=== PATIENT | male | born 1945 | race African-American/Black ===

== ENCOUNTER 2019-02-22 13:15 | Inpatient (IN) | payer MEDICARE ==
[~2019-02-22] VITALS: Ht 180.3 cm; Wt 84.9 kg
[2019-02-22] VITALS (8 sets, daily range): BP systolic 135–164; BP diastolic 55–80
[~2019-02-22 13:15] MED LIST: ALBU2.5V8 INH; AMIO200T4 PO; AMLO10TA8 PO; ASPI-612 PO; ATOR40TA59 PO; BUDE180A IH; FERR324T5 PO; FURO-68 PO; FURO-69 PO; FURO20TA3 PO; FURO40TA4 PO; GUAI5SYR PO; INSU100I13 SQ; INSU100I17 SQ; INSU100V8 SQ; ISOS30TA4 PO; LABE200T4 PO; METO-239 PO; METO100T7 PO; NEOM1PAC TP; ROSU10TA26 PO; TAMS0.4C97 PO; TICA90TA PO; WARF-31 PO
[2019-02-22] MEDS ORDERED: IPRATRPIUM/ALBUTEROL 0.5/2.5MG 3 ML NEBU. NEB ONE (13:30)
--- NOTE | 2019-02-22 13:38 | PHYS DOC ---
Past Medical History Past Medical History: A-Fib, Anemia, CAD, CHF, Diabetes-Type I, Hypertension, Pneumonia, Renal Failure Past Surgical History: Other Additional Past Surgical Histo: HEART CATH,STENT, Alcohol Use: None Drug Use: None Adult General Chief Complaint Chief Complaint: SHORTNESS OF BREATH HPI HPI 73-year-old male presenting to the emergency department today with shortness of breath. He comes in by EMS. On arrival the patient was hypoxic by EMS and was placed on a nonrebreather. The patient's shortness of breath started over the past 24 hours. He recently was admitted for a LAD stent by Dr. Haas on the of last month. He denies any chest pain or abdominal pain. Location lungs. Duration constant. Improved with nonrebreather. Review of systems is negative for abdominal pain nausea vomiting diaphoresis fevers or chills. All other review of systems is negative. ED course: 73-year-old male presenting the emergency department today with acute respiratory failure. Patient is placed on BiPAP on arrival to the emergency department. Saturations improved significantly. EKG obtained and reviewed by myself shows A. fib with a left bundle branch block pattern does not meet STEMI criteria. Chest x-ray ordered along with blood work and a nebulizer. Blood work shows hemoglobin at baseline at 8.8. Chemistry panel shows creatinine at baseline at 3.5. ProBNP is elevated 27,000 and troponin is elevated at 1.1 down from 4.2 on the of last month. Chest x-ray post shows pulmonary edema which is consistent with the findings on physical exam. Patient is volume overloaded. IV Lasix given here in the emergency department along with Zosyn to cover for possible infection though this seems cardiac in nature. We will admit the patient to the intensive care unit on BiPAP. I spoke with the cooker helper Dr. Grier and communicated the above findings. He will follow the patient. The patient was then admitted to the hospitalist for further treatment and care. Current Medications Current Medications Current Medications Medications (Trade) Dose Ordered Sig/Gwen Start Time Stop Time Status Last Admin Dose Admin Albuterol/ Ipratropium (Duoneb) 3 ml 1X ONCE 02/22/19 13:30 02/22/19 13:31 DC 02/22/19 13:39 3 ML Allergies Allergies Allergies Coded Allergies Type Severity Reaction Last Updated Verified No Known Drug Allergies 01/24/19 No Physical Exam Physical Exam Constitutional: Well developed, well nourished, patient placed on BiPAP with increased respiratory effort but improving. HENT: Normocephalic, atraumatic, bilateral external ears normal, oropharynx moist, no oral exudates, nose normal. [] Eyes: PERRLA, EOMI, conjunctiva normal, no discharge. [] Neck: Normal range of motion, no tenderness, supple, no stridor. [] Cardiovascular:Heart rate regular rhythm, no murmur [] Lungs & Thorax: Crackles at the bases. Abdomen: Bowel sounds normal, soft, no tenderness, no masses, no pulsatile masses. [] Skin: Warm, dry, no erythema, no rash. [] Back: No tenderness, no CVA tenderness. [] Extremities: No tenderness, no cyanosis, no clubbing, ROM intact, 2+ edema in the legs bilaterally. Neurologic: Alert and oriented X 3, normal motor function, normal sensory function, no focal deficits noted. [] Psychologic: Affect normal, judgement normal, mood normal. [] Current Patient Data Vital Signs Vital Signs Date Time Temp Pulse Resp B/P (MAP) Pulse Ox O2 Delivery O2 Flow Rate FiO2 02/22/19 13:58 57 16 151/62 (91) 74 02/22/19 13:32 BiPAP/CPAP 02/22/19 13:15 97.3 97.3 Lab Values Laboratory Tests Test 02/22/19 13:27 White Blood Count 9.0 x10^3/uL (4.0-11.0) Red Blood Count 3.60 x10^6/uL (4.30-5.70) L Hemoglobin 8.8 g/dL (13.0-17.5) L Hematocrit 27.8 % (39.0-53.0) L Mean Corpuscular Volume 77 fL (79-100) L Mean Corpuscular Hemoglobin 25 pg (25-35) Mean Corpuscular Hemoglobin Concent 32 g/dL (31-37) Red Cell Distribution Width 21.5 % (11.5-14.5) H Platelet Count 233 x10^3/uL (140-400) Neutrophils (%) (Auto) 74 % (31-73) H Lymphocytes (%) (Auto) 9 % (24-48) L Monocytes (%) (Auto) 17 % (0-9) H Eosinophils (%) (Auto) 0 % (0-3) Basophils (%) (Auto) 0 % (0-3) Neutrophils # (Auto) 6.7 x10^3/uL (1.8-7.7) Lymphocytes # (Auto) 0.8 x10^3/uL (1.0-4.8) L Monocytes # (Auto) 1.5 x10^3/uL (0.0-1.1) H Eosinophils # (Auto) 0.0 x10^3/uL (0.0-0.7) Basophils # (Auto) 0.0 x10^3/uL (0.0-0.2) Platelet Estimate Adequate (ADEQUATE) Polychromasia Slight Hypochromasia Slight Anisocytosis Mod Schistocytes Few Sodium Level 137 mmol/L (136-145) Potassium Level 4.1 mmol/L (3.5-5.1) Chloride Level 101 mmol/L (98-107) Carbon Dioxide Level 23 mmol/L (21-32) Anion Gap 13 (6-14) Blood Urea Nitrogen 62 mg/dL (8-26) H Creatinine 3.5 mg/dL (0.7-1.3) H Estimated GFR (Cockcroft-Gault) 20.8 Glucose Level 206 mg/dL (70-99) H Calcium Level 8.7 mg/dL (8.5-10.1) Total Bilirubin 1.4 mg/dL (0.2-1.0) H Direct Bilirubin 0.4 mg/dL (0.0-0.2) H Aspartate Amino Transferase (AST) 31 U/L (15-37) Alanine Aminotransferase (ALT) 60 U/L (16-63) Alkaline Phosphatase 133 U/L (46-116) H Troponin I Quantitative 1.115 ng/mL (0.000-0.055) OC-Xpg-U-Type Natriuretic Peptide 48010 pg/mL (0-124) H Total Protein 8.3 g/dL (6.4-8.2) H Albumin 3.1 g/dL (3.4-5.0) L Lipase 126 U/L (73-393) Laboratory Tests 02/22/19 13:27 Laboratory Tests 02/22/19 13:27 EKG EKG [] Radiology/Procedures Radiology/Procedures [] Course & Med Decision Making Course & Med Decision Making Pertinent Labs and Imaging studies reviewed. (See chart for details) [] Dragon Disclaimer Dragon Disclaimer This electronic medical record was generated, in whole or in part, using a voice recognition dictation system. Departure Departure Impression: Primary Impression: Respiratory failure Additional Impression: CHF (congestive heart failure) Disposition: ADMITTED INPATIENT Admitting Physician: CURRY Condition: GUARDED Referrals: BERKLEY MONROY MD (PCP) Critical Care Time Critical care time spent was 45 minutes exclusive of procedures. Time was spent evaluating the patient, ordering the administration of medications, reevaluating the patient, discussing with the admitting provider and documenting. Problem Qualifiers RALPH WOOTEN MD Feb 22, 2019 13:38
[2019-02-22 13:48] LABS: BASO % 0 % (0-3); EOS % 0 % (0-3); HEMATOCRIT 27.8 % (39.0-53.0); HEMOGLOBIN 8.8 g/dL (13.0-17.5); LYMPH # 0.8 x10^3/uL (1.0-4.8); LYMPH % 9 % (24-48); MEAN CORPUSCULAR HEMOGLOBIN 25 pg (25-35); MEAN CORPUSCULAR HGB CONC 32 g/dL (31-37); MEAN CORPUSCULAR VOLUME 77 fL (79-100); MONO # 1.5 x10^3/uL (0.0-1.1); MONO % 17 % (0-9); NEUT # 6.7 x10^3/uL (1.8-7.7); NEUT % 74 % (31-73); PLATELET COUNT 233 x10^3/uL (140-400); RED CELL DISTRIBUTION WIDTH 21.5 % (11.5-14.5)
[2019-02-22 13:52] LABS: CALCIUM 8.7 mg/dL (8.5-10.1); CREATININE 3.5 mg/dL (0.7-1.3); GFR 20.8; POTASSIUM 4.1 mmol/L (3.5-5.1)
[2019-02-22 13:58] LABS: ALBUMIN 3.1 g/dL (3.4-5.0); DIRECT BILIRUBIN 0.4 mg/dL (0.0-0.2); TOTAL BILIRUBIN 1.4 mg/dL (0.2-1.0); TOTAL PROTEIN 8.3 g/dL (6.4-8.2)
--- NOTE | 2019-02-22 14:17 | RAD ---
CHEST AP ONLY History: Shortness of breath. February 20, 2019 comparison. Progression of infiltrates/edema in both lungs, greater towards the bases. Small right pleural effusion and small left pleural effusion, have improved since prior study. Vascular congestion appears similar. No evidence of pneumothorax. IMPRESSION: Worsening of pulmonary infiltrate and/or edema in both lungs, greater towards the bases. Small pleural effusions, although improved since prior study. Electronically signed by: José Crespo MD (02/22/2019 2:14 PM) [facility]
[2019-02-22 14:18] LABS: ANISOCYTOSIS MOD; HYPOCHROMIA SLIGHT; PLT ESTIMATE ADEQUATE (ADEQUATE); POLYCHROMASIA SLIGHT
[2019-02-22 14:19] LABS: SCHISTOCYTES FEW
[2019-02-22] MEDS ORDERED: PIP/TAZO PER PHARMACY MC PRN (14:30)
[2019-02-22] MEDS ORDERED: FUROSEMIDE 40 MG/4 ML VIAL. IVP ONE (14:30)
[2019-02-22 14:39] LABS: BASE EXCESS COOX -3 mmol/L (-3-3); HCO3 COOX 20 mmol/L (21-28); METHEMOGLOBIN 0.7 % (0.0-1.9); OXYHEMOGLOBIN 92.2 %; PCO2 COOX 30 mmHg (35-46); PO2 COOX 68 mmHg (65-108); SAT O2 COOX 93 % (92-99)
[2019-02-22] MEDS ORDERED: PIPERACILLIN/TAZOBACTAM 3.375 GM in IV NORMAL SALINE 50ML 50 ML IV ONE (14:45)
--- NOTE | 2019-02-22 14:50 | PDOC1 ---
History and Physical Date of Admission Date of Admission DATE: 02/22/19 TIME: 14:49 Identification/Chief Complaint Chief Complaint CC SEEN IN emergency department today with shortness of breath. He comes in by EMS. On arrival the patient was hypoxic by EMS and was placed on a nonrebreather. The patient's shortness of breath started over the past 24 hours. He recently was admitted for a LAD stent by Dr. Haas on the 19 of FEBRUARY He denies any chest pain or abdominal pain. Duration constant. Improved with nonrebreather. Past Medical History Past Medical History Past Medical History Past Medical History Past Medical History: A-Fib, Anemia, CAD, CHF, Diabetes-Type I, Hypertension, Pneumonia, Renal Failure Past Surgical History: Other Additional Past Surgical Histo: HEART CATH,STENT, Alcohol Use: None Drug Use: None fhx htn Cardiovascular: AFIB, CAD, CHF, HTN Pulmonary: Pneumonia GI: Other Heme/Onc: Anemia NOS Hepatobiliary: No pertinent hx Psych: No pertinent hx Musculoskeletal: Osteoarthritis Rheumatologic: No pertinent hx Infectious disease: No pertinent hx Renal/: Chronic renal insuff Endocrine: Diabetes Past Surgical History Past Surgical History: Other Family History Family History: Hypertension Social History Smoke: <1 pack per day ALCOHOL: none Drugs: None Current Problem List Problem List Problems Medical Problems: (1) Respiratory failure Status: Acute Current Medications Current Medications Current Medications Albuterol/ Ipratropium (Duoneb) 3 ml 1X ONCE NEB Last administered on 02/22/19at 13:39; Start 02/22/19 at 13:30; Stop 02/22/19 at 13:31; Status DC Furosemide (Lasix) 40 mg 1X ONCE IVP ; Start 02/22/19 at 14:30; Stop 02/22/19 at 14:34; Status DC Piperacillin Sod/ Tazobactam Sod (Zosyn Per Pharmacy) 1 each PRN DAILY PRN MC SEE COMMENTS; Start 02/22/19 at 14:30 Piperacillin Sod/ Tazobactam Sod 3.375 gm/Sodium Chloride 50 ml @ 100 mls/hr 1X ONCE IV ; Start 02/22/19 at 14:45; Stop 02/22/19 at 15:14 Active Scripts Active Proair Hfa (Albuterol Sulfate) 8.5 Gm Hfa.aer.ad 1 Puff INH PRN Q6HRS PRN 30 Days Pulmicort Flexhaler (Budesonide) 180 Mcg Aer.pow.ba 2 Puff IH BID Guaifenesin Dm Syrup (Guaifenesin/Dextromethorphan) 5 Ml Syrup 10 Ml PO PRN Q6HRS PRN 7 Days Lantus (Insulin Glargine,Hum.rec.anlog) 100 Unit/1 Ml Vial 15 Unit SQ HS 30 Days Furosemide 40 Mg Tablet 40 Mg PO BID92 Aspirin Ec (Aspirin) 81 Mg Tablet.dr 81 Mg PO [id number] Metoprolol Succinate ( Xl ) (Metoprolol Succinate) 25 Mg Tab.er.24h 50 Mg PO DAILY Isosorbide Mononitrate Er (Isosorbide Mononitrate) 30 Mg Tab.er.24h 30 Mg PO DAILY Atorvastatin Calcium 40 Mg Tablet 40 Mg PO QHS Brilinta (Ticagrelor) 90 Mg Tablet 90 Mg PO BID Amiodarone Hcl 200 Mg Tablet 200 Mg PO DAILY Reported Warfarin Sodium 5 Mg Tablet 5 Mg PO DAILY take 5mg on sat,sat.thur,sat,sun take 6 mg on saturday and saturday Ferrous Sulfate 324 Mg Tablet.dr 324 Mg PO DAILY Flomax (Tamsulosin Hcl) 0.4 Mg Cap.er.24h 0.4 Mg PO DAILY Allergies Allergies: Coded Allergies: No Known Drug Allergies (Unverified , 01/24/19) ROS Review of System Review of systems is negative for abdominal pain nausea vomiting diaphoresis fevers or chills. 14 PT review of systems OTHERWISE negative. General: YES: Fatigue, Malaise PSYCHOLOGICAL ROS: YES: Concentration difficultie Eyes: Yes Decreased vision Hematological and Lymphatic: No: Bleeding Problems, Blood Clots, Blood Transfusions, Brusing, Night Sweats, Pallor, Swollen Lymph Nodes, Other Respiratory: YES: Shortness of breath, SOB with excertion, Sputum Changes Cardiovascular: yes Palpitations Gastrointestinal: No Nausea, No Vomiting, No Abdominal Pain, No Diarrhea, No Constipation, No Melena, No Hematochezia, No Other Musculoskeletal: Yes Joint Stiffness Neurological: Yes Confusion Skin: Yes Dry Skin Physical Exam Physical Exam Constitutional: Well developed, well nourished, /// placed on BiPAP with increased respiratory effort but improving. HENT: Normocephalic, atraumatic, bilateral external ears normal, oropharynx moist, no oral exudates, nose normal. [] Eyes: PERRLA, EOMI, conjunctiva normal, no discharge. [] Neck: Normal range of motion, no tenderness, supple, no stridor. [] Cardiovascular:Heart rate regular rhythm, no murmur [] Lungs & Thorax: Crackles at the bases. Abdomen: Bowel sounds normal, soft, no tenderness, no masses, no pulsatile masses. [] Skin: Warm, dry, no erythema, no rash. [] Back: No tenderness, no CVA tenderness. [] Extremities: No tenderness, no cyanosis, no clubbing, ROM intact, 2+ edema in the legs bilaterally. Neurologic: Alert and oriented X 3, normal motor function, normal sensory function, no focal deficits noted. [] Psychologic: Affect normal, judgement normal, mood normal. [] General: Cooperative HEENT: Atraumatic Breasts: Not examined Abdomen: Normal bowel sounds, Soft Extremities: No cyanosis Neuro: Cranial nerves 3-12 NL Vitals Vitals Vital Signs Date Time Temp Pulse Resp B/P (MAP) Pulse Ox O2 Delivery O2 Flow Rate FiO2 02/22/19 13:32 97 BiPAP/CPAP 02/22/19 13:15 97.3 59 30 148/66 (93) 97.3 Labs Labs Laboratory Tests Test 02/22/19 13:27 02/22/19 14:35 White Blood Count 9.0 x10^3/uL (4.0-11.0) Red Blood Count 3.60 x10^6/uL (4.30-5.70) Hemoglobin 8.8 g/dL (13.0-17.5) Hematocrit 27.8 % (39.0-53.0) Mean Corpuscular Volume 77 fL (79-100) Mean Corpuscular Hemoglobin 25 pg (25-35) Mean Corpuscular Hemoglobin Concent 32 g/dL (31-37) Red Cell Distribution Width 21.5 % (11.5-14.5) Platelet Count 233 x10^3/uL (140-400) Neutrophils (%) (Auto) 74 % (31-73) Lymphocytes (%) (Auto) 9 % (24-48) Monocytes (%) (Auto) 17 % (0-9) Eosinophils (%) (Auto) 0 % (0-3) Basophils (%) (Auto) 0 % (0-3) Neutrophils # (Auto) 6.7 x10^3/uL (1.8-7.7) Lymphocytes # (Auto) 0.8 x10^3/uL (1.0-4.8) Monocytes # (Auto) 1.5 x10^3/uL (0.0-1.1) Eosinophils # (Auto) 0.0 x10^3/uL (0.0-0.7) Basophils # (Auto) 0.0 x10^3/uL (0.0-0.2) Platelet Estimate Adequate (ADEQUATE) Polychromasia Slight Hypochromasia Slight Anisocytosis Mod Schistocytes Few Sodium Level 137 mmol/L (136-145) Potassium Level 4.1 mmol/L (3.5-5.1) Chloride Level 101 mmol/L (98-107) Carbon Dioxide Level 23 mmol/L (21-32) Anion Gap 13 (6-14) Blood Urea Nitrogen 62 mg/dL (8-26) Creatinine 3.5 mg/dL (0.7-1.3) Estimated GFR (Cockcroft-Gault) 20.8 Glucose Level 206 mg/dL (70-99) Calcium Level 8.7 mg/dL (8.5-10.1) Total Bilirubin 1.4 mg/dL (0.2-1.0) Direct Bilirubin 0.4 mg/dL (0.0-0.2) Aspartate Amino Transf (AST/SGOT) 31 U/L (15-37) Alanine Aminotransferase (ALT/SGPT) 60 U/L (16-63) Alkaline Phosphatase 133 U/L (46-116) Troponin I Quantitative 1.115 ng/mL (0.000-0.055) WE-Zbt-S-Type Natriuretic Peptide 63462 pg/mL (0-124) Total Protein 8.3 g/dL (6.4-8.2) Albumin 3.1 g/dL (3.4-5.0) Lipase 126 U/L (73-393) O2 Saturation 93 % (92-99) Arterial Blood pH 7.45 (7.35-7.45) Arterial Blood pCO2 at Patient Temp 30 mmHg (35-46) Arterial Blood pO2 at Patient Temp 68 mmHg (65-108) Arterial Blood HCO3 20 mmol/L (21-28) Arterial Blood Base Excess -3 mmol/L (-3-3) Oxyhemoglobin 92.2 % Methemoglobin 0.7 % (0.0-1.9) Carbon Monoxide, Quantitative 0.1 % (0.0-1.9) FiO2 40 Laboratory Tests Test 02/22/19 13:27 02/22/19 14:35 White Blood Count 9.0 x10^3/uL (4.0-11.0) Red Blood Count 3.60 x10^6/uL (4.30-5.70) Hemoglobin 8.8 g/dL (13.0-17.5) Hematocrit 27.8 % (39.0-53.0) Mean Corpuscular Volume 77 fL (79-100) Mean Corpuscular Hemoglobin 25 pg (25-35) Mean Corpuscular Hemoglobin Concent 32 g/dL (31-37) Red Cell Distribution Width 21.5 % (11.5-14.5) Platelet Count 233 x10^3/uL (140-400) Neutrophils (%) (Auto) 74 % (31-73) Lymphocytes (%) (Auto) 9 % (24-48) Monocytes (%) (Auto) 17 % (0-9) Eosinophils (%) (Auto) 0 % (0-3) Basophils (%) (Auto) 0 % (0-3) Neutrophils # (Auto) 6.7 x10^3/uL (1.8-7.7) Lymphocytes # (Auto) 0.8 x10^3/uL (1.0-4.8) Monocytes # (Auto) 1.5 x10^3/uL (0.0-1.1) Eosinophils # (Auto) 0.0 x10^3/uL (0.0-0.7) Basophils # (Auto) 0.0 x10^3/uL (0.0-0.2) Platelet Estimate Adequate (ADEQUATE) Polychromasia Slight Hypochromasia Slight Anisocytosis Mod Schistocytes Few Sodium Level 137 mmol/L (136-145) Potassium Level 4.1 mmol/L (3.5-5.1) Chloride Level 101 mmol/L (98-107) Carbon Dioxide Level 23 mmol/L (21-32) Anion Gap 13 (6-14) Blood Urea Nitrogen 62 mg/dL (8-26) Creatinine 3.5 mg/dL (0.7-1.3) Estimated GFR (Cockcroft-Gault) 20.8 Glucose Level 206 mg/dL (70-99) Calcium Level 8.7 mg/dL (8.5-10.1) Total Bilirubin 1.4 mg/dL (0.2-1.0) Direct Bilirubin 0.4 mg/dL (0.0-0.2) Aspartate Amino Transf (AST/SGOT) 31 U/L (15-37) Alanine Aminotransferase (ALT/SGPT) 60 U/L (16-63) Alkaline Phosphatase 133 U/L (46-116) Troponin I Quantitative 1.115 ng/mL (0.000-0.055) ZX-Vqn-R-Type Natriuretic Peptide 93803 pg/mL (0-124) Total Protein 8.3 g/dL (6.4-8.2) Albumin 3.1 g/dL (3.4-5.0) Lipase 126 U/L (73-393) O2 Saturation 93 % (92-99) Arterial Blood pH 7.45 (7.35-7.45) Arterial Blood pCO2 at Patient Temp 30 mmHg (35-46) Arterial Blood pO2 at Patient Temp 68 mmHg (65-108) Arterial Blood HCO3 20 mmol/L (21-28) Arterial Blood Base Excess -3 mmol/L (-3-3) Oxyhemoglobin 92.2 % Methemoglobin 0.7 % (0.0-1.9) Carbon Monoxide, Quantitative 0.1 % (0.0-1.9) FiO2 40 Images Images Mitral Valve MV E Velocity 104.2cm/s MV DECEL TIME 187ms MV A Velocity 93.6cm/s E/A Ratio 1.1 TDI Lateral E' P. V 54.09cm/s Medial E' P. V 44.46cm/s E/Lateral E' 1.9 E/Medial E' 2.3 Pulmonary Vein S1 Velocity 44.7cm/s S2 Velocity 54.37cm/s D2 Velocity 54.4cm/s PVa duration 101msec LEFT VENTRICLE The left ventricle is normal size. There is mild to moderate concentric left ventricular hypertrophy. The left ventricular systolic function is mildly reduced. LVEF 40% Wall motion consistent with conduction abnormality. Mild to moderate global hypokinesis. Transmitral Doppler flow pattern is Grade II- pseudonormal filling dynamics. RIGHT VENTRICLE The right ventricle is borderline dilated. There is normal right ventricular wall thickness. The right ventricular systolic function is normal. ATRIA The left atrium is mildly dilated. The right atrium is moderately dilated. The interatrial septum is intact with no evidence for an atrial septal defect or patent foramen ovale as noted on 2-D or Doppler imaging. AORTIC VALVE The aortic valve is calcified but opens well. Doppler and Color Flow revealed no significant aortic regurgitation. There is no significant aortic valvular stenosis. MITRAL VALVE The mitral valve is normal in structure and function. There is no evidence of mitral valve prolapse. There is no mitral valve stenosis. Doppler and Color Flow revealed no mitral valve regurgitation noted. TRICUSPID VALVE The tricuspid valve is normal in structure and function. Doppler and Color Flow revealed no tricuspid valve regurgitation noted. There is no tricuspid valve prolapse or vegetation. There is no tricuspid valve stenosis. PULMONIC VALVE Doppler and Color Flow revealed no pulmonic valvular regurgitation. There is no pulmonic valvular stenosis. GREAT VESSELS The aortic root is normal in size. The IVC is normal in size and collapses >50% with inspiration. PERICARDIAL EFFUSION There is moderate left pleural effusion. There is no evidence of significant pericardial effusion. Critical Notification Critical Value: No <Conclusion> The left ventricular systolic function is mildly reduced. LVEF 40% Wall motion consistent with conduction abnormality. Mild to moderate global hypokinesis. There is moderate left pleural effusion. Signed by : Tera Haas, Electronically Approved : 01/26/2019 19:36:46 CHEST AP ONLY History: Shortness of breath. February 20, 2019 comparison. Progression of infiltrates/edema in both lungs, greater towards the bases. Small right pleural effusion and small left pleural effusion, have improved since prior study. Vascular congestion appears similar. No evidence of pneumothorax. IMPRESSION: Worsening of pulmonary infiltrate and/or edema in both lungs, greater towards the bases. Small pleural effusions, although improved since prior study. Electronically signed by: José Crespo MD (02/22/2019 2:14 PM) [facility] VTE Prophylaxis Ordered VTE Prophylaxis Devices: Yes VTE Pharmacological Prophylaxi: Yes Assessment/Plan Assessment/Plan IMPRESSION ELEVATED TROPONIN I Acute hypoxic respiratory failure - Acute on chronic diastolic/systolic CHF - EF 40% ECHO 02/09 The left ventricular systolic function is mildly reduced. LVEF 40% Wall motion consistent with conduction abnormality. Mild to moderate global hypokinesis. There WAS moderate left pleural effusion. CAD - s/p PCI/stent placement 2018. Hypertension - chronic renal insufficiency - Hyperlipidemia - Diabetes mellitus type 2 - Paroxysmal AFIB Anemia of chronic disease - on iron for RADHA. Worsening of pulmonary infiltrate and/or edema in both lungs, greater towards the bases. Small pleural effusions, PLAN ADMIT ICU PULM CONSULT IV LASIX 40MG X 1 ER CARDIOLOGY CONSULT SERIAL TROPONIN I EMPERIC IV ANTIBIOTICS ID CONSULT 114 MIN CC TIME JENI EASTMAN MD Feb 22, 2019 14:50
--- NOTE | 2019-02-22 17:01 | NUR ---
Pt arrived from ED via gurney. Pt states he does not know where he is at this time. Pt does not answer many questions. Currently on BIPAP. Dr. Richard notified of consult. Pt has chronic mendez catheter. Urine is clear and yellow. 2+ edema to BLE. currently at bedside. Denies any pain or discomfort at this time. Will continue to monitor.
[2019-02-22] MEDS ORDERED: guaiFENesin DM 200MG/20MG 10 ML SYRUP PO PRN (17:15)
[2019-02-22] MEDS ORDERED: ALBUTEROL SULFATE 2.5 MG/3 ML NEBU. INH PRN (17:15)
[2019-02-22 17:36] LABS: PROTHROMBIN TIME PATIENT 24.6 SEC (11.7-14.0)
[2019-02-22] MEDS: WARFARIN 5 MG TABLET. PO SCH (19:30)
[2019-02-22] MEDS ORDERED: ATROPINE 1 MG/10 ML DISP.SYRINGE. ONE (19:36)
[2019-02-22] MEDS ORDERED: ATROPINE 1 MG/10 ML DISP.SYRINGE. IV ONE (19:45)
--- NOTE | 2019-02-22 20:13 | NUR ---
Patient went armando into the 30s--day shift CN woke patient and heart rate came up, but he immediately began to armando back into the 30s and would not come back up--Atropine given, notified, orders received to consult cardiology at this time.
[2019-02-22] MEDS: BUDESONIDE 0.5 MG/2 ML NEBU. NEB SCH (20:20)
[2019-02-22] MEDS: ATORVASTATIN CALCIUM 40 MG TABLET. PO SCH (21:00)
[2019-02-22] MEDS: TICAGRELOR 90 MG TABLET. PO SCH (21:00)
[2019-02-22] MEDS: INSULIN GLARGINE SYRINGE. SQ SCH (21:33)
[2019-02-22] MEDS: PIPERACILLIN/TAZOBACTAM 3.375 GM in IV NORMAL SALINE 50ML 50 ML IV SCH (23:58)
[2019-02-23] VITALS (15 sets, daily range): BP systolic 137–173; BP diastolic 51–86
[2019-02-23 05:13] LABS: BASO % 1 % (0-3); EOS % 1 % (0-3); HEMATOCRIT 23.4 % (39.0-53.0); HEMOGLOBIN 7.5 g/dL (13.0-17.5); LYMPH % 18 % (24-48); MEAN CORPUSCULAR HEMOGLOBIN 24 pg (25-35); MEAN CORPUSCULAR HGB CONC 32 g/dL (31-37); MEAN CORPUSCULAR VOLUME 76 fL (79-100); MONO % 18 % (0-9); NEUT # 3.7 x10^3/uL (1.8-7.7); NEUT % 63 % (31-73); PLATELET COUNT 161 x10^3/uL (140-400); RED BLOOD COUNT 3.09 x10^6/uL (4.30-5.70); RED CELL DISTRIBUTION WIDTH 21.9 % (11.5-14.5); WHITE BLOOD COUNT 5.8 x10^3/uL (4.0-11.0)
[2019-02-23 05:33] LABS: ALBUMIN 2.5 g/dL (3.4-5.0); ALBUMIN/GLOBULIN RATIO 0.6 (1.0-1.7); CALCIUM 8.1 mg/dL (8.5-10.1); CREATININE 3.4 mg/dL (0.7-1.3); GFR 21.5; POTASSIUM 3.6 mmol/L (3.5-5.1); TOTAL BILIRUBIN 1.3 mg/dL (0.2-1.0); TOTAL PROTEIN 6.8 g/dL (6.4-8.2)
--- NOTE | 2019-02-23 06:17 | EKG ---
[facility] [address] [place] [address] Test Date: 2019-02-22 Test Time: 13:21:59 Pat Name: ROMMEL POLK Department: Room: Gender: M Inventory Planner: : 1945 Requested By: RALPH WOOTEN Order Number: [id number] Reading MD: Measurements Intervals [place] Rate: 61 P: 36 CO: 198 QRS: 3 QRSD: 172 T: 178 QT: 506 QTc: 516 Interpretive Statements SINUS RHYTHM ATRIAL PREMATURE COMPLEX(ES), TRIGEMINY LEFT BUNDLE BRANCH BLOCK ABNORMAL ECG No previous ECG available for comparison
[2019-02-23] MEDS: PIPERACILLIN/TAZOBACTAM 3.375 GM in IV NORMAL SALINE 50ML 50 ML IV SCH ×3 (06:26→17:18)
[2019-02-23 07:42] LABS: MAGNESIUM 1.9 mg/dL (1.8-2.4); PHOSPHORUS 4.2 mg/dL (2.6-4.7)
[2019-02-23] MEDS: BUDESONIDE 0.5 MG/2 ML NEBU. NEB SCH (08:07)
--- NOTE | 2019-02-23 08:15 | PDOC ---
Infectious Disease Note Vital Sign Vital Signs Vital Signs Date Time Temp Pulse Resp B/P (MAP) Pulse Ox O2 Delivery O2 Flow Rate FiO2 02/23/19 08:07 100 BiPAP/CPAP 02/23/19 08:00 65 24 141/58 (85) 02/23/19 04:00 98.2 98.2 Labs Lab Laboratory Tests Test 02/22/19 13:27 02/22/19 14:35 02/22/19 21:23 02/23/19 04:50 White Blood Count 9.0 x10^3/uL (4.0-11.0) 5.8 x10^3/uL (4.0-11.0) Red Blood Count 3.60 x10^6/uL (4.30-5.70) 3.09 x10^6/uL (4.30-5.70) Hemoglobin 8.8 g/dL (13.0-17.5) 7.5 g/dL (13.0-17.5) Hematocrit 27.8 % (39.0-53.0) 23.4 % (39.0-53.0) Mean Corpuscular Volume 77 fL (79-100) 76 fL (79-100) Mean Corpuscular Hemoglobin 25 pg (25-35) 24 pg (25-35) Mean Corpuscular Hemoglobin Concent 32 g/dL (31-37) 32 g/dL (31-37) Red Cell Distribution Width 21.5 % (11.5-14.5) 21.9 % (11.5-14.5) Platelet Count 233 x10^3/uL (140-400) 161 x10^3/uL (140-400) Neutrophils (%) (Auto) 74 % (31-73) 63 % (31-73) Lymphocytes (%) (Auto) 9 % (24-48) 18 % (24-48) Monocytes (%) (Auto) 17 % (0-9) 18 % (0-9) Eosinophils (%) (Auto) 0 % (0-3) 1 % (0-3) Basophils (%) (Auto) 0 % (0-3) 1 % (0-3) Neutrophils # (Auto) 6.7 x10^3/uL (1.8-7.7) 3.7 x10^3/uL (1.8-7.7) Lymphocytes # (Auto) 0.8 x10^3/uL (1.0-4.8) 1.0 x10^3/uL (1.0-4.8) Monocytes # (Auto) 1.5 x10^3/uL (0.0-1.1) 1.0 x10^3/uL (0.0-1.1) Eosinophils # (Auto) 0.0 x10^3/uL (0.0-0.7) 0.0 x10^3/uL (0.0-0.7) Basophils # (Auto) 0.0 x10^3/uL (0.0-0.2) 0.0 x10^3/uL (0.0-0.2) Platelet Estimate Adequate (ADEQUATE) Polychromasia Slight Hypochromasia Slight Anisocytosis Mod Schistocytes Few Prothrombin Time 24.6 SEC (11.7-14.0) Prothromb Time International Ratio 2.2 (0.8-1.1) Sodium Level 137 mmol/L (136-145) 142 mmol/L (136-145) Potassium Level 4.1 mmol/L (3.5-5.1) 3.6 mmol/L (3.5-5.1) Chloride Level 101 mmol/L (98-107) 106 mmol/L (98-107) Carbon Dioxide Level 23 mmol/L (21-32) 26 mmol/L (21-32) Anion Gap 13 (6-14) 10 (6-14) Blood Urea Nitrogen 62 mg/dL (8-26) 59 mg/dL (8-26) Creatinine 3.5 mg/dL (0.7-1.3) 3.4 mg/dL (0.7-1.3) Estimated GFR (Cockcroft-Gault) 20.8 21.5 Glucose Level 206 mg/dL (70-99) 110 mg/dL (70-99) Calcium Level 8.7 mg/dL (8.5-10.1) 8.1 mg/dL (8.5-10.1) Total Bilirubin 1.4 mg/dL (0.2-1.0) 1.3 mg/dL (0.2-1.0) Direct Bilirubin 0.4 mg/dL (0.0-0.2) Aspartate Amino Transf (AST/SGOT) 31 U/L (15-37) 24 U/L (15-37) Alanine Aminotransferase (ALT/SGPT) 60 U/L (16-63) 45 U/L (16-63) Alkaline Phosphatase 133 U/L (46-116) 104 U/L (46-116) Troponin I Quantitative 1.115 ng/mL (0.000-0.055) VS-Kgn-[id number]-Type Natriuretic Peptide 85201 pg/mL (0-124) Total Protein 8.3 g/dL (6.4-8.2) 6.8 g/dL (6.4-8.2) Albumin 3.1 g/dL (3.4-5.0) 2.5 g/dL (3.4-5.0) Lipase 126 U/L (73-393) O2 Saturation 93 % (92-99) Arterial Blood pH 7.45 (7.35-7.45) Arterial Blood pCO2 at Patient Temp 30 mmHg (35-46) Arterial Blood pO2 at Patient Temp 68 mmHg (65-108) Arterial Blood HCO3 20 mmol/L (21-28) Arterial Blood Base Excess -3 mmol/L (-3-3) Oxyhemoglobin 92.2 % Methemoglobin 0.7 % (0.0-1.9) Carbon Monoxide, Quantitative 0.1 % (0.0-1.9) FiO2 40 Glucose (Fingerstick) 146 mg/dL (70-99) BUN/Creatinine Ratio 17 (6-20) Phosphorus Level 4.2 mg/dL (2.6-4.7) Magnesium Level 1.9 mg/dL (1.8-2.4) Albumin/Globulin Ratio 0.6 (1.0-1.7) Objective Assessment pt seen, consult dictated Plan Plan of Care // HUA DUVALL MD Feb 23, 2019 08:14
[2019-02-23] MEDS: ASPIRIN ENTERIC COATED 81 MG TABLET.DR. PO SCH (08:53)
[2019-02-23] MEDS: FUROSEMIDE 40 MG TABLET. PO SCH ×2 (08:53→13:35)
[2019-02-23] MEDS: ISOSORBIDE MONONITRATE ER 30 MG TAB.ER.24H PO SCH (08:53)
[2019-02-23] MEDS: TAMSULOSIN 0.4 MG CAP.ER.24H. PO SCH (08:53)
[2019-02-23] MEDS: TICAGRELOR 90 MG TABLET. PO SCH ×2 (08:53→21:48)
[2019-02-23 08:57] LABS: BASE EXCESS ABG 0 mmol/L (-3-3); HCO3 ABG 25 mmol/L (21-28); PCO2 ABG 40 mmHg (35-46); PO2 ABG 94 mmHg (65-108); SAT O2 ABG 97 % (92-99)
[2019-02-23 08:59] LABS: FIO2 ABG 40%
--- NOTE | 2019-02-23 08:59 | CONS ---
DATE OF CONSULTATION: 02/23/2019 REQUESTING PHYSICIAN: Palmer Yee MD REASON FOR CONSULTATION: Pulmonary infiltrate, rule out pneumonia. HISTORY OF PRESENT ILLNESS: This is a 73-year-old -[place] gentleman who had just recently been discharged with LAD stent done on . The patient returned with shortness of breath, was found to be hypoxic by EMS, bilateral pulmonary infiltrates seen. The patient was admitted. Apart from the diuresis, the patient has been started on Zosyn and Zyvox. The patient denies any fever. Denies any nausea, vomiting, diarrhea. Denies any chest pain. Continues to have shortness of breath. Denies any headache or visual symptoms. Denies any abdominal pain or urinary symptoms. PAST MEDICAL HISTORY: Positive for diabetes mellitus, hypertension, renal insufficiency, coronary artery disease with cardiomyopathy, congestive heart failure, atrial fibrillation, anemia, recent cardiac cath and stenting done. SOCIAL HISTORY: Negative for smoking, alcohol, illicit drug use. ALLERGIES: No known drug allergies. CURRENT MEDICATIONS: Reviewed. REVIEW OF SYSTEMS: As per HPI, all other systems reviewed are negative. PHYSICAL EXAMINATION: GENERAL: Alert, oriented gentleman on a BiPAP, in mild to moderate respiratory distress. VITAL SIGNS: Stable, afebrile. HEENT: NAD. NECK: Supple, no JVP, no lymphadenopathy. LUNGS: Clear. HEART: S1, S2 regular. ABDOMEN: Benign. EXTREMITIES: No edema, cyanosis. SKIN: Unremarkable. NEUROLOGIC: The patient is neurologically alert, awake and appropriate. No focal neurologic deficit. LABORATORY DATA: White count is 5.8, hemoglobin 7.5, platelets are 161,000. BUN and creatinine is 59 and 3.4. His troponin is 1.1. BNP is 27,667. Urinalysis not done. Last blood culture at the last admission was unremarkable. Chest x-ray showed bilateral pulmonary vascular congestion/infiltrate. IMPRESSION: 1. Respiratory failure with hypoxemia. 2. Congestive heart failure. Bilateral pulmonary infiltrate, most likely related to congestive heart failure, pulmonary infection appears less likely. 3. Cardiomyopathy. 4. Renal insufficiency. 5. Diabetes. 6. Hypertension. RECOMMENDATIONS: We would discontinue Zyvox, continue Zosyn, soon to be able to scale down that further as per the patient stabilizes. Thank you very much, Dr. Yee, for giving me the opportunity to participate in this patient's care. HUA DUVALL MD DR: ILENE/talita JOB#: [id number] / [id number]
[2019-02-23] MEDS: METOPROLOL SUCC 24HR ER 50 MG TAB.ER.24H. PO SCH (09:00)
[2019-02-23] MEDS: AMIODARONE HCL 200 MG TABLET. PO SCH (09:00)
--- NOTE | 2019-02-23 09:42 | PDOC ---
PULMONARY PROGRESS NOTES Vitals Vital Signs Date Time Temp Pulse Resp B/P (MAP) Pulse Ox O2 Delivery O2 Flow Rate FiO2 02/23/19 09:00 98.2 59 20 156/57 (90) 100 Room Air 98.2 General: Alert, No acute distress HEENT: Other Lungs: Clear Cardiovascular: S1, S2 Abdomen: Soft Extremities: Other Labs Laboratory Tests Test 02/22/19 13:27 02/22/19 14:35 02/22/19 21:23 02/23/19 04:50 White Blood Count 9.0 x10^3/uL (4.0-11.0) 5.8 x10^3/uL (4.0-11.0) Red Blood Count 3.60 x10^6/uL (4.30-5.70) 3.09 x10^6/uL (4.30-5.70) Hemoglobin 8.8 g/dL (13.0-17.5) 7.5 g/dL (13.0-17.5) Hematocrit 27.8 % (39.0-53.0) 23.4 % (39.0-53.0) Mean Corpuscular Volume 77 fL (79-100) 76 fL (79-100) Mean Corpuscular Hemoglobin 25 pg (25-35) 24 pg (25-35) Mean Corpuscular Hemoglobin Concent 32 g/dL (31-37) 32 g/dL (31-37) Red Cell Distribution Width 21.5 % (11.5-14.5) 21.9 % (11.5-14.5) Platelet Count 233 x10^3/uL (140-400) 161 x10^3/uL (140-400) Neutrophils (%) (Auto) 74 % (31-73) 63 % (31-73) Lymphocytes (%) (Auto) 9 % (24-48) 18 % (24-48) Monocytes (%) (Auto) 17 % (0-9) 18 % (0-9) Eosinophils (%) (Auto) 0 % (0-3) 1 % (0-3) Basophils (%) (Auto) 0 % (0-3) 1 % (0-3) Neutrophils # (Auto) 6.7 x10^3/uL (1.8-7.7) 3.7 x10^3/uL (1.8-7.7) Lymphocytes # (Auto) 0.8 x10^3/uL (1.0-4.8) 1.0 x10^3/uL (1.0-4.8) Monocytes # (Auto) 1.5 x10^3/uL (0.0-1.1) 1.0 x10^3/uL (0.0-1.1) Eosinophils # (Auto) 0.0 x10^3/uL (0.0-0.7) 0.0 x10^3/uL (0.0-0.7) Basophils # (Auto) 0.0 x10^3/uL (0.0-0.2) 0.0 x10^3/uL (0.0-0.2) Platelet Estimate Adequate (ADEQUATE) Polychromasia Slight Hypochromasia Slight Anisocytosis Mod Schistocytes Few Prothrombin Time 24.6 SEC (11.7-14.0) Prothromb Time International Ratio 2.2 (0.8-1.1) Sodium Level 137 mmol/L (136-145) 142 mmol/L (136-145) Potassium Level 4.1 mmol/L (3.5-5.1) 3.6 mmol/L (3.5-5.1) Chloride Level 101 mmol/L (98-107) 106 mmol/L (98-107) Carbon Dioxide Level 23 mmol/L (21-32) 26 mmol/L (21-32) Anion Gap 13 (6-14) 10 (6-14) Blood Urea Nitrogen 62 mg/dL (8-26) 59 mg/dL (8-26) Creatinine 3.5 mg/dL (0.7-1.3) 3.4 mg/dL (0.7-1.3) Estimated GFR (Cockcroft-Gault) 20.8 21.5 Glucose Level 206 mg/dL (70-99) 110 mg/dL (70-99) Calcium Level 8.7 mg/dL (8.5-10.1) 8.1 mg/dL (8.5-10.1) Total Bilirubin 1.4 mg/dL (0.2-1.0) 1.3 mg/dL (0.2-1.0) Direct Bilirubin 0.4 mg/dL (0.0-0.2) Aspartate Amino Transf (AST/SGOT) 31 U/L (15-37) 24 U/L (15-37) Alanine Aminotransferase (ALT/SGPT) 60 U/L (16-63) 45 U/L (16-63) Alkaline Phosphatase 133 U/L (46-116) 104 U/L (46-116) Troponin I Quantitative 1.115 ng/mL (0.000-0.055) PG-Qtj-P-Type Natriuretic Peptide 77821 pg/mL (0-124) Total Protein 8.3 g/dL (6.4-8.2) 6.8 g/dL (6.4-8.2) Albumin 3.1 g/dL (3.4-5.0) 2.5 g/dL (3.4-5.0) Lipase 126 U/L (73-393) O2 Saturation 93 % (92-99) Arterial Blood pH 7.45 (7.35-7.45) Arterial Blood pCO2 at Patient Temp 30 mmHg (35-46) Arterial Blood pO2 at Patient Temp 68 mmHg (65-108) Arterial Blood HCO3 20 mmol/L (21-28) Arterial Blood Base Excess -3 mmol/L (-3-3) Oxyhemoglobin 92.2 % Methemoglobin 0.7 % (0.0-1.9) Carbon Monoxide, Quantitative 0.1 % (0.0-1.9) FiO2 40 Glucose (Fingerstick) 146 mg/dL (70-99) BUN/Creatinine Ratio 17 (6-20) Phosphorus Level 4.2 mg/dL (2.6-4.7) Magnesium Level 1.9 mg/dL (1.8-2.4) Albumin/Globulin Ratio 0.6 (1.0-1.7) Test 02/23/19 08:10 O2 Saturation 97 % (92-99) Arterial Blood pH 7.41 (7.35-7.45) Arterial Blood pCO2 at Patient Temp 40 mmHg (35-46) Arterial Blood pO2 at Patient Temp 94 mmHg (65-108) Arterial Blood HCO3 25 mmol/L (21-28) Arterial Blood Base Excess 0 mmol/L (-3-3) FiO2 40% Laboratory Tests Test 02/22/19 13:27 02/22/19 14:35 02/22/19 21:23 9/2/19 04:50 White Blood Count 9.0 x10^3/uL (4.0-11.0) 5.8 x10^3/uL (4.0-11.0) Red Blood Count 3.60 x10^6/uL (4.30-5.70) 3.09 x10^6/uL (4.30-5.70) Hemoglobin 8.8 g/dL (13.0-17.5) 7.5 g/dL (13.0-17.5) Hematocrit 27.8 % (39.0-53.0) 23.4 % (39.0-53.0) Mean Corpuscular Volume 77 fL (79-100) 76 fL (79-100) Mean Corpuscular Hemoglobin 25 pg (25-35) 24 pg (25-35) Mean Corpuscular Hemoglobin Concent 32 g/dL (31-37) 32 g/dL (31-37) Red Cell Distribution Width 21.5 % (11.5-14.5) 21.9 % (11.5-14.5) Platelet Count 233 x10^3/uL (140-400) 161 x10^3/uL (140-400) Neutrophils (%) (Auto) 74 % (31-73) 63 % (31-73) Lymphocytes (%) (Auto) 9 % (24-48) 18 % (24-48) Monocytes (%) (Auto) 17 % (0-9) 18 % (0-9) Eosinophils (%) (Auto) 0 % (0-3) 1 % (0-3) Basophils (%) (Auto) 0 % (0-3) 1 % (0-3) Neutrophils # (Auto) 6.7 x10^3/uL (1.8-7.7) 3.7 x10^3/uL (1.8-7.7) Lymphocytes # (Auto) 0.8 x10^3/uL (1.0-4.8) 1.0 x10^3/uL (1.0-4.8) Monocytes # (Auto) 1.5 x10^3/uL (0.0-1.1) 1.0 x10^3/uL (0.0-1.1) Eosinophils # (Auto) 0.0 x10^3/uL (0.0-0.7) 0.0 x10^3/uL (0.0-0.7) Basophils # (Auto) 0.0 x10^3/uL (0.0-0.2) 0.0 x10^3/uL (0.0-0.2) Platelet Estimate Adequate (ADEQUATE) Polychromasia Slight Hypochromasia Slight Anisocytosis Mod Schistocytes Few Prothrombin Time 24.6 SEC (11.7-14.0) Prothromb Time International Ratio 2.2 (0.8-1.1) Sodium Level 137 mmol/L (136-145) 142 mmol/L (136-145) Potassium Level 4.1 mmol/L (3.5-5.1) 3.6 mmol/L (3.5-5.1) Chloride Level 101 mmol/L (98-107) 106 mmol/L (98-107) Carbon Dioxide Level 23 mmol/L (21-32) 26 mmol/L (21-32) Anion Gap 13 (6-14) 10 (6-14) Blood Urea Nitrogen 62 mg/dL (8-26) 59 mg/dL (8-26) Creatinine 3.5 mg/dL (0.7-1.3) 3.4 mg/dL (0.7-1.3) Estimated GFR (Cockcroft-Gault) 20.8 21.5 Glucose Level 206 mg/dL (70-99) 110 mg/dL (70-99) Calcium Level 8.7 mg/dL (8.5-10.1) 8.1 mg/dL (8.5-10.1) Total Bilirubin 1.4 mg/dL (0.2-1.0) 1.3 mg/dL (0.2-1.0) Direct Bilirubin 0.4 mg/dL (0.0-0.2) Aspartate Amino Transf (AST/SGOT) 31 U/L (15-37) 24 U/L (15-37) Alanine Aminotransferase (ALT/SGPT) 60 U/L (16-63) 45 U/L (16-63) Alkaline Phosphatase 133 U/L (46-116) 104 U/L (46-116) Troponin I Quantitative 1.115 ng/mL (0.000-0.055) CB-Pgq-B-Type Natriuretic Peptide 70999 pg/mL (0-124) Total Protein 8.3 g/dL (6.4-8.2) 6.8 g/dL (6.4-8.2) Albumin 3.1 g/dL (3.4-5.0) 2.5 g/dL (3.4-5.0) Lipase 126 U/L (73-393) O2 Saturation 93 % (92-99) Arterial Blood pH 7.45 (7.35-7.45) Arterial Blood pCO2 at Patient Temp 30 mmHg (35-46) Arterial Blood pO2 at Patient Temp 68 mmHg (65-108) Arterial Blood HCO3 20 mmol/L (21-28) Arterial Blood Base Excess -3 mmol/L (-3-3) Oxyhemoglobin 92.2 % Methemoglobin 0.7 % (0.0-1.9) Carbon Monoxide, Quantitative 0.1 % (0.0-1.9) FiO2 40 Glucose (Fingerstick) 146 mg/dL (70-99) BUN/Creatinine Ratio 17 (6-20) Phosphorus Level 4.2 mg/dL (2.6-4.7) Magnesium Level 1.9 mg/dL (1.8-2.4) Albumin/Globulin Ratio 0.6 (1.0-1.7) Test 02/23/19 08:10 O2 Saturation 97 % (92-99) Arterial Blood pH 7.41 (7.35-7.45) Arterial Blood pCO2 at Patient Temp 40 mmHg (35-46) Arterial Blood pO2 at Patient Temp 94 mmHg (65-108) Arterial Blood HCO3 25 mmol/L (21-28) Arterial Blood Base Excess 0 mmol/L (-3-3) FiO2 40% Medications Active Scripts Medications Dose Route/Sig Max Daily Dose Days Date Category Dose Instructions Proair Hfa (Albuterol Sulfate) 8.5 Gm Hfa.aer.ad 1 Puff INH PRN Q6HRS PRN 30 02/21/19 Rx Pulmicort Flexhaler (Budesonide) 180 Mcg Aer.pow.ba 2 Puff IH BID 02/21/19 Rx Guaifenesin Dm Syrup (Guaifenesin/Dextromethorphan) 5 Ml Syrup 10 Ml PO PRN Q6HRS PRN 7 02/21/19 Rx Lantus (Insulin Glargine,Hum.rec.anlog) 100 Unit/1 Ml Vial 15 Unit SQ HS 30 02/21/19 Rx Furosemide 40 Mg Tablet 40 Mg PO [id number] 02/21/19 Rx Aspirin Ec (Aspirin) 81 Mg Tablet.dr 81 Mg PO [id number] 02/21/19 Rx Metoprolol Succinate ( Xl ) (Metoprolol Succinate) 25 Mg Tab.er.24h 50 Mg PO DAILY 02/21/19 Rx Isosorbide Mononitrate Er (Isosorbide Mononitrate) 30 Mg Tab.er.24h 30 Mg PO DAILY 02/21/19 Rx Atorvastatin Calcium 40 Mg Tablet 40 Mg PO QHS 02/21/19 Rx Brilinta (Ticagrelor) 90 Mg Tablet 90 Mg PO BID 02/21/19 Rx Amiodarone Hcl 200 Mg Tablet 200 Mg PO DAILY 02/21/19 Rx Warfarin Sodium 5 Mg Tablet 5 Mg PO DAILY 01/24/19 Reported take 5mg on sat,sat.marcos,mary lou,sun take 6 mg on saturday and saturday Ferrous Sulfate 324 Mg Tablet.dr 324 Mg PO DAILY 01/24/19 Reported Flomax (Tamsulosin Hcl) 0.4 Mg Cap.er.24h 0.4 Mg PO DAILY 01/24/19 Reported Impression . FULL NOTE DICTATED ACUTE RESP FAILURE SEC TO ACUTE CHF ANAHY BLOCK MD Feb 23, 2019 09:42
[2019-02-23] MEDS: FERROUS SULFATE 325 MG TABLET. PO SCH (10:20)
--- NOTE | 2019-02-23 10:38 | NUR ---
Non administered 0900 PO Metoprolo and Amiodarone per Dr Lam. Patient was [place] last night Atropine was administered. HR in the 50's/ high 40's this morning. Will continue to monitor.
--- NOTE | 2019-02-23 12:25 | PDOC2 ---
CONSULT Date of Consult Date of Consult DATE: 02/23/19 TIME: 12:19 Reason for Consult Reason for Consult: heart failure, recent stent Referring Physician Referring Physician: Dr. Yee Identification/Chief Complaint Chief Complaint SOB Source Source: Chart review, Patient History of Present Illness Reason for Visit: The patient is a 73-year-old male who was recently discharged after a non-ST elevated myocardial infarction. On 02/19/19 he underwent cardiac catheterization that showed multivessel disease and a severe LAD lesion which was stented with a drug-eluting stent. An echocardiogram from 01/26/19 showed an ejection fraction of 40%. Patient has been treated with diuretics overnight and is feeling somewhat better. His creatinine is 3.4. He has been treated overnight and is feeling somewhat better today. He denies any chest pain today. Past Medical History Cardiovascular: AFIB, CAD, CHF, HTN Pulmonary: Pneumonia GI: Other Heme/Onc: Anemia NOS Hepatobiliary: No pertinent hx Psych: No pertinent hx Musculoskeletal: Osteoarthritis Rheumatologic: No pertinent hx Infectious disease: No pertinent hx Renal/: Chronic renal insuff Endocrine: Diabetes Past Surgical History Past Surgical History: Other (recent coronary stent) Family History Family History: Hypertension Social History <1 pack per day ALCOHOL: none Drugs: None Lives: with Family Current Problem List Problem List Problems Medical Problems: (1) Acute on chronic diastolic (congestive) heart failure Status: Acute (2) CHF (congestive heart failure) Status: Chronic (3) Respiratory failure Status: Acute Current Medications Current Medications Current Medications Albuterol/ Ipratropium (Duoneb) 3 ml 1X ONCE NEB Last administered on 02/22/19at 13:39; Start 02/22/19 at 13:30; Stop 02/22/19 at 13:31; Status DC Furosemide (Lasix) 40 mg 1X ONCE IVP Last administered on 02/22/19at 14:50; Start 02/22/19 at 14:30; Stop 02/22/19 at 14:34; Status DC Piperacillin Sod/ Tazobactam Sod (Zosyn Per Pharmacy) 1 each PRN DAILY PRN [facility] SEE COMMENTS; Start 02/22/19 at 14:30 Piperacillin Sod/ Tazobactam Sod 3.375 gm/Sodium Chloride 50 ml @ 100 mls/hr 1X ONCE IV Last administered on 02/22/19at 15:22; Start 02/22/19 at 14:45; Stop 02/22/19 at 15:14; Status DC Piperacillin Sod/ Tazobactam Sod 3.375 gm/Sodium Chloride 50 ml @ 100 mls/hr Q6HRS IV Last administered on 02/23/19at 06:26; Start 02/23/19 at 00:00 Albuterol Sulfate (Ventolin Neb Soln) 2.5 mg PRN Q6HRS PRN INH SHORTNESS OF BREATH; Start 02/22/19 at 17:15 Amiodarone HCl (Cordarone) 200 mg DAILY PO ; Start 02/23/19 at 09:00 Aspirin (Ecotrin) 81 mg DAILYWBKFT PO Last administered on 02/23/19at 08:53; Start 02/23/19 at 08:00 Atorvastatin Calcium (Lipitor) 40 mg QHS PO ; Start 02/22/19 at 21:00 Furosemide (Lasix) 40 mg BID92 PO Last administered on 02/23/19at 08:53; Start 02/23/19 at 09:00 Guaifenesin (Robitussin Dm) 10 ml PRN Q6HRS PRN PO COUGH; Start 02/22/19 at 17:15 Insulin Glargine (Lantus Syringe) 15 unit HS SQ Last administered on 02/22/19at 21:34; Start 02/22/19 at 21:00 Isosorbide Mononitrate (Imdur) 30 mg DAILY PO Last administered on 02/23/19at 08:53; Start 02/23/19 at 09:00 Metoprolol Succinate (Toprol Xl) 50 mg DAILY PO ; Start 02/23/19 at 09:00 Tamsulosin HCl (Flomax) 0.4 mg DAILY PO Last administered on 02/23/19at 08:53; Start 02/23/19 at 09:00 Ticagrelor (Brilinta) 90 mg BID PO Last administered on 02/23/19at 08:53; Start 02/22/19 at 21:00 Warfarin Sodium (Coumadin) 5 mg DAILY@1600 PO ; Start 02/22/19 at 19:30 Budesonide (Pulmicort) 0.5 mg RTBID NEB Last administered on 02/23/19at 08:07; Start 02/22/19 at 20:00; Stop 02/23/19 at 09:43; Status DC Ferrous Sulfate (Feosol) 325 mg DAILYWBKFT PO Last administered on 02/23/19at 10:20; Start 02/23/19 at 08:00 Warfarin Sodium (Coumadin Per Physician) 1 each PRN DAILY PRN [facility] SEE COMMENTS; Start 02/22/19 at 17:30 Atropine Sulfate (ATROPINE 1mg SYRINGE) 1 mg STK-MED ONCE .ROUTE ; Start 02/22/19 at 19:36; Stop 02/22/19 at 19:36; Status DC Atropine Sulfate (ATROPINE 1mg SYRINGE) 1 mg 1X ONCE IV Last administered on 02/22/19at 19:44; Start 02/22/19 at 19:45; Stop 02/22/19 at 19:50; Status DC Linezolid/Dextrose 300 ml @ 300 mls/hr Q12HR IV Last administered on 02/22/19at 22:26; Start 02/22/19 at 22:00; Stop 02/23/19 at 08:16; Status DC Lactobacillus Rhamnosus (Culturelle) 1 cap BID PO ; Start 02/23/19 at 21:00 Active Scripts Active Proair Hfa (Albuterol Sulfate) 8.5 Gm Hfa.aer.ad 1 Puff INH PRN Q6HRS PRN 30 Days Pulmicort Flexhaler (Budesonide) 180 Mcg Aer.pow.ba 2 Puff IH BID Guaifenesin Dm Syrup (Guaifenesin/Dextromethorphan) 5 Ml Syrup 10 Ml PO PRN Q6HRS PRN 7 Days Lantus (Insulin Glargine,Hum.rec.anlog) 100 Unit/1 Ml Vial 15 Unit SQ HS 30 Days Furosemide 40 Mg Tablet 40 Mg PO BID92 Aspirin Ec (Aspirin) 81 Mg Tablet.dr 81 Mg PO DAILYWBKFT Metoprolol Succinate ( Xl ) (Metoprolol Succinate) 25 Mg Tab.er.24h 50 Mg PO DAILY Isosorbide Mononitrate Er (Isosorbide Mononitrate) 30 Mg Tab.er.24h 30 Mg PO DAILY Atorvastatin Calcium 40 Mg Tablet 40 Mg PO QHS Brilinta (Ticagrelor) 90 Mg Tablet 90 Mg PO BID Amiodarone Hcl 200 Mg Tablet 200 Mg PO DAILY Reported Warfarin Sodium 5 Mg Tablet 5 Mg PO DAILY take 5mg on mon,sat.thur,sat,sun take 6 mg on saturday and saturday Ferrous Sulfate 324 Mg Tablet.dr 324 Mg PO DAILY Flomax (Tamsulosin Hcl) 0.4 Mg Cap.er.24h 0.4 Mg PO DAILY Allergies Allergies: Coded Allergies: No Known Drug Allergies (Unverified , 01/24/19) ROS General: YES: Fatigue Respiratory: YES: Shortness of breath, SOB with excertion Physical Exam General: mild distress Lungs: Other (decreased breath sounds) Heart: Other (irreg. rhythm) Abdomen: Normal bowel sounds Vitals VITALS Vital Signs Date Time Temp Pulse Resp B/P (MAP) Pulse Ox O2 Delivery O2 Flow Rate FiO2 02/23/19 11:00 98.2 61 25 146/63 (90) 100 Room Air 98.2 Labs Labs Laboratory Tests Test 02/22/19 13:27 02/22/19 14:35 02/22/19 21:23 02/23/19 04:50 White Blood Count 9.0 x10^3/uL (4.0-11.0) 5.8 x10^3/uL (4.0-11.0) Red Blood Count 3.60 x10^6/uL (4.30-5.70) 3.09 x10^6/uL (4.30-5.70) Hemoglobin 8.8 g/dL (13.0-17.5) 7.5 g/dL (13.0-17.5) Hematocrit 27.8 % (39.0-53.0) 23.4 % (39.0-53.0) Mean Corpuscular Volume 77 fL (79-100) 76 fL (79-100) Mean Corpuscular Hemoglobin 25 pg (25-35) 24 pg (25-35) Mean Corpuscular Hemoglobin Concent 32 g/dL (31-37) 32 g/dL (31-37) Red Cell Distribution Width 21.5 % (11.5-14.5) 21.9 % (11.5-14.5) Platelet Count 233 x10^3/uL (140-400) 161 x10^3/uL (140-400) Neutrophils (%) (Auto) 74 % (31-73) 63 % (31-73) Lymphocytes (%) (Auto) 9 % (24-48) 18 % (24-48) Monocytes (%) (Auto) 17 % (0-9) 18 % (0-9) Eosinophils (%) (Auto) 0 % (0-3) 1 % (0-3) Basophils (%) (Auto) 0 % (0-3) 1 % (0-3) Neutrophils # (Auto) 6.7 x10^3/uL (1.8-7.7) 3.7 x10^3/uL (1.8-7.7) Lymphocytes # (Auto) 0.8 x10^3/uL (1.0-4.8) 1.0 x10^3/uL (1.0-4.8) Monocytes # (Auto) 1.5 x10^3/uL (0.0-1.1) 1.0 x10^3/uL (0.0-1.1) Eosinophils # (Auto) 0.0 x10^3/uL (0.0-0.7) 0.0 x10^3/uL (0.0-0.7) Basophils # (Auto) 0.0 x10^3/uL (0.0-0.2) 0.0 x10^3/uL (0.0-0.2) Platelet Estimate Adequate (ADEQUATE) Polychromasia Slight Hypochromasia Slight Anisocytosis Mod Schistocytes Few Prothrombin Time 24.6 SEC (11.7-14.0) Prothromb Time International Ratio 2.2 (0.8-1.1) Sodium Level 137 mmol/L (136-145) 142 mmol/L (136-145) Potassium Level 4.1 mmol/L (3.5-5.1) 3.6 mmol/L (3.5-5.1) Chloride Level 101 mmol/L (98-107) 106 mmol/L (98-107) Carbon Dioxide Level 23 mmol/L (21-32) 26 mmol/L (21-32) Anion Gap 13 (6-14) 10 (6-14) Blood Urea Nitrogen 62 mg/dL (8-26) 59 mg/dL (8-26) Creatinine 3.5 mg/dL (0.7-1.3) 3.4 mg/dL (0.7-1.3) Estimated GFR (Cockcroft-Gault) 20.8 21.5 Glucose Level 206 mg/dL (70-99) 110 mg/dL (70-99) Calcium Level 8.7 mg/dL (8.5-10.1) 8.1 mg/dL (8.5-10.1) Total Bilirubin 1.4 mg/dL (0.2-1.0) 1.3 mg/dL (0.2-1.0) Direct Bilirubin 0.4 mg/dL (0.0-0.2) Aspartate Amino Transf (AST/SGOT) 31 U/L (15-37) 24 U/L (15-37) Alanine Aminotransferase (ALT/SGPT) 60 U/L (16-63) 45 U/L (16-63) Alkaline Phosphatase 133 U/L (46-116) 104 U/L (46-116) Troponin I Quantitative 1.115 ng/mL (0.000-0.055) HF-Szu-T-Type Natriuretic Peptide 69873 pg/mL (0-124) Total Protein 8.3 g/dL (6.4-8.2) 6.8 g/dL (6.4-8.2) Albumin 3.1 g/dL (3.4-5.0) 2.5 g/dL (3.4-5.0) Lipase 126 U/L (73-393) O2 Saturation 93 % (92-99) Arterial Blood pH 7.45 (7.35-7.45) Arterial Blood pCO2 at Patient Temp 30 mmHg (35-46) Arterial Blood pO2 at Patient Temp 68 mmHg (65-108) Arterial Blood HCO3 20 mmol/L (21-28) Arterial Blood Base Excess -3 mmol/L (-3-3) Oxyhemoglobin 92.2 % Methemoglobin 0.7 % (0.0-1.9) Carbon Monoxide, Quantitative 0.1 % (0.0-1.9) FiO2 40 Glucose (Fingerstick) 146 mg/dL (70-99) BUN/Creatinine Ratio 17 (6-20) Phosphorus Level 4.2 mg/dL (2.6-4.7) Magnesium Level 1.9 mg/dL (1.8-2.4) Albumin/Globulin Ratio 0.6 (1.0-1.7) Test 02/23/19 08:10 O2 Saturation 97 % (92-99) Arterial Blood pH 7.41 (7.35-7.45) Arterial Blood pCO2 at Patient Temp 40 mmHg (35-46) Arterial Blood pO2 at Patient Temp 94 mmHg (65-108) Arterial Blood HCO3 25 mmol/L (21-28) Arterial Blood Base Excess 0 mmol/L (-3-3) FiO2 40% Laboratory Tests Test 02/22/19 13:27 02/22/19 14:35 02/22/19 21:23 02/23/19 04:50 White Blood Count 9.0 x10^3/uL (4.0-11.0) 5.8 x10^3/uL (4.0-11.0) Red Blood Count 3.60 x10^6/uL (4.30-5.70) 3.09 x10^6/uL (4.30-5.70) Hemoglobin 8.8 g/dL (13.0-17.5) 7.5 g/dL (13.0-17.5) Hematocrit 27.8 % (39.0-53.0) 23.4 % (39.0-53.0) Mean Corpuscular Volume 77 fL (79-100) 76 fL (79-100) Mean Corpuscular Hemoglobin 25 pg (25-35) 24 pg (25-35) Mean Corpuscular Hemoglobin Concent 32 g/dL (31-37) 32 g/dL (31-37) Red Cell Distribution Width 21.5 % (11.5-14.5) 21.9 % (11.5-14.5) Platelet Count 233 x10^3/uL (140-400) 161 x10^3/uL (140-400) Neutrophils (%) (Auto) 74 % (31-73) 63 % (31-73) Lymphocytes (%) (Auto) 9 % (24-48) 18 % (24-48) Monocytes (%) (Auto) 17 % (0-9) 18 % (0-9) Eosinophils (%) (Auto) 0 % (0-3) 1 % (0-3) Basophils (%) (Auto) 0 % (0-3) 1 % (0-3) Neutrophils # (Auto) 6.7 x10^3/uL (1.8-7.7) 3.7 x10^3/uL (1.8-7.7) Lymphocytes # (Auto) 0.8 x10^3/uL (1.0-4.8) 1.0 x10^3/uL (1.0-4.8) Monocytes # (Auto) 1.5 x10^3/uL (0.0-1.1) 1.0 x10^3/uL (0.0-1.1) Eosinophils # (Auto) 0.0 x10^3/uL (0.0-0.7) 0.0 x10^3/uL (0.0-0.7) Basophils # (Auto) 0.0 x10^3/uL (0.0-0.2) 0.0 x10^3/uL (0.0-0.2) Platelet Estimate Adequate (ADEQUATE) Polychromasia Slight Hypochromasia Slight Anisocytosis Mod Schistocytes Few Prothrombin Time 24.6 SEC (11.7-14.0) Prothromb Time International Ratio 2.2 (0.8-1.1) Sodium Level 137 mmol/L (136-145) 142 mmol/L (136-145) Potassium Level 4.1 mmol/L (3.5-5.1) 3.6 mmol/L (3.5-5.1) Chloride Level 101 mmol/L (98-107) 106 mmol/L (98-107) Carbon Dioxide Level 23 mmol/L (21-32) 26 mmol/L (21-32) Anion Gap 13 (6-14) 10 (6-14) Blood Urea Nitrogen 62 mg/dL (8-26) 59 mg/dL (8-26) Creatinine 3.5 mg/dL (0.7-1.3) 3.4 mg/dL (0.7-1.3) Estimated GFR (Cockcroft-Gault) 20.8 21.5 Glucose Level 206 mg/dL (70-99) 110 mg/dL (70-99) Calcium Level 8.7 mg/dL (8.5-10.1) 8.1 mg/dL (8.5-10.1) Total Bilirubin 1.4 mg/dL (0.2-1.0) 1.3 mg/dL (0.2-1.0) Direct Bilirubin 0.4 mg/dL (0.0-0.2) Aspartate Amino Transf (AST/SGOT) 31 U/L (15-37) 24 U/L (15-37) Alanine Aminotransferase (ALT/SGPT) 60 U/L (16-63) 45 U/L (16-63) Alkaline Phosphatase 133 U/L (46-116) 104 U/L (46-116) Troponin I Quantitative 1.115 ng/mL (0.000-0.055) ML-Imp-T-Type Natriuretic Peptide 13294 pg/mL (0-124) Total Protein 8.3 g/dL (6.4-8.2) 6.8 g/dL (6.4-8.2) Albumin 3.1 g/dL (3.4-5.0) 2.5 g/dL (3.4-5.0) Lipase 126 U/L (73-393) O2 Saturation 93 % (92-99) Arterial Blood pH 7.45 (7.35-7.45) Arterial Blood pCO2 at Patient Temp 30 mmHg (35-46) Arterial Blood pO2 at Patient Temp 68 mmHg (65-108) Arterial Blood HCO3 20 mmol/L (21-28) Arterial Blood Base Excess -3 mmol/L (-3-3) Oxyhemoglobin 92.2 % Methemoglobin 0.7 % (0.0-1.9) Carbon Monoxide, Quantitative 0.1 % (0.0-1.9) FiO2 40 Glucose (Fingerstick) 146 mg/dL (70-99) BUN/Creatinine Ratio 17 (6-20) Phosphorus Level 4.2 mg/dL (2.6-4.7) Magnesium Level 1.9 mg/dL (1.8-2.4) Albumin/Globulin Ratio 0.6 (1.0-1.7) Test 02/23/19 08:10 O2 Saturation 97 % (92-99) Arterial Blood pH 7.41 (7.35-7.45) Arterial Blood pCO2 at Patient Temp 40 mmHg (35-46) Arterial Blood pO2 at Patient Temp 94 mmHg (65-108) Arterial Blood HCO3 25 mmol/L (21-28) Arterial Blood Base Excess 0 mmol/L (-3-3) FiO2 40% Assessment/Plan Assessment/Plan 1. Respiratory failure. Components of heart failure and respiratory disease. Improving on present treatment. 2. Recent non-ST elevated myocardial infarction and stent to the LAD. No evidence of an acute infarct. Continue present medications. 3. Chronic kidney disease. Creatinine of 3.4. Monitoring lab. Possible renal evaluation. 4. Chronic atrial fibrillation. Rate controlled. Continue present medication. 5. Diabetes mellitus. As per the primary service. 6. Hyperlipidemia. Continue medications and check labs. Thank you for allowing us to participate in the care of your patient. RUPAL HARRIS MD Feb 23, 2019 12:25
--- NOTE | 2019-02-23 13:12 | PDOC ---
PROGRESS NOTES Chief Complaint Chief Complaint CHF/fluid overload Acute hypoxic respiratory failure - NIPPPV Acute on chronic diastolic/systolic CHF - EF 40% Elevated troponin - in the background of CKD CAD - s/p PCI/stent placement one year ago. Hypertension - Acute on chronic renal insufficiency - Hyperlipidemia - Diabetes mellitus type 2 - Paroxysmal AFIB Anemia of chronic disease - on iron for RADHA. FULL CODE History of Present Illness History of Present Illness I just dcd him 2 days ago with and HH ( refused snu for him, PT recommended SNU) andback again bec of soa Feb 15- hospital stay: CXR: IMPRESSION: Worsening of pulmonary infiltrate and/or edema in both lungs, greater towards the bases. Small pleural effusions, although improved since prior study. IN his last stay, we were able to avoid HD, to get fluid off with watch of his kidney fcn FULL CODE not the best historian but he knows what we are doing for him Seen in ICU, off bipap, on lasix 40 BID BReathing better after lasix 40 IV P CArds., pulm,, renal and ID all on board PLAn: COnt PO lasix MOnitor creat Ok to transfer to [facility] FULL CODE Delicate fluid balance, ef 40% needs lasix but ckd dw [employer] Vitals Vitals Vital Signs Date Time Temp Pulse Resp B/P (MAP) Pulse Ox O2 Delivery O2 Flow Rate FiO2 02/23/19 11:00 98.2 61 25 146/63 (90) 100 Room Air 98.2 Physical Exam General: Alert, Oriented X3, Cooperative, mild distress Heart: Regular rate, Normal S1, Normal S2, No murmurs, Other (irreg. rhythm) Lungs: Crackles, Other (sce, diminished bases, no wheezing) Abdomen: Normal bowel sounds, Soft, No tenderness Extremities: No clubbing, No cyanosis, No edema Skin: No rashes, No breakdown, No significant lesion Labs LABS Laboratory Tests Test 02/22/19 13:27 02/22/19 14:35 02/22/19 21:23 02/23/19 04:50 White Blood Count 9.0 x10^3/uL (4.0-11.0) 5.8 x10^3/uL (4.0-11.0) Red Blood Count 3.60 x10^6/uL (4.30-5.70) 3.09 x10^6/uL (4.30-5.70) Hemoglobin 8.8 g/dL (13.0-17.5) 7.5 g/dL (13.0-17.5) Hematocrit 27.8 % (39.0-53.0) 23.4 % (39.0-53.0) Mean Corpuscular Volume 77 fL (79-100) 76 fL (79-100) Mean Corpuscular Hemoglobin 25 pg (25-35) 24 pg (25-35) Mean Corpuscular Hemoglobin Concent 32 g/dL (31-37) 32 g/dL (31-37) Red Cell Distribution Width 21.5 % (11.5-14.5) 21.9 % (11.5-14.5) Platelet Count 233 x10^3/uL (140-400) 161 x10^3/uL (140-400) Neutrophils (%) (Auto) 74 % (31-73) 63 % (31-73) Lymphocytes (%) (Auto) 9 % (24-48) 18 % (24-48) Monocytes (%) (Auto) 17 % (0-9) 18 % (0-9) Eosinophils (%) (Auto) 0 % (0-3) 1 % (0-3) Basophils (%) (Auto) 0 % (0-3) 1 % (0-3) Neutrophils # (Auto) 6.7 x10^3/uL (1.8-7.7) 3.7 x10^3/uL (1.8-7.7) Lymphocytes # (Auto) 0.8 x10^3/uL (1.0-4.8) 1.0 x10^3/uL (1.0-4.8) Monocytes # (Auto) 1.5 x10^3/uL (0.0-1.1) 1.0 x10^3/uL (0.0-1.1) Eosinophils # (Auto) 0.0 x10^3/uL (0.0-0.7) 0.0 x10^3/uL (0.0-0.7) Basophils # (Auto) 0.0 x10^3/uL (0.0-0.2) 0.0 x10^3/uL (0.0-0.2) Platelet Estimate Adequate (ADEQUATE) Polychromasia Slight Hypochromasia Slight Anisocytosis Mod Schistocytes Few Prothrombin Time 24.6 SEC (11.7-14.0) Prothromb Time International Ratio 2.2 (0.8-1.1) Sodium Level 137 mmol/L (136-145) 142 mmol/L (136-145) Potassium Level 4.1 mmol/L (3.5-5.1) 3.6 mmol/L (3.5-5.1) Chloride Level 101 mmol/L (98-107) 106 mmol/L (98-107) Carbon Dioxide Level 23 mmol/L (21-32) 26 mmol/L (21-32) Anion Gap 13 (6-14) 10 (6-14) Blood Urea Nitrogen 62 mg/dL (8-26) 59 mg/dL (8-26) Creatinine 3.5 mg/dL (0.7-1.3) 3.4 mg/dL (0.7-1.3) Estimated GFR (Cockcroft-Gault) 20.8 21.5 Glucose Level 206 mg/dL (70-99) 110 mg/dL (70-99) Calcium Level 8.7 mg/dL (8.5-10.1) 8.1 mg/dL (8.5-10.1) Total Bilirubin 1.4 mg/dL (0.2-1.0) 1.3 mg/dL (0.2-1.0) Direct Bilirubin 0.4 mg/dL (0.0-0.2) Aspartate Amino Transf (AST/SGOT) 31 U/L (15-37) 24 U/L (15-37) Alanine Aminotransferase (ALT/SGPT) 60 U/L (16-63) 45 U/L (16-63) Alkaline Phosphatase 133 U/L (46-116) 104 U/L (46-116) Troponin I Quantitative 1.115 ng/mL (0.000-0.055) CP-Wms-I-Type Natriuretic Peptide 55424 pg/mL (0-124) Total Protein 8.3 g/dL (6.4-8.2) 6.8 g/dL (6.4-8.2) Albumin 3.1 g/dL (3.4-5.0) 2.5 g/dL (3.4-5.0) Lipase 126 U/L (73-393) O2 Saturation 93 % (92-99) Arterial Blood pH 7.45 (7.35-7.45) Arterial Blood pCO2 at Patient Temp 30 mmHg (35-46) Arterial Blood pO2 at Patient Temp 68 mmHg (65-108) Arterial Blood HCO3 20 mmol/L (21-28) Arterial Blood Base Excess -3 mmol/L (-3-3) Oxyhemoglobin 92.2 % Methemoglobin 0.7 % (0.0-1.9) Carbon Monoxide, Quantitative 0.1 % (0.0-1.9) FiO2 40 Glucose (Fingerstick) 146 mg/dL (70-99) BUN/Creatinine Ratio 17 (6-20) Phosphorus Level 4.2 mg/dL (2.6-4.7) Magnesium Level 1.9 mg/dL (1.8-2.4) Albumin/Globulin Ratio 0.6 (1.0-1.7) Test 02/23/19 08:10 O2 Saturation 97 % (92-99) Arterial Blood pH 7.41 (7.35-7.45) Arterial Blood pCO2 at Patient Temp 40 mmHg (35-46) Arterial Blood pO2 at Patient Temp 94 mmHg (65-108) Arterial Blood HCO3 25 mmol/L (21-28) Arterial Blood Base Excess 0 mmol/L (-3-3) FiO2 40% Assessment and Plan Assessmemt and Plan Problems Medical Problems: (1) Acute on chronic diastolic (congestive) heart failure Status: Acute (2) CHF (congestive heart failure) Status: Chronic (3) Respiratory failure Status: Acute Comment Review of Relevant I have reviewed the following items juanita (where applicable) has been applied. Labs Laboratory Tests Test 02/22/19 13:27 02/22/19 14:35 02/22/19 21:23 02/23/19 04:50 White Blood Count 9.0 x10^3/uL (4.0-11.0) 5.8 x10^3/uL (4.0-11.0) Red Blood Count 3.60 x10^6/uL (4.30-5.70) 3.09 x10^6/uL (4.30-5.70) Hemoglobin 8.8 g/dL (13.0-17.5) 7.5 g/dL (13.0-17.5) Hematocrit 27.8 % (39.0-53.0) 23.4 % (39.0-53.0) Mean Corpuscular Volume 77 fL (79-100) 76 fL (79-100) Mean Corpuscular Hemoglobin 25 pg (25-35) 24 pg (25-35) Mean Corpuscular Hemoglobin Concent 32 g/dL (31-37) 32 g/dL (31-37) Red Cell Distribution Width 21.5 % (11.5-14.5) 21.9 % (11.5-14.5) Platelet Count 233 x10^3/uL (140-400) 161 x10^3/uL (140-400) Neutrophils (%) (Auto) 74 % (31-73) 63 % (31-73) Lymphocytes (%) (Auto) 9 % (24-48) 18 % (24-48) Monocytes (%) (Auto) 17 % (0-9) 18 % (0-9) Eosinophils (%) (Auto) 0 % (0-3) 1 % (0-3) Basophils (%) (Auto) 0 % (0-3) 1 % (0-3) Neutrophils # (Auto) 6.7 x10^3/uL (1.8-7.7) 3.7 x10^3/uL (1.8-7.7) Lymphocytes # (Auto) 0.8 x10^3/uL (1.0-4.8) 1.0 x10^3/uL (1.0-4.8) Monocytes # (Auto) 1.5 x10^3/uL (0.0-1.1) 1.0 x10^3/uL (0.0-1.1) Eosinophils # (Auto) 0.0 x10^3/uL (0.0-0.7) 0.0 x10^3/uL (0.0-0.7) Basophils # (Auto) 0.0 x10^3/uL (0.0-0.2) 0.0 x10^3/uL (0.0-0.2) Platelet Estimate Adequate (ADEQUATE) Polychromasia Slight Hypochromasia Slight Anisocytosis Mod Schistocytes Few Prothrombin Time 24.6 SEC (11.7-14.0) Prothromb Time International Ratio 2.2 (0.8-1.1) Sodium Level 137 mmol/L (136-145) 142 mmol/L (136-145) Potassium Level 4.1 mmol/L (3.5-5.1) 3.6 mmol/L (3.5-5.1) Chloride Level 101 mmol/L (98-107) 106 mmol/L (98-107) Carbon Dioxide Level 23 mmol/L (21-32) 26 mmol/L (21-32) Anion Gap 13 (6-14) 10 (6-14) Blood Urea Nitrogen 62 mg/dL (8-26) 59 mg/dL (8-26) Creatinine 3.5 mg/dL (0.7-1.3) 3.4 mg/dL (0.7-1.3) Estimated GFR (Cockcroft-Gault) 20.8 21.5 Glucose Level 206 mg/dL (70-99) 110 mg/dL (70-99) Calcium Level 8.7 mg/dL (8.5-10.1) 8.1 mg/dL (8.5-10.1) Total Bilirubin 1.4 mg/dL (0.2-1.0) 1.3 mg/dL (0.2-1.0) Direct Bilirubin 0.4 mg/dL (0.0-0.2) Aspartate Amino Transf (AST/SGOT) 31 U/L (15-37) 24 U/L (15-37) Alanine Aminotransferase (ALT/SGPT) 60 U/L (16-63) 45 U/L (16-63) Alkaline Phosphatase 133 U/L (46-116) 104 U/L (46-116) Troponin I Quantitative 1.115 ng/mL (0.000-0.055) AG-Dit-P-Type Natriuretic Peptide 34364 pg/mL (0-124) Total Protein 8.3 g/dL (6.4-8.2) 6.8 g/dL (6.4-8.2) Albumin 3.1 g/dL (3.4-5.0) 2.5 g/dL (3.4-5.0) Lipase 126 U/L (73-393) O2 Saturation 93 % (92-99) Arterial Blood pH 7.45 (7.35-7.45) Arterial Blood pCO2 at Patient Temp 30 mmHg (35-46) Arterial Blood pO2 at Patient Temp 68 mmHg (65-108) Arterial Blood HCO3 20 mmol/L (21-28) Arterial Blood Base Excess -3 mmol/L (-3-3) Oxyhemoglobin 92.2 % Methemoglobin 0.7 % (0.0-1.9) Carbon Monoxide, Quantitative 0.1 % (0.0-1.9) FiO2 40 Glucose (Fingerstick) 146 mg/dL (70-99) BUN/Creatinine Ratio 17 (6-20) Phosphorus Level 4.2 mg/dL (2.6-4.7) Magnesium Level 1.9 mg/dL (1.8-2.4) Albumin/Globulin Ratio 0.6 (1.0-1.7) Test 02/23/19 08:10 O2 Saturation 97 % (92-99) Arterial Blood pH 7.41 (7.35-7.45) Arterial Blood pCO2 at Patient Temp 40 mmHg (35-46) Arterial Blood pO2 at Patient Temp 94 mmHg (65-108) Arterial Blood HCO3 25 mmol/L (21-28) Arterial Blood Base Excess 0 mmol/L (-3-3) FiO2 40% Laboratory Tests Test 02/22/19 13:27 02/22/19 14:35 02/22/19 21:23 02/23/19 04:50 White Blood Count 9.0 x10^3/uL (4.0-11.0) 5.8 x10^3/uL (4.0-11.0) Red Blood Count 3.60 x10^6/uL (4.30-5.70) 3.09 x10^6/uL (4.30-5.70) Hemoglobin 8.8 g/dL (13.0-17.5) 7.5 g/dL (13.0-17.5) Hematocrit 27.8 % (39.0-53.0) 23.4 % (39.0-53.0) Mean Corpuscular Volume 77 fL (79-100) 76 fL (79-100) Mean Corpuscular Hemoglobin 25 pg (25-35) 24 pg (25-35) Mean Corpuscular Hemoglobin Concent 32 g/dL (31-37) 32 g/dL (31-37) Red Cell Distribution Width 21.5 % (11.5-14.5) 21.9 % (11.5-14.5) Platelet Count 233 x10^3/uL (140-400) 161 x10^3/uL (140-400) Neutrophils (%) (Auto) 74 % (31-73) 63 % (31-73) Lymphocytes (%) (Auto) 9 % (24-48) 18 % (24-48) Monocytes (%) (Auto) 17 % (0-9) 18 % (0-9) Eosinophils (%) (Auto) 0 % (0-3) 1 % (0-3) Basophils (%) (Auto) 0 % (0-3) 1 % (0-3) Neutrophils # (Auto) 6.7 x10^3/uL (1.8-7.7) 3.7 x10^3/uL (1.8-7.7) Lymphocytes # (Auto) 0.8 x10^3/uL (1.0-4.8) 1.0 x10^3/uL (1.0-4.8) Monocytes # (Auto) 1.5 x10^3/uL (0.0-1.1) 1.0 x10^3/uL (0.0-1.1) Eosinophils # (Auto) 0.0 x10^3/uL (0.0-0.7) 0.0 x10^3/uL (0.0-0.7) Basophils # (Auto) 0.0 x10^3/uL (0.0-0.2) 0.0 x10^3/uL (0.0-0.2) Platelet Estimate Adequate (ADEQUATE) Polychromasia Slight Hypochromasia Slight Anisocytosis Mod Schistocytes Few Prothrombin Time 24.6 SEC (11.7-14.0) Prothromb Time International Ratio 2.2 (0.8-1.1) Sodium Level 137 mmol/L (136-145) 142 mmol/L (136-145) Potassium Level 4.1 mmol/L (3.5-5.1) 3.6 mmol/L (3.5-5.1) Chloride Level 101 mmol/L (98-107) 106 mmol/L (98-107) Carbon Dioxide Level 23 mmol/L (21-32) 26 mmol/L (21-32) Anion Gap 13 (6-14) 10 (6-14) Blood Urea Nitrogen 62 mg/dL (8-26) 59 mg/dL (8-26) Creatinine 3.5 mg/dL (0.7-1.3) 3.4 mg/dL (0.7-1.3) Estimated GFR (Cockcroft-Gault) 20.8 21.5 Glucose Level 206 mg/dL (70-99) 110 mg/dL (70-99) Calcium Level 8.7 mg/dL (8.5-10.1) 8.1 mg/dL (8.5-10.1) Total Bilirubin 1.4 mg/dL (0.2-1.0) 1.3 mg/dL (0.2-1.0) Direct Bilirubin 0.4 mg/dL (0.0-0.2) Aspartate Amino Transf (AST/SGOT) 31 U/L (15-37) 24 U/L (15-37) Alanine Aminotransferase (ALT/SGPT) 60 U/L (16-63) 45 U/L (16-63) Alkaline Phosphatase 133 U/L (46-116) 104 U/L (46-116) Troponin I Quantitative 1.115 ng/mL (0.000-0.055) RZ-Uol-S-Type Natriuretic Peptide 42837 pg/mL (0-124) Total Protein 8.3 g/dL (6.4-8.2) 6.8 g/dL (6.4-8.2) Albumin 3.1 g/dL (3.4-5.0) 2.5 g/dL (3.4-5.0) Lipase 126 U/L (73-393) O2 Saturation 93 % (92-99) Arterial Blood pH 7.45 (7.35-7.45) Arterial Blood pCO2 at Patient Temp 30 mmHg (35-46) Arterial Blood pO2 at Patient Temp 68 mmHg (65-108) Arterial Blood HCO3 20 mmol/L (21-28) Arterial Blood Base Excess -3 mmol/L (-3-3) Oxyhemoglobin 92.2 % Methemoglobin 0.7 % (0.0-1.9) Carbon Monoxide, Quantitative 0.1 % (0.0-1.9) FiO2 40 Glucose (Fingerstick) 146 mg/dL (70-99) BUN/Creatinine Ratio 17 (6-20) Phosphorus Level 4.2 mg/dL (2.6-4.7) Magnesium Level 1.9 mg/dL (1.8-2.4) Albumin/Globulin Ratio 0.6 (1.0-1.7) Test 02/23/19 08:10 O2 Saturation 97 % (92-99) Arterial Blood pH 7.41 (7.35-7.45) Arterial Blood pCO2 at Patient Temp 40 mmHg (35-46) Arterial Blood pO2 at Patient Temp 94 mmHg (65-108) Arterial Blood HCO3 25 mmol/L (21-28) Arterial Blood Base Excess 0 mmol/L (-3-3) FiO2 40% Medications Current Medications Albuterol/ Ipratropium (Duoneb) 3 ml 1X ONCE NEB Last administered on 02/22/19at 13:39; Start 02/22/19 at 13:30; Stop 02/22/19 at 13:31; Status DC Furosemide (Lasix) 40 mg 1X ONCE IVP Last administered on 02/22/19at 14:50; Start 02/22/19 at 14:30; Stop 02/22/19 at 14:34; Status DC Piperacillin Sod/ Tazobactam Sod (Zosyn Per Pharmacy) 1 each PRN DAILY PRN MC SEE COMMENTS; Start 02/22/19 at 14:30 Piperacillin Sod/ Tazobactam Sod 3.375 gm/Sodium Chloride 50 ml @ 100 mls/hr 1X ONCE IV Last administered on 02/22/19at 15:22; Start 02/22/19 at 14:45; Stop 02/22/19 at 15:14; Status DC Piperacillin Sod/ Tazobactam Sod 3.375 gm/Sodium Chloride 50 ml @ 100 mls/hr Q6HRS IV Last administered on 02/23/19at 12:25; Start 02/23/19 at 00:00 Albuterol Sulfate (Ventolin Neb Soln) 2.5 mg PRN Q6HRS PRN INH SHORTNESS OF BREATH; Start 02/22/19 at 17:15 Amiodarone HCl (Cordarone) 200 mg DAILY PO ; Start 02/23/19 at 09:00 Aspirin (Ecotrin) 81 mg DAILYWBKFT PO Last administered on 02/23/19at 08:53; Start 02/23/19 at 08:00 Atorvastatin Calcium (Lipitor) 40 mg QHS PO ; Start 02/22/19 at 21:00 Furosemide (Lasix) 40 mg BID92 PO Last administered on 02/23/19at 08:53; Start 02/23/19 at 09:00 Guaifenesin (Robitussin Dm) 10 ml PRN Q6HRS PRN PO COUGH; Start 02/22/19 at 17:15 Insulin Glargine (Lantus Syringe) 15 unit HS SQ Last administered on 02/22/19at 21:34; Start 02/22/19 at 21:00 Isosorbide Mononitrate (Imdur) 30 mg DAILY PO Last administered on 02/23/19at 08:53; Start 02/23/19 at 09:00 Metoprolol Succinate (Toprol Xl) 50 mg DAILY PO ; Start 02/23/19 at 09:00 Tamsulosin HCl (Flomax) 0.4 mg DAILY PO Last administered on 02/23/19at 08:53; Start 02/23/19 at 09:00 Ticagrelor (Brilinta) 90 mg BID PO Last administered on 02/23/19 08:53; Start 02/22/19 at 21:00 Warfarin Sodium (Coumadin) 5 mg DAILY@1600 PO ; Start 02/22/19 at 19:30 Budesonide (Pulmicort) 0.5 mg RTBID NEB Last administered on 02/23/19at 08:07; Start 02/22/19 at 20:00; Stop 02/23/19 at 09:43; Status DC Ferrous Sulfate (Feosol) 325 mg DAILYWBKFT PO Last administered on 02/23/19at 10:20; Start 02/23/19 at 08:00 Warfarin Sodium (Coumadin Per Physician) 1 each PRN DAILY PRN MC SEE COMMENTS Last administered on 02/23/19at 12:40; Start 02/22/19 at 17:30 Atropine Sulfate (ATROPINE 1mg SYRINGE) 1 mg STK-MED ONCE .ROUTE ; Start 02/22/19 at 19:36; Stop 02/22/19 at 19:36; Status DC Atropine Sulfate (ATROPINE 1mg SYRINGE) 1 mg 1X ONCE IV Last administered on 02/22/19at 19:44; Start 02/22/19 at 19:45; Stop 02/22/19 at 19:50; Status DC Linezolid/Dextrose 300 ml @ 300 mls/hr Q12HR IV Last administered on 02/22/19at 22:26; Start 02/22/19 at 22:00; Stop 02/23/19 at 08:16; Status DC Lactobacillus Rhamnosus (Culturelle) 1 cap BID PO ; Start 02/23/19 at 21:00 Active Scripts Active Proair Hfa (Albuterol Sulfate) 8.5 Gm Hfa.aer.ad 1 Puff INH PRN Q6HRS PRN 30 Days Pulmicort Flexhaler (Budesonide) 180 Mcg Aer.pow.ba 2 Puff IH BID Guaifenesin Dm Syrup (Guaifenesin/Dextromethorphan) 5 Ml Syrup 10 Ml PO PRN Q6HRS PRN 7 Days Lantus (Insulin Glargine,Hum.rec.anlog) 100 Unit/1 Ml Vial 15 Unit SQ HS 30 Days Furosemide 40 Mg Tablet 40 Mg PO BID92 Aspirin Ec (Aspirin) 81 Mg Tablet. 81 Mg PO DAILYWBKFT Metoprolol Succinate ( Xl ) (Metoprolol Succinate) 25 Mg Tab.er.24h 50 Mg PO DAILY Isosorbide Mononitrate Er (Isosorbide Mononitrate) 30 Mg Tab.er.24h 30 Mg PO DAILY Atorvastatin Calcium 40 Mg Tablet 40 Mg PO QHS Brilinta (Ticagrelor) 90 Mg Tablet 90 Mg PO BID Amiodarone Hcl 200 Mg Tablet 200 Mg PO DAILY Reported Warfarin Sodium 5 Mg Tablet 5 Mg PO DAILY take 5mg on sat,sat.thur,sat,sun take 6 mg on saturday and saturday Ferrous Sulfate 324 Mg Tablet. 324 Mg PO DAILY Flomax (Tamsulosin Hcl) 0.4 Mg Cap.er.24h 0.4 Mg PO DAILY Vitals/I & O Vital Sign - Last 24 Hours 02/22/19 02/22/19 02/22/19 02/22/19 13:15 13:32 13:48 13:58 Temp 97.3 97.3 Pulse 59 53 57 Resp 30 29 16 B/P (MAP) 148/66 (93) 174/68 (103) 151/62 (91) Pulse Ox 97 97 73 74 O2 Delivery BiPAP/CPAP BiPAP/CPAP 02/22/19 02/22/19 02/22/19 02/22/19 14:13 14:28 14:43 14:57 Pulse 56 54 55 57 Resp 16 24 16 24 B/P (MAP) 156/72 (100) 153/66 (95) 158/69 (98) 161/74 (103) Pulse Ox 73 69 73 86 O2 Delivery BiPAP/CPAP 02/22/19 02/22/19 02/22/19 02/22/19 15:13 15:28 15:43 15:58 Pulse 54 57 56 57 Resp 19 16 15 18 B/P (MAP) 164/72 (102) 168/72 (104) 176/72 (106) 168/68 (101) Pulse Ox 75 84 82 82 O2 Delivery BiPAP/CPAP 02/22/19 02/22/19 02/22/19 02/22/19 16:04 16:13 16:28 16:45 Temp 97.4 97.4 Pulse 54 54 62 Resp 27 21 20 B/P (MAP) 164/73 (103) 155/72 (99) 155/61 (92) Pulse Ox 92 81 83 99 O2 Delivery BiPAP/CPAP BiPAP/CPAP BiPAP/CPAP 02/22/19 02/22/19 02/22/19 02/22/19 17:00 17:00 17:33 18:00 Pulse 55 53 Resp 20 17 B/P (MAP) 154/67 (96) 164/69 (100) Pulse Ox 99 92 100 O2 Delivery Bi-pap BiPAP/CPAP BiPAP/CPAP BiPAP/CPAP 02/22/19 02/22/19 02/22/19 02/22/19 19:00 20:00 20:00 20:21 Temp 98.1 98.1 Pulse 58 62 Resp 20 14 B/P (MAP) 155/69 (97) 160/55 (90) Pulse Ox 99 99 96 O2 Delivery BiPAP/CPAP Bi-pap BiPAP/CPAP BiPAP/CPAP 02/22/19 02/22/19 02/22/19 02/22/19 21:00 22:00 23:00 23:58 Pulse 68 58 72 Resp 23 17 20 B/P (MAP) 135/80 (98) 157/67 (97) 164/67 (99) Pulse Ox 98 99 100 100 O2 Delivery BiPAP/CPAP BiPAP/CPAP BiPAP/CPAP BiPAP/CPAP 02/23/19 02/23/19 02/23/19 02/23/19 00:00 00:00 01:00 02:00 Temp 98.0 98.0 Pulse 66 60 63 Resp 36 23 26 B/P (MAP) 173/63 (99) 162/71 (101) 147/70 (95) Pulse Ox 99 100 100 O2 Delivery Bi-pap BiPAP/CPAP BiPAP/CPAP BiPAP/CPAP 02/23/19 02/23/19 02/23/19 02/23/19 02:27 03:00 04:00 04:00 Temp 98.2 98.2 Pulse 59 61 Resp 14 14 B/P (MAP) 137/75 (95) 147/74 (98) Pulse Ox 100 100 100 O2 Delivery BiPAP/CPAP BiPAP/CPAP BiPAP/CPAP Bi-pap 02/23/19 02/23/19 02/23/19 02/23/19 04:28 05:00 05:51 06:00 Pulse 61 62 Resp 25 28 B/P (MAP) 139/75 (96) 147/64 (91) Pulse Ox 100 100 100 100 O2 Delivery BiPAP/CPAP BiPAP/CPAP BiPAP/CPAP BiPAP/CPAP 02/23/19 02/23/19 02/23/19 02/23/19 07:00 08:00 08:00 08:07 Pulse 58 65 Resp 20 24 B/P (MAP) 143/86 (105) 141/58 (85) Pulse Ox 100 100 100 O2 Delivery BiPAP/CPAP BiPAP/CPAP Room Air BiPAP/CPAP 02/23/19 02/23/19 02/23/19 02/23/19 08:53 09:00 10:00 11:00 Temp 98.2 98.2 98.2 98.2 Pulse 65 59 67 61 Resp 20 20 25 B/P (MAP) 141/58 156/57 (90) 146/74 (98) 146/63 (90) Pulse Ox 100 100 100 O2 Delivery Room Air Room Air Room Air Intake and Output 02/22/19 02/22/19 02/23/19 15:00 23:00 07:00 Intake Total 50 ml 400 ml Output Total 675 ml 525 ml Balance -625 ml -125 ml BONI VEGA MD Feb 23, 2019 13:12
[2019-02-23] MEDS: WARFARIN 5 MG TABLET. PO SCH (15:55)
--- NOTE | 2019-02-23 16:19 | PDOC2 ---
CONSULT Date of Consult Date of Consult DATE: 02/23/19 TIME: 16:11 Reason for Consult Reason for Consult: ckd 4 Source Source: Chart review History of Present Illness Reason for Visit: This is a 73-year-old -[place] male frequent hospitalizations just recently been discharged with LAD stent done on . He returns with shortness of breath, was found to be hypoxic by EMS, bilateral pulmonary infiltrates seen . Denies any fever. Denies any nausea, vomiting, diarrhea. Denies any chest pain. Denies any headache or visual symptoms. Denies any abdominal pain or urinary symptoms. Past Medical History Cardiovascular: AFIB, CAD, CHF, HTN Pulmonary: Pneumonia GI: Other Heme/Onc: Anemia NOS Hepatobiliary: No pertinent hx Psych: No pertinent hx Musculoskeletal: Osteoarthritis Rheumatologic: No pertinent hx Infectious disease: No pertinent hx Renal/: Chronic renal insuff Endocrine: Diabetes Past Surgical History Past Surgical History: Other (recent coronary stent) Family History Family History: Hypertension Social History <1 pack per day ALCOHOL: none Drugs: None Lives: with Family Current Problem List Problem List Problems Medical Problems: (1) Acute on chronic diastolic (congestive) heart failure Status: Acute (2) CHF (congestive heart failure) Status: Chronic (3) Respiratory failure Status: Acute Current Medications Current Medications Current Medications Albuterol/ Ipratropium (Duoneb) 3 ml 1X ONCE NEB Last administered on 02/22/19at 13:39; Start 02/22/19 at 13:30; Stop 02/22/19 at 13:31; Status DC Furosemide (Lasix) 40 mg 1X ONCE IVP Last administered on 02/22/19at 14:50; Start 02/22/19 at 14:30; Stop 02/22/19 at 14:34; Status DC Piperacillin Sod/ Tazobactam Sod (Zosyn Per Pharmacy) 1 each PRN DAILY PRN MC SEE COMMENTS; Start 02/22/19 at 14:30 Piperacillin Sod/ Tazobactam Sod 3.375 gm/Sodium Chloride 50 ml @ 100 mls/hr 1X ONCE IV Last administered on 02/22/19at 15:22; Start 02/22/19 at 14:45; Stop 02/22/19 at 15:14; Status DC Piperacillin Sod/ Tazobactam Sod 3.375 gm/Sodium Chloride 50 ml @ 100 mls/hr Q6HRS IV Last administered on 02/23/19 12:25; Start 02/23/19 at 00:00 Albuterol Sulfate (Ventolin Neb Soln) 2.5 mg PRN Q6HRS PRN INH SHORTNESS OF BREATH; Start 02/22/19 at 17:15 Amiodarone HCl (Cordarone) 200 mg DAILY PO ; Start 02/23/19 at 09:00 Aspirin (Ecotrin) 81 mg DAILYWBKFT PO Last administered on 02/23/19at 08:53; Start 02/23/19 at 08:00 Atorvastatin Calcium (Lipitor) 40 mg QHS PO ; Start 02/22/19 at 21:00 Furosemide (Lasix) 40 mg BID92 PO Last administered on 02/23/19 13:35; Start 02/23/19 at 09:00 Guaifenesin (Robitussin Dm) 10 ml PRN Q6HRS PRN PO COUGH; Start 02/22/19 at 17:15 Insulin Glargine (Lantus Syringe) 15 unit HS SQ Last administered on 02/22/19at 21:34; Start 02/22/19 at 21:00 Isosorbide Mononitrate (Imdur) 30 mg DAILY PO Last administered on 02/23/19 08:53; Start 02/23/19 at 09:00 Metoprolol Succinate (Toprol Xl) 50 mg DAILY PO ; Start 02/23/19 at 09:00 Tamsulosin HCl (Flomax) 0.4 mg DAILY PO Last administered on 02/23/19 08:53; Start 02/23/19 at 09:00 Ticagrelor (Brilinta) 90 mg BID PO Last administered on 02/23/19 08:53; Start 02/22/19 at 21:00 Warfarin Sodium (Coumadin) 5 mg DAILY@1600 PO Last administered on 02/23/19 15:55; Start 02/22/19 at 19:30 Budesonide (Pulmicort) 0.5 mg RTBID NEB Last administered on 02/23/19 08:07; Start 02/22/19 at 20:00; Stop 02/23/19 at 09:43; Status DC Ferrous Sulfate (Feosol) 325 mg DAILYWBKFT PO Last administered on 02/23/19at 10:20; Start 02/23/19 at 08:00 Warfarin Sodium (Coumadin Per Physician) 1 each PRN DAILY PRN MC SEE COMMENTS Last administered on 02/23/19at 12:40; Start 02/22/19 at 17:30 Atropine Sulfate (ATROPINE 1mg SYRINGE) 1 mg STK-MED ONCE .ROUTE ; Start 02/22/19 at 19:36; Stop 02/22/19 at 19:36; Status DC Atropine Sulfate (ATROPINE 1mg SYRINGE) 1 mg 1X ONCE IV Last administered on 02/22/19at 19:44; Start 02/22/19 at 19:45; Stop 02/22/19 at 19:50; Status DC Linezolid/Dextrose 300 ml @ 300 mls/hr Q12HR IV Last administered on 02/22/19at 22:26; Start 02/22/19 at 22:00; Stop 02/23/19 at 08:16; Status DC Lactobacillus Rhamnosus (Culturelle) 1 cap BID PO ; Start 02/23/19 at 21:00 Active Scripts Active Proair Hfa (Albuterol Sulfate) 8.5 Gm Hfa.aer.ad 1 Puff INH PRN Q6HRS PRN 30 Days Pulmicort Flexhaler (Budesonide) 180 Mcg Aer.pow.ba 2 Puff IH BID Guaifenesin Dm Syrup (Guaifenesin/Dextromethorphan) 5 Ml Syrup 10 Ml PO PRN Q6HRS PRN 7 Days Lantus (Insulin Glargine,Hum.rec.anlog) 100 Unit/1 Ml Vial 15 Unit SQ HS 30 Days Furosemide 40 Mg Tablet 40 Mg PO BID92 Aspirin Ec (Aspirin) 81 Mg Tablet.dr 81 Mg PO DAILYWBKFT Metoprolol Succinate ( Xl ) (Metoprolol Succinate) 25 Mg Tab.er.24h 50 Mg PO DAILY Isosorbide Mononitrate Er (Isosorbide Mononitrate) 30 Mg Tab.er.24h 30 Mg PO DAILY Atorvastatin Calcium 40 Mg Tablet 40 Mg PO QHS Brilinta (Ticagrelor) 90 Mg Tablet 90 Mg PO BID Amiodarone Hcl 200 Mg Tablet 200 Mg PO DAILY Reported Warfarin Sodium 5 Mg Tablet 5 Mg PO DAILY take 5mg on sat,wed.thur,sat,sun take 6 mg on saturday and saturday Ferrous Sulfate 324 Mg Tablet.dr 324 Mg PO DAILY Flomax (Tamsulosin Hcl) 0.4 Mg Cap.er.24h 0.4 Mg PO DAILY Allergies Allergies: Coded Allergies: No Known Drug Allergies (Unverified , 01/24/19) ROS Review of System Per HPI Physical Exam Physical Exam GENERAL: NAD, sitting up in chair HEENT: OM moist NECK: Supple, LUNGS: Clear. HEART: S1, S2 regular. ABDOMEN: soft, NT EXTREMITIES: No edema, SKIN: Unremarkable, No rash NEUROLOGIC: Grossly normal No [place] Vital Signs Vital Signs Date Time Temp Pulse Resp B/P (MAP) Pulse Ox O2 Delivery O2 Flow Rate FiO2 02/23/19 15:00 98.4 70 18 146/51 (82) 100 Room Air 98.4 Assessment & Plan CKD tsage 4- Stable was on HD in the past- taken off Dialysis appox 6 months back E-lytes and acid base stable, No uremic symptoms Currently No indication for HD Supportive care, Strict I/O monitor Respiratory failure with hypoxemia- stable oN O2 by MO Congestive heart failure. Bilateral pulmonary infiltrate On PO Lasix 40 BID Cardiomyopathy. Diabetes. Hypertension CAD-.S/P PTCA AND STENT LAD 02/19 DM II ANEMIA Labs Labs Laboratory Tests Test 02/22/19 13:27 02/22/19 14:35 02/22/19 21:23 02/23/19 04:50 White Blood Count 9.0 x10^3/uL (4.0-11.0) 5.8 x10^3/uL (4.0-11.0) Red Blood Count 3.60 x10^6/uL (4.30-5.70) 3.09 x10^6/uL (4.30-5.70) Hemoglobin 8.8 g/dL (13.0-17.5) 7.5 g/dL (13.0-17.5) Hematocrit 27.8 % (39.0-53.0) 23.4 % (39.0-53.0) Mean Corpuscular Volume 77 fL (79-100) 76 fL (79-100) Mean Corpuscular Hemoglobin 25 pg (25-35) 24 pg (25-35) Mean Corpuscular Hemoglobin Concent 32 g/dL (31-37) 32 g/dL (31-37) Red Cell Distribution Width 21.5 % (11.5-14.5) 21.9 % (11.5-14.5) Platelet Count 233 x10^3/uL (140-400) 161 x10^3/uL (140-400) Neutrophils (%) (Auto) 74 % (31-73) 63 % (31-73) Lymphocytes (%) (Auto) 9 % (24-48) 18 % (24-48) Monocytes (%) (Auto) 17 % (0-9) 18 % (0-9) Eosinophils (%) (Auto) 0 % (0-3) 1 % (0-3) Basophils (%) (Auto) 0 % (0-3) 1 % (0-3) Neutrophils # (Auto) 6.7 x10^3/uL (1.8-7.7) 3.7 x10^3/uL (1.8-7.7) Lymphocytes # (Auto) 0.8 x10^3/uL (1.0-4.8) 1.0 x10^3/uL (1.0-4.8) Monocytes # (Auto) 1.5 x10^3/uL (0.0-1.1) 1.0 x10^3/uL (0.0-1.1) Eosinophils # (Auto) 0.0 x10^3/uL (0.0-0.7) 0.0 x10^3/uL (0.0-0.7) Basophils # (Auto) 0.0 x10^3/uL (0.0-0.2) 0.0 x10^3/uL (0.0-0.2) Platelet Estimate Adequate (ADEQUATE) Polychromasia Slight Hypochromasia Slight Anisocytosis Mod Schistocytes Few Prothrombin Time 24.6 SEC (11.7-14.0) Prothromb Time International Ratio 2.2 (0.8-1.1) Sodium Level 137 mmol/L (136-145) 142 mmol/L (136-145) Potassium Level 4.1 mmol/L (3.5-5.1) 3.6 mmol/L (3.5-5.1) Chloride Level 101 mmol/L (98-107) 106 mmol/L (98-107) Carbon Dioxide Level 23 mmol/L (21-32) 26 mmol/L (21-32) Anion Gap 13 (6-14) 10 (6-14) Blood Urea Nitrogen 62 mg/dL (8-26) 59 mg/dL (8-26) Creatinine 3.5 mg/dL (0.7-1.3) 3.4 mg/dL (0.7-1.3) Estimated GFR (Cockcroft-Gault) 20.8 21.5 Glucose Level 206 mg/dL (70-99) 110 mg/dL (70-99) Calcium Level 8.7 mg/dL (8.5-10.1) 8.1 mg/dL (8.5-10.1) Total Bilirubin 1.4 mg/dL (0.2-1.0) 1.3 mg/dL (0.2-1.0) Direct Bilirubin 0.4 mg/dL (0.0-0.2) Aspartate Amino Transf (AST/SGOT) 31 U/L (15-37) 24 U/L (15-37) Alanine Aminotransferase (ALT/SGPT) 60 U/L (16-63) 45 U/L (16-63) Alkaline Phosphatase 133 U/L (46-116) 104 U/L (46-116) Troponin I Quantitative 1.115 ng/mL (0.000-0.055) SO-Sos-T-Type Natriuretic Peptide 41006 pg/mL (0-124) Total Protein 8.3 g/dL (6.4-8.2) 6.8 g/dL (6.4-8.2) Albumin 3.1 g/dL (3.4-5.0) 2.5 g/dL (3.4-5.0) Lipase 126 U/L (73-393) O2 Saturation 93 % (92-99) Arterial Blood pH 7.45 (7.35-7.45) Arterial Blood pCO2 at Patient Temp 30 mmHg (35-46) Arterial Blood pO2 at Patient Temp 68 mmHg (65-108) Arterial Blood HCO3 20 mmol/L (21-28) Arterial Blood Base Excess -3 mmol/L (-3-3) Oxyhemoglobin 92.2 % Methemoglobin 0.7 % (0.0-1.9) Carbon Monoxide, Quantitative 0.1 % (0.0-1.9) FiO2 40 Glucose (Fingerstick) 146 mg/dL (70-99) BUN/Creatinine Ratio 17 (6-20) Phosphorus Level 4.2 mg/dL (2.6-4.7) Magnesium Level 1.9 mg/dL (1.8-2.4) Albumin/Globulin Ratio 0.6 (1.0-1.7) Test 02/23/19 08:10 O2 Saturation 97 % (92-99) Arterial Blood pH 7.41 (7.35-7.45) Arterial Blood pCO2 at Patient Temp 40 mmHg (35-46) Arterial Blood pO2 at Patient Temp 94 mmHg (65-108) Arterial Blood HCO3 25 mmol/L (21-28) Arterial Blood Base Excess 0 mmol/L (-3-3) FiO2 40% Laboratory Tests Test 02/22/19 21:23 02/23/19 04:50 02/23/19 08:10 Glucose (Fingerstick) 146 mg/dL (70-99) White Blood Count 5.8 x10^3/uL (4.0-11.0) Red Blood Count 3.09 x10^6/uL (4.30-5.70) Hemoglobin 7.5 g/dL (13.0-17.5) Hematocrit 23.4 % (39.0-53.0) Mean Corpuscular Volume 76 fL (79-100) Mean Corpuscular Hemoglobin 24 pg (25-35) Mean Corpuscular Hemoglobin Concent 32 g/dL (31-37) Red Cell Distribution Width 21.9 % (11.5-14.5) Platelet Count 161 x10^3/uL (140-400) Neutrophils (%) (Auto) 63 % (31-73) Lymphocytes (%) (Auto) 18 % (24-48) Monocytes (%) (Auto) 18 % (0-9) Eosinophils (%) (Auto) 1 % (0-3) Basophils (%) (Auto) 1 % (0-3) Neutrophils # (Auto) 3.7 x10^3/uL (1.8-7.7) Lymphocytes # (Auto) 1.0 x10^3/uL (1.0-4.8) Monocytes # (Auto) 1.0 x10^3/uL (0.0-1.1) Eosinophils # (Auto) 0.0 x10^3/uL (0.0-0.7) Basophils # (Auto) 0.0 x10^3/uL (0.0-0.2) Sodium Level 142 mmol/L (136-145) Potassium Level 3.6 mmol/L (3.5-5.1) Chloride Level 106 mmol/L (98-107) Carbon Dioxide Level 26 mmol/L (21-32) Anion Gap 10 (6-14) Blood Urea Nitrogen 59 mg/dL (8-26) Creatinine 3.4 mg/dL (0.7-1.3) Estimated GFR (Cockcroft-Gault) 21.5 BUN/Creatinine Ratio 17 (6-20) Glucose Level 110 mg/dL (70-99) Calcium Level 8.1 mg/dL (8.5-10.1) Phosphorus Level 4.2 mg/dL (2.6-4.7) Magnesium Level 1.9 mg/dL (1.8-2.4) Total Bilirubin 1.3 mg/dL (0.2-1.0) Aspartate Amino Transf (AST/SGOT) 24 U/L (15-37) Alanine Aminotransferase (ALT/SGPT) 45 U/L (16-63) Alkaline Phosphatase 104 U/L (46-116) Total Protein 6.8 g/dL (6.4-8.2) Albumin 2.5 g/dL (3.4-5.0) Albumin/Globulin Ratio 0.6 (1.0-1.7) O2 Saturation 97 % (92-99) Arterial Blood pH 7.41 (7.35-7.45) Arterial Blood pCO2 at Patient Temp 40 mmHg (35-46) Arterial Blood pO2 at Patient Temp 94 mmHg (65-108) Arterial Blood HCO3 25 mmol/L (21-28) Arterial Blood Base Excess 0 mmol/L (-3-3) FiO2 40% Review All relevant outside records, renal labs, imaging studies, telemetry/EKG's were reviewed. ALANNA ESTEVEZ MD Feb 23, 2019 16:19
--- NOTE | 2019-02-23 20:49 | CONS ---
DATE OF CONSULTATION: 02/23/2019 REASON FOR CONSULTATION: The patient seen in pulmonary consultation at the request of Dr. Yee for acute hypoxemic respiratory failure requiring noninvasive ventilation. HISTORY OF PRESENT ILLNESS: The patient is a 73-year-old that was recently discharged from the hospital. He presents with a new problem increasing shortness of breath and bilateral pulmonary infiltrates compatible with acute CHF. The patient required BiPAP last evening. He was on BiPAP overnight. This morning, he is doing better. He is off of BiPAP. His arterial blood gas on 40%, initially revealed a pH of 7.45, PaCO2 of 30, pO2 of 68. He has been seen by Infectious Disease Service and empirically treated with antibiotics. His BUN and creatinine are elevated. There has been discussion in the past regarding the possibility of initiating hemodialysis. I believe the patient has declined that. During his last hospitalization, he presented with chest discomfort. He underwent PCI with stent placement. PAST MEDICAL HISTORY: Remarkable for diabetes, hypertension, chronic kidney disease, coronary artery disease with cardiomyopathy previous, recent cardiac catheterization and stent placement, AFib, COPD, anemia. Cardiomyopathy, ejection fraction of 40%. PAST SURGICAL HISTORY: Recent PCI. SOCIAL HISTORY: He has a history of COPD. He is currently not smoking, denies any alcohol intake. He smoked for 35 years. ALLERGIES: No known drug allergies. CURRENT MEDICATIONS: List was reviewed. REVIEW OF SYSTEMS: CONSTITUTIONAL: No fever or chills. EYES: No change in visual acuity. HENT: No nasal congestion or sore throat. PULMONARY: As indicated above. CARDIOVASCULAR: No chest pain or pressure. He recently had a successful PCI of the LAD with implantation of a drug-eluting stent. GASTROINTESTINAL: No nausea, vomiting, diarrhea. GENITOURINARY: No dysuria or frequency. MUSCULOSKELETAL: No localized muscle aches or joint pains. SKIN: No new skin rashes. NEUROLOGIC: No headaches, diplopia or blurred vision. PHYSICAL EXAMINATION: VITAL SIGNS: Stable. O2 saturation was greater than 92%. HEENT: Eyes, the sclerae were nonicteric. NECK: Jugular venous distention was elevated. No lymphadenopathy. CHEST: Full expansion. LUNGS: Crackles in the bases. Diminished breath sounds in the bases. CARDIOVASCULAR: Regular rate and rhythm with S1, S2, no S3. ABDOMEN: Soft, nontender. EXTREMITIES: No clubbing, cyanosis. Minimal edema. NEUROLOGICAL: The patient was awake, alert, following commands. A detailed neuro exam was not performed. LABORATORY DATA: Reviewed. White count was elevated. INR was 2.2. Electrolytes were noted. BUN and creatinine 59 and 3.4. His albumin was low. Chest x-ray reviewed, bilateral pulmonary infiltrates, bilateral effusion, compatible with acute CHF. IMPRESSION: 1. Acute hypoxemic respiratory failure, secondary to acute on chronic systolic heart failure. 2. Acute on chronic kidney disease. 3. Bilateral pulmonary infiltrates and effusion compatible with congestive heart failure. 4. Chronic obstructive pulmonary disease. 5. Cardiomyopathy. 6. Recent PCI with LAD stenting. 7. Hypertension. 8. Diabetes. 9. Tobacco dependence, in remission. PLAN: 1. I concur with Dr. Corrigan the infiltrates are not related to pulmonary infection. 2. I would recommend diuresis. 3. The patient may require hemodialysis. We will defer to Nephrology. 4. Continue p.r.n. noninvasive ventilation. 5. Oxygen supplementation. 6. Bronchodilators. 7. Continue anticoagulation per Cardiology. I do appreciate the privilege in sharing in the patient's care. ANAHY BLOCK MD DR: BRAXTON/talita JOB#: [id number] / [id number]
[2019-02-23] MEDS: ATORVASTATIN CALCIUM 40 MG TABLET. PO SCH (21:48)
[2019-02-23] MEDS: LACTOBACILLUS RHAMNOSUS GG 1 CAPSULE. PO SCH (21:48)
[2019-02-23] MEDS: INSULIN GLARGINE SYRINGE. SQ SCH (21:57)
[2019-02-24] MEDS: PIPERACILLIN/TAZOBACTAM 3.375 GM in IV NORMAL SALINE 50ML 50 ML IV SCH (02:22)
[2019-02-24 03:20] VITALS: BP 144/61
[2019-02-24 05:36] LABS: BASO # 0.1 x10^3/uL (0.0-0.2); BASO % 1 % (0-3); EOS % 1 % (0-3); HEMATOCRIT 24.4 % (39.0-53.0); HEMOGLOBIN 7.8 g/dL (13.0-17.5); LYMPH # 1.1 x10^3/uL (1.0-4.8); LYMPH % 19 % (24-48); MEAN CORPUSCULAR HEMOGLOBIN 25 pg (25-35); MEAN CORPUSCULAR HGB CONC 32 g/dL (31-37); MEAN CORPUSCULAR VOLUME 76 fL (79-100); MONO # 1.1 x10^3/uL (0.0-1.1); MONO % 18 % (0-9); NEUT # 3.7 x10^3/uL (1.8-7.7); NEUT % 62 % (31-73); PLATELET COUNT 176 x10^3/uL (140-400); RED BLOOD COUNT 3.19 x10^6/uL (4.30-5.70); RED CELL DISTRIBUTION WIDTH 21.4 % (11.5-14.5); WHITE BLOOD COUNT 6.1 x10^3/uL (4.0-11.0)
[2019-02-24 05:51] LABS: CALCIUM 8.3 mg/dL (8.5-10.1); CREATININE 3.5 mg/dL (0.7-1.3); GFR 20.8; MAGNESIUM 2.2 mg/dL (1.8-2.4); POTASSIUM 3.2 mmol/L (3.5-5.1)
[2019-02-24 05:56] LABS: PROTHROMBIN TIME PATIENT 29.8 SEC (11.7-14.0)
[2019-02-24 07:00] VITALS: BP 154/70
--- NOTE | 2019-02-24 08:04 | PDOC ---
Infectious Disease Note Subjective Subjective pt is feeling good, ROS ROS no n/v/d/sob/fever Vital Sign Vital Signs Vital Signs Date Time Temp Pulse Resp B/P (MAP) Pulse Ox O2 Delivery O2 Flow Rate FiO2 02/24/19 07:00 98.9 62 18 154/70 (98) 100 Room Air 98.9 Physical Exam PHYSICAL EXAM GENERAL: Alert, oriented gentleman not in any distress. VITAL SIGNS: Stable, afebrile. HEENT: NAD. NECK: Supple, no JVP, no lymphadenopathy. LUNGS: Clear. HEART: S1, S2 regular. ABDOMEN: Benign. EXTREMITIES: No edema, cyanosis. SKIN: Unremarkable. NEUROLOGIC: The patient is neurologically alert, awake and appropriate. No focal neurologic deficit. Labs Lab Laboratory Tests Test 02/23/19 08:10 02/23/19 20:50 02/24/19 04:35 02/24/19 04:50 O2 Saturation 97 % (92-99) Arterial Blood pH 7.41 (7.35-7.45) Arterial Blood pCO2 at Patient Temp 40 mmHg (35-46) Arterial Blood pO2 at Patient Temp 94 mmHg (65-108) Arterial Blood HCO3 25 mmol/L (21-28) Arterial Blood Base Excess 0 mmol/L (-3-3) FiO2 40% Glucose (Fingerstick) 195 mg/dL (70-99) White Blood Count 6.1 x10^3/uL (4.0-11.0) Red Blood Count 3.19 x10^6/uL (4.30-5.70) Hemoglobin 7.8 g/dL (13.0-17.5) Hematocrit 24.4 % (39.0-53.0) Mean Corpuscular Volume 76 fL (79-100) Mean Corpuscular Hemoglobin 25 pg (25-35) Mean Corpuscular Hemoglobin Concent 32 g/dL (31-37) Red Cell Distribution Width 21.4 % (11.5-14.5) Platelet Count 176 x10^3/uL (140-400) Neutrophils (%) (Auto) 62 % (31-73) Lymphocytes (%) (Auto) 19 % (24-48) Monocytes (%) (Auto) 18 % (0-9) Eosinophils (%) (Auto) 1 % (0-3) Basophils (%) (Auto) 1 % (0-3) Neutrophils # (Auto) 3.7 x10^3/uL (1.8-7.7) Lymphocytes # (Auto) 1.1 x10^3/uL (1.0-4.8) Monocytes # (Auto) 1.1 x10^3/uL (0.0-1.1) Eosinophils # (Auto) 0.0 x10^3/uL (0.0-0.7) Basophils # (Auto) 0.1 x10^3/uL (0.0-0.2) Sodium Level 143 mmol/L (136-145) Potassium Level 3.2 mmol/L (3.5-5.1) Chloride Level 108 mmol/L (98-107) Carbon Dioxide Level 25 mmol/L (21-32) Anion Gap 10 (6-14) Blood Urea Nitrogen 55 mg/dL (8-26) Creatinine 3.5 mg/dL (0.7-1.3) Estimated GFR (Cockcroft-Gault) 20.8 Glucose Level 73 mg/dL (70-99) Calcium Level 8.3 mg/dL (8.5-10.1) Magnesium Level 2.2 mg/dL (1.8-2.4) Test 02/24/19 05:00 Prothrombin Time 29.8 SEC (11.7-14.0) Prothromb Time International Ratio 2.9 (0.8-1.1) Micro Microbiology 02/22/19 Blood Culture - Preliminary, Resulted NO GROWTH AFTER 1 DAY Objective Assessment 1. Respiratory failure with hypoxemia. 2. Congestive heart failure. Bilateral pulmonary infiltrate, most likely related to congestive heart failure, pulmonary infection appears less likely. 3. Cardiomyopathy. 4. Renal insufficiency. 5. Diabetes. 6. Hypertension. Plan Plan of Care d/c zosyn cont supportive care d/c andrea if not needed HUA DUVALL MD Feb 24, 2019 08:04
--- NOTE | 2019-02-24 08:27 | RAD ---
Chest radiograph 02/24/2019 5:00 AM INDICATION: Congestive heart failure COMPARISON: 02/22/2019 TECHNIQUE: Portable upright frontal view of the chest is provided. FINDINGS: The cardiomediastinal silhouette is similar in appearance. There is decrease in moderate pulmonary vascular congestion with mild residual pulmonary vascular congestion. Bandlike opacity in the right lower lobe may represent subsegmental atelectasis versus infiltrate. Lingular consolidative changes have improved with small residual. No significant pleural effusions or pneumothorax. IMPRESSION: Improved aeration of the lungs with in improved consolidative changes in the right upper lobe and lingula. There is residual airspace disease in the right upper lobe, right lower lobe and lingula. Electronically signed by: Nelly Lance MD (02/24/2019 8:24 AM) [facility]
[2019-02-24] MEDS: FUROSEMIDE 40 MG TABLET. PO SCH ×4 (09:00→13:15)
[2019-02-24] MEDS: TICAGRELOR 90 MG TABLET. PO SCH ×2 (09:34→20:12)
[2019-02-24] MEDS: TAMSULOSIN 0.4 MG CAP.ER.24H. PO SCH (09:34)
[2019-02-24] MEDS: ASPIRIN ENTERIC COATED 81 MG TABLET.DR. PO SCH (09:34)
[2019-02-24] MEDS: METOPROLOL SUCC 24HR ER 50 MG TAB.ER.24H. PO SCH (09:35)
[2019-02-24] MEDS: LACTOBACILLUS RHAMNOSUS GG 1 CAPSULE. PO SCH ×2 (09:35→20:11)
[2019-02-24] MEDS: ISOSORBIDE MONONITRATE ER 30 MG TAB.ER.24H PO SCH (09:35)
[2019-02-24] MEDS: FERROUS SULFATE 325 MG TABLET. PO SCH (09:35)
[2019-02-24] MEDS: AMIODARONE HCL 200 MG TABLET. PO SCH (09:36)
[2019-02-24 11:00] VITALS: BP 140/65
--- NOTE | 2019-02-24 11:28 | PDOC2 ---
UROLOGY CONSULT Date of Consult Date of Consult DATE: 02/24/19 TIME: 11:22 Reason for Consult Reason for Consult: chronic mendez Identification/Chief Complaint Chief Complaint chronic mendez Source Source: Chart review, Patient History of Present Illness Reason for Visit: Patient is a 73yoM who has history of urinary retention and chronic mendez. He was initially seen by [facility] in August 2017 when the mendez was placed. His followup care was managed by Dr. Og in November 2017 who gave the patient the option of self cathing, TURP, or leaving mendez in place. His mendez was last changed on 02/22/19. He denies any pain or hematuria. He is unaware of any previous voiding trial attempts. Patient also has ESRD and is not currently on dialysis. Creatinine is 3.5. Past Medical History Cardiovascular: AFIB, CAD, CHF, HTN Pulmonary: Pneumonia GI: Other Heme/Onc: Anemia NOS Hepatobiliary: No pertinent hx Psych: No pertinent hx Musculoskeletal: Osteoarthritis Rheumatologic: No pertinent hx Infectious disease: No pertinent hx Renal/: Chronic renal insuff Endocrine: Diabetes Past Surgical History Past Surgical History: Other (recent coronary stent) Family History Family History: Hypertension Social History <1 pack per day ALCOHOL: none Drugs: None Lives: with Family Current Problem List Problems: (1) Urinary retention (2) Indwelling urethral catheter present Current Medications Current Medications Current Medications Lactobacillus Rhamnosus (Culturelle) 1 cap BID PO Last administered on 02/24/19at 09:36; Start 02/23/19 at 21:00 Warfarin Sodium (Coumadin Per Pharmacy) 1 each PRN DAILY PRN MC SEE COMMENTS; Start 02/24/19 at 10:45 Warfarin Sodium (Coumadin) 4 mg 1X WARF ONCE PO ; Start 02/24/19 at 16:00; Stop 02/24/19 at 16:01 Allergies Allergies: Coded Allergies: No Known Drug Allergies (Unverified , 01/24/19) ROS Review Of Systems: CONSTITUTIONAL: No fever or chills EYES: No recent changes SKIN: No rash or itching CARDIOVASCULAR: No chest pain, syncope, palpitations, or edema RESPIRATORY: No SOB or cough GASTROINTESTINAL: No nausea, vomiting or abdominal pain NEUROLOGICAL: No headaches or weakness ENDOCRINE: No cold or heat intolerance GENITOURINARY: Urethral mendez in place MUSCULOSKELETAL: No back pain or joint pain LYMPHATICS: No enlarged lymph nodes PSYCHIATRIC: No anxiety or depression Physical Exam Physical Exam: General: Pleasant, no acute distress, well groomed Eyes: conjunctiva anicteric, eyes full range of motion ENT: moist oral mucosa, normal dentition Neck: Trachea midline, no masses Respiratory: unlabored breathing, not using accessory muscles Cardiovascular: Radial pulse regular, no peripheral edema Abdomen: nontender, nondistended, no hepatosplenomegaly, no masses : urethral mendez in place draining clear urine Skin: no rashes or skin lesions on visualized skin Psych: normal mood, affect. Alert and oriented x 3. Vitals VITALS Vital Signs Date Time Temp Pulse Resp B/P (MAP) Pulse Ox O2 Delivery O2 Flow Rate FiO2 02/24/19 11:00 98.5 63 20 140/65 (90) 100 Room Air 98.5 Labs Labs Laboratory Tests Test 02/22/19 13:27 02/22/19 14:35 02/22/19 21:23 02/23/19 04:50 White Blood Count 9.0 x10^3/uL (4.0-11.0) 5.8 x10^3/uL (4.0-11.0) Red Blood Count 3.60 x10^6/uL (4.30-5.70) 3.09 x10^6/uL (4.30-5.70) Hemoglobin 8.8 g/dL (13.0-17.5) 7.5 g/dL (13.0-17.5) Hematocrit 27.8 % (39.0-53.0) 23.4 % (39.0-53.0) Mean Corpuscular Volume 77 fL (79-100) 76 fL (79-100) Mean Corpuscular Hemoglobin 25 pg (25-35) 24 pg (25-35) Mean Corpuscular Hemoglobin Concent 32 g/dL (31-37) 32 g/dL (31-37) Red Cell Distribution Width 21.5 % (11.5-14.5) 21.9 % (11.5-14.5) Platelet Count 233 x10^3/uL (140-400) 161 x10^3/uL (140-400) Neutrophils (%) (Auto) 74 % (31-73) 63 % (31-73) Lymphocytes (%) (Auto) 9 % (24-48) 18 % (24-48) Monocytes (%) (Auto) 17 % (0-9) 18 % (0-9) Eosinophils (%) (Auto) 0 % (0-3) 1 % (0-3) Basophils (%) (Auto) 0 % (0-3) 1 % (0-3) Neutrophils # (Auto) 6.7 x10^3/uL (1.8-7.7) 3.7 x10^3/uL (1.8-7.7) Lymphocytes # (Auto) 0.8 x10^3/uL (1.0-4.8) 1.0 x10^3/uL (1.0-4.8) Monocytes # (Auto) 1.5 x10^3/uL (0.0-1.1) 1.0 x10^3/uL (0.0-1.1) Eosinophils # (Auto) 0.0 x10^3/uL (0.0-0.7) 0.0 x10^3/uL (0.0-0.7) Basophils # (Auto) 0.0 x10^3/uL (0.0-0.2) 0.0 x10^3/uL (0.0-0.2) Platelet Estimate Adequate (ADEQUATE) Polychromasia Slight Hypochromasia Slight Anisocytosis Mod Schistocytes Few Prothrombin Time 24.6 SEC (11.7-14.0) Prothromb Time International Ratio 2.2 (0.8-1.1) Sodium Level 137 mmol/L (136-145) 142 mmol/L (136-145) Potassium Level 4.1 mmol/L (3.5-5.1) 3.6 mmol/L (3.5-5.1) Chloride Level 101 mmol/L (98-107) 106 mmol/L (98-107) Carbon Dioxide Level 23 mmol/L (21-32) 26 mmol/L (21-32) Anion Gap 13 (6-14) 10 (6-14) Blood Urea Nitrogen 62 mg/dL (8-26) 59 mg/dL (8-26) Creatinine 3.5 mg/dL (0.7-1.3) 3.4 mg/dL (0.7-1.3) Estimated GFR (Cockcroft-Gault) 20.8 21.5 Glucose Level 206 mg/dL (70-99) 110 mg/dL (70-99) Calcium Level 8.7 mg/dL (8.5-10.1) 8.1 mg/dL (8.5-10.1) Total Bilirubin 1.4 mg/dL (0.2-1.0) 1.3 mg/dL (0.2-1.0) Direct Bilirubin 0.4 mg/dL (0.0-0.2) Aspartate Amino Transf (AST/SGOT) 31 U/L (15-37) 24 U/L (15-37) Alanine Aminotransferase (ALT/SGPT) 60 U/L (16-63) 45 U/L (16-63) Alkaline Phosphatase 133 U/L (46-116) 104 U/L (46-116) Troponin I Quantitative 1.115 ng/mL (0.000-0.055) YR-Rab-E-Type Natriuretic Peptide 06405 pg/mL (0-124) Total Protein 8.3 g/dL (6.4-8.2) 6.8 g/dL (6.4-8.2) Albumin 3.1 g/dL (3.4-5.0) 2.5 g/dL (3.4-5.0) Lipase 126 U/L (73-393) O2 Saturation 93 % (92-99) Arterial Blood pH 7.45 (7.35-7.45) Arterial Blood pCO2 at Patient Temp 30 mmHg (35-46) Arterial Blood pO2 at Patient Temp 68 mmHg (65-108) Arterial Blood HCO3 20 mmol/L (21-28) Arterial Blood Base Excess -3 mmol/L (-3-3) Oxyhemoglobin 92.2 % Methemoglobin 0.7 % (0.0-1.9) Carbon Monoxide, Quantitative 0.1 % (0.0-1.9) FiO2 40 Glucose (Fingerstick) 146 mg/dL (70-99) BUN/Creatinine Ratio 17 (6-20) Phosphorus Level 4.2 mg/dL (2.6-4.7) Magnesium Level 1.9 mg/dL (1.8-2.4) Albumin/Globulin Ratio 0.6 (1.0-1.7) Test 02/23/19 08:10 02/23/19 20:50 9/3/19 04:35 02/24/19 04:50 O2 Saturation 97 % (92-99) Arterial Blood pH 7.41 (7.35-7.45) Arterial Blood pCO2 at Patient Temp 40 mmHg (35-46) Arterial Blood pO2 at Patient Temp 94 mmHg (65-108) Arterial Blood HCO3 25 mmol/L (21-28) Arterial Blood Base Excess 0 mmol/L (-3-3) FiO2 40% Glucose (Fingerstick) 195 mg/dL (70-99) White Blood Count 6.1 x10^3/uL (4.0-11.0) Red Blood Count 3.19 x10^6/uL (4.30-5.70) Hemoglobin 7.8 g/dL (13.0-17.5) Hematocrit 24.4 % (39.0-53.0) Mean Corpuscular Volume 76 fL (79-100) Mean Corpuscular Hemoglobin 25 pg (25-35) Mean Corpuscular Hemoglobin Concent 32 g/dL (31-37) Red Cell Distribution Width 21.4 % (11.5-14.5) Platelet Count 176 x10^3/uL (140-400) Neutrophils (%) (Auto) 62 % (31-73) Lymphocytes (%) (Auto) 19 % (24-48) Monocytes (%) (Auto) 18 % (0-9) Eosinophils (%) (Auto) 1 % (0-3) Basophils (%) (Auto) 1 % (0-3) Neutrophils # (Auto) 3.7 x10^3/uL (1.8-7.7) Lymphocytes # (Auto) 1.1 x10^3/uL (1.0-4.8) Monocytes # (Auto) 1.1 x10^3/uL (0.0-1.1) Eosinophils # (Auto) 0.0 x10^3/uL (0.0-0.7) Basophils # (Auto) 0.1 x10^3/uL (0.0-0.2) Sodium Level 143 mmol/L (136-145) Potassium Level 3.2 mmol/L (3.5-5.1) Chloride Level 108 mmol/L (98-107) Carbon Dioxide Level 25 mmol/L (21-32) Anion Gap 10 (6-14) Blood Urea Nitrogen 55 mg/dL (8-26) Creatinine 3.5 mg/dL (0.7-1.3) Estimated GFR (Cockcroft-Gault) 20.8 Glucose Level 73 mg/dL (70-99) Calcium Level 8.3 mg/dL (8.5-10.1) Magnesium Level 2.2 mg/dL (1.8-2.4) Test 02/24/19 05:00 02/24/19 08:12 02/24/19 08:32 Prothrombin Time 29.8 SEC (11.7-14.0) Prothromb Time International Ratio 2.9 (0.8-1.1) Glucose (Fingerstick) 58 mg/dL (70-99) 75 mg/dL (70-99) Laboratory Tests Test 02/23/19 20:50 02/24/19 04:35 02/24/19 04:50 02/24/19 05:00 Glucose (Fingerstick) 195 mg/dL (70-99) White Blood Count 6.1 x10^3/uL (4.0-11.0) Red Blood Count 3.19 x10^6/uL (4.30-5.70) Hemoglobin 7.8 g/dL (13.0-17.5) Hematocrit 24.4 % (39.0-53.0) Mean Corpuscular Volume 76 fL (79-100) Mean Corpuscular Hemoglobin 25 pg (25-35) Mean Corpuscular Hemoglobin Concent 32 g/dL (31-37) Red Cell Distribution Width 21.4 % (11.5-14.5) Platelet Count 176 x10^3/uL (140-400) Neutrophils (%) (Auto) 62 % (31-73) Lymphocytes (%) (Auto) 19 % (24-48) Monocytes (%) (Auto) 18 % (0-9) Eosinophils (%) (Auto) 1 % (0-3) Basophils (%) (Auto) 1 % (0-3) Neutrophils # (Auto) 3.7 x10^3/uL (1.8-7.7) Lymphocytes # (Auto) 1.1 x10^3/uL (1.0-4.8) Monocytes # (Auto) 1.1 x10^3/uL (0.0-1.1) Eosinophils # (Auto) 0.0 x10^3/uL (0.0-0.7) Basophils # (Auto) 0.1 x10^3/uL (0.0-0.2) Sodium Level 143 mmol/L (136-145) Potassium Level 3.2 mmol/L (3.5-5.1) Chloride Level 108 mmol/L (98-107) Carbon Dioxide Level 25 mmol/L (21-32) Anion Gap 10 (6-14) Blood Urea Nitrogen 55 mg/dL (8-26) Creatinine 3.5 mg/dL (0.7-1.3) Estimated GFR (Cockcroft-Gault) 20.8 Glucose Level 73 mg/dL (70-99) Calcium Level 8.3 mg/dL (8.5-10.1) Magnesium Level 2.2 mg/dL (1.8-2.4) Prothrombin Time 29.8 SEC (11.7-14.0) Prothromb Time International Ratio 2.9 (0.8-1.1) Test 02/24/19 08:12 02/24/19 08:32 Glucose (Fingerstick) 58 mg/dL (70-99) 75 mg/dL (70-99) Assessment/Plan Assessment/Plan Urinary retention, chronic mendez - Patient was seen by Dr. Og in the past where TURP and intermittent self catheterizing was discussed. He has had urethral mendez in place for 18 months. We discussed following up with [facility] again for further care and patient will think about it. Will f/u tomorrow. SYMONE MILES Feb 24, 2019 11:28
--- NOTE | 2019-02-24 11:57 | PDOC ---
PROGRESS NOTES Chief Complaint Chief Complaint CHF/fluid overload Acute hypoxic respiratory failure - NIPPPV Acute on chronic diastolic/systolic CHF - EF 40% Elevated troponin - in the background of CKD CAD - s/p PCI/stent placement one year ago. Hypertension - Acute on chronic renal insufficiency - Hyperlipidemia - Diabetes mellitus type 2 - Paroxysmal AFIB Anemia of chronic disease - on iron for RADHA. Indwelling Mendez catheter for urinary xuagqwavu-5-7/2 years now-gets changed by home health nurse Q monthly FULL CODE History of Present Illness History of Present Illness No increased S OA, still refusing SNU, he was a readmission after I discharged one day to home health as per insisting of -but he still refusing SNU Creatinine 3.5, no increase in SOA. Initial thoughts of sabas needing dialysis to help fluid overload but that seems not to be the case currently At least not from renal note Mendez catheter in for one and half years, I did consult urology. Patient does not want it to be DC'd. Had bad urinary retention. He will follow- up with urology as outpatient. HH RN changes it q monthly Continue Brilinta and warfarin, A. fib, other comorbidities Full code EARLIER ENTRY: I just dcd him 2 days ago with and HH ( refused snu for him, PT recommended SNU) andback again bec of soa Feb 15- hospital stay: CXR: IMPRESSION: Worsening of pulmonary infiltrate and/or edema in both lungs, greater towards the bases. Small pleural effusions, although improved since prior study. IN his last stay, we were able to avoid HD, to get fluid off with watch of his kidney fcn FULL CODE not the best historian but he knows what we are doing for him Seen in ICU, off bipap, on lasix 40 BID BReathing better after lasix 40 IV P CArds., pulm,, renal and ID all on board PLAn: COnt PO lasix MOnitor creat CVC bed FULL CODE Delicate fluid balance, ef 40% needs lasix but ckd MAintain mendez dw [employer] Vitals Vitals Vital Signs Date Time Temp Pulse Resp B/P (MAP) Pulse Ox O2 Delivery O2 Flow Rate FiO2 02/24/19 11:00 98.5 63 20 140/65 (90) 100 Room Air 98.5 Physical Exam Physical Exam GENERAL: Alert, oriented gentleman not in any distress. VITAL SIGNS: Stable, afebrile. HEENT: NAD. NECK: Supple, no JVP, no lymphadenopathy. LUNGS: Clear. HEART: S1, S2 regular. ABDOMEN: Benign. EXTREMITIES: No edema, cyanosis. SKIN: Unremarkable. NEUROLOGIC: The patient is neurologically alert, awake and appropriate. No focal neurologic deficit. General: Alert, Oriented X3, Cooperative, mild distress Heart: Regular rate, Normal S1, Normal S2, No murmurs, Other (irreg. rhythm) Lungs: Crackles, Other (sce, diminished bases, no wheezing) Abdomen: Normal bowel sounds, Soft, No tenderness Extremities: No clubbing, No cyanosis, No edema Skin: No rashes, No breakdown, No significant lesion Labs LABS Laboratory Tests Test 02/23/19 20:50 02/24/19 04:35 02/24/19 04:50 02/24/19 05:00 Glucose (Fingerstick) 195 mg/dL (70-99) White Blood Count 6.1 x10^3/uL (4.0-11.0) Red Blood Count 3.19 x10^6/uL (4.30-5.70) Hemoglobin 7.8 g/dL (13.0-17.5) Hematocrit 24.4 % (39.0-53.0) Mean Corpuscular Volume 76 fL (79-100) Mean Corpuscular Hemoglobin 25 pg (25-35) Mean Corpuscular Hemoglobin Concent 32 g/dL (31-37) Red Cell Distribution Width 21.4 % (11.5-14.5) Platelet Count 176 x10^3/uL (140-400) Neutrophils (%) (Auto) 62 % (31-73) Lymphocytes (%) (Auto) 19 % (24-48) Monocytes (%) (Auto) 18 % (0-9) Eosinophils (%) (Auto) 1 % (0-3) Basophils (%) (Auto) 1 % (0-3) Neutrophils # (Auto) 3.7 x10^3/uL (1.8-7.7) Lymphocytes # (Auto) 1.1 x10^3/uL (1.0-4.8) Monocytes # (Auto) 1.1 x10^3/uL (0.0-1.1) Eosinophils # (Auto) 0.0 x10^3/uL (0.0-0.7) Basophils # (Auto) 0.1 x10^3/uL (0.0-0.2) Sodium Level 143 mmol/L (136-145) Potassium Level 3.2 mmol/L (3.5-5.1) Chloride Level 108 mmol/L (98-107) Carbon Dioxide Level 25 mmol/L (21-32) Anion Gap 10 (6-14) Blood Urea Nitrogen 55 mg/dL (8-26) Creatinine 3.5 mg/dL (0.7-1.3) Estimated GFR (Cockcroft-Gault) 20.8 Glucose Level 73 mg/dL (70-99) Calcium Level 8.3 mg/dL (8.5-10.1) Magnesium Level 2.2 mg/dL (1.8-2.4) Prothrombin Time 29.8 SEC (11.7-14.0) Prothromb Time International Ratio 2.9 (0.8-1.1) Test 02/24/19 08:12 02/24/19 08:32 02/24/19 11:45 Glucose (Fingerstick) 58 mg/dL (70-99) 75 mg/dL (70-99) 110 mg/dL (70-99) Review of Systems Review of Systems A 14 point ROS was completed with the following noted as positive: Other systems reviewed and negative. \CONSTITUTIONAL: No fever or chills EYES: No recent changes SKIN: No rash or itching CARDIOVASCULAR: No chest pain, syncope, palpitations, or edema RESPIRATORY: soa on exertion GASTROINTESTINAL: No nausea, vomiting or abdominal pain NEUROLOGICAL: No headaches or weakness ENDOCRINE: No cold or heat intolerance GENITOURINARY: No urgency or frequency of urination MUSCULOSKELETAL: No back pain or joint pain LYMPHATICS: No enlarged lymph nodes PSYCHIATRIC: No anxiety or depression Assessment and Plan Assessmemt and Plan Problems Medical Problems: (1) Acute on chronic diastolic (congestive) heart failure Status: Acute (2) CAD (coronary artery disease) Status: Chronic (3) CHF (congestive heart failure) Status: Chronic (4) DM2 (diabetes mellitus, type 2) Status: Chronic (5) HTN (hypertension) Status: Chronic (6) Respiratory failure Status: Acute Comment Review of Relevant I have reviewed the following items juanita (where applicable) has been applied. Labs Laboratory Tests Test 02/22/19 13:27 02/22/19 14:35 02/22/19 21:23 02/23/19 04:50 White Blood Count 9.0 x10^3/uL (4.0-11.0) 5.8 x10^3/uL (4.0-11.0) Red Blood Count 3.60 x10^6/uL (4.30-5.70) 3.09 x10^6/uL (4.30-5.70) Hemoglobin 8.8 g/dL (13.0-17.5) 7.5 g/dL (13.0-17.5) Hematocrit 27.8 % (39.0-53.0) 23.4 % (39.0-53.0) Mean Corpuscular Volume 77 fL (79-100) 76 fL (79-100) Mean Corpuscular Hemoglobin 25 pg (25-35) 24 pg (25-35) Mean Corpuscular Hemoglobin Concent 32 g/dL (31-37) 32 g/dL (31-37) Red Cell Distribution Width 21.5 % (11.5-14.5) 21.9 % (11.5-14.5) Platelet Count 233 x10^3/uL (140-400) 161 x10^3/uL (140-400) Neutrophils (%) (Auto) 74 % (31-73) 63 % (31-73) Lymphocytes (%) (Auto) 9 % (24-48) 18 % (24-48) Monocytes (%) (Auto) 17 % (0-9) 18 % (0-9) Eosinophils (%) (Auto) 0 % (0-3) 1 % (0-3) Basophils (%) (Auto) 0 % (0-3) 1 % (0-3) Neutrophils # (Auto) 6.7 x10^3/uL (1.8-7.7) 3.7 x10^3/uL (1.8-7.7) Lymphocytes # (Auto) 0.8 x10^3/uL (1.0-4.8) 1.0 x10^3/uL (1.0-4.8) Monocytes # (Auto) 1.5 x10^3/uL (0.0-1.1) 1.0 x10^3/uL (0.0-1.1) Eosinophils # (Auto) 0.0 x10^3/uL (0.0-0.7) 0.0 x10^3/uL (0.0-0.7) Basophils # (Auto) 0.0 x10^3/uL (0.0-0.2) 0.0 x10^3/uL (0.0-0.2) Platelet Estimate Adequate (ADEQUATE) Polychromasia Slight Hypochromasia Slight Anisocytosis Mod Schistocytes Few Prothrombin Time 24.6 SEC (11.7-14.0) Prothromb Time International Ratio 2.2 (0.8-1.1) Sodium Level 137 mmol/L (136-145) 142 mmol/L (136-145) Potassium Level 4.1 mmol/L (3.5-5.1) 3.6 mmol/L (3.5-5.1) Chloride Level 101 mmol/L (98-107) 106 mmol/L (98-107) Carbon Dioxide Level 23 mmol/L (21-32) 26 mmol/L (21-32) Anion Gap 13 (6-14) 10 (6-14) Blood Urea Nitrogen 62 mg/dL (8-26) 59 mg/dL (8-26) Creatinine 3.5 mg/dL (0.7-1.3) 3.4 mg/dL (0.7-1.3) Estimated GFR (Cockcroft-Gault) 20.8 21.5 Glucose Level 206 mg/dL (70-99) 110 mg/dL (70-99) Calcium Level 8.7 mg/dL (8.5-10.1) 8.1 mg/dL (8.5-10.1) Total Bilirubin 1.4 mg/dL (0.2-1.0) 1.3 mg/dL (0.2-1.0) Direct Bilirubin 0.4 mg/dL (0.0-0.2) Aspartate Amino Transf (AST/SGOT) 31 U/L (15-37) 24 U/L (15-37) Alanine Aminotransferase (ALT/SGPT) 60 U/L (16-63) 45 U/L (16-63) Alkaline Phosphatase 133 U/L (46-116) 104 U/L (46-116) Troponin I Quantitative 1.115 ng/mL (0.000-0.055) EV-Tva-B-Type Natriuretic Peptide 78101 pg/mL (0-124) Total Protein 8.3 g/dL (6.4-8.2) 6.8 g/dL (6.4-8.2) Albumin 3.1 g/dL (3.4-5.0) 2.5 g/dL (3.4-5.0) Lipase 126 U/L (73-393) O2 Saturation 93 % (92-99) Arterial Blood pH 7.45 (7.35-7.45) Arterial Blood pCO2 at Patient Temp 30 mmHg (35-46) Arterial Blood pO2 at Patient Temp 68 mmHg (65-108) Arterial Blood HCO3 20 mmol/L (21-28) Arterial Blood Base Excess -3 mmol/L (-3-3) Oxyhemoglobin 92.2 % Methemoglobin 0.7 % (0.0-1.9) Carbon Monoxide, Quantitative 0.1 % (0.0-1.9) FiO2 40 Glucose (Fingerstick) 146 mg/dL (70-99) BUN/Creatinine Ratio 17 (6-20) Phosphorus Level 4.2 mg/dL (2.6-4.7) Magnesium Level 1.9 mg/dL (1.8-2.4) Albumin/Globulin Ratio 0.6 (1.0-1.7) Test 02/23/19 08:10 02/23/19 20:50 02/24/19 04:35 02/24/19 04:50 O2 Saturation 97 % (92-99) Arterial Blood pH 7.41 (7.35-7.45) Arterial Blood pCO2 at Patient Temp 40 mmHg (35-46) Arterial Blood pO2 at Patient Temp 94 mmHg (65-108) Arterial Blood HCO3 25 mmol/L (21-28) Arterial Blood Base Excess 0 mmol/L (-3-3) FiO2 40% Glucose (Fingerstick) 195 mg/dL (70-99) White Blood Count 6.1 x10^3/uL (4.0-11.0) Red Blood Count 3.19 x10^6/uL (4.30-5.70) Hemoglobin 7.8 g/dL (13.0-17.5) Hematocrit 24.4 % (39.0-53.0) Mean Corpuscular Volume 76 fL (79-100) Mean Corpuscular Hemoglobin 25 pg (25-35) Mean Corpuscular Hemoglobin Concent 32 g/dL (31-37) Red Cell Distribution Width 21.4 % (11.5-14.5) Platelet Count 176 x10^3/uL (140-400) Neutrophils (%) (Auto) 62 % (31-73) Lymphocytes (%) (Auto) 19 % (24-48) Monocytes (%) (Auto) 18 % (0-9) Eosinophils (%) (Auto) 1 % (0-3) Basophils (%) (Auto) 1 % (0-3) Neutrophils # (Auto) 3.7 x10^3/uL (1.8-7.7) Lymphocytes # (Auto) 1.1 x10^3/uL (1.0-4.8) Monocytes # (Auto) 1.1 x10^3/uL (0.0-1.1) Eosinophils # (Auto) 0.0 x10^3/uL (0.0-0.7) Basophils # (Auto) 0.1 x10^3/uL (0.0-0.2) Sodium Level 143 mmol/L (136-145) Potassium Level 3.2 mmol/L (3.5-5.1) Chloride Level 108 mmol/L (98-107) Carbon Dioxide Level 25 mmol/L (21-32) Anion Gap 10 (6-14) Blood Urea Nitrogen 55 mg/dL (8-26) Creatinine 3.5 mg/dL (0.7-1.3) Estimated GFR (Cockcroft-Gault) 20.8 Glucose Level 73 mg/dL (70-99) Calcium Level 8.3 mg/dL (8.5-10.1) Magnesium Level 2.2 mg/dL (1.8-2.4) Test 02/24/19 05:00 02/24/19 08:12 02/24/19 08:32 02/24/19 11:45 Prothrombin Time 29.8 SEC (11.7-14.0) Prothromb Time International Ratio 2.9 (0.8-1.1) Glucose (Fingerstick) 58 mg/dL (70-99) 75 mg/dL (70-99) 110 mg/dL (70-99) Laboratory Tests Test 02/23/19 20:50 02/24/19 04:35 02/24/19 04:50 02/24/19 05:00 Glucose (Fingerstick) 195 mg/dL (70-99) White Blood Count 6.1 x10^3/uL (4.0-11.0) Red Blood Count 3.19 x10^6/uL (4.30-5.70) Hemoglobin 7.8 g/dL (13.0-17.5) Hematocrit 24.4 % (39.0-53.0) Mean Corpuscular Volume 76 fL (79-100) Mean Corpuscular Hemoglobin 25 pg (25-35) Mean Corpuscular Hemoglobin Concent 32 g/dL (31-37) Red Cell Distribution Width 21.4 % (11.5-14.5) Platelet Count 176 x10^3/uL (140-400) Neutrophils (%) (Auto) 62 % (31-73) Lymphocytes (%) (Auto) 19 % (24-48) Monocytes (%) (Auto) 18 % (0-9) Eosinophils (%) (Auto) 1 % (0-3) Basophils (%) (Auto) 1 % (0-3) Neutrophils # (Auto) 3.7 x10^3/uL (1.8-7.7) Lymphocytes # (Auto) 1.1 x10^3/uL (1.0-4.8) Monocytes # (Auto) 1.1 x10^3/uL (0.0-1.1) Eosinophils # (Auto) 0.0 x10^3/uL (0.0-0.7) Basophils # (Auto) 0.1 x10^3/uL (0.0-0.2) Sodium Level 143 mmol/L (136-145) Potassium Level 3.2 mmol/L (3.5-5.1) Chloride Level 108 mmol/L (98-107) Carbon Dioxide Level 25 mmol/L (21-32) Anion Gap 10 (6-14) Blood Urea Nitrogen 55 mg/dL (8-26) Creatinine 3.5 mg/dL (0.7-1.3) Estimated GFR (Cockcroft-Gault) 20.8 Glucose Level 73 mg/dL (70-99) Calcium Level 8.3 mg/dL (8.5-10.1) Magnesium Level 2.2 mg/dL (1.8-2.4) Prothrombin Time 29.8 SEC (11.7-14.0) Prothromb Time International Ratio 2.9 (0.8-1.1) Test 02/24/19 08:12 02/24/19 08:32 02/24/19 11:45 Glucose (Fingerstick) 58 mg/dL (70-99) 75 mg/dL (70-99) 110 mg/dL (70-99) Microbiology 02/22/19 Blood Culture - Preliminary, Resulted NO GROWTH AFTER 1 DAY Medications Current Medications Albuterol/ Ipratropium (Duoneb) 3 ml 1X ONCE NEB Last administered on 02/22/19at 13:39; Start 02/22/19 at 13:30; Stop 02/22/19 at 13:31; Status DC Furosemide (Lasix) 40 mg 1X ONCE IVP Last administered on 02/22/19at 14:50; Start 02/22/19 at 14:30; Stop 02/22/19 at 14:34; Status DC Piperacillin Sod/ Tazobactam Sod (Zosyn Per Pharmacy) 1 each PRN DAILY PRN MC SEE COMMENTS; Start 02/22/19 at 14:30; Stop 02/24/19 at 10:22; Status DC Piperacillin Sod/ Tazobactam Sod 3.375 gm/Sodium Chloride 50 ml @ 100 mls/hr 1X ONCE IV Last administered on 02/22/19at 15:22; Start 02/22/19 at 14:45; Stop 02/22/19 at 15:14; Status DC Piperacillin Sod/ Tazobactam Sod 3.375 gm/Sodium Chloride 50 ml @ 100 mls/hr Q6HRS IV Last administered on 02/24/19at 02:22; Start 02/23/19 at 00:00; Stop 02/24/19 at 08:05; Status DC Albuterol Sulfate (Ventolin Neb Soln) 2.5 mg PRN Q6HRS PRN INH SHORTNESS OF BREATH; Start 02/22/19 at 17:15 Amiodarone HCl (Cordarone) 200 mg DAILY PO Last administered on 02/24/19at 09:36; Start 02/23/19 at 09:00 Aspirin (Ecotrin) 81 mg DAILYWBKFT PO Last administered on 02/24/19 09:36; Start 02/23/19 at 08:00 Atorvastatin Calcium (Lipitor) 40 mg QHS PO Last administered on 02/23/19 21:58; Start 02/22/19 at 21:00 Furosemide (Lasix) 40 mg BID92 PO Last administered on 02/23/19 13:35; Start 02/23/19 at 09:00 Guaifenesin (Robitussin Dm) 10 ml PRN Q6HRS PRN PO COUGH; Start 02/22/19 at 17:15 Insulin Glargine (Lantus Syringe) 15 unit HS SQ Last administered on 02/23/19 21:58; Start 02/22/19 at 21:00 Isosorbide Mononitrate (Imdur) 30 mg DAILY PO Last administered on 02/24/19 09:36; Start 02/23/19 at 09:00 Metoprolol Succinate (Toprol Xl) 50 mg DAILY PO Last administered on 02/24/19 09:36; Start 02/23/19 at 09:00 Tamsulosin HCl (Flomax) 0.4 mg DAILY PO Last administered on 02/24/19 09:36; Start 02/23/19 at 09:00 Ticagrelor (Brilinta) 90 mg BID PO Last administered on 02/24/19 09:36; Start 02/22/19 at 21:00 Warfarin Sodium (Coumadin) 5 mg DAILY@1600 PO Last administered on 02/23/19 15:55; Start 02/22/19 at 19:30; Stop 02/24/19 at 08:29; Status DC Budesonide (Pulmicort) 0.5 mg RTBID NEB Last administered on 02/23/19 08:07; Start 02/22/19 at 20:00; Stop 02/23/19 at 09:43; Status DC Ferrous Sulfate (Feosol) 325 mg DAILYWBKFT PO Last administered on 02/24/19 09:36; Start 02/23/19 at 08:00 Warfarin Sodium (Coumadin Per Physician) 1 each PRN DAILY PRN MC SEE COMMENTS Last administered on 9/2/19at 12:40; Start 02/22/19 at 17:30; Stop 02/24/19 at 08:29; Status DC Atropine Sulfate (ATROPINE 1mg SYRINGE) 1 mg STK-MED ONCE .ROUTE ; Start 02/22/19 at 19:36; Stop 02/22/19 at 19:36; Status DC Atropine Sulfate (ATROPINE 1mg SYRINGE) 1 mg 1X ONCE IV Last administered on 02/22/19at 19:44; Start 02/22/19 at 19:45; Stop 02/22/19 at 19:50; Status DC Linezolid/Dextrose 300 ml @ 300 mls/hr Q12HR IV Last administered on 02/22/19at 22:26; Start 02/22/19 at 22:00; Stop 02/23/19 at 08:16; Status DC Lactobacillus Rhamnosus (Culturelle) 1 cap BID PO Last administered on 02/24/19at 09:36; Start 02/23/19 at 21:00 Warfarin Sodium (Coumadin Per Pharmacy) 1 each PRN DAILY PRN MC SEE COMMENTS; Start 02/24/19 at 10:45 Warfarin Sodium (Coumadin) 4 mg 1X WARF ONCE PO ; Start 02/24/19 at 16:00; Stop 02/24/19 at 16:01 Active Scripts Active Proair Hfa (Albuterol Sulfate) 8.5 Gm Hfa.aer.ad 1 Puff INH PRN Q6HRS PRN 30 Days Pulmicort Flexhaler (Budesonide) 180 Mcg Aer.pow.ba 2 Puff IH BID Guaifenesin Dm Syrup (Guaifenesin/Dextromethorphan) 5 Ml Syrup 10 Ml PO PRN Q6HRS PRN 7 Days Lantus (Insulin Glargine,Hum.rec.anlog) 100 Unit/1 Ml Vial 15 Unit SQ HS 30 Days Furosemide 40 Mg Tablet 40 Mg PO BID92 Aspirin Ec (Aspirin) 81 Mg Tablet.dr 81 Mg PO DAILYWBKFT Metoprolol Succinate ( Xl ) (Metoprolol Succinate) 25 Mg Tab.er.24h 50 Mg PO DAILY Isosorbide Mononitrate Er (Isosorbide Mononitrate) 30 Mg Tab.er.24h 30 Mg PO DAILY Atorvastatin Calcium 40 Mg Tablet 40 Mg PO QHS Brilinta (Ticagrelor) 90 Mg Tablet 90 Mg PO BID Amiodarone Hcl 200 Mg Tablet 200 Mg PO DAILY Reported Warfarin Sodium 5 Mg Tablet 5 Mg PO DAILY take 5mg on sat,sat.thur,sat,sun take 6 mg on saturday and saturday Ferrous Sulfate 324 Mg Tablet.dr 324 Mg PO DAILY Flomax (Tamsulosin Hcl) 0.4 Mg Cap.er.24h 0.4 Mg PO DAILY Vitals/I & O Vital Sign - Last 24 Hours 02/23/19 02/23/19 02/23/19 02/23/19 15:00 18:20 18:20 20:00 Temp 98.4 98.4 98.4 98.4 Pulse 70 73 Resp 18 16 B/P (MAP) 146/51 (82) 141/63 (89) Pulse Ox 100 100 O2 Delivery Room Air Room Air Room Air Room Air 02/23/19 02/24/19 02/24/19 02/24/19 23:15 03:20 07:00 09:36 Temp 98.5 98.2 98.9 98.5 98.2 98.9 Pulse 61 68 62 62 Resp 20 18 18 B/P (MAP) 162/65 (97) 144/61 (88) 154/70 (98) 154/70 Pulse Ox 100 99 100 O2 Delivery Room Air Room Air Room Air 02/24/19 02/24/19 02/24/19 09:36 09:36 11:00 Temp 98.5 98.5 Pulse 62 62 63 Resp 20 B/P (MAP) 154/70 154/70 140/65 (90) Pulse Ox 100 O2 Delivery Room Air Intake and Output 02/23/19 02/23/19 02/24/19 15:00 23:00 07:00 Intake Total 315 ml 675 ml 700 ml Output Total 585 ml 285 ml 1300 ml Balance -270 ml 390 ml -600 ml BONI VEGA MD Feb 24, 2019 11:57
--- NOTE | 2019-02-24 12:02 | PDOC ---
SUBJECTIVE ROS States breathing better OBJECTIVE Vital Signs Vital Signs Date Time Temp Pulse Resp B/P (MAP) Pulse Ox O2 Delivery O2 Flow Rate FiO2 02/24/19 11:00 98.5 63 20 140/65 (90) 100 Room Air 98.5 I & 0 Intake and Output 02/24/19 07:00 Intake Total 1690 ml Output Total 2170 ml Balance -480 ml Intake Oral 1340 ml IV Total 150 ml Other 200 ml Output Urine Total 2170 ml # Bowel Movements 1 PHYSICAL EXAM Physical Exam GENERAL: NAD, sitting up in chair HEENT: OM moist NECK: Supple, LUNGS: Clear. HEART: S1, S2 regular. ABDOMEN: soft, NT EXTREMITIES: No edema, SKIN: Unremarkable, No rash NEUROLOGIC: Grossly normal No [place] DIAGNOSIS/ASSESSMENT Assessment & Plan CKD stage 4- Stable was on HD in the past- taken off Dialysis appox 6 months back E-lytes and acid base stable, No uremic symptoms Currently No indication for HD Supportive care, Strict I/O monitor Respiratory failure with hypoxemia- stable oN O2 by ID Congestive heart failure. Bilateral pulmonary infiltrate On PO Lasix 40 BID Cardiomyopathy. Diabetes. Hypertension- stable CAD-.S/P PTCA AND STENT LAD 02/19 DM II ANEMIA- LIV COMMENT/RELEVANT DATA Meds Current Medications Medications (Trade) Dose Ordered Sig/Gwen Start Time Stop Time Status Last Admin Dose Admin Albuterol Sulfate (Ventolin Neb Soln) 2.5 mg PRN Q6HRS PRN 02/22/19 17:15 Albuterol/ Ipratropium (Duoneb) 3 ml 1X ONCE 02/22/19 13:30 02/22/19 13:31 DC 02/22/19 13:39 3 ML Amiodarone HCl (Cordarone) 200 mg DAILY 02/23/19 09:00 02/24/19 09:36 200 MG Aspirin (Ecotrin) 81 mg DAILYWBKFT 02/23/19 08:00 02/24/19 09:36 81 MG Atorvastatin Calcium (Lipitor) 40 mg QHS 02/22/19 21:00 02/23/19 21:58 40 MG Atropine Sulfate (ATROPINE 1mg SYRINGE) 1 mg 1X ONCE 02/22/19 19:45 02/22/19 19:50 DC 02/22/19 19:44 1 MG Budesonide (Pulmicort) 0.5 mg RTBID 02/22/19 20:00 02/23/19 09:43 DC 02/23/19 08:07 0.5 MG Ferrous Sulfate (Feosol) 325 mg DAILYWBKFT 02/23/19 08:00 02/24/19 09:36 325 MG Furosemide (Lasix) 40 mg BID92 02/23/19 09:00 02/23/19 13:35 40 MG Guaifenesin (Robitussin Dm) 10 ml PRN Q6HRS PRN 02/22/19 17:15 Insulin Glargine (Lantus Syringe) 15 unit HS 02/22/19 21:00 02/23/19 21:58 15 UNIT Isosorbide Mononitrate (Imdur) 30 mg DAILY 02/23/19 09:00 02/24/19 09:36 30 MG Lactobacillus Rhamnosus (Culturelle) 1 cap BID 02/23/19 21:00 02/24/19 09:36 1 CAP Linezolid/Dextrose 300 ml @ 300 mls/hr Q12HR 02/22/19 22:00 02/23/19 08:16 DC 02/22/19 22:26 300 MLS/HR Metoprolol Succinate (Toprol Xl) 50 mg DAILY 02/23/19 09:00 02/24/19 09:36 50 MG Piperacillin Sod/ Tazobactam Sod (Zosyn Per Pharmacy) 1 each PRN DAILY PRN 02/22/19 14:30 02/24/19 10:22 DC Piperacillin Sod/ Tazobactam Sod 3.375 gm/Sodium Chloride 50 ml @ 100 mls/hr Q6HRS 02/23/19 00:00 02/24/19 08:05 DC 02/24/19 02:22 100 MLS/HR Tamsulosin HCl (Flomax) 0.4 mg DAILY 02/23/19 09:00 02/24/19 09:36 0.4 MG Ticagrelor (Brilinta) 90 mg BID 02/22/19 21:00 02/24/19 09:36 90 MG Warfarin Sodium (Coumadin Per Pharmacy) 1 each PRN DAILY PRN 02/24/19 10:45 Warfarin Sodium (Coumadin Per Physician) 1 each PRN DAILY PRN 02/22/19 17:30 02/24/19 08:29 DC 02/23/19 12:40 1 EACH Warfarin Sodium (Coumadin) 4 mg 1X WARF ONCE 02/24/19 16:00 02/24/19 16:01 Lab Laboratory Tests Test 02/23/19 20:50 02/24/19 04:35 02/24/19 04:50 02/24/19 05:00 Glucose (Fingerstick) 195 mg/dL (70-99) White Blood Count 6.1 x10^3/uL (4.0-11.0) Red Blood Count 3.19 x10^6/uL (4.30-5.70) Hemoglobin 7.8 g/dL (13.0-17.5) Hematocrit 24.4 % (39.0-53.0) Mean Corpuscular Volume 76 fL (79-100) Mean Corpuscular Hemoglobin 25 pg (25-35) Mean Corpuscular Hemoglobin Concent 32 g/dL (31-37) Red Cell Distribution Width 21.4 % (11.5-14.5) Platelet Count 176 x10^3/uL (140-400) Neutrophils (%) (Auto) 62 % (31-73) Lymphocytes (%) (Auto) 19 % (24-48) Monocytes (%) (Auto) 18 % (0-9) Eosinophils (%) (Auto) 1 % (0-3) Basophils (%) (Auto) 1 % (0-3) Neutrophils # (Auto) 3.7 x10^3/uL (1.8-7.7) Lymphocytes # (Auto) 1.1 x10^3/uL (1.0-4.8) Monocytes # (Auto) 1.1 x10^3/uL (0.0-1.1) Eosinophils # (Auto) 0.0 x10^3/uL (0.0-0.7) Basophils # (Auto) 0.1 x10^3/uL (0.0-0.2) Sodium Level 143 mmol/L (136-145) Potassium Level 3.2 mmol/L (3.5-5.1) Chloride Level 108 mmol/L (98-107) Carbon Dioxide Level 25 mmol/L (21-32) Anion Gap 10 (6-14) Blood Urea Nitrogen 55 mg/dL (8-26) Creatinine 3.5 mg/dL (0.7-1.3) Estimated GFR (Cockcroft-Gault) 20.8 Glucose Level 73 mg/dL (70-99) Calcium Level 8.3 mg/dL (8.5-10.1) Magnesium Level 2.2 mg/dL (1.8-2.4) Prothrombin Time 29.8 SEC (11.7-14.0) Prothromb Time International Ratio 2.9 (0.8-1.1) Test 02/24/19 08:12 02/24/19 08:32 02/24/19 11:45 Glucose (Fingerstick) 58 mg/dL (70-99) 75 mg/dL (70-99) 110 mg/dL (70-99) Results All relevant outside records, renal labs, imaging studies, telemetry/EKG's were reviewed. ALANNA ESTEVEZ MD Feb 24, 2019 12:02
--- NOTE | 2019-02-24 12:11 | NUR ---
SS following for discharge planning. SS reviewed pt chart. Pt is from home with spouse and is currently on room air. Pt was discharged over the weekend and readmitted. PT/OT recommended alf unit on last admission but pt and family chose to return to home with home healthcare. PT/OT ordered. SS awaiting evaluations and recommendations at this time. SS will continue to follow for discharge planning.
[2019-02-24] MEDS ORDERED: POTASSIUM CHLORIDE 20 MEQ TABLET.ER. PO ONE (12:30)
--- NOTE | 2019-02-24 12:36 | PDOC ---
PULMONARY PROGRESS NOTES Subjective FEELS BETTER Vitals Vital Signs Date Time Temp Pulse Resp B/P (MAP) Pulse Ox O2 Delivery O2 Flow Rate FiO2 02/24/19 11:00 98.5 63 20 140/65 (90) 100 Room Air 98.5 General: Alert, No acute distress HEENT: Other Lungs: Other (sce, diminished bases, no wheezing) Cardiovascular: S1, S2 Abdomen: Soft Extremities: No Edema Skin: Warm Labs Laboratory Tests Test 02/22/19 13:27 02/22/19 14:35 02/22/19 21:23 02/23/19 04:50 White Blood Count 9.0 x10^3/uL (4.0-11.0) 5.8 x10^3/uL (4.0-11.0) Red Blood Count 3.60 x10^6/uL (4.30-5.70) 3.09 x10^6/uL (4.30-5.70) Hemoglobin 8.8 g/dL (13.0-17.5) 7.5 g/dL (13.0-17.5) Hematocrit 27.8 % (39.0-53.0) 23.4 % (39.0-53.0) Mean Corpuscular Volume 77 fL (79-100) 76 fL (79-100) Mean Corpuscular Hemoglobin 25 pg (25-35) 24 pg (25-35) Mean Corpuscular Hemoglobin Concent 32 g/dL (31-37) 32 g/dL (31-37) Red Cell Distribution Width 21.5 % (11.5-14.5) 21.9 % (11.5-14.5) Platelet Count 233 x10^3/uL (140-400) 161 x10^3/uL (140-400) Neutrophils (%) (Auto) 74 % (31-73) 63 % (31-73) Lymphocytes (%) (Auto) 9 % (24-48) 18 % (24-48) Monocytes (%) (Auto) 17 % (0-9) 18 % (0-9) Eosinophils (%) (Auto) 0 % (0-3) 1 % (0-3) Basophils (%) (Auto) 0 % (0-3) 1 % (0-3) Neutrophils # (Auto) 6.7 x10^3/uL (1.8-7.7) 3.7 x10^3/uL (1.8-7.7) Lymphocytes # (Auto) 0.8 x10^3/uL (1.0-4.8) 1.0 x10^3/uL (1.0-4.8) Monocytes # (Auto) 1.5 x10^3/uL (0.0-1.1) 1.0 x10^3/uL (0.0-1.1) Eosinophils # (Auto) 0.0 x10^3/uL (0.0-0.7) 0.0 x10^3/uL (0.0-0.7) Basophils # (Auto) 0.0 x10^3/uL (0.0-0.2) 0.0 x10^3/uL (0.0-0.2) Platelet Estimate Adequate (ADEQUATE) Polychromasia Slight Hypochromasia Slight Anisocytosis Mod Schistocytes Few Prothrombin Time 24.6 SEC (11.7-14.0) Prothromb Time International Ratio 2.2 (0.8-1.1) Sodium Level 137 mmol/L (136-145) 142 mmol/L (136-145) Potassium Level 4.1 mmol/L (3.5-5.1) 3.6 mmol/L (3.5-5.1) Chloride Level 101 mmol/L (98-107) 106 mmol/L (98-107) Carbon Dioxide Level 23 mmol/L (21-32) 26 mmol/L (21-32) Anion Gap 13 (6-14) 10 (6-14) Blood Urea Nitrogen 62 mg/dL (8-26) 59 mg/dL (8-26) Creatinine 3.5 mg/dL (0.7-1.3) 3.4 mg/dL (0.7-1.3) Estimated GFR (Cockcroft-Gault) 20.8 21.5 Glucose Level 206 mg/dL (70-99) 110 mg/dL (70-99) Calcium Level 8.7 mg/dL (8.5-10.1) 8.1 mg/dL (8.5-10.1) Total Bilirubin 1.4 mg/dL (0.2-1.0) 1.3 mg/dL (0.2-1.0) Direct Bilirubin 0.4 mg/dL (0.0-0.2) Aspartate Amino Transf (AST/SGOT) 31 U/L (15-37) 24 U/L (15-37) Alanine Aminotransferase (ALT/SGPT) 60 U/L (16-63) 45 U/L (16-63) Alkaline Phosphatase 133 U/L (46-116) 104 U/L (46-116) Troponin I Quantitative 1.115 ng/mL (0.000-0.055) XU-Luw-S-Type Natriuretic Peptide 65086 pg/mL (0-124) Total Protein 8.3 g/dL (6.4-8.2) 6.8 g/dL (6.4-8.2) Albumin 3.1 g/dL (3.4-5.0) 2.5 g/dL (3.4-5.0) Lipase 126 U/L (73-393) O2 Saturation 93 % (92-99) Arterial Blood pH 7.45 (7.35-7.45) Arterial Blood pCO2 at Patient Temp 30 mmHg (35-46) Arterial Blood pO2 at Patient Temp 68 mmHg (65-108) Arterial Blood HCO3 20 mmol/L (21-28) Arterial Blood Base Excess -3 mmol/L (-3-3) Oxyhemoglobin 92.2 % Methemoglobin 0.7 % (0.0-1.9) Carbon Monoxide, Quantitative 0.1 % (0.0-1.9) FiO2 40 Glucose (Fingerstick) 146 mg/dL (70-99) BUN/Creatinine Ratio 17 (6-20) Phosphorus Level 4.2 mg/dL (2.6-4.7) Magnesium Level 1.9 mg/dL (1.8-2.4) Albumin/Globulin Ratio 0.6 (1.0-1.7) Test 02/23/19 08:10 02/23/19 20:50 02/24/19 04:35 02/24/19 04:50 O2 Saturation 97 % (92-99) Arterial Blood pH 7.41 (7.35-7.45) Arterial Blood pCO2 at Patient Temp 40 mmHg (35-46) Arterial Blood pO2 at Patient Temp 94 mmHg (65-108) Arterial Blood HCO3 25 mmol/L (21-28) Arterial Blood Base Excess 0 mmol/L (-3-3) FiO2 40% Glucose (Fingerstick) 195 mg/dL (70-99) White Blood Count 6.1 x10^3/uL (4.0-11.0) Red Blood Count 3.19 x10^6/uL (4.30-5.70) Hemoglobin 7.8 g/dL (13.0-17.5) Hematocrit 24.4 % (39.0-53.0) Mean Corpuscular Volume 76 fL (79-100) Mean Corpuscular Hemoglobin 25 pg (25-35) Mean Corpuscular Hemoglobin Concent 32 g/dL (31-37) Red Cell Distribution Width 21.4 % (11.5-14.5) Platelet Count 176 x10^3/uL (140-400) Neutrophils (%) (Auto) 62 % (31-73) Lymphocytes (%) (Auto) 19 % (24-48) Monocytes (%) (Auto) 18 % (0-9) Eosinophils (%) (Auto) 1 % (0-3) Basophils (%) (Auto) 1 % (0-3) Neutrophils # (Auto) 3.7 x10^3/uL (1.8-7.7) Lymphocytes # (Auto) 1.1 x10^3/uL (1.0-4.8) Monocytes # (Auto) 1.1 x10^3/uL (0.0-1.1) Eosinophils # (Auto) 0.0 x10^3/uL (0.0-0.7) Basophils # (Auto) 0.1 x10^3/uL (0.0-0.2) Sodium Level 143 mmol/L (136-145) Potassium Level 3.2 mmol/L (3.5-5.1) Chloride Level 108 mmol/L (98-107) Carbon Dioxide Level 25 mmol/L (21-32) Anion Gap 10 (6-14) Blood Urea Nitrogen 55 mg/dL (8-26) Creatinine 3.5 mg/dL (0.7-1.3) Estimated GFR (Cockcroft-Gault) 20.8 Glucose Level 73 mg/dL (70-99) Calcium Level 8.3 mg/dL (8.5-10.1) Magnesium Level 2.2 mg/dL (1.8-2.4) Test 02/24/19 05:00 02/24/19 08:12 02/24/19 08:32 02/24/19 11:45 Prothrombin Time 29.8 SEC (11.7-14.0) Prothromb Time International Ratio 2.9 (0.8-1.1) Glucose (Fingerstick) 58 mg/dL (70-99) 75 mg/dL (70-99) 110 mg/dL (70-99) Laboratory Tests Test 02/23/19 20:50 02/24/19 04:35 02/24/19 04:50 02/24/19 05:00 Glucose (Fingerstick) 195 mg/dL (70-99) White Blood Count 6.1 x10^3/uL (4.0-11.0) Red Blood Count 3.19 x10^6/uL (4.30-5.70) Hemoglobin 7.8 g/dL (13.0-17.5) Hematocrit 24.4 % (39.0-53.0) Mean Corpuscular Volume 76 fL (79-100) Mean Corpuscular Hemoglobin 25 pg (25-35) Mean Corpuscular Hemoglobin Concent 32 g/dL (31-37) Red Cell Distribution Width 21.4 % (11.5-14.5) Platelet Count 176 x10^3/uL (140-400) Neutrophils (%) (Auto) 62 % (31-73) Lymphocytes (%) (Auto) 19 % (24-48) Monocytes (%) (Auto) 18 % (0-9) Eosinophils (%) (Auto) 1 % (0-3) Basophils (%) (Auto) 1 % (0-3) Neutrophils # (Auto) 3.7 x10^3/uL (1.8-7.7) Lymphocytes # (Auto) 1.1 x10^3/uL (1.0-4.8) Monocytes # (Auto) 1.1 x10^3/uL (0.0-1.1) Eosinophils # (Auto) 0.0 x10^3/uL (0.0-0.7) Basophils # (Auto) 0.1 x10^3/uL (0.0-0.2) Sodium Level 143 mmol/L (136-145) Potassium Level 3.2 mmol/L (3.5-5.1) Chloride Level 108 mmol/L (98-107) Carbon Dioxide Level 25 mmol/L (21-32) Anion Gap 10 (6-14) Blood Urea Nitrogen 55 mg/dL (8-26) Creatinine 3.5 mg/dL (0.7-1.3) Estimated GFR (Cockcroft-Gault) 20.8 Glucose Level 73 mg/dL (70-99) Calcium Level 8.3 mg/dL (8.5-10.1) Magnesium Level 2.2 mg/dL (1.8-2.4) Prothrombin Time 29.8 SEC (11.7-14.0) Prothromb Time International Ratio 2.9 (0.8-1.1) Test 02/24/19 08:12 02/24/19 08:32 02/24/19 11:45 Glucose (Fingerstick) 58 mg/dL (70-99) 75 mg/dL (70-99) 110 mg/dL (70-99) Medications Active Scripts Medications Dose Route/Sig Max Daily Dose Days Date Category Dose Instructions Proair Hfa (Albuterol Sulfate) 8.5 Gm Hfa.aer.ad 1 Puff INH PRN Q6HRS PRN 30 02/21/19 Rx Pulmicort Flexhaler (Budesonide) 180 Mcg Aer.pow.ba 2 Puff IH BID 02/21/19 Rx Guaifenesin Dm Syrup (Guaifenesin/Dextromethorphan) 5 Ml Syrup 10 Ml PO PRN Q6HRS PRN 7 02/21/19 Rx Lantus (Insulin Glargine,Hum.rec.anlog) 100 Unit/1 Ml Vial 15 Unit SQ HS 30 02/21/19 Rx Furosemide 40 Mg Tablet 40 Mg PO [id number] 02/21/19 Rx Aspirin Ec (Aspirin) 81 Mg Tablet.dr 81 Mg PO DAILYWBKFT 02/21/19 Rx Metoprolol Succinate ( Xl ) (Metoprolol Succinate) 25 Mg Tab.er.24h 50 Mg PO DAILY 02/21/19 Rx Isosorbide Mononitrate Er (Isosorbide Mononitrate) 30 Mg Tab.er.24h 30 Mg PO DAILY 02/21/19 Rx Atorvastatin Calcium 40 Mg Tablet 40 Mg PO QHS 02/21/19 Rx Brilinta (Ticagrelor) 90 Mg Tablet 90 Mg PO BID 02/21/19 Rx Amiodarone Hcl 200 Mg Tablet 200 Mg PO DAILY 02/21/19 Rx Warfarin Sodium 5 Mg Tablet 5 Mg PO DAILY 01/24/19 Reported take 5mg on sat,wed.thur,sat,sun take 6 mg on saturday and saturday Ferrous Sulfate 324 Mg Tablet.dr 324 Mg PO DAILY 01/24/19 Reported Flomax (Tamsulosin Hcl) 0.4 Mg Cap.er.24h 0.4 Mg PO DAILY 01/24/19 Reported Impression . 1. Acute hypoxemic respiratory failure, secondary to acute on chronic systolic heart failure. ( cath with LVEDP 26) 2. Acute on chronic kidney disease. 3. Bilateral pulmonary infiltrates and effusion compatible with congestive heart failure. 4. Chronic obstructive pulmonary disease. 5. Cardiomyopathy. 6. Recent PCI with LAD stenting. 7. Hypertension. 8. Diabetes. 9. Tobacco dependence, in remission. Plan . PLAN: 1. [place] 2. diuresis. 3. The patient may require hemodialysis. We will defer to Nephrology. 4. Continue p.r.n. noninvasive ventilation. 5. Oxygen supplementation. 6. Bronchodilators. 7. Continue anticoagulation per Cardiology. I do appreciate the privilege in sharing in the patient's care. TRISH REECE MD Feb 24, 2019 12:36
[2019-02-24] MEDS ORDERED: DARBEPOETIN ALFA 60 MCG/0.3 ML DISP.SYRIN. SQ ONE (13:00)
--- NOTE | 2019-02-24 14:26 | NUR ---
Pharmacy Warfarin Dosing Note S: Pharmacy consulted to assist with anticoagulation therapy O: ROMMEL POLK is a 73 year old M with Atrial Fibrillation LABS: Last INR: 2.9 Last HGB: 7.8 Last HCT: 24.4 Last PLT: 176 Last dose of 5 mg given on 02/23/19 at 1555 Vitamin K given: N A:INR of 2.9 is within desired range. Target range for this patient is: 2 - 3 P: Warfarin dose: 4 mg Today at 1600 Bridge Therapy: None Next INR due 02/25/19 Pharmacy anticoagulation service will continue to follow. MIKEL BATES [facility], 02/24/19 [id number]
[2019-02-24 15:00] VITALS: BP 131/61
[2019-02-24] MEDS ORDERED: WARFARIN 4 MG TABLET. PO ONE (16:00)
--- NOTE | 2019-02-24 16:30 | PDOC ---
MARY VINCENT OTR OWNER OPERATOR 02/24/19 1630: CARDIO Progress Notes Date and Time Date of Service 02/24/2019 Time of Evaluation 1615 Subjective Subjective: No Chest Pain, No shortness of breath, No Palpitations Vitals Vitals Vital Signs Date Time Temp Pulse Resp B/P (MAP) Pulse Ox O2 Delivery O2 Flow Rate FiO2 02/24/19 15:00 98.1 53 20 131/61 (84) 100 Room Air 98.1 Weight Weight [ ] Input and Output Intake and Output Intake and Output 02/24/19 07:00 Intake Total 1690 ml Output Total 2170 ml Balance -480 ml Intake Oral 1340 ml IV Total 150 ml Other 200 ml Output Urine Total 2170 ml # Bowel Movements 1 Laboratory Labs Laboratory Tests Test 02/23/19 20:50 02/24/19 04:35 02/24/19 04:50 02/24/19 05:00 Glucose (Fingerstick) 195 mg/dL (70-99) White Blood Count 6.1 x10^3/uL (4.0-11.0) Red Blood Count 3.19 x10^6/uL (4.30-5.70) Hemoglobin 7.8 g/dL (13.0-17.5) Hematocrit 24.4 % (39.0-53.0) Mean Corpuscular Volume 76 fL (79-100) Mean Corpuscular Hemoglobin 25 pg (25-35) Mean Corpuscular Hemoglobin Concent 32 g/dL (31-37) Red Cell Distribution Width 21.4 % (11.5-14.5) Platelet Count 176 x10^3/uL (140-400) Neutrophils (%) (Auto) 62 % (31-73) Lymphocytes (%) (Auto) 19 % (24-48) Monocytes (%) (Auto) 18 % (0-9) Eosinophils (%) (Auto) 1 % (0-3) Basophils (%) (Auto) 1 % (0-3) Neutrophils # (Auto) 3.7 x10^3/uL (1.8-7.7) Lymphocytes # (Auto) 1.1 x10^3/uL (1.0-4.8) Monocytes # (Auto) 1.1 x10^3/uL (0.0-1.1) Eosinophils # (Auto) 0.0 x10^3/uL (0.0-0.7) Basophils # (Auto) 0.1 x10^3/uL (0.0-0.2) Sodium Level 143 mmol/L (136-145) Potassium Level 3.2 mmol/L (3.5-5.1) Chloride Level 108 mmol/L (98-107) Carbon Dioxide Level 25 mmol/L (21-32) Anion Gap 10 (6-14) Blood Urea Nitrogen 55 mg/dL (8-26) Creatinine 3.5 mg/dL (0.7-1.3) Estimated GFR (Cockcroft-Gault) 20.8 Glucose Level 73 mg/dL (70-99) Calcium Level 8.3 mg/dL (8.5-10.1) Magnesium Level 2.2 mg/dL (1.8-2.4) Prothrombin Time 29.8 SEC (11.7-14.0) Prothromb Time International Ratio 2.9 (0.8-1.1) Test 02/24/19 08:12 02/24/19 08:32 02/24/19 11:45 Glucose (Fingerstick) 58 mg/dL (70-99) 75 mg/dL (70-99) 110 mg/dL (70-99) Microbiology Micro Microbiology 02/22/19 Blood Culture - Preliminary, Resulted NO GROWTH AFTER 1 DAY Physical Exam HEENT: Neck Supple W Full Motion Chest: Symmetric LUNGS: Clear to Auscultation Heart: S1S2, RRR (SR) Abdomen: Soft N/T Extremities: No Edema, No Calf Tenderness Neurology: alert, oriented, follow commands Assessment Assessment 1. Acute on chronic diastolic/systolic CHF: refractory. much better today. 2. PAFIB with chronic LBBB: maintaining SR 3. Cardiomyopathy; LVEF 40%, combined ICM/NICM, compensated 3. NSTEMI; S/P PCI/CHRIS to LAD, clinically stable. 4. CAD 5. Hypertension; controlled 6. JESSICA on CKD4: Cr at 3.5 7. Hyperlipidemia; statin therapy 8. Diabetes mellitus type 2 9. RADHA Recommendations 1. Continue amiodarone and toprol 2. ASA 81mg daily, Ticagrelor 90mg bid and warfarin for 2 weeks, then stop ASA 81mg daily 3. Continue with lasix therapy. 1.5 to 2L FR. Daily wt. discussed with pt. K replaced. 4. Continue secondary prevention measures. 5. If continues to have refractory CHF and remains uremic may need dialysis. Defer further to nephrology. ALINA OSPINA MD 02/24/195: CARDIO Progress Notes Plan Plan Pt. seen and examined. Agree with above EMPLOYMENT CLERK note. No new CV issues. I suspect that his recurrent admissions are due to his renal failure and labile Bp's Will discuss with nephrology if he would benefit from re-initiation of HD on a short term basis to see if this improves his symptoms. Thanks. MARY VINCENT APRN Feb 24, 2019 16:30 ALINA OSPINA MD Feb 24, 2019 22:35
[2019-02-24 19:25] VITALS: BP 130/61
[2019-02-24] MEDS: ATORVASTATIN CALCIUM 40 MG TABLET. PO SCH (20:11)
[2019-02-24] MEDS: INSULIN GLARGINE SYRINGE. SQ SCH (21:08)
[2019-02-24 22:55] VITALS: BP 142/62
[2019-02-25 03:30] VITALS: BP 145/66
[2019-02-25 06:02] LABS: PROTHROMBIN TIME PATIENT 33.7 SEC (11.7-14.0)
[2019-02-25 07:36] VITALS: BP 150/64
[2019-02-25] MEDS ORDERED: DEXTROSE 50% 25 GM / 50ML DISP.SYRIN. IV PRN (08:30)
--- NOTE | 2019-02-25 08:58 | PDOC ---
Infectious Disease Note Subjective Subjective pt is feeling good, ROS ROS no n/v/d/ Vital Sign Vital Signs Vital Signs Date Time Temp Pulse Resp B/P (MAP) Pulse Ox O2 Delivery O2 Flow Rate FiO2 02/25/19 07:36 98.4 64 18 150/64 (92) 100 Room Air 98.4 Physical Exam PHYSICAL EXAM GENERAL: Alert, oriented gentleman not in any distress. VITAL SIGNS: Stable, afebrile. HEENT: NAD. NECK: Supple, no JVP, no lymphadenopathy. LUNGS: Clear. HEART: S1, S2 regular. ABDOMEN: Benign. EXTREMITIES: No edema, cyanosis. SKIN: Unremarkable. NEUROLOGIC: The patient is neurologically alert, awake and appropriate. No focal neurologic deficit. Labs Lab Laboratory Tests Test 02/24/19 11:45 02/24/19 16:47 02/24/19 20:40 02/25/19 05:05 Glucose (Fingerstick) 110 mg/dL (70-99) 123 mg/dL (70-99) 192 mg/dL (70-99) Prothrombin Time 33.7 SEC (11.7-14.0) Prothromb Time International Ratio 3.3 (0.8-1.1) Test 02/25/19 08:22 02/25/19 08:41 Glucose (Fingerstick) 47 mg/dL (70-99) 79 mg/dL (70-99) Micro Microbiology 02/22/19 Blood Culture - Preliminary, Resulted NO GROWTH AFTER 1 DAY Objective Assessment 1. Respiratory failure with hypoxemia. 2. Congestive heart failure. Bilateral pulmonary infiltrate, most likely related to congestive heart failure, pulmonary infection appears less likely. 3. Cardiomyopathy. 4. Renal insufficiency. 5. Diabetes. 6. Hypertension. Plan Plan of Care off antibiotics cont supportive care will s/o ,call if questions or condition changes HUA DUVALL MD Feb 25, 2019 08:58
[2019-02-25] MEDS: ASPIRIN ENTERIC COATED 81 MG TABLET.DR. PO SCH (09:08)
[2019-02-25] MEDS: FERROUS SULFATE 325 MG TABLET. PO SCH (09:08)
[2019-02-25] MEDS: TAMSULOSIN 0.4 MG CAP.ER.24H. PO SCH (09:09)
[2019-02-25] MEDS: LACTOBACILLUS RHAMNOSUS GG 1 CAPSULE. PO SCH ×2 (09:09→21:51)
[2019-02-25] MEDS: AMIODARONE HCL 200 MG TABLET. PO SCH (09:09)
[2019-02-25] MEDS: FUROSEMIDE 40 MG TABLET. PO SCH ×2 (09:09→14:03)
[2019-02-25] MEDS: TICAGRELOR 90 MG TABLET. PO SCH ×2 (09:09→21:52)
[2019-02-25] MEDS: METOPROLOL SUCC 24HR ER 50 MG TAB.ER.24H. PO SCH (09:10)
[2019-02-25] MEDS: ISOSORBIDE MONONITRATE ER 30 MG TAB.ER.24H PO SCH (09:10)
--- NOTE | 2019-02-25 09:53 | PDOC ---
SUBJECTIVE ROS States feeling much better OBJECTIVE Vital Signs Vital Signs Date Time Temp Pulse Resp B/P (MAP) Pulse Ox O2 Delivery O2 Flow Rate FiO2 02/25/19 09:10 64 150/64 02/25/19 07:36 98.4 18 100 Room Air 98.4 I & 0 Intake and Output 02/25/19 07:00 Intake Total 1200 ml Output Total 1500 ml Balance -300 ml Intake Oral 1200 ml Output Urine Total 1500 ml PHYSICAL EXAM Physical Exam GENERAL: NAD, sitting up in chair HEENT: OM moist NECK: Supple, LUNGS: Clear. HEART: S1, S2 regular. ABDOMEN: soft, NT EXTREMITIES: No edema, SKIN: Unremarkable, No rash NEUROLOGIC: Grossly normal No [place] DIAGNOSIS/ASSESSMENT Assessment & Plan CKD stage 4- increase in Cr from baseline - Cardiorenal was on HD in the past- taken off Dialysis appox 6 months back E-lytes and acid base stable, No uremic symptoms Currently No indication for HD, Supportive care,monitor Respiratory failure with hypoxemia- stable Congestive heart failure. Bilateral pulmonary infiltrate On PO Lasix 40 BID Card managing Cardiomyopathy. Diabetes. Hypertension- stable CAD-.S/P PTCA AND STENT LAD 02/19 DM II ANEMIA- LIV COMMENT/RELEVANT DATA Meds Current Medications Medications (Trade) Dose Ordered Sig/Gwen Start Time Stop Time Status Last Admin Dose Admin Albuterol Sulfate (Ventolin Neb Soln) 2.5 mg PRN Q6HRS PRN 02/22/19 17:15 Albuterol/ Ipratropium (Duoneb) 3 ml 1X ONCE 02/22/19 13:30 02/22/19 13:31 DC 02/22/19 13:39 3 ML Amiodarone HCl (Cordarone) 200 mg DAILY 02/23/19 09:00 02/25/19 09:10 200 MG Aspirin (Ecotrin) 81 mg DAILYWBKFT 02/23/19 08:00 02/25/19 09:10 81 MG Atorvastatin Calcium (Lipitor) 40 mg QHS 02/22/19 21:00 02/24/19 20:15 40 MG Atropine Sulfate (ATROPINE 1mg SYRINGE) 1 mg 1X ONCE 02/22/19 19:45 02/22/19 19:50 DC 02/22/19 19:44 1 MG Budesonide (Pulmicort) 0.5 mg RTBID 02/22/19 20:00 02/23/19 09:43 DC 02/23/19 08:07 0.5 MG Darbepoetin Jordon (ARANESP for NON-DIALYSIS PTS) 60 mcg 1X ONCE 02/24/19 13:00 02/24/19 13:01 DC 02/24/19 13:17 60 MCG Dextrose (Dextrose 50%-Water Syringe) 12.5 gm PRN Q15MIN PRN 02/25/19 08:30 Ferrous Sulfate (Feosol) 325 mg DAILYWBKFT 02/23/19 08:00 02/25/19 09:10 325 MG Furosemide (Lasix) 40 mg BID92 02/23/19 09:00 02/25/19 09:10 40 MG Guaifenesin (Robitussin Dm) 10 ml PRN Q6HRS PRN 02/22/19 17:15 Insulin Glargine (Lantus Syringe) 15 unit HS 02/22/19 21:00 02/24/19 21:08 15 UNIT Isosorbide Mononitrate (Imdur) 30 mg DAILY 02/23/19 09:00 02/25/19 09:10 30 MG Lactobacillus Rhamnosus (Culturelle) 1 cap BID 02/23/19 21:00 02/25/19 09:10 1 CAP Linezolid/Dextrose 300 ml @ 300 mls/hr Q12HR 02/22/19 22:00 02/23/19 08:16 DC 02/22/19 22:26 300 MLS/HR Metoprolol Succinate (Toprol Xl) 50 mg DAILY 02/23/19 09:00 02/25/19 09:10 50 MG Piperacillin Sod/ Tazobactam Sod (Zosyn Per Pharmacy) 1 each PRN DAILY PRN 02/22/19 14:30 02/24/19 10:22 DC Piperacillin Sod/ Tazobactam Sod 3.375 gm/Sodium Chloride 50 ml @ 100 mls/hr Q6HRS 02/23/19 00:00 02/24/19 08:05 DC 02/24/19 02:22 100 MLS/HR Potassium Chloride (Klor-Con) 40 meq 1X ONCE 02/24/19 12:30 02/24/19 12:31 DC 02/24/19 13:17 40 MEQ Tamsulosin HCl (Flomax) 0.4 mg DAILY 02/23/19 09:00 02/25/19 09:10 0.4 MG Ticagrelor (Brilinta) 90 mg BID 02/22/19 21:00 02/25/19 09:10 90 MG Warfarin Sodium (Coumadin Per Pharmacy) 1 each PRN DAILY PRN 02/24/19 10:45 02/24/19 14:26 1 EACH Warfarin Sodium (Coumadin Per Physician) 1 each PRN DAILY PRN 02/22/19 17:30 02/24/19 08:29 DC 02/23/19 12:40 1 EACH Warfarin Sodium (Coumadin) 4 mg 1X WARF ONCE 02/24/19 16:00 02/24/19 16:01 DC 02/24/19 16:24 4 MG Lab Laboratory Tests Test 02/24/19 11:45 02/24/19 16:47 02/24/19 20:40 02/25/19 05:05 Glucose (Fingerstick) 110 mg/dL (70-99) 123 mg/dL (70-99) 192 mg/dL (70-99) Prothrombin Time 33.7 SEC (11.7-14.0) Prothromb Time International Ratio 3.3 (0.8-1.1) Test 02/25/19 08:22 02/25/19 08:41 02/25/19 09:15 Glucose (Fingerstick) 47 mg/dL (70-99) 79 mg/dL (70-99) 139 mg/dL (70-99) Results All relevant outside records, renal labs, imaging studies, telemetry/EKG's were reviewed. ALANNA ESTEVEZ MD Feb 25, 2019 09:53
[2019-02-25 10:10] LABS: CALCIUM 7.7 mg/dL (8.5-10.1); CREATININE 3.7 mg/dL (0.7-1.3); GFR 19.5; POTASSIUM 3.3 mmol/L (3.5-5.1)
[2019-02-25 10:16] VITALS: BP 144/67
--- NOTE | 2019-02-25 10:32 | PDOC ---
PROGRESS NOTES Chief Complaint Chief Complaint impression CHF/fluid overload CHF and remains uremic may need dialysis. Defer further to nephrology. Acute hypoxic respiratory failure - NIPPPV Acute on chronic diastolic/systolic CHF - EF 40% Elevated troponin - in the background of CKD CAD - s/p PCI/stent placement one year ago. Hypertension - Acute on chronic renal insufficiency - Hyperlipidemia - Diabetes mellitus type 2 - Paroxysmal AFIB Anemia of chronic disease - on iron for RADHA. Indwelling Mendez catheter for urinary vrkodijmm-8-7/2 years now-gets changed by home health nurse Q monthly FULL CODE 38 MIN PT EXAM, CHART REVIEW, > 50% OF TIME SPENT WITH EXAM, CHART REVIEW, PT CARE COORDINATION History of Present Illness History of Present Illness No increased S OA, still refusing SNU, he was a readmission after I discharged one day to home health as per insisting of -but he still refusing SNU Creatinine 3.5, no increase in SOA. Initial thoughts of sabas needing dialysis to help fluid overload but that seems not to be the case currently At least not from renal note Mendez catheter in for one and half years, I did consult urology. Patient does not want it to be DC'd. Had bad urinary retention. He will follow- up with urology as outpatient. HH RN changes it q monthly Continue Brilinta and warfarin, A. fib, other comorbidities Full code EARLIER ENTRY: I just dcd him 2 days ago with and HH ( refused snu for him, PT recommended SNU) andback again bec of soa Feb 15- hospital stay: CXR: IMPRESSION: Worsening of pulmonary infiltrate and/or edema in both lungs, greater towards the bases. Small pleural effusions, although improved since prior study. IN his last stay, we were able to avoid HD, to get fluid off with watch of his kidney fcn FULL CODE not the best historian but he knows what we are doing for him Seen in ICU, off bipap, on lasix 40 BID BReathing better after lasix 40 IV P CArds., pulm,, renal and ID all on board PLAn: COnt PO lasix MOnitor creat CVC bed FULL CODE Delicate fluid balance, ef 40% needs lasix but ckd MAintain mendez dw BIN PILER Vitals Vitals Vital Signs Date Time Temp Pulse Resp B/P (MAP) Pulse Ox O2 Delivery O2 Flow Rate FiO2 02/25/19 10:16 98.6 60 18 144/67 (92) 100 Room Air 98.6 Physical Exam Physical Exam GENERAL: Alert, oriented gentleman not in any distress. VITAL SIGNS: Stable, afebrile. HEENT: NAD. NECK: Supple, no JVP, no lymphadenopathy. LUNGS: Clear. HEART: S1, S2 regular. ABDOMEN: Benign. EXTREMITIES: No edema, cyanosis. SKIN: Unremarkable. NEUROLOGIC: The patient is neurologically alert, awake and appropriate. No focal neurologic deficit. General: Alert, Oriented X3, Cooperative, mild distress Heart: Regular rate, Normal S1, Normal S2, No murmurs, Other (irreg. rhythm) Lungs: Other (sce, diminished bases, no wheezing) Abdomen: Normal bowel sounds, Soft, No tenderness Extremities: No clubbing, No cyanosis, No edema Skin: No rashes, No breakdown, No significant lesion Labs LABS Laboratory Tests Test 02/24/19 11:45 02/24/19 16:47 02/24/19 20:40 02/25/19 05:05 Glucose (Fingerstick) 110 mg/dL (70-99) 123 mg/dL (70-99) 192 mg/dL (70-99) Prothrombin Time 33.7 SEC (11.7-14.0) Prothromb Time International Ratio 3.3 (0.8-1.1) Sodium Level 143 mmol/L (136-145) Potassium Level 3.3 mmol/L (3.5-5.1) Chloride Level 108 mmol/L (98-107) Carbon Dioxide Level 25 mmol/L (21-32) Anion Gap 10 (6-14) Blood Urea Nitrogen 46 mg/dL (8-26) Creatinine 3.7 mg/dL (0.7-1.3) Estimated GFR (Cockcroft-Gault) 19.5 Glucose Level 52 mg/dL (70-99) Calcium Level 7.7 mg/dL (8.5-10.1) Test 02/25/19 08:22 02/25/19 08:41 02/25/19 09:15 Glucose (Fingerstick) 47 mg/dL (70-99) 79 mg/dL (70-99) 139 mg/dL (70-99) Assessment and Plan Assessmemt and Plan Problems Medical Problems: (1) Acute on chronic diastolic (congestive) heart failure Status: Acute (2) CAD (coronary artery disease) Status: Chronic (3) CHF (congestive heart failure) Status: Chronic (4) DM2 (diabetes mellitus, type 2) Status: Chronic (5) HTN (hypertension) Status: Chronic (6) Respiratory failure Status: Acute Comment Review of Relevant I have reviewed the following items juanita (where applicable) has been applied. Labs Laboratory Tests Test 02/23/19 20:50 02/24/19 04:35 02/24/19 04:50 02/24/19 05:00 Glucose (Fingerstick) 195 mg/dL (70-99) White Blood Count 6.1 x10^3/uL (4.0-11.0) Red Blood Count 3.19 x10^6/uL (4.30-5.70) Hemoglobin 7.8 g/dL (13.0-17.5) Hematocrit 24.4 % (39.0-53.0) Mean Corpuscular Volume 76 fL (79-100) Mean Corpuscular Hemoglobin 25 pg (25-35) Mean Corpuscular Hemoglobin Concent 32 g/dL (31-37) Red Cell Distribution Width 21.4 % (11.5-14.5) Platelet Count 176 x10^3/uL (140-400) Neutrophils (%) (Auto) 62 % (31-73) Lymphocytes (%) (Auto) 19 % (24-48) Monocytes (%) (Auto) 18 % (0-9) Eosinophils (%) (Auto) 1 % (0-3) Basophils (%) (Auto) 1 % (0-3) Neutrophils # (Auto) 3.7 x10^3/uL (1.8-7.7) Lymphocytes # (Auto) 1.1 x10^3/uL (1.0-4.8) Monocytes # (Auto) 1.1 x10^3/uL (0.0-1.1) Eosinophils # (Auto) 0.0 x10^3/uL (0.0-0.7) Basophils # (Auto) 0.1 x10^3/uL (0.0-0.2) Sodium Level 143 mmol/L (136-145) Potassium Level 3.2 mmol/L (3.5-5.1) Chloride Level 108 mmol/L (98-107) Carbon Dioxide Level 25 mmol/L (21-32) Anion Gap 10 (6-14) Blood Urea Nitrogen 55 mg/dL (8-26) Creatinine 3.5 mg/dL (0.7-1.3) Estimated GFR (Cockcroft-Gault) 20.8 Glucose Level 73 mg/dL (70-99) Calcium Level 8.3 mg/dL (8.5-10.1) Magnesium Level 2.2 mg/dL (1.8-2.4) Prothrombin Time 29.8 SEC (11.7-14.0) Prothromb Time International Ratio 2.9 (0.8-1.1) Test 02/24/19 08:12 02/24/19 08:32 02/24/19 11:45 02/24/19 16:47 Glucose (Fingerstick) 58 mg/dL (70-99) 75 mg/dL (70-99) 110 mg/dL (70-99) 123 mg/dL (70-99) Test 02/24/19 20:40 02/25/19 05:05 02/25/19 08:22 02/25/19 08:41 Glucose (Fingerstick) 192 mg/dL (70-99) 47 mg/dL (70-99) 79 mg/dL (70-99) Prothrombin Time 33.7 SEC (11.7-14.0) Prothromb Time International Ratio 3.3 (0.8-1.1) Sodium Level 143 mmol/L (136-145) Potassium Level 3.3 mmol/L (3.5-5.1) Chloride Level 108 mmol/L (98-107) Carbon Dioxide Level 25 mmol/L (21-32) Anion Gap 10 (6-14) Blood Urea Nitrogen 46 mg/dL (8-26) Creatinine 3.7 mg/dL (0.7-1.3) Estimated GFR (Cockcroft-Gault) 19.5 Glucose Level 52 mg/dL (70-99) Calcium Level 7.7 mg/dL (8.5-10.1) Test 02/25/19 09:15 Glucose (Fingerstick) 139 mg/dL (70-99) Laboratory Tests Test 02/24/19 11:45 02/24/19 16:47 02/24/19 20:40 02/25/19 05:05 Glucose (Fingerstick) 110 mg/dL (70-99) 123 mg/dL (70-99) 192 mg/dL (70-99) Prothrombin Time 33.7 SEC (11.7-14.0) Prothromb Time International Ratio 3.3 (0.8-1.1) Sodium Level 143 mmol/L (136-145) Potassium Level 3.3 mmol/L (3.5-5.1) Chloride Level 108 mmol/L (98-107) Carbon Dioxide Level 25 mmol/L (21-32) Anion Gap 10 (6-14) Blood Urea Nitrogen 46 mg/dL (8-26) Creatinine 3.7 mg/dL (0.7-1.3) Estimated GFR (Cockcroft-Gault) 19.5 Glucose Level 52 mg/dL (70-99) Calcium Level 7.7 mg/dL (8.5-10.1) Test 02/25/19 08:22 02/25/19 08:41 02/25/19 09:15 Glucose (Fingerstick) 47 mg/dL (70-99) 79 mg/dL (70-99) 139 mg/dL (70-99) Microbiology 02/22/19 Blood Culture - Preliminary, Resulted NO GROWTH AFTER 2 DAYS Medications Current Medications Albuterol/ Ipratropium (Duoneb) 3 ml 1X ONCE NEB Last administered on 02/22/19at 13:39; Start 02/22/19 at 13:30; Stop 02/22/19 at 13:31; Status DC Furosemide (Lasix) 40 mg 1X ONCE IVP Last administered on 02/22/19at 14:50; Start 02/22/19 at 14:30; Stop 02/22/19 at 14:34; Status DC Piperacillin Sod/ Tazobactam Sod (Zosyn Per Pharmacy) 1 each PRN DAILY PRN MC SEE COMMENTS; Start 02/22/19 at 14:30; Stop 02/24/19 at 10:22; Status DC Piperacillin Sod/ Tazobactam Sod 3.375 gm/Sodium Chloride 50 ml @ 100 mls/hr 1X ONCE IV Last administered on 02/22/19at 15:22; Start 02/22/19 at 14:45; Stop 02/22/19 at 15:14; Status DC Piperacillin Sod/ Tazobactam Sod 3.375 gm/Sodium Chloride 50 ml @ 100 mls/hr Q6HRS IV Last administered on 02/24/19 02:22; Start 02/23/19 at 00:00; Stop 02/24/19 at 08:05; Status DC Albuterol Sulfate (Ventolin Neb Soln) 2.5 mg PRN Q6HRS PRN INH SHORTNESS OF BREATH; Start 02/22/19 at 17:15 Amiodarone HCl (Cordarone) 200 mg DAILY PO Last administered on 02/25/19 09:10; Start 02/23/19 at 09:00 Aspirin (Ecotrin) 81 mg DAILYWBKFT PO Last administered on 02/25/19 09:10; Start 02/23/19 at 08:00 Atorvastatin Calcium (Lipitor) 40 mg QHS PO Last administered on 02/24/19 20:15; Start 02/22/19 at 21:00 Furosemide (Lasix) 40 mg BID92 PO Last administered on 02/25/19 09:10; Start 02/23/19 at 09:00 Guaifenesin (Robitussin Dm) 10 ml PRN Q6HRS PRN PO COUGH; Start 02/22/19 at 17:15 Insulin Glargine (Lantus Syringe) 15 unit HS SQ Last administered on 02/24/19 21:08; Start 02/22/19 at 21:00 Isosorbide Mononitrate (Imdur) 30 mg DAILY PO Last administered on 02/25/19 09:10; Start 02/23/19 at 09:00 Metoprolol Succinate (Toprol Xl) 50 mg DAILY PO Last administered on 02/25/19 09:10; Start 02/23/19 at 09:00 Tamsulosin HCl (Flomax) 0.4 mg DAILY PO Last administered on 02/25/19 09:10; Start 02/23/19 at 09:00 Ticagrelor (Brilinta) 90 mg BID PO Last administered on 02/25/19 09:10; Start 02/22/19 at 21:00 Warfarin Sodium (Coumadin) 5 mg DAILY@1600 PO Last administered on 02/23/19at 15:55; Start 02/22/19 at 19:30; Stop 02/24/19 at 08:29; Status DC Budesonide (Pulmicort) 0.5 mg RTBID NEB Last administered on 02/23/19 08:07; Start 02/22/19 at 20:00; Stop 02/23/19 at 09:43; Status DC Ferrous Sulfate (Feosol) 325 mg DAILYWBKFT PO Last administered on 02/25/19 09:10; Start 02/23/19 at 08:00 Warfarin Sodium (Coumadin Per Physician) 1 each PRN DAILY PRN MC SEE COMMENTS Last administered on 02/23/19at 12:40; Start 02/22/19 at 17:30; Stop 02/24/19 at 08:29; Status DC Atropine Sulfate (ATROPINE 1mg SYRINGE) 1 mg STK-MED ONCE .ROUTE ; Start 02/22/19 at 19:36; Stop 02/22/19 at 19:36; Status DC Atropine Sulfate (ATROPINE 1mg SYRINGE) 1 mg 1X ONCE IV Last administered on 02/22/19 19:44; Start 02/22/19 at 19:45; Stop 02/22/19 at 19:50; Status DC Linezolid/Dextrose 300 ml @ 300 mls/hr Q12HR IV Last administered on 02/22/19 22:26; Start 02/22/19 at 22:00; Stop 02/23/19 at 08:16; Status DC Lactobacillus Rhamnosus (Culturelle) 1 cap BID PO Last administered on 02/25/19 09:10; Start 02/23/19 at 21:00 Warfarin Sodium (Coumadin Per Pharmacy) 1 each PRN DAILY PRN MC SEE COMMENTS Last administered on 02/24/19 14:26; Start 02/24/19 at 10:45 Warfarin Sodium (Coumadin) 4 mg 1X WARF ONCE PO Last administered on 02/24/19 16:24; Start 02/24/19 at 16:00; Stop 02/24/19 at 16:01; Status DC Darbepoetin Jordon (ARANESP for NON-DIALYSIS PTS) 60 mcg 1X ONCE SQ Last administered on 02/24/19 13:17; Start 02/24/19 at 13:00; Stop 02/24/19 at 13:01; Status DC Potassium Chloride (Klor-Con) 40 meq 1X ONCE PO Last administered on 9/3/19at 13:17; Start 02/24/19 at 12:30; Stop 02/24/19 at 12:31; Status DC Dextrose (Dextrose 50%-Water Syringe) 12.5 gm PRN Q15MIN PRN IV SEE COMMENTS; Start 02/25/19 at 08:30 Active Scripts Active Proair Hfa (Albuterol Sulfate) 8.5 Gm Hfa.aer.ad 1 Puff INH PRN Q6HRS PRN 30 Days Pulmicort Flexhaler (Budesonide) 180 Mcg Aer.pow.ba 2 Puff IH BID Guaifenesin Dm Syrup (Guaifenesin/Dextromethorphan) 5 Ml Syrup 10 Ml PO PRN Q6HRS PRN 7 Days Lantus (Insulin Glargine,Hum.rec.anlog) 100 Unit/1 Ml Vial 15 Unit SQ HS 30 Days Furosemide 40 Mg Tablet 40 Mg PO BID92 Aspirin Ec (Aspirin) 81 Mg Tablet. 81 Mg PO DAILYWBKFT Metoprolol Succinate ( Xl ) (Metoprolol Succinate) 25 Mg Tab.er.24h 50 Mg PO DAILY Isosorbide Mononitrate Er (Isosorbide Mononitrate) 30 Mg Tab.er.24h 30 Mg PO DAILY Atorvastatin Calcium 40 Mg Tablet 40 Mg PO QHS Brilinta (Ticagrelor) 90 Mg Tablet 90 Mg PO BID Amiodarone Hcl 200 Mg Tablet 200 Mg PO DAILY Reported Warfarin Sodium 5 Mg Tablet 5 Mg PO DAILY take 5mg on sat,sat.thur,sat,sun take 6 mg on saturday and saturday Ferrous Sulfate 324 Mg Tablet.dr 324 Mg PO DAILY Flomax (Tamsulosin Hcl) 0.4 Mg Cap.er.24h 0.4 Mg PO DAILY Vitals/I & O Vital Sign - Last 24 Hours 02/24/19 02/24/19 02/24/19 02/24/19 11:00 15:00 19:25 20:00 Temp 98.5 98.1 97.7 98.5 98.1 97.7 Pulse 63 53 56 Resp 20 20 18 B/P (MAP) 140/65 (90) 131/61 (84) 130/61 (84) Pulse Ox 100 100 100 O2 Delivery Room Air Room Air Room Air Room Air 02/24/19 02/25/19 02/25/1919 22:55 03:30 07:36 09:10 Temp 98.0 98.7 98.4 98.0 98.7 98.4 Pulse 61 65 64 65 Resp 18 18 18 B/P (MAP) 142/62 (88) 145/66 (92) 150/64 (92) 150/64 Pulse Ox 100 100 100 O2 Delivery Room Air Room Air Room Air 02/25/19 02/25/19 02/25/19 09:10 09:10 10:16 Temp 98.6 98.6 Pulse 64 64 60 Resp 18 B/P (MAP) 150/64 150/64 144/67 (92) Pulse Ox 100 O2 Delivery Room Air Intake and Output 02/24/19 02/24/19 02/25/19 15:00 23:00 07:00 Intake Total 800 ml 400 ml Output Total 400 ml 1100 ml Balance 400 ml -700 ml JENI EASTMAN MD Feb 25, 2019 10:32
--- NOTE | 2019-02-25 11:26 | PDOC ---
MARY VINCENT CLERICAL ADMINISTRATIVE ASSISTANT 02/25/19 1126: CARDIO Progress Notes Date and Time Date of Service 02/25/2019 Time of Evaluation 1115 Subjective Subjective: No Chest Pain, No shortness of breath, No Palpitations Vitals Vitals Vital Signs Date Time Temp Pulse Resp B/P (MAP) Pulse Ox O2 Delivery O2 Flow Rate FiO2 02/25/19 10:16 98.6 60 18 144/67 (92) 100 Room Air 98.6 Weight Weight [ ] Input and Output Intake and Output Intake and Output 02/25/19 07:00 Intake Total 1200 ml Output Total 1500 ml Balance -300 ml Intake Oral 1200 ml Output Urine Total 1500 ml Laboratory Labs Laboratory Tests Test 02/24/19 11:45 02/24/19 16:47 02/24/19 20:40 02/25/19 05:05 Glucose (Fingerstick) 110 mg/dL (70-99) 123 mg/dL (70-99) 192 mg/dL (70-99) Prothrombin Time 33.7 SEC (11.7-14.0) Prothromb Time International Ratio 3.3 (0.8-1.1) Sodium Level 143 mmol/L (136-145) Potassium Level 3.3 mmol/L (3.5-5.1) Chloride Level 108 mmol/L (98-107) Carbon Dioxide Level 25 mmol/L (21-32) Anion Gap 10 (6-14) Blood Urea Nitrogen 46 mg/dL (8-26) Creatinine 3.7 mg/dL (0.7-1.3) Estimated GFR (Cockcroft-Gault) 19.5 Glucose Level 52 mg/dL (70-99) Calcium Level 7.7 mg/dL (8.5-10.1) Test 02/25/19 08:22 02/25/19 08:41 02/25/19 09:15 Glucose (Fingerstick) 47 mg/dL (70-99) 79 mg/dL (70-99) 139 mg/dL (70-99) Microbiology Micro Microbiology 02/22/19 Blood Culture - Preliminary, Resulted NO GROWTH AFTER 2 DAYS Physical Exam HEENT: Neck Supple W Full Motion Chest: Symmetric LUNGS: Clear to Auscultation Heart: S1S2, RRR (SR) Abdomen: Soft N/T Extremities: No Edema, No Calf Tenderness Neurology: alert, oriented, follow commands Assessment Assessment 1. Acute on chronic diastolic/systolic CHF: currently compensated 2. PAFIB with chronic LBBB: maintaining SR 3. Cardiomyopathy; LVEF 40%, combined ICM/NICM, compensated 3. NSTEMI; S/P PCI/CHRIS to LAD, clinically stable. 4. CAD 5. Hypertension; controlled 6. JESSICA on CKD4: Cr at 3.7 7. Hyperlipidemia; statin therapy 8. Diabetes mellitus type 2 9. RADHA Recommendations 1. Continue amiodarone and toprol 2. ASA 81mg daily, Ticagrelor 90mg bid and warfarin for 2 weeks, then stop ASA 81mg daily 3. Continue with lasix therapy. 1.5 to 2L FR. Daily wt. 4. Continue secondary prevention measures. 5. If continues to have refractory CHF and remains uremic may need dialysis. Defer further to nephrology. 6. Nothing further cardiac [place] follow up in office. 7. May need to adjust basal insulin with hypoglycemic episodes,that would potentiate refractory CHF as well, defer further to PCP ALINA OSPINA MD 02/25/191922: CARDIO Progress Notes Plan Plan Pt. seen and examined. Agree with above ANTIQUE CLOCKS REPAIRER note. No events overnight. Although the patient states that he feels better and the chest x-ray looks mildly improved he has gained weight by the bed scale and it is unclear how accurate it is. He is only approximately -1 L over the last 3 days. I suspect that he will have recurrent volume overload and may not be able to maintain euvolemic upon discharge. Nonetheless, we'll defer to the nephrology service regarding initiation of dialysis again which I think will likely will prevent further recurrent heart failure admissions. Supportive care for now. MARY VINCENT APRN Feb 25, 2019 11:26 ALINA OSPINA MD Feb 25, 2019 19:23
--- NOTE | 2019-02-25 11:50 | PDOC ---
PULMONARY PROGRESS NOTES Subjective FEELS BETTER Vitals Vital Signs Date Time Temp Pulse Resp B/P (MAP) Pulse Ox O2 Delivery O2 Flow Rate FiO2 02/25/19 10:16 98.6 60 18 144/67 (92) 100 Room Air 98.6 General: Alert, No acute distress HEENT: Other Lungs: Other (sce, diminished bases, no wheezing) Cardiovascular: S1, S2 Abdomen: Soft Extremities: No Edema Skin: Warm Labs Laboratory Tests Test 02/23/19 20:50 02/24/19 04:35 02/24/19 04:50 02/24/19 05:00 Glucose (Fingerstick) 195 mg/dL (70-99) White Blood Count 6.1 x10^3/uL (4.0-11.0) Red Blood Count 3.19 x10^6/uL (4.30-5.70) Hemoglobin 7.8 g/dL (13.0-17.5) Hematocrit 24.4 % (39.0-53.0) Mean Corpuscular Volume 76 fL (79-100) Mean Corpuscular Hemoglobin 25 pg (25-35) Mean Corpuscular Hemoglobin Concent 32 g/dL (31-37) Red Cell Distribution Width 21.4 % (11.5-14.5) Platelet Count 176 x10^3/uL (140-400) Neutrophils (%) (Auto) 62 % (31-73) Lymphocytes (%) (Auto) 19 % (24-48) Monocytes (%) (Auto) 18 % (0-9) Eosinophils (%) (Auto) 1 % (0-3) Basophils (%) (Auto) 1 % (0-3) Neutrophils # (Auto) 3.7 x10^3/uL (1.8-7.7) Lymphocytes # (Auto) 1.1 x10^3/uL (1.0-4.8) Monocytes # (Auto) 1.1 x10^3/uL (0.0-1.1) Eosinophils # (Auto) 0.0 x10^3/uL (0.0-0.7) Basophils # (Auto) 0.1 x10^3/uL (0.0-0.2) Sodium Level 143 mmol/L (136-145) Potassium Level 3.2 mmol/L (3.5-5.1) Chloride Level 108 mmol/L (98-107) Carbon Dioxide Level 25 mmol/L (21-32) Anion Gap 10 (6-14) Blood Urea Nitrogen 55 mg/dL (8-26) Creatinine 3.5 mg/dL (0.7-1.3) Estimated GFR (Cockcroft-Gault) 20.8 Glucose Level 73 mg/dL (70-99) Calcium Level 8.3 mg/dL (8.5-10.1) Magnesium Level 2.2 mg/dL (1.8-2.4) Prothrombin Time 29.8 SEC (11.7-14.0) Prothromb Time International Ratio 2.9 (0.8-1.1) Test 02/24/19 08:12 02/24/19 08:32 02/24/19 11:45 02/24/19 16:47 Glucose (Fingerstick) 58 mg/dL (70-99) 75 mg/dL (70-99) 110 mg/dL (70-99) 123 mg/dL (70-99) Test 02/24/19 20:40 02/25/19 05:05 02/25/19 08:22 02/25/19 08:41 Glucose (Fingerstick) 192 mg/dL (70-99) 47 mg/dL (70-99) 79 mg/dL (70-99) Prothrombin Time 33.7 SEC (11.7-14.0) Prothromb Time International Ratio 3.3 (0.8-1.1) Sodium Level 143 mmol/L (136-145) Potassium Level 3.3 mmol/L (3.5-5.1) Chloride Level 108 mmol/L (98-107) Carbon Dioxide Level 25 mmol/L (21-32) Anion Gap 10 (6-14) Blood Urea Nitrogen 46 mg/dL (8-26) Creatinine 3.7 mg/dL (0.7-1.3) Estimated GFR (Cockcroft-Gault) 19.5 Glucose Level 52 mg/dL (70-99) Calcium Level 7.7 mg/dL (8.5-10.1) Test 02/25/19 09:15 02/25/19 11:27 Glucose (Fingerstick) 139 mg/dL (70-99) 162 mg/dL (70-99) Laboratory Tests Test 02/24/19 16:47 02/24/19 20:40 02/25/19 05:05 02/25/19 08:22 Glucose (Fingerstick) 123 mg/dL (70-99) 192 mg/dL (70-99) 47 mg/dL (70-99) Prothrombin Time 33.7 SEC (11.7-14.0) Prothromb Time International Ratio 3.3 (0.8-1.1) Sodium Level 143 mmol/L (136-145) Potassium Level 3.3 mmol/L (3.5-5.1) Chloride Level 108 mmol/L (98-107) Carbon Dioxide Level 25 mmol/L (21-32) Anion Gap 10 (6-14) Blood Urea Nitrogen 46 mg/dL (8-26) Creatinine 3.7 mg/dL (0.7-1.3) Estimated GFR (Cockcroft-Gault) 19.5 Glucose Level 52 mg/dL (70-99) Calcium Level 7.7 mg/dL (8.5-10.1) Test 02/25/19 08:41 02/25/19 09:15 02/25/19 11:27 Glucose (Fingerstick) 79 mg/dL (70-99) 139 mg/dL (70-99) 162 mg/dL (70-99) Medications Active Scripts Medications Dose Route/Sig Max Daily Dose Days Date Category Dose Instructions Proair Hfa (Albuterol Sulfate) 8.5 Gm Hfa.aer.ad 1 Puff INH PRN Q6HRS PRN 30 02/21/19 Rx Pulmicort Flexhaler (Budesonide) 180 Mcg Aer.pow.ba 2 Puff IH BID 02/21/19 Rx Guaifenesin Dm Syrup (Guaifenesin/Dextromethorphan) 5 Ml Syrup 10 Ml PO PRN Q6HRS PRN 7 02/21/19 Rx Lantus (Insulin Glargine,Hum.rec.anlog) 100 Unit/1 Ml Vial 15 Unit SQ HS 30 02/21/19 Rx Furosemide 40 Mg Tablet 40 Mg PO BID92 02/21/19 Rx Aspirin Ec (Aspirin) 81 Mg Tablet.dr 81 Mg PO DAILYWBKFT 02/21/19 Rx Metoprolol Succinate ( Xl ) (Metoprolol Succinate) 25 Mg Tab.er.24h 50 Mg PO DAILY 8/31/19 Rx Isosorbide Mononitrate Er (Isosorbide Mononitrate) 30 Mg Tab.er.24h 30 Mg PO DAILY 02/21/19 Rx Atorvastatin Calcium 40 Mg Tablet 40 Mg PO QHS 02/21/19 Rx Brilinta (Ticagrelor) 90 Mg Tablet 90 Mg PO BID 02/21/19 Rx Amiodarone Hcl 200 Mg Tablet 200 Mg PO DAILY 02/21/19 Rx Warfarin Sodium 5 Mg Tablet 5 Mg PO DAILY 01/24/19 Reported take 5mg on sat,sat.thur,sat,sun take 6 mg on saturday and saturday Ferrous Sulfate 324 Mg Tablet.dr 324 Mg PO DAILY 01/24/19 Reported Flomax (Tamsulosin Hcl) 0.4 Mg Cap.er.24h 0.4 Mg PO DAILY 01/24/19 Reported Impression . 1. Acute hypoxemic respiratory failure, secondary to acute on chronic systolic heart failure. ( cath with LVEDP 26) 2. Acute on chronic kidney disease. 3. Bilateral pulmonary infiltrates and effusion compatible with congestive heart failure. 4. Chronic obstructive pulmonary disease. 5. Cardiomyopathy. 6. Recent PCI with LAD stenting. 7. Hypertension. 8. Diabetes. 9. Tobacco dependence, in remission. Plan . PLAN: 1. [place] 2. diuresis. 3. The patient may require hemodialysis. We will defer to Nephrology. 4. Continue p.r.n. noninvasive ventilation. 5. Oxygen supplementation. 6. Bronchodilators. 7. Continue anticoagulation per Cardiology. 8. Not much to add TRISH REECE MD Feb 25, 2019 11:50
--- NOTE | 2019-02-25 13:33 | NUR ---
SS following up with discharge planning. PT/OT recommended fdc unit. SS met with pt and contacted pt's spouse by phone to discuss discharge planning and fdc unit. Pt's spouse agreeable to fdc unit and requested referral be phoned and faxed to [facility], ; fax [phone], due to proximity to home. SS phoned and faxed referral. SS will await acceptance decision and insurance determination and will proceed accordingly with discharge planning.
[2019-02-25 14:15] VITALS: BP 135/65
--- NOTE | 2019-02-25 14:52 | NUR ---
Pharmacy Warfarin Dosing Note S:Pharmacy consulted to assist with anticoagulation therapy started with target INR: 2 -3 O:ROMMEL POLK is a 73 year old M with Atrial Fibrillation LABS: Last INR: 2.9 Last HGB: 7.8 Last HCT: 24.4 Last PLT: 176 Last dose of 4 mg given on 02/23/19 at 1624 Previous Regimen: Vitamin K given: N Drug Interaction Changes: Ongoing Drug Interactions: A:INR of 3.3 is above desired range. Target range for this patient is: 2 -3 P: Warfarin dose: 3 mg Today at 1600 Bridge Therapy: None Next INR due IN AM Pharmacy anticoagulation service will continue to follow. MIMI CARRASCO [facility], 02/25/19 [id number]
--- NOTE | 2019-02-25 15:45 | NUR ---
SS following up with discharge planning. Pt accepted at [facility] pending insurance authorization. SS will await insurance determination and will proceed accordingly with discharge planning.
[2019-02-25] MEDS ORDERED: WARFARIN 3 MG TABLET. PO ONE (16:00)
[2019-02-25 19:00] VITALS: BP 134/60
[2019-02-25] MEDS: ATORVASTATIN CALCIUM 40 MG TABLET. PO SCH (21:52)
[2019-02-25] MEDS: INSULIN GLARGINE SYRINGE. SQ SCH (21:56)
[2019-02-25 22:41] VITALS: BP 131/70
[2019-02-26 02:57] VITALS: BP 160/63
[2019-02-26 07:00] VITALS: BP 155/70
--- NOTE | 2019-02-26 08:47 | PDOC ---
PROGRESS NOTES Chief Complaint Chief Complaint impression CHF/fluid overload CHF and remains uremic may need dialysis. Defer further to nephrology. Acute hypoxic respiratory failure - NIPPPV Acute on chronic diastolic/systolic CHF - EF 40% Elevated troponin - in the background of CKD CAD - s/p PCI/stent placement one year ago. Hypertension - Acute on chronic renal insufficiency - Hyperlipidemia - Diabetes mellitus type 2 - Paroxysmal AFIB Anemia of chronic disease - on iron for RADHA. Indwelling Leggett catheter for urinary ryshtadrb-9-8/2 years now-gets changed by home health nurse Q monthly FULL CODE Continue chronic catheter with monthly changes Not a great candidate for prostate surgery - doesn't want to do self-cath Last seen in urology clinic a year ago, f/u in clinic 06/03/19 at 2:20pm with Dr. Taylor at [facility] Currently No indication for HD, per nephrology Supportive care,monitor 32 MIN PT EXAM, CHART REVIEW d/c planning, > 50% OF TIME SPENT WITH EXAM, CHART REVIEW, PT CARE COORDINATION History of Present Illness History of Present Illness No increased S OA, still refusing SNU, he was a readmission after I discharged one day to home health as per insisting of -but he still refusing SNU Creatinine 3.5, no increase in SOA. Initial thoughts of sabas needing dialysis to help fluid overload but that seems not to be the case currently At least not from renal note Leggett catheter in for one and half years, I did consult urology. Patient does not want it to be DC'd. Had bad urinary retention. He will follow- up with urology as outpatient. HH RN changes it q monthly Continue Brilinta and warfarin, A. fib, other comorbidities Full code EARLIER ENTRY: I just dcd him 2 days ago with and HH ( refused snu for him, PT recommended SNU) andback again bec of soa Feb 15- hospital stay: CXR: IMPRESSION: Worsening of pulmonary infiltrate and/or edema in both lungs, greater towards the bases. Small pleural effusions, although improved since prior study. IN his last stay, we were able to avoid HD, to get fluid off with watch of his kidney fcn FULL CODE not the best historian but he knows what we are doing for him Seen in ICU, off bipap, on lasix 40 BID BReathing better after lasix 40 IV P CArds., pulm,, renal and ID all on board PLAn: COnt PO lasix MOnitor creat CVC bed FULL CODE Delicate fluid balance, ef 40% needs lasix but ckd MAintain andrea teresa [employer]SEMBL[employer] Vitals Vitals Vital Signs Date Time Temp Pulse Resp B/P (MAP) Pulse Ox O2 Delivery O2 Flow Rate FiO2 02/26/19 07:00 99.0 53 18 155/70 (98) 99 Room Air 99.0 Physical Exam Physical Exam GENERAL: Alert, oriented gentleman not in any distress. VITAL SIGNS: Stable, afebrile. HEENT: NAD. NECK: Supple, no JVP, no lymphadenopathy. LUNGS: Clear. HEART: S1, S2 regular. ABDOMEN: Benign. EXTREMITIES: No edema, cyanosis. SKIN: Unremarkable. NEUROLOGIC: The patient is neurologically alert, awake and appropriate. No focal neurologic deficit. General: Alert, Oriented X3, Cooperative, No acute distress, mild distress Heart: Regular rate, Normal S1, Normal S2, No murmurs, Other (irreg. rhythm) Lungs: Clear, Other (sce, diminished bases, no wheezing) Abdomen: Normal bowel sounds, Soft, No tenderness Extremities: No clubbing, No cyanosis, No edema Skin: No rashes, No breakdown, No significant lesion Labs LABS Laboratory Tests Test 02/25/19 09:15 02/25/19 11:27 02/25/19 16:50 02/25/19 20:28 Glucose (Fingerstick) 139 mg/dL (70-99) 162 mg/dL (70-99) 216 mg/dL (70-99) 224 mg/dL (70-99) Test 02/26/19 07:26 Glucose (Fingerstick) 94 mg/dL (70-99) Assessment and Plan Assessmemt and Plan Problems Medical Problems: (1) Acute on chronic diastolic (congestive) heart failure Status: Acute (2) CAD (coronary artery disease) Status: Chronic (3) CHF (congestive heart failure) Status: Chronic (4) DM2 (diabetes mellitus, type 2) Status: Chronic (5) HTN (hypertension) Status: Chronic (6) Respiratory failure Status: Acute Comment Review of Relevant I have reviewed the following items juanita (where applicable) has been applied. Labs Laboratory Tests Test 02/24/19 11:45 02/24/19 16:47 02/24/19 20:40 02/25/19 05:05 Glucose (Fingerstick) 110 mg/dL (70-99) 123 mg/dL (70-99) 192 mg/dL (70-99) Prothrombin Time 33.7 SEC (11.7-14.0) Prothromb Time International Ratio 3.3 (0.8-1.1) Sodium Level 143 mmol/L (136-145) Potassium Level 3.3 mmol/L (3.5-5.1) Chloride Level 108 mmol/L (98-107) Carbon Dioxide Level 25 mmol/L (21-32) Anion Gap 10 (6-14) Blood Urea Nitrogen 46 mg/dL (8-26) Creatinine 3.7 mg/dL (0.7-1.3) Estimated GFR (Cockcroft-Gault) 19.5 Glucose Level 52 mg/dL (70-99) Calcium Level 7.7 mg/dL (8.5-10.1) Test 02/25/19 08:22 02/25/19 08:41 02/25/19 09:15 02/25/19 11:27 Glucose (Fingerstick) 47 mg/dL (70-99) 79 mg/dL (70-99) 139 mg/dL (70-99) 162 mg/dL (70-99) Test 02/25/19 16:50 02/25/19 20:28 02/26/19 07:26 Glucose (Fingerstick) 216 mg/dL (70-99) 224 mg/dL (70-99) 94 mg/dL (70-99) Laboratory Tests Test 02/25/19 09:15 02/25/19 11:27 02/25/19 16:50 02/25/19 20:28 Glucose (Fingerstick) 139 mg/dL (70-99) 162 mg/dL (70-99) 216 mg/dL (70-99) 224 mg/dL (70-99) Test 02/26/19 07:26 Glucose (Fingerstick) 94 mg/dL (70-99) Microbiology 02/22/19 Blood Culture - Preliminary, Resulted NO GROWTH AFTER 3 DAYS Medications Current Medications Albuterol/ Ipratropium (Duoneb) 3 ml 1X ONCE NEB Last administered on 02/22/19at 13:39; Start 02/22/19 at 13:30; Stop 02/22/19 at 13:31; Status DC Furosemide (Lasix) 40 mg 1X ONCE IVP Last administered on 02/22/19at 14:50; Start 02/22/19 at 14:30; Stop 02/22/19 at 14:34; Status DC Piperacillin Sod/ Tazobactam Sod (Zosyn Per Pharmacy) 1 each PRN DAILY PRN MC SEE COMMENTS; Start 02/22/19 at 14:30; Stop 02/24/19 at 10:22; Status DC Piperacillin Sod/ Tazobactam Sod 3.375 gm/Sodium Chloride 50 ml @ 100 mls/hr 1X ONCE IV Last administered on 02/22/19at 15:22; Start 02/22/19 at 14:45; Stop 02/22/19 at 15:14; Status DC Piperacillin Sod/ Tazobactam Sod 3.375 gm/Sodium Chloride 50 ml @ 100 mls/hr Q6HRS IV Last administered on 02/24/19at 02:22; Start 02/23/19 at 00:00; Stop 02/24/19 at 08:05; Status DC Albuterol Sulfate (Ventolin Neb Soln) 2.5 mg PRN Q6HRS PRN INH SHORTNESS OF BREATH; Start 02/22/19 at 17:15 Amiodarone HCl (Cordarone) 200 mg DAILY PO Last administered on 02/25/19at 09:10; Start 02/23/19 at 09:00 Aspirin (Ecotrin) 81 mg DAILYWBKFT PO Last administered on 02/25/19at 09:10; Start 02/23/19 at 08:00 Atorvastatin Calcium (Lipitor) 40 mg QHS PO Last administered on 02/25/19at 21:56; Start 02/22/19 at 21:00 Furosemide (Lasix) 40 mg BID92 PO Last administered on 02/25/19at 14:03; Start 02/23/19 at 09:00 Guaifenesin (Robitussin Dm) 10 ml PRN Q6HRS PRN PO COUGH; Start 02/22/19 at 17:15 Insulin Glargine (Lantus Syringe) 15 unit HS SQ Last administered on 02/25/19at 21:57; Start 02/22/19 at 21:00 Isosorbide Mononitrate (Imdur) 30 mg DAILY PO Last administered on 02/25/19 09:10; Start 02/23/19 at 09:00 Metoprolol Succinate (Toprol Xl) 50 mg DAILY PO Last administered on 02/25/19 09:10; Start 02/23/19 at 09:00 Tamsulosin HCl (Flomax) 0.4 mg DAILY PO Last administered on 02/25/19 09:10; Start 02/23/19 at 09:00 Ticagrelor (Brilinta) 90 mg BID PO Last administered on 02/25/19 21:56; Start 02/22/19 at 21:00 Warfarin Sodium (Coumadin) 5 mg DAILY@1600 PO Last administered on 02/23/19 15:55; Start 02/22/19 at 19:30; Stop 02/24/19 at 08:29; Status DC Budesonide (Pulmicort) 0.5 mg RTBID NEB Last administered on 02/23/19 08:07; Start 02/22/19 at 20:00; Stop 02/23/19 at 09:43; Status DC Ferrous Sulfate (Feosol) 325 mg DAILYWBKFT PO Last administered on 02/25/19 09:10; Start 02/23/19 at 08:00 Warfarin Sodium (Coumadin Per Physician) 1 each PRN DAILY PRN MC SEE COMMENTS Last administered on 02/23/19at 12:40; Start 02/22/19 at 17:30; Stop 02/24/19 at 08:29; Status DC Atropine Sulfate (ATROPINE 1mg SYRINGE) 1 mg STK-MED ONCE .ROUTE ; Start 02/22/19 at 19:36; Stop 02/22/19 at 19:36; Status DC Atropine Sulfate (ATROPINE 1mg SYRINGE) 1 mg 1X ONCE IV Last administered on 02/22/19 19:44; Start 02/22/19 at 19:45; Stop 02/22/19 at 19:50; Status DC Linezolid/Dextrose 300 ml @ 300 mls/hr Q12HR IV Last administered on 02/22/19 22:26; Start 02/22/19 at 22:00; Stop 02/23/19 at 08:16; Status DC Lactobacillus Rhamnosus (Culturelle) 1 cap BID PO Last administered on 9/4/19at 21:56; Start 02/23/19 at 21:00 Warfarin Sodium (Coumadin Per Pharmacy) 1 each PRN DAILY PRN MC SEE COMMENTS Last administered on 02/25/19at 14:53; Start 02/24/19 at 10:45 Warfarin Sodium (Coumadin) 4 mg 1X WARF ONCE PO Last administered on 02/24/19at 16:24; Start 02/24/19 at 16:00; Stop 02/24/19 at 16:01; Status DC Darbepoetin Jordon (ARANESP for NON-DIALYSIS PTS) 60 mcg 1X ONCE SQ Last administered on 02/24/19 13:17; Start 02/24/19 at 13:00; Stop 02/24/19 at 13:01; Status DC Potassium Chloride (Klor-Con) 40 meq 1X ONCE PO Last administered on 02/24/19at 13:17; Start 02/24/19 at 12:30; Stop 02/24/19 at 12:31; Status DC Dextrose (Dextrose 50%-Water Syringe) 12.5 gm PRN Q15MIN PRN IV SEE COMMENTS; Start 02/25/19 at 08:30 Warfarin Sodium (Coumadin) 3 mg 1X WARF ONCE PO Last administered on 02/25/19at 17:19; Start 02/25/19 at 16:00; Stop 02/25/19 at 16:01; Status DC Active Scripts Active Proair Hfa (Albuterol Sulfate) 8.5 Gm Hfa.aer.ad 1 Puff INH PRN Q6HRS PRN 30 Days Pulmicort Flexhaler (Budesonide) 180 Mcg Aer.pow.ba 2 Puff IH BID Guaifenesin Dm Syrup (Guaifenesin/Dextromethorphan) 5 Ml Syrup 10 Ml PO PRN Q6HRS PRN 7 Days Lantus (Insulin Glargine,Hum.rec.anlog) 100 Unit/1 Ml Vial 15 Unit SQ HS 30 Days Furosemide 40 Mg Tablet 40 Mg PO BID92 Aspirin Ec (Aspirin) 81 Mg Tablet.dr 81 Mg PO DAILYWBKFT Metoprolol Succinate ( Xl ) (Metoprolol Succinate) 25 Mg Tab.er.24h 50 Mg PO DAILY Isosorbide Mononitrate Er (Isosorbide Mononitrate) 30 Mg Tab.er.24h 30 Mg PO DAILY Atorvastatin Calcium 40 Mg Tablet 40 Mg PO QHS Brilinta (Ticagrelor) 90 Mg Tablet 90 Mg PO BID Amiodarone Hcl 200 Mg Tablet 200 Mg PO DAILY Reported Warfarin Sodium 5 Mg Tablet 5 Mg PO DAILY take 5mg on mon,wed.thur,sat,sun take 6 mg on saturday and saturday Ferrous Sulfate 324 Mg Tablet.dr 324 Mg PO DAILY Flomax (Tamsulosin Hcl) 0.4 Mg Cap.er.24h 0.4 Mg PO DAILY Vitals/I & O Vital Sign - Last 24 Hours 02/25/19 02/25/19 02/25/19 02/25/19 09:10 09:10 09:10 10:16 Temp 98.6 98.6 Pulse 65 64 64 60 Resp 18 B/P (MAP) 150/64 150/64 150/64 144/67 (92) Pulse Ox 100 O2 Delivery Room Air 02/25/19 02/25/19 02/25/19 02/25/19 14:15 19:00 20:15 22:41 Temp 98.3 98.1 98.0 98.3 98.1 98.0 Pulse 57 58 64 Resp 18 18 18 B/P (MAP) 135/65 (88) 134/60 (84) 131/70 (90) Pulse Ox 100 100 100 O2 Delivery Room Air Room Air Room Air Room Air 02/26/19 02/26/19 02:57 07:00 Temp 99.0 99.0 99.0 99.0 Pulse 72 53 Resp 12 18 B/P (MAP) 160/63 (95) 155/70 (98) Pulse Ox 100 99 O2 Delivery Room Air Room Air Intake and Output 02/25/19 02/25/19 02/26/19 15:00 23:00 07:00 Intake Total 540 ml 100 ml Output Total 850 ml 700 ml Balance 540 ml -850 ml -600 ml JENI EASTMAN MD Feb 26, 2019 08:47
[2019-02-26 08:50] LABS: PROTHROMBIN TIME PATIENT 33.6 SEC (11.7-14.0)
[2019-02-26] MEDS: TAMSULOSIN 0.4 MG CAP.ER.24H. PO SCH (08:52)
[2019-02-26 08:53] LABS: CALCIUM 8.1 mg/dL (8.5-10.1); CREATININE 3.4 mg/dL (0.7-1.3); GFR 21.5; POTASSIUM 3.6 mmol/L (3.5-5.1)
[2019-02-26] MEDS: ASPIRIN ENTERIC COATED 81 MG TABLET.DR. PO SCH (08:53)
[2019-02-26] MEDS: LACTOBACILLUS RHAMNOSUS GG 1 CAPSULE. PO SCH ×2 (08:53→20:32)
[2019-02-26] MEDS: ISOSORBIDE MONONITRATE ER 30 MG TAB.ER.24H PO SCH (08:53)
[2019-02-26] MEDS: FUROSEMIDE 40 MG TABLET. PO SCH ×2 (08:54→14:08)
[2019-02-26] MEDS: AMIODARONE HCL 200 MG TABLET. PO SCH (08:54)
[2019-02-26] MEDS: FERROUS SULFATE 325 MG TABLET. PO SCH (08:54)
[2019-02-26] MEDS: METOPROLOL SUCC 24HR ER 50 MG TAB.ER.24H. PO SCH (08:54)
[2019-02-26] MEDS: TICAGRELOR 90 MG TABLET. PO SCH ×2 (08:55→20:32)
--- NOTE | 2019-02-26 08:56 | NUR ---
Kayyilinta would not scan this morning. had to manual administer on system. was last pill in omnicell.
--- NOTE | 2019-02-26 09:19 | PDOC ---
SUBJECTIVE Subjective Pt doing well, denies pain, wants to keep catheter long-term OBJECTIVE Objective General: Pleasant, no acute distress, well groomed Eyes: conjunctiva anicteric, eyes full range of motion ENT: moist oral mucosa, normal dentition Neck: Trachea midline, no masses Respiratory: unlabored breathing, not using accessory muscles Abdomen: nontender, nondistended : urethral mendez in place draining clear yellow urine Skin: no rashes or skin lesions on visualized skin Psych: normal mood, affect. Alert and oriented x 3. Vital Signs Vital Signs Date Time Temp Pulse Resp B/P (MAP) Pulse Ox O2 Delivery O2 Flow Rate FiO2 02/26/19 08:55 77 155/70 02/26/19 08:55 73 155/70 02/26/19 08:55 76 155/70 02/26/19 07:00 99.0 53 18 155/70 (98) 99 Room Air 99.0 02/26/19 02:57 99.0 72 12 160/63 (95) 100 Room Air 99.0 02/25/19 22:41 98.0 64 18 131/70 (90) 100 Room Air 98.0 02/25/19 20:15 Room Air 02/25/19 19:00 98.1 58 18 134/60 (84) 100 Room Air 98.1 02/25/19 14:15 98.3 57 18 135/65 (88) 100 Room Air 98.3 02/25/19 10:16 98.6 60 18 144/67 (92) 100 Room Air 98.6 I & O Intake and Output 02/26/19 07:00 Intake Total 640 ml Output Total 1550 ml Balance -910 ml Intake Oral 640 ml Output Urine Total 1550 ml PHYSICAL EXAM Physical Exam General: Pleasant, no acute distress, well groomed Eyes: conjunctiva anicteric, eyes full range of motion ENT: moist oral mucosa, normal dentition Neck: Trachea midline, no masses Respiratory: unlabored breathing, not using accessory muscles Abdomen: nontender, nondistended : urethral mendez in place draining clear yellow urine Skin: no rashes or skin lesions on visualized skin Psych: normal mood, affect. Alert and oriented x 3. ASSESSMENT/PLAN Assessment/Plan Urinary retention with chronic urethral mendez catheter Continue chronic catheter with monthly changes Not a great candidate for prostate surgery - states he is going back on dialysis; doesn't want to do self-cath Last seen in clinic a year ago, f/u in clinic 06/03/19 at 2:20pm with Dr. Taylor at [place] location Will sign off - call with questions Problems: (1) Urinary retention (2) Indwelling urethral catheter present COMMENT Lab Laboratory Tests Test 02/25/19 11:27 02/25/19 16:50 02/25/19 20:28 02/26/19 07:26 Glucose (Fingerstick) 162 mg/dL (70-99) 216 mg/dL (70-99) 224 mg/dL (70-99) 94 mg/dL (70-99) Test 02/26/19 07:30 Prothrombin Time 33.6 SEC (11.7-14.0) Prothromb Time International Ratio 3.3 (0.8-1.1) Sodium Level 141 mmol/L (136-145) Potassium Level 3.6 mmol/L (3.5-5.1) Chloride Level 106 mmol/L (98-107) Carbon Dioxide Level 23 mmol/L (21-32) Anion Gap 12 (6-14) Blood Urea Nitrogen 42 mg/dL (8-26) Creatinine 3.4 mg/dL (0.7-1.3) Estimated GFR (Cockcroft-Gault) 21.5 Glucose Level 83 mg/dL (70-99) Calcium Level 8.1 mg/dL (8.5-10.1) SYMONE MILES Feb 26, 2019 09:19
--- NOTE | 2019-02-26 10:55 | NUR ---
Pharmacy Warfarin Dosing Note S:Pharmacy consulted to assist with anticoagulation therapy started with target INR: 2 -3 O:ROMMEL POLK is a 73 year old M with Atrial Fibrillation LABS: Last INR: 3.3 Last HGB: 7.8 Last HCT: 24.4 Last PLT: 176 Last dose of 4 mg given on 02/25/19 at 1624 Previous Regimen: Vitamin K given: N Drug Interaction Changes: Ongoing Drug Interactions: A:INR of 3.3 is above desired range. Target range for this patient is: 2 -3 P: Warfarin dose: Hold Today at 1600 Bridge Therapy: None Next INR due TOMORROW Pharmacy anticoagulation service will continue to follow. [facility], 02/26/19 [id number]
[2019-02-26 11:00] VITALS: BP 152/67
--- NOTE | 2019-02-26 11:04 | PDOC ---
SUBJECTIVE ROS No new concerns voiced by Pt OBJECTIVE Vital Signs Vital Signs Date Time Temp Pulse Resp B/P (MAP) Pulse Ox O2 Delivery O2 Flow Rate FiO2 02/26/19 08:55 77 155/70 02/26/19 08:00 Room Air 02/26/19 07:00 99.0 18 99 99.0 I & 0 l Intake and Output 02/26/19 07:00 Intake Total 640 ml Output Total 1550 ml Balance -910 ml Intake Oral 640 ml Output Urine Total 1550 ml PHYSICAL EXAM Physical Exam GENERAL: NAD, sitting up in chair HEENT: OM moist NECK: Supple, LUNGS: Clear. HEART: S1, S2 regular. ABDOMEN: soft, NT EXTREMITIES: No edema, SKIN: Unremarkable, No rash NEUROLOGIC: Grossly normal Mendez DIAGNOSIS/ASSESSMENT Assessment & Plan CKD stage 4- in Cardiorenal Cr improved- closer to baseline was on HD in the past- taken off Dialysis appox 6 months back E-lytes and acid base stable, No uremic symptoms Currently No indication for HD, Supportive care,monitor Urinary retention, chronic mendez in place for 18 months Urology following Respiratory failure with hypoxemia- resolved Congestive heart failure. Bilateral pulmonary infiltrate On PO Lasix 40 BID Card managing Cardiomyopathy. Diabetes. Hypertension- stable CAD-.S/P PTCA AND STENT LAD 02/19 DM II ANEMIA- LIV COMMENT/RELEVANT DATA Meds Current Medications Medications (Trade) Dose Ordered Sig/Gwen Start Time Stop Time Status Last Admin Dose Admin Albuterol Sulfate (Ventolin Neb Soln) 2.5 mg PRN Q6HRS PRN 02/22/19 17:15 Albuterol/ Ipratropium (Duoneb) 3 ml 1X ONCE 02/22/19 13:30 02/22/19 13:31 DC 02/22/19 13:39 3 ML Amiodarone HCl (Cordarone) 200 mg DAILY 02/23/19 09:00 02/26/19 08:55 200 MG Aspirin (Ecotrin) 81 mg DAILYWBKFT 02/23/19 08:00 02/26/19 08:55 81 MG Atorvastatin Calcium (Lipitor) 40 mg QHS 02/22/19 21:00 02/25/19 21:56 40 MG Atropine Sulfate (ATROPINE 1mg SYRINGE) 1 mg 1X ONCE 02/22/19 19:45 02/22/19 19:50 DC 02/22/19 19:44 1 MG Budesonide (Pulmicort) 0.5 mg RTBID 02/22/19 20:00 02/23/19 09:43 DC 02/23/19 08:07 0.5 MG Darbepoetin Jordon (ARANESP for NON-DIALYSIS PTS) 60 mcg 1X ONCE 02/24/19 13:00 02/24/19 13:01 DC 02/24/19 13:17 60 MCG Dextrose (Dextrose 50%-Water Syringe) 12.5 gm PRN Q15MIN PRN 02/25/19 08:30 Ferrous Sulfate (Feosol) 325 mg DAILYWBKFT 02/23/19 08:00 02/26/19 08:55 325 MG Furosemide (Lasix) 40 mg BID92 02/23/19 09:00 02/26/19 08:55 40 MG Guaifenesin (Robitussin Dm) 10 ml PRN Q6HRS PRN 02/22/19 17:15 Insulin Glargine (Lantus Syringe) 15 unit HS 02/22/19 21:00 02/25/19 21:57 15 UNIT Isosorbide Mononitrate (Imdur) 30 mg DAILY 02/23/19 09:00 02/26/19 08:55 30 MG Lactobacillus Rhamnosus (Culturelle) 1 cap BID 02/23/19 21:00 02/26/19 08:55 1 CAP Linezolid/Dextrose 300 ml @ 300 mls/hr Q12HR 02/22/19 22:00 02/23/19 08:16 DC 02/22/19 22:26 300 MLS/HR Metoprolol Succinate (Toprol Xl) 50 mg DAILY 02/23/19 09:00 02/26/19 08:55 50 MG Piperacillin Sod/ Tazobactam Sod (Zosyn Per Pharmacy) 1 each PRN DAILY PRN 02/22/19 14:30 02/24/19 10:22 DC Piperacillin Sod/ Tazobactam Sod 3.375 gm/Sodium Chloride 50 ml @ 100 mls/hr Q6HRS 02/23/19 00:00 02/24/19 08:05 DC 02/24/19 02:22 100 MLS/HR Potassium Chloride (Klor-Con) 40 meq 1X ONCE 02/24/19 12:30 02/24/19 12:31 DC 02/24/19 13:17 40 MEQ Tamsulosin HCl (Flomax) 0.4 mg DAILY 02/23/19 09:00 02/26/19 08:55 0.4 MG Ticagrelor (Brilinta) 90 mg BID 02/22/19 21:00 02/26/19 08:55 90 MG Warfarin Sodium (Coumadin - No Dose Today) 1 each 1X WARF ONCE 02/26/19 16:00 02/26/19 16:01 Warfarin Sodium (Coumadin Per Pharmacy) 1 each PRN DAILY PRN 02/24/19 10:45 02/26/19 10:53 1 EACH Warfarin Sodium (Coumadin Per Physician) 1 each PRN DAILY PRN 02/22/19 17:30 02/24/19 08:29 DC 02/23/19 12:40 1 EACH Warfarin Sodium (Coumadin) 3 mg 1X WARF ONCE 02/25/19 16:00 02/25/19 16:01 DC 02/25/19 17:19 3 MG Lab Laboratory Tests Test 02/25/19 11:27 02/25/19 16:50 02/25/19 20:28 02/26/19 07:26 Glucose (Fingerstick) 162 mg/dL (70-99) 216 mg/dL (70-99) 224 mg/dL (70-99) 94 mg/dL (70-99) Test 02/26/19 07:30 Prothrombin Time 33.6 SEC (11.7-14.0) Prothromb Time International Ratio 3.3 (0.8-1.1) Sodium Level 141 mmol/L (136-145) Potassium Level 3.6 mmol/L (3.5-5.1) Chloride Level 106 mmol/L (98-107) Carbon Dioxide Level 23 mmol/L (21-32) Anion Gap 12 (6-14) Blood Urea Nitrogen 42 mg/dL (8-26) Creatinine 3.4 mg/dL (0.7-1.3) Estimated GFR (Cockcroft-Gault) 21.5 Glucose Level 83 mg/dL (70-99) Calcium Level 8.1 mg/dL (8.5-10.1) Results All relevant outside records, renal labs, imaging studies, telemetry/EKG's were reviewed. ALANNA ESTEVEZ MD Feb 26, 2019 11:04
--- NOTE | 2019-02-26 12:20 | PDOC ---
PULMONARY PROGRESS NOTES Subjective FEELS BETTER Vitals Vital Signs Date Time Temp Pulse Resp B/P (MAP) Pulse Ox O2 Delivery O2 Flow Rate FiO2 02/26/19 08:55 77 155/70 02/26/19 08:00 Room Air 02/26/19 07:00 99.0 18 99 99.0 General: Alert, No acute distress HEENT: Other Lungs: Other (sce, diminished bases, no wheezing) Cardiovascular: S1, S2 Abdomen: Soft Extremities: No Edema Skin: Warm Labs Laboratory Tests Test 02/24/19 16:47 02/24/19 20:40 02/25/19 05:05 02/25/19 08:22 Glucose (Fingerstick) 123 mg/dL (70-99) 192 mg/dL (70-99) 47 mg/dL (70-99) Prothrombin Time 33.7 SEC (11.7-14.0) Prothromb Time International Ratio 3.3 (0.8-1.1) Sodium Level 143 mmol/L (136-145) Potassium Level 3.3 mmol/L (3.5-5.1) Chloride Level 108 mmol/L (98-107) Carbon Dioxide Level 25 mmol/L (21-32) Anion Gap 10 (6-14) Blood Urea Nitrogen 46 mg/dL (8-26) Creatinine 3.7 mg/dL (0.7-1.3) Estimated GFR (Cockcroft-Gault) 19.5 Glucose Level 52 mg/dL (70-99) Calcium Level 7.7 mg/dL (8.5-10.1) Test 02/25/19 08:41 02/25/19 09:15 02/25/19 11:27 02/25/19 16:50 Glucose (Fingerstick) 79 mg/dL (70-99) 139 mg/dL (70-99) 162 mg/dL (70-99) 216 mg/dL (70-99) Test 02/25/19 20:28 02/26/19 07:26 02/26/19 07:30 02/26/19 12:13 Glucose (Fingerstick) 224 mg/dL (70-99) 94 mg/dL (70-99) 97 mg/dL (70-99) Prothrombin Time 33.6 SEC (11.7-14.0) Prothromb Time International Ratio 3.3 (0.8-1.1) Sodium Level 141 mmol/L (136-145) Potassium Level 3.6 mmol/L (3.5-5.1) Chloride Level 106 mmol/L (98-107) Carbon Dioxide Level 23 mmol/L (21-32) Anion Gap 12 (6-14) Blood Urea Nitrogen 42 mg/dL (8-26) Creatinine 3.4 mg/dL (0.7-1.3) Estimated GFR (Cockcroft-Gault) 21.5 Glucose Level 83 mg/dL (70-99) Calcium Level 8.1 mg/dL (8.5-10.1) Laboratory Tests Test 02/25/19 16:50 02/25/19 20:28 02/26/19 07:26 02/26/19 07:30 Glucose (Fingerstick) 216 mg/dL (70-99) 224 mg/dL (70-99) 94 mg/dL (70-99) Prothrombin Time 33.6 SEC (11.7-14.0) Prothromb Time International Ratio 3.3 (0.8-1.1) Sodium Level 141 mmol/L (136-145) Potassium Level 3.6 mmol/L (3.5-5.1) Chloride Level 106 mmol/L (98-107) Carbon Dioxide Level 23 mmol/L (21-32) Anion Gap 12 (6-14) Blood Urea Nitrogen 42 mg/dL (8-26) Creatinine 3.4 mg/dL (0.7-1.3) Estimated GFR (Cockcroft-Gault) 21.5 Glucose Level 83 mg/dL (70-99) Calcium Level 8.1 mg/dL (8.5-10.1) Test 02/26/19 12:13 Glucose (Fingerstick) 97 mg/dL (70-99) Medications Active Scripts Medications Dose Route/Sig Max Daily Dose Days Date Category Dose Instructions Proair Hfa (Albuterol Sulfate) 8.5 Gm Hfa.aer.ad 1 Puff INH PRN Q6HRS PRN 30 02/21/19 Rx Pulmicort Flexhaler (Budesonide) 180 Mcg Aer.pow.ba 2 Puff IH BID 02/21/19 Rx Guaifenesin Dm Syrup (Guaifenesin/Dextromethorphan) 5 Ml Syrup 10 Ml PO PRN Q6HRS PRN 7 02/21/19 Rx Lantus (Insulin Glargine,Hum.rec.anlog) 100 Unit/1 Ml Vial 15 Unit SQ HS 30 02/21/19 Rx Furosemide 40 Mg Tablet 40 Mg PO [id number] 02/21/19 Rx Aspirin Ec (Aspirin) 81 Mg Tablet. 81 Mg PO DAILYWBKFT 02/21/19 Rx Metoprolol Succinate ( Xl ) (Metoprolol Succinate) 25 Mg Tab.er.24h 50 Mg PO DAILY 02/21/19 Rx Isosorbide Mononitrate Er (Isosorbide Mononitrate) 30 Mg Tab.er.24h 30 Mg PO DAILY 02/21/19 Rx Atorvastatin Calcium 40 Mg Tablet 40 Mg PO QHS 02/21/19 Rx Brilinta (Ticagrelor) 90 Mg Tablet 90 Mg PO BID 02/21/19 Rx Amiodarone Hcl 200 Mg Tablet 200 Mg PO DAILY 02/21/19 Rx Warfarin Sodium 5 Mg Tablet 5 Mg PO DAILY 01/24/19 Reported take 5mg on sat,sat.thtrinity,sat,sun take 6 mg on saturday and saturday Ferrous Sulfate 324 Mg Tablet. 324 Mg PO DAILY 01/24/19 Reported Flomax (Tamsulosin Hcl) 0.4 Mg Cap.er.24h 0.4 Mg PO DAILY 01/24/19 Reported Impression . 1. Acute hypoxemic respiratory failure, secondary to acute on chronic systolic heart failure. ( cath with LVEDP 26) 2. Acute on chronic kidney disease. 3. Bilateral pulmonary infiltrates and effusion compatible with congestive heart failure. 4. Chronic obstructive pulmonary disease. 5. Cardiomyopathy. 6. Recent PCI with LAD stenting. 7. Hypertension. 8. Diabetes. 9. Tobacco dependence, in remission. Plan . PLAN: 1. [place] 2. diuresis. 3. The patient may require hemodialysis. We will defer to Nephrology. 4. Continue p.r.n. noninvasive ventilation. 5. Oxygen supplementation. 6. Bronchodilators. 7. Continue anticoagulation per Cardiology. 8. Not much to add TRISH REECE MD Feb 26, 2019 12:20
--- NOTE | 2019-02-26 14:12 | PDOC3 ---
Discharge Summary Date of Admission: Feb 22, 2019 Date of Discharge: Feb 26, 2019 Follow-Up: 1-2 days Admitting Diagnosis comment: discharge dx Chief Complaint impression CHF/fluid overload, acute CHF and remains uremic may need dialysis. Defer further to nephrology. Acute hypoxic respiratory failure - NIPPPV Acute on chronic diastolic/systolic CHF - EF 40% Elevated troponin - in the background of CKD CAD - s/p PCI/stent placement one year ago. Hypertension - Acute on chronic renal insufficiency - Hyperlipidemia - Diabetes mellitus type 2 - Paroxysmal AFIB Anemia of chronic disease - on iron for RADHA. Indwelling Leggett catheter for urinary nzdycxnyt-8-8/2 years now-gets changed by home health nurse Q monthly FULL CODE Continue chronic catheter with monthly changes Not a great candidate for prostate surgery - doesn't want to do self-cath Last seen in urology clinic a year ago, f/u in clinic 06/03/19 at 2:20pm with Dr. Taylor at [facility] Currently No indication for HD, per nephrology Supportive care,monitor 32 MIN PT EXAM, CHART REVIEW d/c planning, > 50% OF TIME SPENT WITH EXAM, CHART REVIEW, PT CARE COORDINATION History of Present Illness History of Present Illness No increased S OA, still refusing SNU, he was a readmission after I discharged one day to home health as per insisting of -but he still refusing SNU Creatinine 3.5, no increase in SOA. Initial thoughts of sabas needing dialysis to help fluid overload but that seems not to be the case currently At least not from renal note Leggett catheter in for one and half years, I did consult urology. Patient does not want it to be DC'd. Had bad urinary retention. He will follow- up with urology as outpatient. HH RN changes it q monthly Continue Brilinta and warfarin, A. fib, other comorbidities Full code PT recommended SNU) Feb 15- hospital stay:reviewed CXR: IMPRESSION: Worsening of pulmonary infiltrate and/or edema in both lungs, greater towards the bases. Small pleural effusions, although improved since prior study. 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 VITAL SIGNS: Stable, afebrile. HEENT: NAD. NECK: Supple, no JVP, no lymphadenopathy. LUNGS: Clear. HEART: S1, S2 regular. ABDOMEN: Benign. EXTREMITIES: No edema, cyanosis. SKIN: Unremarkable. NEUROLOGIC: The patient is neurologically alert, awake and appropriate. No focal neurologic deficit. General: Alert, Oriented X3, Cooperative, No acute distress, mild distress Heart: Regular rate, Normal S1, Normal S2, No murmurs, Other (irreg. rhythm) Lungs: Clear, Other (sce, diminished bases, no wheezing) Abdomen: Normal bowel sounds, Soft, No tenderness Extremities: No clubbing, No cyanosis, No edema Skin: No rashes, No breakdown, No significant lesion FINAL DIAGNOSIS Problems Medical Problems: (1) Acute on chronic diastolic (congestive) heart failure Status: Acute (2) CAD (coronary artery disease) Status: Chronic (3) CHF (congestive heart failure) Status: Chronic (4) DM2 (diabetes mellitus, type 2) Status: Chronic (5) HTN (hypertension) Status: Chronic (6) Respiratory failure Status: Acute Brief Hospital Course Mr. Banerjee is a 73 old [sex] who presented with [ ] Discharge Medications Current Medications Albuterol/ Ipratropium (Duoneb) 3 ml 1X ONCE NEB Last administered on 02/22/19at 13:39; Start 02/22/19 at 13:30; Stop 02/22/19 at 13:31; Status DC Furosemide (Lasix) 40 mg 1X ONCE IVP Last administered on 02/22/19at 14:50; Start 02/22/19 at 14:30; Stop 02/22/19 at 14:34; Status DC Piperacillin Sod/ Tazobactam Sod (Zosyn Per Pharmacy) 1 each PRN DAILY PRN MC SEE COMMENTS; Start 02/22/19 at 14:30; Stop 02/24/19 at 10:22; Status DC Piperacillin Sod/ Tazobactam Sod 3.375 gm/Sodium Chloride 50 ml @ 100 mls/hr 1X ONCE IV Last administered on 02/22/19at 15:22; Start 02/22/19 at 14:45; Stop 02/22/19 at 15:14; Status DC Piperacillin Sod/ Tazobactam Sod 3.375 gm/Sodium Chloride 50 ml @ 100 mls/hr Q6HRS IV Last administered on 02/24/19at 02:22; Start 02/23/19 at 00:00; Stop 02/24/19 at 08:05; Status DC Albuterol Sulfate (Ventolin Neb Soln) 2.5 mg PRN Q6HRS PRN INH SHORTNESS OF BREATH; Start 02/22/19 at 17:15 Amiodarone HCl (Cordarone) 200 mg DAILY PO Last administered on 02/26/19 08:55; Start 02/23/19 at 09:00 Aspirin (Ecotrin) 81 mg DAILYWBKFT PO Last administered on 02/26/19 08:55; Start 02/23/19 at 08:00 Atorvastatin Calcium (Lipitor) 40 mg QHS PO Last administered on 02/25/19 21:56; Start 02/22/19 at 21:00 Furosemide (Lasix) 40 mg BID92 PO Last administered on 02/26/19 08:55; Start 02/23/19 at 09:00 Guaifenesin (Robitussin Dm) 10 ml PRN Q6HRS PRN PO COUGH; Start 02/22/19 at 17:15 Insulin Glargine (Lantus Syringe) 15 unit HS SQ Last administered on 02/25/19 21:57; Start 02/22/19 at 21:00 Isosorbide Mononitrate (Imdur) 30 mg DAILY PO Last administered on 02/26/19 08:55; Start 02/23/19 at 09:00 Metoprolol Succinate (Toprol Xl) 50 mg DAILY PO Last administered on 02/26/19 08:55; Start 02/23/19 at 09:00 Tamsulosin HCl (Flomax) 0.4 mg DAILY PO Last administered on 02/26/19 08:55; Start 02/23/19 at 09:00 Ticagrelor (Brilinta) 90 mg BID PO Last administered on 02/26/19 08:55; Start 02/22/19 at 21:00 Warfarin Sodium (Coumadin) 5 mg DAILY@1600 PO Last administered on 02/23/19 15:55; Start 02/22/19 at 19:30; Stop 02/24/19 at 08:29; Status DC Budesonide (Pulmicort) 0.5 mg RTBID NEB Last administered on 02/23/19 08:07; Start 02/22/19 at 20:00; Stop 02/23/19 at 09:43; Status DC Ferrous Sulfate (Feosol) 325 mg DAILYWBKFT PO Last administered on 02/26/19 08:55; Start 02/23/19 at 08:00 Warfarin Sodium (Coumadin Per Physician) 1 each PRN DAILY PRN MC SEE COMMENTS Last administered on 02/23/19 12:40; Start 02/22/19 at 17:30; Stop 02/24/19 at 08:29; Status DC Atropine Sulfate (ATROPINE 1mg SYRINGE) 1 mg STK-MED ONCE .ROUTE ; Start 02/22/19 at 19:36; Stop 02/22/19 at 19:36; Status DC Atropine Sulfate (ATROPINE 1mg SYRINGE) 1 mg 1X ONCE IV Last administered on 02/22/19 19:44; Start 02/22/19 at 19:45; Stop 02/22/19 at 19:50; Status DC Linezolid/Dextrose 300 ml @ 300 mls/hr Q12HR IV Last administered on 02/22/19 22:26; Start 02/22/19 at 22:00; Stop 02/23/19 at 08:16; Status DC Lactobacillus Rhamnosus (Culturelle) 1 cap BID PO Last administered on 02/26/19 08:55; Start 02/23/19 at 21:00 Warfarin Sodium (Coumadin Per Pharmacy) 1 each PRN DAILY PRN MC SEE COMMENTS Last administered on 02/26/19 10:53; Start 02/24/19 at 10:45 Warfarin Sodium (Coumadin) 4 mg 1X WARF ONCE PO Last administered on 02/24/19 16:24; Start 02/24/19 at 16:00; Stop 02/24/19 at 16:01; Status DC Darbepoetin Jordon (ARANESP for NON-DIALYSIS PTS) 60 mcg 1X ONCE SQ Last administered on 02/24/19at 13:17; Start 02/24/19 at 13:00; Stop 02/24/19 at 13:01; Status DC Potassium Chloride (Klor-Con) 40 meq 1X ONCE PO Last administered on 02/24/19at 13:17; Start 02/24/19 at 12:30; Stop 02/24/19 at 12:31; Status DC Dextrose (Dextrose 50%-Water Syringe) 12.5 gm PRN Q15MIN PRN IV SEE COMMENTS; Start 02/25/19 at 08:30 Warfarin Sodium (Coumadin) 3 mg 1X WARF ONCE PO Last administered on 02/25/19at 17:19; Start 02/25/19 at 16:00; Stop 02/25/19 at 16:01; Status DC Warfarin Sodium (Coumadin - No Dose Today) 1 each 1X WARF ONCE MC ; Start 02/26/19 at 16:00; Stop 02/26/19 at 16:01 Active Scripts Active Proair Hfa (Albuterol Sulfate) 8.5 Gm Hfa.aer.ad 1 Puff INH PRN Q6HRS PRN 30 Days Pulmicort Flexhaler (Budesonide) 180 Mcg Aer.pow.ba 2 Puff IH BID Guaifenesin Dm Syrup (Guaifenesin/Dextromethorphan) 5 Ml Syrup 10 Ml PO PRN Q6HRS PRN 7 Days Lantus (Insulin Glargine,Hum.rec.anlog) 100 Unit/1 Ml Vial 15 Unit SQ HS 30 Days Furosemide 40 Mg Tablet 40 Mg PO BID92 Aspirin Ec (Aspirin) 81 Mg Tablet.dr 81 Mg PO DAILYWBKFT Metoprolol Succinate ( Xl ) (Metoprolol Succinate) 25 Mg Tab.er.24h 50 Mg PO DAILY Isosorbide Mononitrate Er (Isosorbide Mononitrate) 30 Mg Tab.er.24h 30 Mg PO DAILY Atorvastatin Calcium 40 Mg Tablet 40 Mg PO QHS Brilinta (Ticagrelor) 90 Mg Tablet 90 Mg PO BID Amiodarone Hcl 200 Mg Tablet 200 Mg PO DAILY Reported Warfarin Sodium 5 Mg Tablet 5 Mg PO DAILY take 5mg on sat,sat.thur,sat,sun take 6 mg on saturday and saturday Ferrous Sulfate 324 Mg Tablet.dr 324 Mg PO DAILY Flomax (Tamsulosin Hcl) 0.4 Mg Cap.er.24h 0.4 Mg PO DAILY Vital Signs Vital Signs Date Time Temp Pulse Resp B/P (MAP) Pulse Ox O2 Delivery O2 Flow Rate FiO2 02/26/19 11:00 98.3 63 18 152/67 (95) 100 Room Air 98.3 Labs Laboratory Tests Test 02/24/19 16:47 02/24/19 20:40 02/25/19 05:05 02/25/19 08:22 Glucose (Fingerstick) 123 mg/dL (70-99) 192 mg/dL (70-99) 47 mg/dL (70-99) Prothrombin Time 33.7 SEC (11.7-14.0) Prothromb Time International Ratio 3.3 (0.8-1.1) Sodium Level 143 mmol/L (136-145) Potassium Level 3.3 mmol/L (3.5-5.1) Chloride Level 108 mmol/L (98-107) Carbon Dioxide Level 25 mmol/L (21-32) Anion Gap 10 (6-14) Blood Urea Nitrogen 46 mg/dL (8-26) Creatinine 3.7 mg/dL (0.7-1.3) Estimated GFR (Cockcroft-Gault) 19.5 Glucose Level 52 mg/dL (70-99) Calcium Level 7.7 mg/dL (8.5-10.1) Test 02/25/19 08:41 02/25/19 09:15 02/25/19 11:27 02/25/19 16:50 Glucose (Fingerstick) 79 mg/dL (70-99) 139 mg/dL (70-99) 162 mg/dL (70-99) 216 mg/dL (70-99) Test 02/25/19 20:28 02/26/19 07:26 02/26/19 07:30 02/26/19 12:13 Glucose (Fingerstick) 224 mg/dL (70-99) 94 mg/dL (70-99) 97 mg/dL (70-99) Prothrombin Time 33.6 SEC (11.7-14.0) Prothromb Time International Ratio 3.3 (0.8-1.1) Sodium Level 141 mmol/L (136-145) Potassium Level 3.6 mmol/L (3.5-5.1) Chloride Level 106 mmol/L (98-107) Carbon Dioxide Level 23 mmol/L (21-32) Anion Gap 12 (6-14) Blood Urea Nitrogen 42 mg/dL (8-26) Creatinine 3.4 mg/dL (0.7-1.3) Estimated GFR (Cockcroft-Gault) 21.5 Glucose Level 83 mg/dL (70-99) Calcium Level 8.1 mg/dL (8.5-10.1) Laboratory Tests Test 02/25/19 16:50 02/25/19 20:28 02/26/19 07:26 02/26/19 07:30 Glucose (Fingerstick) 216 mg/dL (70-99) 224 mg/dL (70-99) 94 mg/dL (70-99) Prothrombin Time 33.6 SEC (11.7-14.0) Prothromb Time International Ratio 3.3 (0.8-1.1) Sodium Level 141 mmol/L (136-145) Potassium Level 3.6 mmol/L (3.5-5.1) Chloride Level 106 mmol/L (98-107) Carbon Dioxide Level 23 mmol/L (21-32) Anion Gap 12 (6-14) Blood Urea Nitrogen 42 mg/dL (8-26) Creatinine 3.4 mg/dL (0.7-1.3) Estimated GFR (Cockcroft-Gault) 21.5 Glucose Level 83 mg/dL (70-99) Calcium Level 8.1 mg/dL (8.5-10.1) Test 02/26/19 12:13 Glucose (Fingerstick) 97 mg/dL (70-99) Allergies Allergies Coded Allergies Type Severity Reaction Last Updated Verified No Known Drug Allergies 01/24/19 No Disposition/Orders: Other (d/c to snf) Patient Instructions d/c planning 32 min JENI EASTMAN MD Feb 26, 2019 14:12
--- NOTE | 2019-02-26 14:14 | SNU/HH DC ---
DISCHARGE ORDERS DISCHARGE INFORMATION: FINAL DIAGNOSIS Problems Medical Problems: (1) Acute on chronic diastolic (congestive) heart failure Status: Acute (2) CAD (coronary artery disease) Status: Chronic (3) CHF (congestive heart failure) Status: Chronic (4) DM2 (diabetes mellitus, type 2) Status: Chronic (5) HTN (hypertension) Status: Chronic (6) Respiratory failure Status: Acute CONDITION ON DISCHARGE: Stable CODE STATUS: Code Status: Full LONG-TERM: SNF STAY <30 DAYS: Yes HOSPICE: HOSPICE: No HOSPICE EVAL & TREAT: No LTAC: ADMIT TO LTAC: No POST DISCHARGE ORDERS: ACTIVITY ORDERS: No restrictions, Activity as tolerated WEIGHT BEARING STATUS: No restrictions, As tolerated DIET AFTER DISCHARGE: Cardiac CHECKS AFTER DISCHARGE: CHECKS AFTER DISCHARGE: Check blood press - daily, Check blood sugar, ac/hs TREATMENT/EQUIPMENT ORDERS: Physical Therapy For: Evalulation/Treatment Occupational Therapy For: Evaluation/Treatment DISCHARGE MEDICATIONS: Home Meds Active Scripts Albuterol Sulfate (Proair Hfa) 8.5 Gm Hfa.aer.ad, 1 PUFF INH PRN Q6HRS PRN for SHORTNESS OF BREATH for 30 Days, INHALER Prov:BONI VEGA MD 02/21/19 Budesonide (PULMICORT FLEXHALER) 180 Mcg Aer.pow.ba, 2 PUFF IH BID for soa, #1 INHALER 6 Refills Prov:BONI VEGA MD 02/21/19 Guaifenesin/Dextromethorphan (GUAIFENESIN DM SYRUP) 5 Ml Syrup, 10 ML PO PRN Q6HRS PRN for COUGH for 7 Days, MISC Prov:BONI VEGA MD 02/21/19 Insulin Glargine,Hum.rec.anlog (LANTUS) 100 Unit/1 Ml Vial, 15 UNIT SQ HS for dm for 30 Days, EACH Prov:BONI VEGA MD 02/21/19 Furosemide (FUROSEMIDE) 40 Mg Tablet, 40 MG PO BID92 for chf, , #120 TAB Prov:BONI VEGA MD 02/21/19 Aspirin (ASPIRIN EC) 81 Mg Tablet.dr, 81 MG PO DAILYWBKFT for a fib, #120 TAB.SR Prov:BONI VEGA MD 02/21/19 Metoprolol Succinate (METOPROLOL SUCCINATE ( XL )) 25 Mg Tab.er.24h, 50 MG PO DAILY for htn a fib, #90 TAB.SR Prov:BONI VEGA MD 02/21/19 Isosorbide Mononitrate (ISOSORBIDE MONONITRATE ER) 30 Mg Tab.er.24h, 30 MG PO DAILY for htn, #90 TAB.SR Prov:BONI VEGA MD 02/21/19 Atorvastatin Calcium (ATORVASTATIN CALCIUM) 40 Mg Tablet, 40 MG PO QHS for lipids, #90 TAB Prov:BONI VEGA MD 02/21/19 Ticagrelor (BRILINTA) 90 Mg Tablet, 90 MG PO BID for a fob, #120 TAB Prov:BONI VEGA MD 02/21/19 Amiodarone Hcl (AMIODARONE HCL) 200 Mg Tablet, 200 MG PO DAILY for a fib, #90 TAB Prov:BONI VEGA MD 02/21/19 Reported Medications Warfarin Sodium (WARFARIN SODIUM) 5 Mg Tablet, 5 MG PO DAILY for anticoagulant take 5mg on sat,sat.thur,sat,sun take 6 mg on saturday and saturday01/24/19 Ferrous Sulfate (FERROUS SULFATE) 324 Mg Tablet.dr, 324 MG PO DAILY for iron supplment 01/24/19 Tamsulosin Hcl (FLOMAX) 0.4 Mg Cap.er.24h, 0.4 MG PO DAILY for BPH 01/24/19 Discontinued Reported Medications Insulin Aspart (NOVOLOG FLEXPEN) 100 Unit/1 Ml Insuln.pen, 5 UNIT SQ DAILYWBKFT for diabetes, SYR 02/15/19 Furosemide (LASIX) 20 Mg Tablet, 1 TAB PO DAILY08 for diuretic, #90 TAB 1 Refill take Saturday,Sat,Saturday only 02/15/19 Insulin Glargine,Hum.rec.anlog (LANTUS SOLOSTAR) 100 Unit/1 Ml Insuln.pen, 10 UNIT SQ DAILY for DM 01/24/19 Amiodarone Hcl (AMIODARONE HCL) 200 Mg Tablet, 200 MG PO DAILY for heart arrythmia 01/24/19 Amlodipine Besylate (AMLODIPINE BESYLATE) 10 Mg Tablet, 10 MG PO DAILY for HTN 01/24/19 Rosuvastatin Calcium (Rosuvastatin Calcium) 10 Mg Tablet, 10 MG PO DAILY for unknown 01/24/19 JENI EASTMAN MD Feb 26, 2019 14:14
[2019-02-26 15:00] VITALS: BP 134/62
--- NOTE | 2019-02-26 16:28 | NUR ---
SS following up with discharge planning. Discharge orders received. SS phoned and faxed discharge orders to [facility], ; fax [phone]. Insurance remains pending at this time. SS will await insurance determination and will proceed accordingly. Pt's RN notified.
[2019-02-26 19:38] VITALS: BP 169/73
[2019-02-26] MEDS: ATORVASTATIN CALCIUM 40 MG TABLET. PO SCH (20:32)
--- NOTE | 2019-02-26 20:48 | NUR ---
Bella Banerjee () does not want Axel Banerjee moved anywhere other than home, until you talk to her [phone].
[2019-02-26] MEDS: INSULIN GLARGINE SYRINGE. SQ SCH (21:00)
[2019-02-26 23:19] VITALS: BP 166/66
[2019-02-27 03:30] VITALS: BP 133/67
[2019-02-27 04:10] LABS: PROTHROMBIN TIME PATIENT 30.9 SEC (11.7-14.0)
[2019-02-27 07:00] VITALS: BP 161/70
--- NOTE | 2019-02-27 08:14 | NUR ---
SW following pt. Insurance denied SNU. CM to arrange Peer to Peer with Physician. Peer to peer has to be done before 1200 today. Will continue to follow.
--- NOTE | 2019-02-27 08:23 | PDOC ---
PROGRESS NOTES Chief Complaint Chief Complaint impression appears at high risk of relapse of hospitalization without SNF, fall risk, recent failed out pt rx, poor understanding of disease process, dietary needs CHF/fluid overload CHF and remains uremic may need dialysis. Defer further to nephrology. Acute hypoxic respiratory failure - NIPPPV Acute on chronic diastolic/systolic CHF - EF 40% Elevated troponin - in the background of CKD CAD - s/p PCI/stent placement one year ago. Hypertension - uncontrolled Acute on chronic renal insufficiency - Hyperlipidemia - Diabetes mellitus type 2 - Paroxysmal AFIB Anemia of chronic disease - on iron for RADHA. Indwelling Mendez catheter for urinary mwafouqtt-7-3/2 years now-gets changed by home health nurse Q monthly FULL CODE Continue chronic catheter with monthly changes Not a great candidate for prostate surgery - doesn't want to do self-cath Last seen in urology clinic a year ago, f/u in clinic 06/03/19 at 2:20pm with Dr. Taylor at [facility] Currently No indication for HD, per nephrology Supportive care,monitor Continue anticoagulation per Cardiology. add norvasc 5 mg po daily 30 MIN PT EXAM, CHART REVIEW d/c planning, > 50% OF TIME SPENT WITH EXAM, CHART REVIEW, PT CARE COORDINATION History of Present Illness History of Present Illness No increased S OA, still refusing SNU, he was a readmission after I discharged one day to home health as per insisting of -but he still refusing SNU Creatinine 3.5, no increase in SOA. Initial thoughts of sabas needing dialysis to help fluid overload but that seems not to be the case currently At least not from renal note Mendez catheter in for one and half years, I did consult urology. Patient does not want it to be DC'd. Had bad urinary retention. He will follow- up with urology as outpatient. ABY RN changes it q monthly Continue Brilinta and warfarin, A. fib, other comorbidities Full code EARLIER ENTRY: I just dcd him 2 days ago with and HH ( refused snu for him, PT recommended SNU) andback again bec of soa Feb 15 hospital stay: CXR: IMPRESSION: Worsening of pulmonary infiltrate and/or edema in both lungs, greater towards the bases. Small pleural effusions, although improved since prior study. 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 VITAL SIGNS: Stable, afebrile. HEENT: NAD. NECK: Supple, no JVP, no lymphadenopathy. LUNGS: Clear. HEART: S1, S2 regular. ABDOMEN: Benign. EXTREMITIES: No edema, cyanosis. SKIN: Unremarkable. NEUROLOGIC: The patient is neurologically alert, awake and appropriate. No focal neurologic deficit. General: Alert, Oriented X3, Cooperative, No acute distress, mild distress Heart: Regular rate, Normal S1, Normal S2, No murmurs, Other (irreg. rhythm) Lungs: Clear, Other (sce, diminished bases, no wheezing) Abdomen: Normal bowel sounds, Soft, No tenderness Extremities: No clubbing, No cyanosis, No edema Skin: No rashes, No breakdown, No significant lesion Labs LABS Laboratory Tests Test 02/26/19 12:13 02/26/19 17:28 02/26/19 21:10 02/27/19 03:50 Glucose (Fingerstick) 97 mg/dL (70-99) 200 mg/dL (70-99) 236 mg/dL (70-99) Prothrombin Time 30.9 SEC (11.7-14.0) Prothromb Time International Ratio 3.0 (0.8-1.1) Test 02/27/19 07:59 Glucose (Fingerstick) 110 mg/dL (70-99) Assessment and Plan Assessmemt and Plan Problems Medical Problems: (1) Acute on chronic diastolic (congestive) heart failure Status: Acute (2) CAD (coronary artery disease) Status: Chronic (3) CHF (congestive heart failure) Status: Chronic (4) DM2 (diabetes mellitus, type 2) Status: Chronic (5) HTN (hypertension) Status: Chronic (6) Respiratory failure * grooming/hyg Goal 3 Equipment * Front Wheeled Walker Goal 3 Required Assistance Level * Independent * Standing Goal 3 Assessment * Appropriate - Continue Goal 4 - Pt will be able to complete: * LB dressing Goal 4 Required Assistance Level * Independent Goal 4 Assessment * Appropriate - Continue Goal 5 - Pt. will be able to complete: * transfers Goal 5 Equipment * Front Wheeled Walker Goal 5 Required Assistance Level * Independent Goal 5 Assessment * Appropriate - Continue Skilled interventions required to achieve goals * Activity reji. training * ADL training/education * Adaptive equip. training * Balance training for ADL * Compensatory techniques * Discharge planning * Energy conservation * Functional mobility train * Pain Management * Precautions training * Safety education * Therapeutic Ex. * Transfer training for ADL Discharge Recommendations * [facility] Discharge Recommendation - DME * Rolling Walker needed * in order to complete ADLs * and ambulation safely Status: Acute pt improved as pt progressed with distance. Stairs Assistance Required * Contact Guard Assist Number of Stairs * 5-9 Stairs Assistive Device * Rail on Left Stairs Comments * Pt reports having 2 HRs at home. PT acted as other handrail and provided 1 [employer] FINISHING [employer] up and down steps. No loss of balance observed. Pt demo'd reciprocal gait pattern up stairs and nonreciprocal down steps. Pt reports would be able to be nearby if needing assistance. Sitting Exercises * Ankle Pumps * Long Arc Quads * Marching Sitting Exercises Comments * x 10 reps each Standing Exercises * Marching * Partial Squats Standing Exercise Comments * x 10 reps each with RW for UE support Other Information * PT anticipates pt can return home with HH PT to continue to address strength, balance, and mobility endurance deficits. Pt is typically limited due to repiratory status and has had multiple readmissions due to this. PT recommends outpatient pulmonary rehab to address issue to avoid readmission. Learning Preferences * One-on-One Instruction * Demonstration Problem List (body system elements) * Impaired fnctnl mobility * Strength * Balance Pt/caregiver agrees with plan of care/goals * Yes Patient condition at conclusion of therapy * Pt in chair * Call light in reach * Phone in reach * PtIn no apparent distress * Pt denies further needs Communicated Patient Care With (Name, Title) * ANUJ Benítez Goal 1 - Bed Mobility Assistance Required * Independent Goal 1 Assessment * Appropriate - Continue Goal 2 - Transfers Assistance Required * Independent Goal 2 - Transfer Type * Sit to Stand Goal 2 Assessment * Appropriate - Continue Goal 3 - Ambulation Assistance Required * Independent Goal 3 - Ambulation Distance * 250' Goal 3 - Ambulation Device * Roller Walker Goal 3 Assessment * Appropriate - Continue Goal 4 - Stairs Assistance Required * Supervision Goal 4 - Number of Stairs * 5-9 Goal 4 - Device on Stairs * Rail on Right Goal 4 Assessment * Appropriate - Continue Treatment Plan * Therapeutic Exercise * Bed Mobility Training * Transfer training * Gait Training * Dynamic Balance Training Frequency of Treatment Expected * 7 visits/week Duration of Treatment Expected * 1 week Discharge Recommendations * [facility] Discharge Recommendation - DME * Rolling Walker needed * in order to complete ADLs * and ambulation safely Discharge Recommendation Comments * SNU today; anticipate Home with HHPT; OP pulmonary rehab Comment Review of Relevant I have reviewed the following items juanita (where applicable) has been applied. Labs Laboratory Tests Test 02/25/19 08:41 02/25/19 09:15 02/25/19 11:27 02/25/19 16:50 Glucose (Fingerstick) 79 mg/dL (70-99) 139 mg/dL (70-99) 162 mg/dL (70-99) 216 mg/dL (70-99) Test 02/25/19 20:28 02/26/19 07:26 02/26/19 07:30 02/26/19 12:13 Glucose (Fingerstick) 224 mg/dL (70-99) 94 mg/dL (70-99) 97 mg/dL (70-99) Prothrombin Time 33.6 SEC (11.7-14.0) Prothromb Time International Ratio 3.3 (0.8-1.1) Sodium Level 141 mmol/L (136-145) Potassium Level 3.6 mmol/L (3.5-5.1) Chloride Level 106 mmol/L (98-107) Carbon Dioxide Level 23 mmol/L (21-32) Anion Gap 12 (6-14) Blood Urea Nitrogen 42 mg/dL (8-26) Creatinine 3.4 mg/dL (0.7-1.3) Estimated GFR (Cockcroft-Gault) 21.5 Glucose Level 83 mg/dL (70-99) Calcium Level 8.1 mg/dL (8.5-10.1) Test 02/26/19 17:28 02/26/19 21:10 02/27/19 03:50 02/27/19 07:59 Glucose (Fingerstick) 200 mg/dL (70-99) 236 mg/dL (70-99) 110 mg/dL (70-99) Prothrombin Time 30.9 SEC (11.7-14.0) Prothromb Time International Ratio 3.0 (0.8-1.1) Laboratory Tests Test 02/26/19 12:13 02/26/19 17:28 02/26/19 21:10 02/27/19 03:50 Glucose (Fingerstick) 97 mg/dL (70-99) 200 mg/dL (70-99) 236 mg/dL (70-99) Prothrombin Time 30.9 SEC (11.7-14.0) Prothromb Time International Ratio 3.0 (0.8-1.1) Test 02/27/19 07:59 Glucose (Fingerstick) 110 mg/dL (70-99) Microbiology 02/22/19 Blood Culture - Preliminary, Resulted NO GROWTH AFTER 4 DAYS Medications Current Medications Albuterol/ Ipratropium (Duoneb) 3 ml 1X ONCE NEB Last administered on 02/22/19at 13:39; Start 02/22/19 at 13:30; Stop 02/22/19 at 13:31; Status DC Furosemide (Lasix) 40 mg 1X ONCE IVP Last administered on 02/22/19at 14:50; Start 02/22/19 at 14:30; Stop 02/22/19 at 14:34; Status DC Piperacillin Sod/ Tazobactam Sod (Zosyn Per Pharmacy) 1 each PRN DAILY PRN MC SEE COMMENTS; Start 02/22/19 at 14:30; Stop 02/24/19 at 10:22; Status DC Piperacillin Sod/ Tazobactam Sod 3.375 gm/Sodium Chloride 50 ml @ 100 mls/hr 1X ONCE IV Last administered on 02/22/19at 15:22; Start 02/22/19 at 14:45; Stop 02/22/19 at 15:14; Status DC Piperacillin Sod/ Tazobactam Sod 3.375 gm/Sodium Chloride 50 ml @ 100 mls/hr Q6HRS IV Last administered on 9/3/19at 02:22; Start 02/23/19 at 00:00; Stop 02/24/19 at 08:05; Status DC Albuterol Sulfate (Ventolin Neb Soln) 2.5 mg PRN Q6HRS PRN INH SHORTNESS OF BREATH; Start 02/22/19 at 17:15 Amiodarone HCl (Cordarone) 200 mg DAILY PO Last administered on 02/26/19 08:55; Start 02/23/19 at 09:00 Aspirin (Ecotrin) 81 mg DAILYWBKFT PO Last administered on 02/26/19 08:55; Start 02/23/19 at 08:00 Atorvastatin Calcium (Lipitor) 40 mg QHS PO Last administered on 02/26/19 20:33; Start 02/22/19 at 21:00 Furosemide (Lasix) 40 mg BID92 PO Last administered on 02/26/19 14:08; Start 02/23/19 at 09:00 Guaifenesin (Robitussin Dm) 10 ml PRN Q6HRS PRN PO COUGH; Start 02/22/19 at 17:15 Insulin Glargine (Lantus Syringe) 15 unit HS SQ Last administered on 02/26/19 23:43; Start 02/22/19 at 21:00 Isosorbide Mononitrate (Imdur) 30 mg DAILY PO Last administered on 02/26/19 08:55; Start 02/23/19 at 09:00 Metoprolol Succinate (Toprol Xl) 50 mg DAILY PO Last administered on 02/26/19 08:55; Start 02/23/19 at 09:00 Tamsulosin HCl (Flomax) 0.4 mg DAILY PO Last administered on 02/26/19 08:55; Start 02/23/19 at 09:00 Ticagrelor (Brilinta) 90 mg BID PO Last administered on 02/26/19 20:33; Start 02/22/19 at 21:00 Warfarin Sodium (Coumadin) 5 mg DAILY@1600 PO Last administered on 02/23/19 15:55; Start 02/22/19 at 19:30; Stop 02/24/19 at 08:29; Status DC Budesonide (Pulmicort) 0.5 mg RTBID NEB Last administered on 9/2/19at 08:07; Start 02/22/19 at 20:00; Stop 02/23/19 at 09:43; Status DC Ferrous Sulfate (Feosol) 325 mg DAILYWBKFT PO Last administered on 02/26/19 08:55; Start 02/23/19 at 08:00 Warfarin Sodium (Coumadin Per Physician) 1 each PRN DAILY PRN MC SEE COMMENTS Last administered on 02/23/19 12:40; Start 02/22/19 at 17:30; Stop 02/24/19 at 08:29; Status DC Atropine Sulfate (ATROPINE 1mg SYRINGE) 1 mg STK-MED ONCE .ROUTE ; Start 02/22/19 at 19:36; Stop 02/22/19 at 19:36; Status DC Atropine Sulfate (ATROPINE 1mg SYRINGE) 1 mg 1X ONCE IV Last administered on 02/22/19 19:44; Start 02/22/19 at 19:45; Stop 02/22/19 at 19:50; Status DC Linezolid/Dextrose 300 ml @ 300 mls/hr Q12HR IV Last administered on 02/22/19 22:26; Start 02/22/19 at 22:00; Stop 02/23/19 at 08:16; Status DC Lactobacillus Rhamnosus (Culturelle) 1 cap BID PO Last administered on 02/26/19 20:33; Start 02/23/19 at 21:00 Warfarin Sodium (Coumadin Per Pharmacy) 1 each PRN DAILY PRN MC SEE COMMENTS Last administered on 02/26/19 10:53; Start 02/24/19 at 10:45 Warfarin Sodium (Coumadin) 4 mg 1X WARF ONCE PO Last administered on 02/24/19 16:24; Start 02/24/19 at 16:00; Stop 02/24/19 at 16:01; Status DC Darbepoetin Jordon (ARANESP for NON-DIALYSIS PTS) 60 mcg 1X ONCE SQ Last administered on 02/24/19 13:17; Start 02/24/19 at 13:00; Stop 02/24/19 at 13:01; Status DC Potassium Chloride (Klor-Con) 40 meq 1X ONCE PO Last administered on 02/24/19 13:17; Start 02/24/19 at 12:30; Stop 02/24/19 at 12:31; Status DC Dextrose (Dextrose 50%-Water Syringe) 12.5 gm PRN Q15MIN PRN IV SEE COMMENTS; Start 02/25/19 at 08:30 Warfarin Sodium (Coumadin) 3 mg 1X WARF ONCE PO Last administered on 02/25/19at 17:19; Start 02/25/19 at 16:00; Stop 02/25/19 at 16:01; Status DC Warfarin Sodium (Coumadin - No Dose Today) 1 each 1X WARF ONCE MC ; Start 02/26/19 at 16:00; Stop 02/26/19 at 16:01; Status DC Active Scripts Active Proair Hfa (Albuterol Sulfate) 8.5 Gm Hfa.aer.ad 1 Puff INH PRN Q6HRS PRN 30 Days Pulmicort Flexhaler (Budesonide) 180 Mcg Aer.pow.ba 2 Puff IH BID Guaifenesin Dm Syrup (Guaifenesin/Dextromethorphan) 5 Ml Syrup 10 Ml PO PRN Q6HRS PRN 7 Days Lantus (Insulin Glargine,Hum.rec.anlog) 100 Unit/1 Ml Vial 15 Unit SQ HS 30 Days Furosemide 40 Mg Tablet 40 Mg PO BID92 Aspirin Ec (Aspirin) 81 Mg Tablet. 81 Mg PO DAILYWBKFT Metoprolol Succinate ( Xl ) (Metoprolol Succinate) 25 Mg Tab.er.24h 50 Mg PO DAILY Isosorbide Mononitrate Er (Isosorbide Mononitrate) 30 Mg Tab.er.24h 30 Mg PO DAILY Atorvastatin Calcium 40 Mg Tablet 40 Mg PO QHS Brilinta (Ticagrelor) 90 Mg Tablet 90 Mg PO BID Amiodarone Hcl 200 Mg Tablet 200 Mg PO DAILY Reported Warfarin Sodium 5 Mg Tablet 5 Mg PO DAILY take 5mg on sat,sat.thur,sat,sun take 6 mg on saturday and saturday Ferrous Sulfate 324 Mg Tablet. 324 Mg PO DAILY Flomax (Tamsulosin Hcl) 0.4 Mg Cap.er.24h 0.4 Mg PO DAILY Vitals/I & O Vital Sign - Last 24 Hours 02/26/19 02/26/19 02/26/19 02/26/19 08:55 08:55 08:55 11:00 Temp 98.3 98.3 Pulse 76 73 77 63 Resp 18 B/P (MAP) 155/70 155/70 155/70 152/67 (95) Pulse Ox 100 O2 Delivery Room Air 02/26/19 02/26/19 02/26/19 02/26/19 15:00 19:38 20:00 23:19 Temp 98.2 98.3 98.1 98.2 98.3 98.1 Pulse 58 90 77 Resp 18 18 20 B/P (MAP) 134/62 (86) 169/73 (105) 166/66 (99) Pulse Ox 100 100 98 O2 Delivery Room Air Room Air Room Air Room Air 02/27/19 02/27/19 03:30 07:00 Temp 98.2 98.3 98.2 98.3 Pulse 69 77 Resp 16 16 B/P (MAP) 133/67 (89) 161/70 (100) Pulse Ox 99 98 O2 Delivery Room Air Room Air Intake and Output 02/26/19 02/26/19 02/27/19 14:59 22:59 06:59 Intake Total 240 ml 360 ml Output Total 1100 ml 1300 ml Balance -1100 ml 240 ml -940 ml JENI EASTMAN MD Feb 27, 2019 08:23
[2019-02-27] MEDS: LACTOBACILLUS RHAMNOSUS GG 1 CAPSULE. PO SCH (09:10)
[2019-02-27] MEDS: AMIODARONE HCL 200 MG TABLET. PO SCH (09:11)
[2019-02-27] MEDS: METOPROLOL SUCC 24HR ER 50 MG TAB.ER.24H. PO SCH (09:11)
[2019-02-27] MEDS: TAMSULOSIN 0.4 MG CAP.ER.24H. PO SCH (09:11)
[2019-02-27] MEDS: TICAGRELOR 90 MG TABLET. PO SCH (09:11)
[2019-02-27] MEDS: ISOSORBIDE MONONITRATE ER 30 MG TAB.ER.24H PO SCH (09:11)
[2019-02-27] MEDS: ASPIRIN ENTERIC COATED 81 MG TABLET.DR. PO SCH (09:11)
[2019-02-27] MEDS: FERROUS SULFATE 325 MG TABLET. PO SCH (09:11)
[2019-02-27] MEDS: FUROSEMIDE 40 MG TABLET. PO SCH ×2 (09:12→14:59)
--- NOTE | 2019-02-27 10:17 | PDOC ---
SUBJECTIVE ROS No new concerns voiced by Pt OBJECTIVE Vital Signs Vital Signs Date Time Temp Pulse Resp B/P (MAP) Pulse Ox O2 Delivery O2 Flow Rate FiO2 02/27/19 09:12 77 161/70 02/27/19 07:00 98.3 16 98 Room Air 98.3 I & 0 Intake and Output 02/27/19 07:00 Intake Total 600 ml Output Total 2400 ml Balance -1800 ml Intake Oral 480 ml Other 120 ml Output Urine Total 2400 ml PHYSICAL EXAM Physical Exam GENERAL: NAD, sitting up in chair HEENT: OM moist NECK: Supple, LUNGS: Clear. HEART: S1, S2 regular. ABDOMEN: soft, NT EXTREMITIES: No edema, SKIN: Unremarkable, No rash NEUROLOGIC: Grossly normal Mendez DIAGNOSIS/ASSESSMENT Assessment & Plan CKD stage 4- Cardiorenal was on HD in the past- taken off Dialysis appox 6 months back E-lytes and acid base stable, No uremic symptoms Currently No indication for HD, Supportive care,monitor Urinary retention, chronic mendez in place for 18 months Urology following Respiratory failure with hypoxemia- resolved Congestive heart failure. Bilateral pulmonary infiltrate On PO Lasix 40 BID Card managing Cardiomyopathy. Diabetes. Hypertension- stable CAD-.S/P PTCA AND STENT LAD 02/19 DM II ANEMIA- LIV COMMENT/RELEVANT DATA Meds Current Medications Medications (Trade) Dose Ordered Sig/Gwen Start Time Stop Time Status Last Admin Dose Admin Albuterol Sulfate (Ventolin Neb Soln) 2.5 mg PRN Q6HRS PRN 02/22/19 17:15 Albuterol/ Ipratropium (Duoneb) 3 ml 1X ONCE 02/22/19 13:30 02/22/19 13:31 DC 02/22/19 13:39 3 ML Amiodarone HCl (Cordarone) 200 mg DAILY 02/23/19 09:00 02/27/19 09:12 200 MG Aspirin (Ecotrin) 81 mg DAILYWBKFT 02/23/19 08:00 02/27/19 09:12 81 MG Atorvastatin Calcium (Lipitor) 40 mg QHS 02/22/19 21:00 02/26/19 20:33 40 MG Atropine Sulfate (ATROPINE 1mg SYRINGE) 1 mg 1X ONCE 02/22/19 19:45 02/22/19 19:50 DC 02/22/19 19:44 1 MG Budesonide (Pulmicort) 0.5 mg RTBID 02/22/19 20:00 02/23/19 09:43 DC 02/23/19 08:07 0.5 MG Darbepoetin Jordon (ARANESP for NON-DIALYSIS PTS) 60 mcg 1X ONCE 02/24/19 13:00 02/24/19 13:01 DC 02/24/19 13:17 60 MCG Dextrose (Dextrose 50%-Water Syringe) 12.5 gm PRN Q15MIN PRN 02/25/19 08:30 Ferrous Sulfate (Feosol) 325 mg DAILYWBKFT 02/23/19 08:00 02/27/19 09:12 325 MG Furosemide (Lasix) 40 mg BID92 02/23/19 09:00 02/27/19 09:12 40 MG Guaifenesin (Robitussin Dm) 10 ml PRN Q6HRS PRN 02/22/19 17:15 Insulin Glargine (Lantus Syringe) 15 unit HS 02/22/19 21:00 02/26/19 23:43 15 UNIT Isosorbide Mononitrate (Imdur) 30 mg DAILY 02/23/19 09:00 02/27/19 09:12 30 MG Lactobacillus Rhamnosus (Culturelle) 1 cap BID 02/23/19 21:00 02/27/19 09:12 1 CAP Linezolid/Dextrose 300 ml @ 300 mls/hr Q12HR 02/22/19 22:00 02/23/19 08:16 DC 02/22/19 22:26 300 MLS/HR Metoprolol Succinate (Toprol Xl) 50 mg DAILY 02/23/19 09:00 02/27/19 09:12 50 MG Piperacillin Sod/ Tazobactam Sod (Zosyn Per Pharmacy) 1 each PRN DAILY PRN 02/22/19 14:30 02/24/19 10:22 DC Piperacillin Sod/ Tazobactam Sod 3.375 gm/Sodium Chloride 50 ml @ 100 mls/hr Q6HRS 02/23/19 00:00 02/24/19 08:05 DC 02/24/19 02:22 100 MLS/HR Potassium Chloride (Klor-Con) 40 meq 1X ONCE 02/24/19 12:30 02/24/19 12:31 DC 02/24/19 13:17 40 MEQ Tamsulosin HCl (Flomax) 0.4 mg DAILY 02/23/19 09:00 02/27/19 09:12 0.4 MG Ticagrelor (Brilinta) 90 mg BID 02/22/19 21:00 02/27/19 09:12 90 MG Warfarin Sodium (Coumadin - No Dose Today) 1 each 1X WARF ONCE 02/26/19 16:00 02/26/19 16:01 DC Warfarin Sodium (Coumadin Per Pharmacy) 1 each PRN DAILY PRN 02/24/19 10:45 02/26/19 10:53 1 EACH Warfarin Sodium (Coumadin Per Physician) 1 each PRN DAILY PRN 02/22/19 17:30 02/24/19 08:29 DC 02/23/19 12:40 1 EACH Warfarin Sodium (Coumadin) 3 mg 1X WARF ONCE 02/25/19 16:00 02/25/19 16:01 DC 02/25/19 17:19 3 MG Lab Laboratory Tests Test 02/26/19 12:13 02/26/19 17:28 02/26/19 21:10 02/27/19 03:50 Glucose (Fingerstick) 97 mg/dL (70-99) 200 mg/dL (70-99) 236 mg/dL (70-99) Prothrombin Time 30.9 SEC (11.7-14.0) Prothromb Time International Ratio 3.0 (0.8-1.1) Test 02/27/19 07:59 Glucose (Fingerstick) 110 mg/dL (70-99) Results All relevant outside records, renal labs, imaging studies, telemetry/EKG's were reviewed. ALANNA ESTEVEZ MD Feb 27, 2019 10:17
[2019-02-27 11:00] VITALS: BP 168/68
--- NOTE | 2019-02-27 11:03 | PDOC ---
PULMONARY PROGRESS NOTES Subjective FEELS BETTER Vitals Vital Signs Date Time Temp Pulse Resp B/P (MAP) Pulse Ox O2 Delivery O2 Flow Rate FiO2 02/27/19 09:12 77 161/70 02/27/19 07:00 98.3 16 98 Room Air 98.3 General: Alert, No acute distress HEENT: Other Lungs: Clear, Other (sce, diminished bases, no wheezing) Cardiovascular: S1, S2 Abdomen: Soft Extremities: No Edema Skin: Warm Labs Laboratory Tests Test 02/25/19 11:27 02/25/19 16:50 02/25/19 20:28 02/26/19 07:26 Glucose (Fingerstick) 162 mg/dL (70-99) 216 mg/dL (70-99) 224 mg/dL (70-99) 94 mg/dL (70-99) Test 02/26/19 07:30 02/26/19 12:13 02/26/19 17:28 02/26/19 21:10 Prothrombin Time 33.6 SEC (11.7-14.0) Prothromb Time International Ratio 3.3 (0.8-1.1) Sodium Level 141 mmol/L (136-145) Potassium Level 3.6 mmol/L (3.5-5.1) Chloride Level 106 mmol/L (98-107) Carbon Dioxide Level 23 mmol/L (21-32) Anion Gap 12 (6-14) Blood Urea Nitrogen 42 mg/dL (8-26) Creatinine 3.4 mg/dL (0.7-1.3) Estimated GFR (Cockcroft-Gault) 21.5 Glucose Level 83 mg/dL (70-99) Calcium Level 8.1 mg/dL (8.5-10.1) Glucose (Fingerstick) 97 mg/dL (70-99) 200 mg/dL (70-99) 236 mg/dL (70-99) Test 02/27/19 03:50 02/27/19 07:59 Prothrombin Time 30.9 SEC (11.7-14.0) Prothromb Time International Ratio 3.0 (0.8-1.1) Glucose (Fingerstick) 110 mg/dL (70-99) Laboratory Tests Test 02/26/19 12:13 02/26/19 17:28 02/26/19 21:10 02/27/19 03:50 Glucose (Fingerstick) 97 mg/dL (70-99) 200 mg/dL (70-99) 236 mg/dL (70-99) Prothrombin Time 30.9 SEC (11.7-14.0) Prothromb Time International Ratio 3.0 (0.8-1.1) Test 02/27/19 07:59 Glucose (Fingerstick) 110 mg/dL (70-99) Medications Active Scripts Medications Dose Route/Sig Max Daily Dose Days Date Category Dose Instructions Proair Hfa (Albuterol Sulfate) 8.5 Gm Hfa.aer.ad 1 Puff INH PRN Q6HRS PRN 30 02/21/19 Rx Pulmicort Flexhaler (Budesonide) 180 Mcg Aer.pow.ba 2 Puff IH BID 02/21/19 Rx Guaifenesin Dm Syrup (Guaifenesin/Dextromethorphan) 5 Ml Syrup 10 Ml PO PRN Q6HRS PRN 7 02/21/19 Rx Lantus (Insulin Glargine,Hum.rec.anlog) 100 Unit/1 Ml Vial 15 Unit SQ HS 30 02/21/19 Rx Furosemide 40 Mg Tablet 40 Mg PO BID92 02/21/19 Rx Aspirin Ec (Aspirin) 81 Mg Tablet. 81 Mg PO DAILYWBKFT 02/21/19 Rx Metoprolol Succinate ( Xl ) (Metoprolol Succinate) 25 Mg Tab.er.24h 50 Mg PO DAILY 02/21/19 Rx Isosorbide Mononitrate Er (Isosorbide Mononitrate) 30 Mg Tab.er.24h 30 Mg PO DAILY 02/21/19 Rx Atorvastatin Calcium 40 Mg Tablet 40 Mg PO QHS 02/21/19 Rx Brilinta (Ticagrelor) 90 Mg Tablet 90 Mg PO BID 02/21/19 Rx Amiodarone Hcl 200 Mg Tablet 200 Mg PO DAILY 02/21/19 Rx Warfarin Sodium 5 Mg Tablet 5 Mg PO DAILY 01/24/19 Reported take 5mg on sat,sat.thur,sat,sun take 6 mg on saturday and saturday Ferrous Sulfate 324 Mg Tablet. 324 Mg PO DAILY 01/24/19 Reported Flomax (Tamsulosin Hcl) 0.4 Mg Cap.er.24h 0.4 Mg PO DAILY 01/24/19 Reported Impression . 1. Acute hypoxemic respiratory failure, secondary to acute on chronic systolic heart failure. ( cath with LVEDP 26) 2. Acute on chronic kidney disease. 3. Bilateral pulmonary infiltrates and effusion compatible with congestive heart failure. 4. Chronic obstructive pulmonary disease. 5. Cardiomyopathy. 6. Recent PCI with LAD stenting. 7. Hypertension. 8. Diabetes. 9. Tobacco dependence, in remission. Plan . PLAN: 1. [place] 2. diuresis. 3. No hemodialysis per Nephrology. 4. Continue p.r.n. noninvasive ventilation. 5. Oxygen supplementation. 6. Bronchodilators. 7. Continue anticoagulation per Cardiology. 8. Not much to add TRISH REECE MD Feb 27, 2019 11:03
[2019-02-27] MEDS ORDERED: amLODIPine BESYLATE 5 MG TABLET PO SCH (11:30)
[2019-02-27 11:56] LABS: CREATININE 3.5 mg/dL (0.7-1.3); GFR 20.8; POTASSIUM 4.1 mmol/L (3.5-5.1)
--- NOTE | 2019-02-27 14:34 | NUR ---
SS following up with discharge planning. Pt denied for retirement unit by [employer]. Peer to peer completed and denial upheld by [employer]. Physician notified that pt will need to discharge to home with home healthcare at discharge. SS currently awaiting home healthcare orders. Pt was previously on services with [facility] home healthcare but they are unavailable to accept pt until next week. Nurse navigator to meet with pt to discuss home healthcare. SS will continue to follow for discharge planning.
[2019-02-27 15:00] VITALS: BP 134/63
--- NOTE | 2019-02-27 15:05 | NUR ---
Pharmacy Warfarin Dosing Note S:Pharmacy consulted to assist with anticoagulation therapy started with target INR: 2 -3 O:ROMMEL POLK is a 73 year old M with Atrial Fibrillation LABS: Last INR: 3.0 Last HGB: 7.8 Last HCT: 24.4 Last PLT: 176 Last dose of 4 mg given on 02/25/19 at 1624 Previous Regimen: Vitamin K given: N Drug Interaction Changes: Ongoing Drug Interactions: A:INR of 3.0 is above desired range. Target range for this patient is: 2 -3 P: Warfarin dose: 2 mg Today at 1600 since INR has fallen. Bridge Therapy: None Next INR due TOMORROW. Pharmacy anticoagulation service will continue to follow. [facility], 02/27/19 [id number]
--- NOTE | 2019-02-27 15:25 | SNU/HH DC ---
DISCHARGE WITH HOME HEALTH DISCHARGE INFORMATION: Final Diagnosis: Problems Medical Problems: (1) Acute on chronic diastolic (congestive) heart failure Status: Acute (2) CAD (coronary artery disease) Status: Chronic (3) CHF (congestive heart failure) Status: Chronic (4) DM2 (diabetes mellitus, type 2) Status: Chronic (5) HTN (hypertension) Status: Chronic (6) Respiratory failure Status: Acute Condition on Discharge: Stable CODE STATUS: Code Status: Full HOME HEALTH: Face to Face: I certify this patient is under my care and that I, or a nurse practitioner or physician's trust administrative assistant working with me, had a face to face encounter that meets the physician face to face encounter requirements with this patient on []. Medical Complications: CHF, COPD RN For Eval/Treatment: Yes Physical Therapy For: Evalulation/Treatment Occupational Therapy For: Evaluation/Treatment Speech Language Pathology For: Evaluation/Treatment Home Health Aide For: Self-care CDC ASSOCIATE For: Community Resources Pt Meets Homebound Status: Fatigue w/ amb. POST DISCHARGE ORDERS: Activity Instructions for Disc: No restrictions, Activity as tolerated Weight Bearing Status after Di: No restrictions, As tolerated DIET AFTER DISCHARGE: Cardiac CHECKS AFTER DISCHARGE: Checks after discharge: Check blood press - daily, Check blood sugar, ac/hs TREATMENT/EQUIPMENT ORDERS: Adaptive Equipment Issued: Front wheeled walker, Raised toilet seat CERTIFICATION STATEMENT: Certification Statement: Certification Statement: Based on the above finding, I certify that this patient is confined to the home and needs intermittent shelter care, physical therapy and/or speech therapy, or continues to need occupational therapy.~ This patient is under my care, and I have initiated the establishment of the plan of care.~ This patient will be followed by myself or a community physician who will periodically review the plan of care. Home Meds Active Scripts Albuterol Sulfate (Proair Hfa) 8.5 Gm Hfa.aer.ad, 1 PUFF INH PRN Q6HRS PRN for SHORTNESS OF BREATH for 30 Days, INHALER Prov:BONI VEGA MD 02/21/19 Budesonide (PULMICORT FLEXHALER) 180 Mcg Aer.pow.ba, 2 PUFF IH BID for soa, #1 INHALER 6 Refills Prov:BONI VEGA MD 02/21/19 Guaifenesin/Dextromethorphan (GUAIFENESIN DM SYRUP) 5 Ml Syrup, 10 ML PO PRN Q6HRS PRN for COUGH for 7 Days, MISC Prov:BONI VEGA MD 02/21/19 Insulin Glargine,Hum.rec.anlog (LANTUS) 100 Unit/1 Ml Vial, 15 UNIT SQ HS for dm for 30 Days, EACH Prov:BONI VEGA MD 02/21/19 Furosemide (FUROSEMIDE) 40 Mg Tablet, 40 MG PO BID92 for chf, , #120 TAB Prov:BONI VEGA MD 02/21/19 Aspirin (ASPIRIN EC) 81 Mg Tablet.dr, 81 MG PO DAILYWBKFT for a fib, #120 TAB.SR Prov:BONI VEGA MD 02/21/19 Metoprolol Succinate (METOPROLOL SUCCINATE ( XL )) 25 Mg Tab.er.24h, 50 MG PO DAILY for htn a fib, #90 TAB.SR Prov:BONI VEGA MD 02/21/19 Isosorbide Mononitrate (ISOSORBIDE MONONITRATE ER) 30 Mg Tab.er.24h, 30 MG PO DAILY for htn, #90 TAB.SR Prov:BONI VEGA MD 02/21/19 Atorvastatin Calcium (ATORVASTATIN CALCIUM) 40 Mg Tablet, 40 MG PO QHS for lipids, #90 TAB Prov:BONI VEGA MD 02/21/19 Ticagrelor (BRILINTA) 90 Mg Tablet, 90 MG PO BID for a fob, #120 TAB Prov:BONI VEGA MD 02/21/19 Amiodarone Hcl (AMIODARONE HCL) 200 Mg Tablet, 200 MG PO DAILY for a fib, #90 TAB Prov:BONI VEGA MD 02/21/19 Reported Medications Warfarin Sodium (WARFARIN SODIUM) 5 Mg Tablet, 5 MG PO DAILY for anticoagulant take 5mg on sat,wed.thur,sat,sun take 6 mg on saturday and saturday01/24/19 Ferrous Sulfate (FERROUS SULFATE) 324 Mg Tablet., 324 MG PO DAILY for iron supplment 01/24/19 Tamsulosin Hcl (FLOMAX) 0.4 Mg Cap.er.24h, 0.4 MG PO DAILY for BPH 01/24/19 Discontinued Reported Medications Insulin Aspart (NOVOLOG FLEXPEN) 100 Unit/1 Ml Insuln.pen, 5 UNIT SQ DAILYWBKFT for diabetes, SYR 02/15/19 Furosemide (LASIX) 20 Mg Tablet, 1 TAB PO DAILY08 for diuretic, #90 TAB 1 Refill take Saturday,Sat,Saturday only 02/15/19 Insulin Glargine,Hum.rec.anlog (LANTUS SOLOSTAR) 100 Unit/1 Ml Insuln.pen, 10 UNIT SQ DAILY for DM 01/24/19 Amiodarone Hcl (AMIODARONE HCL) 200 Mg Tablet, 200 MG PO DAILY for heart arrythmia 01/24/19 Amlodipine Besylate (AMLODIPINE BESYLATE) 10 Mg Tablet, 10 MG PO DAILY for HTN 01/24/19 Rosuvastatin Calcium (Rosuvastatin Calcium) 10 Mg Tablet, 10 MG PO DAILY for unknown 01/24/19 JENI EASTMAN MD Feb 27, 2019 15:24
--- NOTE | 2019-02-27 15:58 | NUR ---
SS following up with discharge planning. Discharge order for home healthcare received. Pt and pt's spouse agreeable to [facility], ; fax [phone]. Discharge orders and referral phoned and faxed to [facility]. Pt's RN notified.
[2019-02-27] MEDS ORDERED: WARFARIN 2 MG TABLET. PO ONE (16:00)
--- NOTE | 2019-02-27 18:57 | NUR ---
Discharge Note: ROMMEL POLK Discharge instructions and discharge home medications reviewed with Patient and a copy given. All questions have been answered and understanding verbalized.
== END 2019-02-27 18:35 | disposition home health service (06) | DRG 280 ==
LOC: ER 13:17 → 1 WEST ICU 14:12 → 2 NORTH 02-23 18:25
PROVIDERS: ADMIT Family Medicine; ATTEND Family Medicine
PROC: 5A09357 Assistance with Respiratory Ventilation, Less than 24 Consecutive Hours, Continuous Positive Airway Pressure (ICD-10-PCS; principal; 2019-02-22)
DX: I13.0 Hypertensive heart and chronic kidney disease with heart failure and stage 1 through stage 4 chronic kidney disease, or unspecified chronic kidney disease (principal); I50.43 Acute on chronic combined systolic (congestive) and diastolic (congestive) heart failure; I21.4 Non-ST elevation (NSTEMI) myocardial infarction; J96.01 Acute respiratory failure with hypoxia; N17.9 Acute kidney failure, unspecified; N18.4 Chronic kidney disease, stage 4 (severe); I42.9 Cardiomyopathy, unspecified; I25.10 Atherosclerotic heart disease of native coronary artery without angina pectoris; I44.7 Left bundle-branch block, unspecified; M19.90 Unspecified osteoarthritis, unspecified site; F17.211 Nicotine dependence, cigarettes, in remission; E78.5 Hyperlipidemia, unspecified; E11.22 Type 2 diabetes mellitus with diabetic chronic kidney disease; I48.0 Paroxysmal atrial fibrillation; D63.8 Anemia in other chronic diseases classified elsewhere; D50.9 Iron deficiency anemia, unspecified; J44.9 Chronic obstructive pulmonary disease, unspecified; R33.9 Retention of urine, unspecified; Z95.5 Presence of coronary angioplasty implant and graft; Z79.4 Long term (current) use of insulin; Z79.02 Long term (current) use of antithrombotics/antiplatelets; Z79.899 Other long term (current) drug therapy; Z82.49 Family history of ischemic heart disease and other diseases of the circulatory system
CPT/HCPCS: 36415; 36600; 71045; 80048; 80053; 80076; 82805; 82962; 83690; 83735; 83880; 84100; 84484; 85025; 85610; 87040; 93005; 94640; 94660; J0461; J0881; J1815; J1940; J2020; J2543; J7620; J7626; 97110; 97116; 97530; 99285-25; G0378

== ENCOUNTER 2019-03-13 06:46 | Inpatient (IN) | payer MEDICARE ==
[~2019-03-13] VITALS: Ht 177.8 cm; Wt 74.1 kg
[2019-03-13] VITALS (17 sets, daily range): BP systolic 162–180; BP diastolic 58–87
[2019-03-13] MEDS ORDERED: FUROSEMIDE 100 MG/10 ML VIAL. ONE (06:51)
[2019-03-13 07:00] LABS: BASE EXCESS COOX -11 mmol/L (-3-3); HCO3 COOX 16 mmol/L (21-28); METHEMOGLOBIN 0.5 % (0.0-1.9); OXYHEMOGLOBIN 96.2 %; PCO2 COOX 39 mmHg (35-46); PO2 COOX 107 mmHg (65-108); SAT O2 COOX 97 % (92-99)
[2019-03-13] MEDS ORDERED: IPRATRPIUM/ALBUTEROL 0.5/2.5MG 3 ML NEBU. NEB ONE (07:00)
[2019-03-13] MEDS ORDERED: FUROSEMIDE 100 MG/10 ML VIAL. IVP ONE (07:00)
[2019-03-13] MEDS ORDERED: methylPREDNISolone SOD SUCC PF 125 MG/2 ML VIAL. IV ONE (07:00)
--- NOTE | 2019-03-13 07:06 | PHYS DOC ---
Past Medical History Past Medical History: A-Fib, Anemia, CAD, CHF, Diabetes-Type I, Hypertension, Pneumonia, Renal Failure Past Surgical History: Other Additional Past Surgical Histo: HEART CATH,STENT, Alcohol Use: None Drug Use: None Adult General Chief Complaint Chief Complaint: DYSPNEA/RESPIRATOY DISTRESS HPI HPI 73-year-old male presents to the emergency department with complaints of shortn ess of breath. Patient has a history of chronic kidney disease, congestive heart failure diastolic dysfunction, hypertension, diabetes, atrial fibrillation. Patient presents to the emergency department after calling EMS for shortness of breath. Initial evaluation per EMS saturations in the 80s, patient's placed on CPAP with saturations 94-95%. Patient did receive one albuterol treatment prior to his arrival. Upon arrival difficulty in evaluation initially given patient's inability to talk in full sentences. He is currently on BiPAP, saturation 96- 98%. Patient denies any chest pain, nausea, vomiting. Further reviews of systems is limited. Patient has a history of HD, off x 6 months or so. Review of Systems Review of Systems Constitutional: Denies fever or chills [] Respiratory: shortness of breath [] Cardiovascular: No additional information not addressed in HPI [] GI: Denies abdominal pain, nausea, vomiting, bloody stools or diarrhea [] Musculoskeletal: Denies back pain or joint pain [] Neurologic: Denies headache, focal weakness or sensory changes [] All other systems were reviewed and found to be within normal limits, except as documented in this note. Current Medications Current Medications Current Medications Medications (Trade) Dose Ordered Sig/Gwen Start Time Stop Time Status Last Admin Dose Admin Albuterol/ Ipratropium (Duoneb) 3 ml 1X ONCE 03/13/19 07:00 03/13/19 07:01 DC 03/13/19 07:09 3 ML Furosemide (Lasix) 100 mg STK-MED ONCE 03/13/19 06:51 03/13/19 06:51 DC Methylprednisolone Sodium Succinate (SOLU-Medrol 125MG VIAL) 125 mg 1X ONCE 03/13/19 07:00 03/13/19 07:01 DC 03/13/19 07:13 125 MG Ondansetron HCl (Zofran) 8 mg 1X ONCE 03/13/19 07:23 03/13/19 07:54 DC 03/13/19 07:56 8 MG Allergies Allergies Allergies Coded Allergies Type Severity Reaction Last Updated Verified No Known Drug Allergies 01/24/19 No Physical Exam Physical Exam Constitutional: Well developed, well nourished, acute distress 2/2 SOB HENT: Normocephalic, atraumatic, bilateral external ears normal, oropharynx moist, no oral exudates, nose normal. [] Eyes: PERRLA, EOMI, conjunctiva normal, no discharge. [] Neck: Normal range of motion, no tenderness, supple, no stridor. [] Cardiovascular:Heart rate regular rhythm, no murmur [] Lungs & Thorax: diminished bs bilaterally, occ wheeze appreciated, + crackles Abdomen: Bowel sounds normal, soft, no tenderness, no masses, no pulsatile masses. [] Skin: Warm, dry, no erythema, no rash. [] Extremities: 2+ edema, bilateral lower ext[] Neurologic: Alert and oriented X 3, no focal deficits noted. [] Current Patient Data Vital Signs Vital Signs Date Time Temp Pulse Resp B/P (MAP) Pulse Ox O2 Delivery O2 Flow Rate FiO2 03/13/19 08:15 94 BiPAP/CPAP 03/13/19 06:46 96.4 67 24 139/84 (102) 15.0 96.4 Lab Values Laboratory Tests Test 03/13/19 06:48 03/13/19 07:40 03/13/19 08:00 03/13/19 08:40 O2 Saturation 97 % (92-99) Arterial Blood pH 7.23 (7.35-7.45) L Arterial Blood pCO2 at Patient Temp 39 mmHg (35-46) Arterial Blood pO2 at Patient Temp 107 mmHg (65-108) Arterial Blood HCO3 16 mmol/L (21-28) L Arterial Blood Base Excess -11 mmol/L (-3-3) L Oxyhemoglobin 96.2 % Methemoglobin 0.5 % (0.0-1.9) Carbon Monoxide, Quantitative 0.1 % (0.0-1.9) FiO2 100 White Blood Count 7.2 x10^3/uL (4.0-11.0) Red Blood Count 4.11 x10^6/uL (4.30-5.70) L Hemoglobin 10.0 g/dL (13.0-17.5) L Hematocrit 32.6 % (39.0-53.0) L Mean Corpuscular Volume 79 fL (79-100) Mean Corpuscular Hemoglobin 25 pg (25-35) Mean Corpuscular Hemoglobin Concent 31 g/dL (31-37) Red Cell Distribution Width 24.0 % (11.5-14.5) H Platelet Count 224 x10^3/uL (140-400) Neutrophils (%) (Auto) 56 % (31-73) Lymphocytes (%) (Auto) 33 % (24-48) Monocytes (%) (Auto) 10 % (0-9) H Eosinophils (%) (Auto) 0 % (0-3) Basophils (%) (Auto) 1 % (0-3) Neutrophils # (Auto) 4.0 x10^3/uL (1.8-7.7) Lymphocytes # (Auto) 2.4 x10^3/uL (1.0-4.8) Monocytes # (Auto) 0.7 x10^3/uL (0.0-1.1) Eosinophils # (Auto) 0.0 x10^3/uL (0.0-0.7) Basophils # (Auto) 0.1 x10^3/uL (0.0-0.2) Sodium Level 140 mmol/L (136-145) Potassium Level 4.8 mmol/L (3.5-5.1) Chloride Level 107 mmol/L (98-107) Carbon Dioxide Level 18 mmol/L (21-32) L Anion Gap 15 (6-14) H Blood Urea Nitrogen 39 mg/dL (8-26) H Creatinine 3.0 mg/dL (0.7-1.3) H Estimated GFR (Cockcroft-Gault) 24.9 BUN/Creatinine Ratio 13 (6-20) Glucose Level 191 mg/dL (70-99) H Calcium Level 8.8 mg/dL (8.5-10.1) Total Bilirubin 0.6 mg/dL (0.2-1.0) Aspartate Amino Transferase (AST) 20 U/L (15-37) Alanine Aminotransferase (ALT) 16 U/L (16-63) Alkaline Phosphatase 98 U/L (46-116) Troponin I Quantitative < 0.017 ng/mL (0.000-0.055) HI-Dby-L-Type Natriuretic Peptide 9472 pg/mL (0-124) H Total Protein 8.3 g/dL (6.4-8.2) H Albumin 3.1 g/dL (3.4-5.0) L Albumin/Globulin Ratio 0.6 (1.0-1.7) L Urine Collection Type Unknown Urine Color Yellow Urine Clarity Cloudy Urine pH 6.0 Urine Specific Hope 1.010 Urine Protein 100 mg/dL (NEG-TRACE) Urine Glucose (UA) Negative mg/dL (NEG) Urine Ketones (Stick) Negative mg/dL (NEG) Urine Blood Moderate (NEG) Urine Nitrite Negative (NEG) Urine Bilirubin Negative (NEG) Urine Urobilinogen Dipstick 0.2 mg/dL (0.2 mg/dL) Urine Leukocyte Esterase Large (NEG) Urine RBC 3-5 /HPF (0-2) Urine WBC >40 /HPF (0-4) Urine Amorphous Sediment Present /HPF Urine Bacteria Moderate /HPF (0-FEW) Laboratory Tests 03/13/19 07:40 Laboratory Tests 03/13/19 08:00 EKG EKG EKG reviewed transmitted from EMS 0 622, no STEMI, heart rate 68, left bundle branch block present upon reviewing old EKG from 02/22/2019. There is T-wave inversion in V5 and V6.[] Interpretation Time: 0 622 Radiology/Procedures Radiology/Procedures [facility] [address] [place], [place] [id number] IMAGING REPORT Signed PATIENT: ROMMEL POLK ACCOUNT: [id number] : 1945 LOCATION: ER AGE: 73 SEX: M EXAM STATUS: REG ER ORD. PHYSICIAN: DOMINIC COLLINS MD REASON: Shortness of breath PROCEDURE: PORTABLE CHEST 1V PORTABLE CHEST 1V History: Shortness of breath Comparison: February 24, 2019 Findings: Diffuse interstitial and alveolar opacities with consolidative appearance of the left mid and lower lung. Small pleural effusions. Enlarged cardiac silhouette although portable technique accentuates cardiac size. No pneumothorax. Impression: 1. Increased diffuse interstitial and alveolar opacities with consolidative appearance in the left lung, concerning for pulmonary edema or pneumonia. 2. Probable small bilateral pleural effusions. Electronically signed by: Horace Hunter DO (03/13/2019 8:01 AM) [id number] DICTATED and SIGNED BY: HORACE HUNTER DO DATE: 03/13/19800 [] Course & Med Decision Making Course & Med Decision Making Pertinent Labs and Imaging studies reviewed. (See chart for details) []73-year-old male presents to the emergency department with complaints of shortness of breath. Patient has a history of chronic kidney disease, congestive heart failure diastolic dysfunction, hypertension, diabetes, atrial fibril lation. Patient presents to the emergency department after calling EMS for shortness of breath. Initial evaluation per EMS saturations in the 80s, patient's placed on CPAP with saturations 94-95%. Patient did receive one albuterol treatment prior to his arrival. Upon arrival difficulty in evaluation initially given patient's inability to talk in full sentences. He is currently on BiPAP, saturation 96-98%. Patient denies any chest pain, nausea, vomiting. Further reviews of systems is limited. Patient has a history of HD, off x 6 months or so. Labs, imaging reviewed. Chest x-ray reveals evidence of pulmonary edema, known history of congestive heart failure. Cardiac enzymes 1 set negative. Initial ABG pH 7.22 PCO2 38, PO2 106, bicarbonate 15.6. Patient remains on BiPAP at this time on volumes between 500-600. Saturations 94-96%. BP is 151/55. Discussed potential intubation patient however he states at this time he prefers to continue BiPAP with reassessment, RR in the 20's. Discussed admit with HOSPITALIST - DR LEE, will admit patient to the ICU Christo Disclaimer Christo Disclaimer This electronic medical record was generated, in whole or in part, using a voice recognition dictation system. Departure Departure Impression: Primary Impression: Respiratory failure Additional Impressions: Acute on chronic diastolic (congestive) heart failure CKD (chronic kidney disease) HTN (hypertension) Disposition: ADMITTED INPATIENT Admitting Physician: CURRY Condition: GUARDED Referrals: BERKLEY MONROY MD (PCP) Problem Qualifiers Primary Impression: Respiratory failure Chronicity: acute Respiratory failure complication: hypoxia Qualified Codes: J96.01 - Acute respiratory failure with hypoxia Additional Impressions: CKD (chronic kidney disease) Chronic kidney disease stage: stage 4 (severe) Qualified Codes: N18.4 - Chronic kidney disease, stage 4 (severe) HTN (hypertension) Hypertension type: essential hypertension Qualified Codes: I10 - Essential (primary) hypertension DOMINIC COLLINS MD Mar 13, 2019 07:06
[2019-03-13] MEDS ORDERED: ONDANSETRON PF 4 MG/2 ML VIAL. ONE (07:22)
[2019-03-13] MEDS ORDERED: ONDANSETRON PF 4 MG/2 ML VIAL. IV ONE (07:23)
[2019-03-13 07:59] LABS: BASO # 0.1 x10^3/uL (0.0-0.2); BASO % 1 % (0-3); EOS % 0 % (0-3); HEMATOCRIT 32.6 % (39.0-53.0); LYMPH # 2.4 x10^3/uL (1.0-4.8); LYMPH % 33 % (24-48); MEAN CORPUSCULAR HEMOGLOBIN 25 pg (25-35); MEAN CORPUSCULAR HGB CONC 31 g/dL (31-37); MEAN CORPUSCULAR VOLUME 79 fL (79-100); MONO # 0.7 x10^3/uL (0.0-1.1); MONO % 10 % (0-9); NEUT % 56 % (31-73); PLATELET COUNT 224 x10^3/uL (140-400); RED BLOOD COUNT 4.11 x10^6/uL (4.30-5.70); WHITE BLOOD COUNT 7.2 x10^3/uL (4.0-11.0)
--- NOTE | 2019-03-13 08:04 | RAD ---
PORTABLE CHEST 1V History: Shortness of breath Comparison: February 24, 2019 Findings: Diffuse interstitial and alveolar opacities with consolidative appearance of the left mid and lower lung. Small pleural effusions. Enlarged cardiac silhouette although portable technique accentuates cardiac size. No pneumothorax. Impression: 1. Increased diffuse interstitial and alveolar opacities with consolidative appearance in the left lung, concerning for pulmonary edema or pneumonia. 2. Probable small bilateral pleural effusions. Electronically signed by: Horace Hunter DO (03/13/2019 8:01 AM) [id number]
[2019-03-13 08:37] LABS: CALCIUM 8.8 mg/dL (8.5-10.1); GFR 24.9; POTASSIUM 4.8 mmol/L (3.5-5.1)
[2019-03-13 08:45] LABS: ALBUMIN 3.1 g/dL (3.4-5.0); ALBUMIN/GLOBULIN RATIO 0.6 (1.0-1.7); TOTAL BILIRUBIN 0.6 mg/dL (0.2-1.0); TOTAL PROTEIN 8.3 g/dL (6.4-8.2)
[2019-03-13 08:50] LABS: BILIRUBIN,URINE NEGATIVE (NEG); CLARITY,URINE CLOUDY; COLOR,URINE YELLOW; NITRITE,URINE NEGATIVE (NEG); PROTEIN,URINE 100 mg/dL (NEG-TRACE); UROBILINOGEN,URINE 0.2 mg/dL (0.2 mg/dL)
[2019-03-13 09:00] LABS: BACTERIA,URINE MODERATE /HPF (0-FEW); WBC,URINE >40 /HPF (0-4)
[2019-03-13 09:03] LABS: AMORPHOUS SEDIMENT,UR PRESENT /HPF
[2019-03-13] MEDS ORDERED: ONDANSETRON PF 4 MG/2 ML VIAL. IV PRN (09:15)
--- NOTE | 2019-03-13 09:20 | PDOC1 ---
History and Physical Date of Admission Date of Admission DATE: 03/13/19 TIME: 09:11 Identification/Chief Complaint Chief Complaint Shortness of breath Source Source: Patient History of Present Illness History of Present Illness Mr Banerjee is a 73yo w/ PMHx of A-Fib, Anemia, CAD s/p LAD stent 02/19/19, CHF, Diabetes, Hypertension, Renal Failure who presents via EMS with complaining of shortness of breath. Patient was admitted in this hospital previously with pulmonary edema and again was admitted at [facility] and discharged home with diagnosis of atrial fibrillation on Coumadin. Patient complaining of sudden onset of shortness of breath since this morning with productive cough and per EMS saturations in the 80s, patient's placed on CPAP with saturations 94-95%. Patient did receive one albuterol treatment prior to his arrival. He was saturating at 62%, placed on 15L, and subsequently placed on BiPAP, saturation 96-98%. Patient denies any chest pain, nausea, vomiting. Further reviews of systems is limited. ABG shows 7.23/39/107. BNP 9472. Cr 3 and BUN 39, troponin negative. On further review he has CKD previously requiring dialysis for up to 6 months last year. CXR shows increased diffuse interstitial and alveolar opacities with co nsolidative appearance in the left lung, concerning for pulmonary edema or pneumonia EKG shows intraventricular block and appears sinus with 1st degree AV block. He will be admitted to ICU on BIPAP for further care and testing. Past Medical History Cardiovascular: AFIB, CAD, CHF, HTN Pulmonary: Pneumonia GI: Other Heme/Onc: Anemia NOS Hepatobiliary: No pertinent hx Psych: No pertinent hx Musculoskeletal: Osteoarthritis Rheumatologic: No pertinent hx Infectious disease: No pertinent hx Renal/: Chronic renal insuff Endocrine: Diabetes Past Surgical History Past Surgical History: Other Family History Family History: Hypertension Social History Smoke: Quit ALCOHOL: none Drugs: None Current Problem List Problem List Problems Medical Problems: (1) CHF (congestive heart failure) Status: Chronic (2) CKD (chronic kidney disease) Status: Chronic (3) HTN (hypertension) Status: Chronic (4) Respiratory failure Status: Acute Current Medications Current Medications Current Medications Albuterol/ Ipratropium (Duoneb) 3 ml 1X ONCE NEB Last administered on 03/13/19at 07:09; Start 03/13/19 at 07:00; Stop 03/13/19 at 07:01; Status DC Methylprednisolone Sodium Succinate (SOLU-Medrol 125MG VIAL) 125 mg 1X ONCE IV Last administered on 03/13/19at 07:13; Start 03/13/19 at 07:00; Stop 03/13/19 at 07:01; Status DC Furosemide (Lasix) 60 mg 1X ONCE IVP Last administered on 03/13/19at 07:12; Start 03/13/19 at 07:00; Stop 03/13/19 at 07:01; Status DC Furosemide (Lasix) 100 mg STK-MED ONCE .ROUTE ; Start 03/13/19 at 06:51; Stop 03/13/19 at 06:51; Status DC Ondansetron HCl (Zofran) 4 mg STK-MED ONCE .ROUTE ; Start 03/13/19 at 07:22; Stop 03/13/19 at 07:23; Status DC Ondansetron HCl (Zofran) 8 mg 1X ONCE IV Last administered on 03/13/19at 07:56; Start 03/13/19 at 07:23; Stop 03/13/19 at 07:54; Status DC Ondansetron HCl (Zofran) 4 mg PRN Q8HRS PRN IV NAUSEA/VOMITING; Start 03/13/19 at 09:15; Stop 03/14/19 at 09:14 Albuterol/ Ipratropium (Duoneb) 3 ml RTQID NEB ; Start 03/13/19 at 12:00; Stop 03/14/19 at 11:59 Active Scripts Active Proair Hfa (Albuterol Sulfate) 8.5 Gm Hfa.aer.ad 1 Puff INH PRN Q6HRS PRN 30 Days Pulmicort Flexhaler (Budesonide) 180 Mcg Aer.pow.ba 2 Puff IH BID Guaifenesin Dm Syrup (Guaifenesin/Dextromethorphan) 5 Ml Syrup 10 Ml PO PRN Q6HRS PRN 7 Days Lantus (Insulin Glargine,Hum.rec.anlog) 100 Unit/1 Ml Vial 15 Unit SQ HS 30 Days Furosemide 40 Mg Tablet 40 Mg PO BID92 Aspirin Ec (Aspirin) 81 Mg Tablet.dr 81 Mg PO [id number] Metoprolol Succinate ( Xl ) (Metoprolol Succinate) 25 Mg Tab.er.24h 50 Mg PO DAILY Isosorbide Mononitrate Er (Isosorbide Mononitrate) 30 Mg Tab.er.24h 30 Mg PO DAILY Atorvastatin Calcium 40 Mg Tablet 40 Mg PO QHS Brilinta (Ticagrelor) 90 Mg Tablet 90 Mg PO BID Amiodarone Hcl 200 Mg Tablet 200 Mg PO DAILY Reported Warfarin Sodium 5 Mg Tablet 5 Mg PO DAILY take 5mg on sat,sat.thur,sat,sun take 6 mg on saturday and saturday Ferrous Sulfate 324 Mg Tablet.dr 324 Mg PO DAILY Flomax (Tamsulosin Hcl) 0.4 Mg Cap.er.24h 0.4 Mg PO DAILY Allergies Allergies: Coded Allergies: No Known Drug Allergies (Unverified , 01/24/19) ROS General: YES: Fatigue, Malaise; No: Chills, Night Sweats, Appetite, Other PSYCHOLOGICAL ROS: No: Anxiety, Behavioral Disorder, Concentration difficultie, Decreased libido, Depression, Disorientation, Hallucinations, Hostility, Irritablity, Memory difficulties, Mood Swings, Obsessive thoughts, Physical abuse, Sexual abuse, Sleep disturbances, Suicidal ideation, Other Eyes: No Blurry vision, No Decreased vision, No Double vision, No Dry eyes, No Excessive tearing, No Eye Pain, No Itchy Eyes, No Loss of vision, No Photophobia, No Scotomata, No Uses contacts, No Uses glasses, No Other HEENT: No: Heacaches, Visual Changes, Hearing change, Nasal congestion, Nasal discharge, Oral lesions, Sinus pain, Sore Throat, Epistaxis, Sneezing, Snoring, Tinnitus, Vertigo, Vocal changes, Other ALLERGY AND IMMUNOLOGY: No: Hives, Insect Bite Sensitivity, Itchy/Watery Eyes, Nasal Congestion, Post Nasal Drip, Seasonal Allergies, Other Hematological and Lymphatic: No: Bleeding Problems, Blood Clots, Blood Transfusions, Brusing, Night Sweats, Pallor, Swollen Lymph Nodes, Other ENDOCRINE: No: Breast Changes, Galactorrhea, Hair Pattern Changes, Hot Flashes, Malaise/lethargy, Mood Swings, Palpitations, Polydipsia/polyuria, Skin Changes, Temperature Intolerance, Unexpected Weight Changes, Other Breast: No New/Changing Breast Lumps, No Nipple changes, No Nipple discharge, No Other Respiratory: YES: Cough, Shortness of breath, SOB with excertion; No: Hemoptysis, Orthopnea, Pleuritic Pain, Sputum Changes, Stridor, Tachypnea, Wheezing, Other Cardiovascular: yes Chest Pain, yes Paroxysmal Noc. Dyspnea; No Palpitations, No Orthopnea, No Edema, No Lt Headedness, No Other Gastrointestinal: No Nausea, No Vomiting, No Abdominal Pain, No Diarrhea, No Constipation, No Melena, No Hematochezia, No Other Genitourinary: No Dysuria, No Frequency, No Incontinence, No Hematuria, No Retention, No Discharge, No Urgency, No Pain, No Flank Pain, No Other, No , No , No , No , No , No , No Musculoskeletal: No Gait Disturbance, No Joint Pain, No Joint Stiffness, No Joint Swelling, No Muscle Pain, No Muscular Weakness, No Pain In:, No Swelling In:, No Other Neurological: No Behavorial Changes, No Bowel/Bladder ControlChng, No Confusion, No Dizziness, No Gait Disturbance, No Headaches, No Impaired Coord/balance, No Memory Loss, No Numbness/Tingling, No Seizures, No Speech Problems, No Tremors, No Visual Changes, No Weakness, No Other Skin: No Dry Skin, No Eczema, No Hair Changes, No Lumps, No Mole Changes, No Mottling, No Nail Changes, No Pruritus, No Rash, No Skin Lesion Changes, No Other, No Acne Physical Exam General: Alert, Cooperative, moderate distress HEENT: Atraumatic, PERRLA, EOMI, Mucous membr. moist/pink Lungs: Other (Bilateral diffuse crackles) Heart: S1S2, irregularly irregular Abdomen: Normal bowel sounds, Soft, No tenderness, No hepatosplenomegaly, No masses Rectal Exam: not examined Extremities: No clubbing, No cyanosis, Normal pulses, No tenderness/swelling, Other (2+) Skin: No rashes, No breakdown, No significant lesion Neuro: Normal speech, Strength at 5/5 X4 ext, Normal tone, Sensation intact, Cranial nerves 3-12 NL, Reflexes 2+ Psych/Mental Status: Other (Drowsy) Vitals Vitals Vital Signs Date Time Temp Pulse Resp B/P (MAP) Pulse Ox O2 Delivery O2 Flow Rate FiO2 03/13/19 08:15 94 BiPAP/CPAP 03/13/19 06:46 96.4 67 24 139/84 (102) 15.0 96.4 Labs Labs Laboratory Tests Test 03/13/19 06:48 03/13/19 07:40 03/13/19 08:00 03/13/19 08:40 O2 Saturation 97 % (92-99) Arterial Blood pH 7.23 (7.35-7.45) Arterial Blood pCO2 at Patient Temp 39 mmHg (35-46) Arterial Blood pO2 at Patient Temp 107 mmHg (65-108) Arterial Blood HCO3 16 mmol/L (21-28) Arterial Blood Base Excess -11 mmol/L (-3-3) Oxyhemoglobin 96.2 % Methemoglobin 0.5 % (0.0-1.9) Carbon Monoxide, Quantitative 0.1 % (0.0-1.9) FiO2 100 White Blood Count 7.2 x10^3/uL (4.0-11.0) Red Blood Count 4.11 x10^6/uL (4.30-5.70) Hemoglobin 10.0 g/dL (13.0-17.5) Hematocrit 32.6 % (39.0-53.0) Mean Corpuscular Volume 79 fL (79-100) Mean Corpuscular Hemoglobin 25 pg (25-35) Mean Corpuscular Hemoglobin Concent 31 g/dL (31-37) Red Cell Distribution Width 24.0 % (11.5-14.5) Platelet Count 224 x10^3/uL (140-400) Neutrophils (%) (Auto) 56 % (31-73) Lymphocytes (%) (Auto) 33 % (24-48) Monocytes (%) (Auto) 10 % (0-9) Eosinophils (%) (Auto) 0 % (0-3) Basophils (%) (Auto) 1 % (0-3) Neutrophils # (Auto) 4.0 x10^3/uL (1.8-7.7) Lymphocytes # (Auto) 2.4 x10^3/uL (1.0-4.8) Monocytes # (Auto) 0.7 x10^3/uL (0.0-1.1) Eosinophils # (Auto) 0.0 x10^3/uL (0.0-0.7) Basophils # (Auto) 0.1 x10^3/uL (0.0-0.2) Sodium Level 140 mmol/L (136-145) Potassium Level 4.8 mmol/L (3.5-5.1) Chloride Level 107 mmol/L (98-107) Carbon Dioxide Level 18 mmol/L (21-32) Anion Gap 15 (6-14) Blood Urea Nitrogen 39 mg/dL (8-26) Creatinine 3.0 mg/dL (0.7-1.3) Estimated GFR (Cockcroft-Gault) 24.9 BUN/Creatinine Ratio 13 (6-20) Glucose Level 191 mg/dL (70-99) Calcium Level 8.8 mg/dL (8.5-10.1) Total Bilirubin 0.6 mg/dL (0.2-1.0) Aspartate Amino Transf (AST/SGOT) 20 U/L (15-37) Alanine Aminotransferase (ALT/SGPT) 16 U/L (16-63) Alkaline Phosphatase 98 U/L (46-116) Troponin I Quantitative < 0.017 ng/mL (0.000-0.055) NR-Epc-E-Type Natriuretic Peptide 9472 pg/mL (0-124) Total Protein 8.3 g/dL (6.4-8.2) Albumin 3.1 g/dL (3.4-5.0) Albumin/Globulin Ratio 0.6 (1.0-1.7) Urine Collection Type Unknown Urine Color Yellow Urine Clarity Cloudy Urine pH 6.0 Urine Specific [place] 1.010 Urine Protein 100 mg/dL (NEG-TRACE) Urine Glucose (UA) Negative mg/dL (NEG) Urine Ketones (Stick) Negative mg/dL (NEG) Urine Blood Moderate (NEG) Urine Nitrite Negative (NEG) Urine Bilirubin Negative (NEG) Urine Urobilinogen Dipstick 0.2 mg/dL (0.2 mg/dL) Urine Leukocyte Esterase Large (NEG) Urine RBC 3-5 /HPF (0-2) Urine WBC >40 /HPF (0-4) Urine Amorphous Sediment Present /HPF Urine Bacteria Moderate /HPF (0-FEW) Laboratory Tests Test 03/13/19 06:48 03/13/19 07:40 03/13/19 08:00 03/13/19 08:40 O2 Saturation 97 % (92-99) Arterial Blood pH 7.23 (7.35-7.45) Arterial Blood pCO2 at Patient Temp 39 mmHg (35-46) Arterial Blood pO2 at Patient Temp 107 mmHg (65-108) Arterial Blood HCO3 16 mmol/L (21-28) Arterial Blood Base Excess -11 mmol/L (-3-3) Oxyhemoglobin 96.2 % Methemoglobin 0.5 % (0.0-1.9) Carbon Monoxide, Quantitative 0.1 % (0.0-1.9) FiO2 100 White Blood Count 7.2 x10^3/uL (4.0-11.0) Red Blood Count 4.11 x10^6/uL (4.30-5.70) Hemoglobin 10.0 g/dL (13.0-17.5) Hematocrit 32.6 % (39.0-53.0) Mean Corpuscular Volume 79 fL (79-100) Mean Corpuscular Hemoglobin 25 pg (25-35) Mean Corpuscular Hemoglobin Concent 31 g/dL (31-37) Red Cell Distribution Width 24.0 % (11.5-14.5) Platelet Count 224 x10^3/uL (140-400) Neutrophils (%) (Auto) 56 % (31-73) Lymphocytes (%) (Auto) 33 % (24-48) Monocytes (%) (Auto) 10 % (0-9) Eosinophils (%) (Auto) 0 % (0-3) Basophils (%) (Auto) 1 % (0-3) Neutrophils # (Auto) 4.0 x10^3/uL (1.8-7.7) Lymphocytes # (Auto) 2.4 x10^3/uL (1.0-4.8) Monocytes # (Auto) 0.7 x10^3/uL (0.0-1.1) Eosinophils # (Auto) 0.0 x10^3/uL (0.0-0.7) Basophils # (Auto) 0.1 x10^3/uL (0.0-0.2) Sodium Level 140 mmol/L (136-145) Potassium Level 4.8 mmol/L (3.5-5.1) Chloride Level 107 mmol/L (98-107) Carbon Dioxide Level 18 mmol/L (21-32) Anion Gap 15 (6-14) Blood Urea Nitrogen 39 mg/dL (8-26) Creatinine 3.0 mg/dL (0.7-1.3) Estimated GFR (Cockcroft-Gault) 24.9 BUN/Creatinine Ratio 13 (6-20) Glucose Level 191 mg/dL (70-99) Calcium Level 8.8 mg/dL (8.5-10.1) Total Bilirubin 0.6 mg/dL (0.2-1.0) Aspartate Amino Transf (AST/SGOT) 20 U/L (15-37) Alanine Aminotransferase (ALT/SGPT) 16 U/L (16-63) Alkaline Phosphatase 98 U/L (46-116) Troponin I Quantitative < 0.017 ng/mL (0.000-0.055) CS-Uge-K-Type Natriuretic Peptide 9472 pg/mL (0-124) Total Protein 8.3 g/dL (6.4-8.2) Albumin 3.1 g/dL (3.4-5.0) Albumin/Globulin Ratio 0.6 (1.0-1.7) Urine Collection Type Unknown Urine Color Yellow Urine Clarity Cloudy Urine pH 6.0 Urine Specific [place] 1.010 Urine Protein 100 mg/dL (NEG-TRACE) Urine Glucose (UA) Negative mg/dL (NEG) Urine Ketones (Stick) Negative mg/dL (NEG) Urine Blood Moderate (NEG) Urine Nitrite Negative (NEG) Urine Bilirubin Negative (NEG) Urine Urobilinogen Dipstick 0.2 mg/dL (0.2 mg/dL) Urine Leukocyte Esterase Large (NEG) Urine RBC 3-5 /HPF (0-2) Urine WBC >40 /HPF (0-4) Urine Amorphous Sediment Present /HPF Urine Bacteria Moderate /HPF (0-FEW) Images Images CXR - 1. Increased diffuse interstitial and alveolar opacities with consolidative appearance in the left lung, concerning for pulmonary edema or pneumonia. 2. Probable small bilateral pleural effusions. VTE Prophylaxis Ordered VTE Prophylaxis Devices: Yes VTE Pharmacological Prophylaxi: Yes Assessment/Plan Assessment/Plan A/P: Acute hypoxic respiratory failure - looks like a combination of acute combined systolic and diastolic CHF and worsening renal function. Will place on BIPAP for now for his worsening dyspnea Acute on chronic diastolic/systolic CHF - EF 40% previously, appears decompensated currently with CXR and BNP showing worsening pattern. Will give IV 40mg Lasix BID, consult cardiology. BIPAP as well Metabolic acidosis - likely lactic 2/2 low O2 state. I am less suspicious of sepsis, however, with his recent hospital stay has been treated for HCAP already per sepsis protocol, will guide this therapy with procalcitonin and Pulm consultation CAD - s/p PCI/stent placement one year ago and again 3 weeks ago. Will consult cardiology (08/29/2017 [facility] with nonocclusive CAD moderate to LAD, ramus and mild to mod diffuse disease to LCx, RCA small with mild diffuse disease) Hypertension - not well controlled, has h/o hypertensive nephrosclerosis and CHF, will monitor Chronic renal insufficiency - likely 2/2 cardiac, DM and hypertensive disease. Nephrology consulted. Hyperlipidemia - Statin therapy for this, DM2, and CHF, goal LDL < 70mg/dL Diabetes mellitus type 2 - basal bolus plus insulin regimen in house Paroxysmal AFIB with chronic LBBB - sinus now with LBBB, is on amiodarone and warfarin. Presently in sinus rhythm, has paroxysms. Will cont his meds, needs BB, does not look like he has been on one Anemia of chronic disease - on iron for RADHA. will cont. Would need transfusion for Hb < 8 based on his strong cardiac history, will trend CBC FEN - Cardiac ADA diet PPX - Warfarin FULL CODE Dispo - ICU for acute hypoxic respiratory failure BONITA LEE MD Mar 13, 2019 09:20
--- NOTE | 2019-03-13 09:47 | EKG ---
[facility] [address] [place] [address] Test Date: 2019-03-13 Test Time: 07:16:38 Pat Name: ROMMEL PLOK Department: Room: 109 Gender: M [employer]: : 1945 Requested By: DOMINIC COLLINS Order Number: [id number] Reading MD: Paulo Villegas Measurements Intervals [place] Rate: 59 P: 48 AL: 220 QRS: 3 QRSD: 168 T: 98 QT: 484 QTc: 484 Interpretive Statements SINUS RHYTHM PROLONGED AL INTERVAL LEFT BUNDLE BRANCH BLOCK Electronically Signed On 03-24-2019 16:25:15 CDT by Paulo Villegas
[2019-03-13] MEDS ORDERED: guaiFENesin DM 200MG/20MG 10 ML SYRUP PO PRN (11:00)
[2019-03-13] MEDS ORDERED: METOPROLOL SUCC 24HR ER 50 MG TAB.ER.24H. PO SCH (11:00)
[2019-03-13] MEDS ORDERED: DEXTROSE 50% 25 GM / 50ML DISP.SYRIN. IV PRN (11:15)
[2019-03-13] MEDS ORDERED: IV DEXTROSE 5% 250 ML BAG. IV PRN (11:15)
--- NOTE | 2019-03-13 11:24 | NUR ---
Patient arrived on unit at 1020 from ED. Patient on BiPap 60% FiO2. Report received from Bozena LESLIE. Patient's clothing in green bag. No valuables. Patient's , Bella arrived in room. Able to answer all admission requirements. All medications are the same since last admission. Oriented to room, call light, unit routines.
[2019-03-13] MEDS: FERROUS SULFATE 325 MG TABLET. PO SCH (11:30)
[2019-03-13 11:32] LABS: PROTHROMBIN TIME PATIENT 17.6 SEC (11.7-14.0)
[2019-03-13] MEDS: ISOSORBIDE MONONITRATE ER 30 MG TAB.ER.24H PO SCH (11:41)
[2019-03-13] MEDS: INSULIN LISPRO 300 UNITS/3 ML VIAL. SQ SCH ×2 (11:41→17:00)
[2019-03-13] MEDS: AMIODARONE HCL 200 MG TABLET. PO SCH (11:42)
--- NOTE | 2019-03-13 11:45 | CONS ---
DATE OF CONSULTATION: 03/13/2019 PULMONARY CONSULTATION ATTENDING PHYSICIAN: Dr. Dutch Pepe. REASON FOR CONSULTATION: Respiratory failure. HISTORY OF PRESENT ILLNESS: The patient is a 73-year-old who has history of cardiomyopathy with an EF of 40% and recent cardiac catheterization with left ventricular diastolic pressure of 26. He had LAD stent in January. He was brought into the hospital with increasing shortness of breath for the last few days. He has increasing ankle edema. Denies any cough, fever or chills. He has a history of atrial fibrillation, on Coumadin. No chest pain, no headaches, no nausea, vomiting or diarrhea. The patient was hypoxic. He was placed initially on 15 liters FiO2. His saturation was 62%, then placed on BiPAP. ABGs showed a pH of 7.23, pCO2 of 39, and a pO2 of 107 with a bicarbonate of 16. This was obtained on 100% oxygen. The patient received Lasix IV and currently on down to 60% oxygen. PAST MEDICAL HISTORY: History of atrial fibrillation, history of coronary artery disease, history of cardiomyopathy, history of LAD stent, hypertension, pneumonia, osteoarthritis, chronic renal insufficiency and diabetes. PAST SURGICAL HISTORY: Cardiac catheterization and stent placement. ALLERGIES: None. MEDICATIONS: Reviewed as listed in the [facility]AD including warfarin, metoprolol, and DuoNebs. REVIEW OF SYSTEMS: Twelve-point system obtained. Pertinent positives discussed in my history of present illness, otherwise noncontributory. All systems that were negative were reviewed as well. SOCIAL HISTORY: Smoked for about 20 years before quitting. PHYSICAL EXAMINATION: VITAL SIGNS: Reviewed. Blood pressure was on the high side on admission of 220/105. Pulse ox 96% on BiPAPs, afebrile. HEENT: Sclerae nonicteric. NECK: Supple. LUNGS: With diminished breath sounds at the bases. CARDIOVASCULAR: With a regular rate. ABDOMEN: Soft. EXTREMITIES: With bilateral ankle edema. LABORATORY DATA: Reviewed. ABGs as discussed in my history of present illness. BUN 39, creatinine 3.0, chloride 107. ProBNP 9472. IMPRESSION: 1. Acute hypoxic respiratory failure secondary to acute on chronic systolic and diastolic heart failure. 2. Hypertensive emergency, present on admission, contributing to congestive heart failure. 3. The patient with known cardiomyopathy with an EF of 40% and history of increased left ventricular end diastolic pressure based on 01/2019 cardiac catheterization. 4. Abnormal arterial blood gases, consistent with acute metabolic acidosis, likely related to acute on chronic kidney disease. 5. Minimal history of tobacco use. 6. Abnormal chest x-ray consistent with diffuse interstitial edema, which is worse than previous x-ray. RECOMMENDATIONS: 1. Continue with present BiPAP until oxygenation improves. 2. Follow ABGs. 3. Continue diuresis per Cardiology. 4. Continue bronchodilators. 5. Anticoagulation for AFib per Cardiology. 6. Continue present bronchodilators. 7. Follow chest x-rays to see the response to diuresis. 8. Discussed with the patient's and RN. If chest x-ray does not improve with diuresis, then we will do a noncontrast CT chest to rule out any amiodarone-induced interstitial lung disease. TRISH REECE MD DR: JESSICA/talita JOB#: [id number] / [id number]
--- NOTE | 2019-03-13 12:07 | PDOC2 ---
MARY VINCENT [employer] 03/13/19 1207: CARDIAC CONSULT DATE OF CONSULT Date of Consult DATE: 03/13/19 TIME: 11:58 REASON FOR CONSULT Reason for Consult: Acute CHF REFERRING PHYSICIAN Referring Physician: Afshin SOURCE Source: Chart review, Patient HISTORY OF PRESENT ILLNESS HISTORY OF PRESENT ILLNESS This is a pleasant 73 yo male admitted for complains of shortness of breath. Reports that this intensified yesterday. +for PND and orthopnea. Denies any chest pain or any palpitations. Upon admission he was placed on bipap which he eventually responded and also noted with high BP. He does not check his BP at home. He still has significant renal insufficiency. No n/v/d and no complains of any fever or chills. PAST MEDICAL HISTORY Past Medical History Cardiovascular: AFIB, CAD, CHF, HTN Pulmonary: Pneumonia GI: GERD Heme/Onc: Anemia NOS Hepatobiliary: No pertinent hx Psych: No pertinent hx Musculoskeletal: Osteoarthritis Rheumatologic: No pertinent hx Infectious disease: No pertinent hx Renal/: Chronic renal insuff Endocrine: Diabetes PAST SURGICAL HISTORY Past Surgical History recent coronary stent FAMILY HISTORY Family History: Hypertension SOCIAL HISTORY Smoke: <1 pack per day ALCOHOL: none Drugs: None Lives: with Family CURRENT MEDICATIONS CURRENT MEDICATIONS Current Medications Medications (Trade) Dose Ordered Sig/Gwen Route PRN Reason Start Time Stop Time Status Last Admin Dose Admin Albuterol/ Ipratropium (Duoneb) 3 ml 1X ONCE NEB 03/13/19 07:00 03/13/19 07:01 DC 03/13/19 07:09 Methylprednisolone Sodium Succinate (SOLU-Medrol 125MG VIAL) 125 mg 1X ONCE IV 03/13/19 07:00 03/13/19 07:01 DC 03/13/19 07:13 Furosemide (Lasix) 60 mg 1X ONCE IVP 03/13/19 07:00 03/13/19 07:01 DC 03/13/19 07:12 Ondansetron HCl (Zofran) 8 mg 1X ONCE IV 03/13/19 07:23 03/13/19 07:54 DC 03/13/19 07:56 Amiodarone HCl (Cordarone) 200 mg DAILY PO 03/13/19 11:00 03/13/19 11:42 Isosorbide Mononitrate (Imdur) 30 mg DAILY PO 03/13/19 11:00 03/13/19 11:42 ALLERGIES ALLERGIES: Coded Allergies: No Known Drug Allergies (Unverified , 01/24/19) ROS Review of System 14 point ROS evaluated with pertinent positives noted per HPI PHYSICAL EXAM General: Alert, Oriented X3, Cooperative, mild distress HEENT: Atraumatic, Mucous membr. moist/pink Lungs: Other (basilar crackles, biapap) Heart: Regular rate (SR LBBB), Other (distant heart sounds) Abdomen: Soft, No tenderness Extremities: No cyanosis, Other (2+ bilateral LE pitting edema) Skin: No breakdown, No significant lesion Neuro: Normal speech, Sensation intact Psych/Mental Status: Mental status NL, Mood NL MUSCULOSKELETAL: Osteoarthritic changes both hands VITALS/I&O VITALS/I&O: Vital Signs Date Time Temp Pulse Resp B/P (MAP) Pulse Ox O2 Delivery O2 Flow Rate FiO2 03/13/19 11:42 54 176/83 03/13/19 11:20 Bi-pap 03/13/19 09:30 20 97 03/13/19 06:46 96.4 15.0 96.4 LABS Lab: Laboratory Tests Test 03/13/19 06:48 03/13/19 07:40 03/13/19 08:00 03/13/19 08:40 O2 Saturation 97 % (92-99) Arterial Blood pH 7.23 (7.35-7.45) L Arterial Blood pCO2 at Patient Temp 39 mmHg (35-46) Arterial Blood pO2 at Patient Temp 107 mmHg (65-108) Arterial Blood HCO3 16 mmol/L (21-28) L Arterial Blood Base Excess -11 mmol/L (-3-3) L Oxyhemoglobin 96.2 % Methemoglobin 0.5 % (0.0-1.9) Carbon Monoxide, Quantitative 0.1 % (0.0-1.9) FiO2 100 White Blood Count 7.2 x10^3/uL (4.0-11.0) Red Blood Count 4.11 x10^6/uL (4.30-5.70) L Hemoglobin 10.0 g/dL (13.0-17.5) L Hematocrit 32.6 % (39.0-53.0) L Mean Corpuscular Volume 79 fL (79-100) Mean Corpuscular Hemoglobin 25 pg (25-35) Mean Corpuscular Hemoglobin Concent 31 g/dL (31-37) Red Cell Distribution Width 24.0 % (11.5-14.5) H Platelet Count 224 x10^3/uL (140-400) Neutrophils (%) (Auto) 56 % (31-73) Lymphocytes (%) (Auto) 33 % (24-48) Monocytes (%) (Auto) 10 % (0-9) H Eosinophils (%) (Auto) 0 % (0-3) Basophils (%) (Auto) 1 % (0-3) Neutrophils # (Auto) 4.0 x10^3/uL (1.8-7.7) Lymphocytes # (Auto) 2.4 x10^3/uL (1.0-4.8) Monocytes # (Auto) 0.7 x10^3/uL (0.0-1.1) Eosinophils # (Auto) 0.0 x10^3/uL (0.0-0.7) Basophils # (Auto) 0.1 x10^3/uL (0.0-0.2) Prothrombin Time 17.6 SEC (11.7-14.0) H Prothrombin Time INR 1.5 (0.8-1.1) H Sodium Level 140 mmol/L (136-145) Potassium Level 4.8 mmol/L (3.5-5.1) Chloride Level 107 mmol/L (98-107) Carbon Dioxide Level 18 mmol/L (21-32) L Anion Gap 15 (6-14) H Blood Urea Nitrogen 39 mg/dL (8-26) H Creatinine 3.0 mg/dL (0.7-1.3) H Estimated GFR (Cockcroft-Gault) 24.9 BUN/Creatinine Ratio 13 (6-20) Glucose Level 191 mg/dL (70-99) H Calcium Level 8.8 mg/dL (8.5-10.1) Total Bilirubin 0.6 mg/dL (0.2-1.0) Aspartate Amino Transferase (AST) 20 U/L (15-37) Alanine Aminotransferase (ALT) 16 U/L (16-63) Alkaline Phosphatase 98 U/L (46-116) Troponin I Quantitative < 0.017 ng/mL (0.000-0.055) VO-Jia-O-Type Natriuretic Peptide 9472 pg/mL (0-124) H Total Protein 8.3 g/dL (6.4-8.2) H Albumin 3.1 g/dL (3.4-5.0) L Albumin/Globulin Ratio 0.6 (1.0-1.7) L Urine Collection Type Unknown Urine Color Yellow Urine Clarity Cloudy Urine pH 6.0 Urine Specific [place] 1.010 Urine Protein 100 mg/dL (NEG-TRACE) Urine Glucose (UA) Negative mg/dL (NEG) Urine Ketones (Stick) Negative mg/dL (NEG) Urine Blood Moderate (NEG) Urine Nitrite Negative (NEG) Urine Bilirubin Negative (NEG) Urine Urobilinogen Dipstick 0.2 mg/dL (0.2 mg/dL) Urine Leukocyte Esterase Large (NEG) Urine RBC 3-5 /HPF (0-2) Urine WBC >40 /HPF (0-4) Urine Amorphous Sediment Present /HPF Urine Bacteria Moderate /HPF (0-FEW) Laboratory Tests 03/13/19 07:40 Laboratory Tests 03/13/19 08:00 ECHOCARDIOGRAM ECHOCARDIOGRAM <Conclusion> The left ventricular systolic function is mildly reduced. LVEF 40% Wall motion consistent with conduction abnormality. Mild to moderate global hypokinesis. There is moderate left pleural effusion. DATE: 01/26/191935 HEART CATH HEART CATH FINDINGS: HEMODYNAMICS: LVEDP 26 mm Hg No gradient on LV to aortic pullback. AO: 100/80 LEFT VENTRICULOGRAM: Deferred due to significant CKD CORONARY ANGIOGRAPHY: LM is a large caliber vessel with normal angiographic appearance. LAD is a moderate caliber vessel with mild proximal irregularities, an 80% mid LAD stenosis. The distal vessel has mild diffuse irregularities and is neg atively remodeled. Ramus is a moderate caliber vessel with mild luminal irregularities. LCx is a moderate caliber non-dominant vessel with normal angiographic appearance. LPL1 is a moderate caliber vessel with mid to distal moderate diffuse disease. RCA is a small caliber non-dominant vessel with mild luminal irregularities. INTERVENTIONAL TECHNIQUE: Due to the patient's recurrent flash pulmonary edema episodes despite aggressive medical therapy, a decision was made to treat the significant LAD stenosis. Heparin only was used for anticoagulation as the patient was therapeutic on his coumadin. Through a 6Fr EBU 3.5 guide catheter, a 0.014'' Prowater wire was advanced to the distal LAD. Next, balloon angioplasty was performed with a Trek 2.5/15 mm balloon and the lesion was stented with a Resolute 3.0/18 mm CHRIS. The lesion was post-dilated proximally with a Trek 3.0 mm NC balloon. Final angiography demonstrated LALY 3 flow and no evidence of guide or wire related complications. The patient received 180mg of Ticagrelor at case completion. LALY Flow LALY Flow (Pre-Intervention): LALY-3 LALY Flow (Post-Intervention): LALY-3 Conclusion 1. Acute on chronic decompensated systolic and diastolic HF. LVEDP 26 mm Hg 2. Three vessel coronary disease with critical lesion in the LAD 3. Successful PCI of the LAD with implantation of a Resolute 3.0/18 mm CHRIS. Recommendations ASA 81mg daily, Ticagrelor 90mg bid and warfarin for 2 weeks, then stop ASA 81mg daily Continue aggressive risk factor modification. Monitor for ANEESH 02/19/2019 11:53:52 ASSESSMENT/PLAN ASSESSMENT/PLAN 1. Acute on chronic diastolic/systolic CHF: refractory mainly from renal disease and uncontrolled HTN 2. PAFIB with chronic LBBB: maintaining SR but with armando episodes 3. Cardiomyopathy; LVEF 40%, combined ICM/NICM 4. CAD: S/P PCI/CHRIS to LAD, clinically stable. 5. HTN urgency 6. JESSICA on CKD4 7. Hyperlipidemia; statin therapy 8. Diabetes mellitus type 2 9. RADHA 10. Chronic warfarin therapy: INR 1.5 11. Hx of urinary retention: Leggett in place Recommendations 1. Continue amiodarone and toprol (decrease dosing). Start on amlodipine 2. ASA 81mg daily, Ticagrelor 90mg bid and warfarin for 2 weeks, then stop ASA 81mg daily from 02/19/2019 3. Continue with lasix therapy. Would benefit from HD 4. Continue secondary prevention measures. 5. Bipap PRN 6. Encouraged HBPM monitoring. 2L FR and daily wt. ALINA OSPINA MD 03/13/19 7070: CARDIAC CONSULT ASSESSMENT/PLAN ASSESSMENT/PLAN Patient seen and examined. Agree with above nurse practitioner note. He has been on adequate medical therapy and when he leaves here he usually has good blood pressure control rate despite adequate therapy and good blood pressure control he continues to have recurrent heart failure admissions. He would highly benefit from initiation of hemodialysis. Previously him and his have refused this although when he was on hemodialysis he did not have any heart failure admissions. Supportive care for now. Discussed with MARY Osuna APRN Mar 13, 2019 12:07 ALINA OSPINA MD Mar 13, 2019 17:02
--- NOTE | 2019-03-13 12:07 | NUR ---
Pharmacy Warfarin Dosing Note S:Pharmacy consulted to assist with anticoagulation therapy started with target INR: 2 -3 O:ROMMEL POLK is a 73 year old M with Atrial Fibrillation LABS: Last INR: 1.5 Last HGB: 10 Last HCT: 32.6 Last PLT: 224 Last dose given Prior to admission Previous Regimen: Per patient 5 mg po daily Vitamin K given: N Drug Interaction Changes: Same Interacting Drug Ongoing Drug Interactions: Amiodarone, ASA, Ticagrelor, Atorvastatin A:INR of 1.5 is below desired range. Target range for this patient is: 2 -3 P: Warfarin dose: 5 mg Today at 1600 Bridge Therapy: None Next INR due 03/14/19 Pharmacy anticoagulation service will continue to follow. YAMILETH WOODS, [facility], 03/13/19 [id number]
[2019-03-13] MEDS: IPRATRPIUM/ALBUTEROL 0.5/2.5MG 3 ML NEBU. NEB SCH ×3 (12:11→19:53)
[2019-03-13] MEDS: BUDESONIDE 0.5 MG/2 ML NEBU. NEB SCH ×2 (12:12→19:53)
[2019-03-13 12:27] LABS: BASE EXCESS ABG -8 mmol/L (-3-3); HCO3 ABG 16 mmol/L (21-28); PCO2 ABG 29 mmHg (35-46); PO2 ABG 82 mmHg (65-108); SAT O2 ABG 96 % (92-99)
[2019-03-13 12:38] LABS: FIO2 ABG 60
[2019-03-13] MEDS: FUROSEMIDE 40 MG/4 ML VIAL. IVP SCH (13:58)
[2019-03-13] MEDS: amLODIPine BESYLATE 10 MG TABLET PO SCH (13:58)
--- NOTE | 2019-03-13 15:12 | NUR ---
RN notified Dr. Pepe of persistent HTN-- even with home medications restarted and given. HR remains 50-55. Order received for 0.5 inch Nitro paste Q4 prn. Patient remains on BiPap. Sleeping at this time.
[2019-03-13] MEDS ORDERED: NITROGLYCERIN OINT 1 GM PACKET. TP PRN (15:15)
--- NOTE | 2019-03-13 15:50 | PDOC2 ---
CONSULT Date of Consult Date of Consult DATE: 03/13/19 TIME: 15:38 Reason for Consult Reason for Consult: JESSICA Source Source: Chart review History of Present Illness Reason for Visit: Pt is a 73yo w/ PMHx of A-Fib, Anemia, CAD s/p LAD stent 02/19/19, CHF, Diabetes, Hypertension, Renal Failure who presents via EMS with complaining of shortness of breath.Has maultiple hospitalizations Patient was admitted in this hospital previously with pulmonary edema and again was admitted at [facility] and discharged home with diagnosis of atrial fibrillation on Coumadin. Patient complaining of sudden onset of short ness of breath since this morning with productive cough and per EMS saturations in the 80s, patient's placed on CPAP with saturations 94-95%. Patient did receive one albuterol treatment prior to his arrival. He was saturating at 62%, placed on 15L, and subsequently placed on BiPAP, saturation 96-98%. Patient denies any chest pain, nausea, vomiting. Cr 3 and BUN 39, troponin negative.he has CKD previously requiring dialysis for up to 6 months last year. CXR shows increased diffuse interstitial and alveolar opacities with consolidative appearance in the left lung, concerning for pulmonary edema or pneumonia EKG shows intraventricular block and appears sinus with 1st degree AV block. Past Medical History Cardiovascular: AFIB, CAD, CHF, HTN Pulmonary: Pneumonia GI: Other Heme/Onc: Anemia NOS Hepatobiliary: No pertinent hx Psych: No pertinent hx Musculoskeletal: Osteoarthritis Rheumatologic: No pertinent hx Infectious disease: No pertinent hx Renal/: Chronic renal insuff Endocrine: Diabetes Past Surgical History Past Surgical History: Other Family History Family History: Hypertension Social History <1 pack per day ALCOHOL: none Drugs: None Lives: with Family Current Problem List Problem List Problems Medical Problems: (1) Acute on chronic diastolic (congestive) heart failure Status: Acute (2) CHF (congestive heart failure) Status: Chronic (3) CKD (chronic kidney disease) Status: Chronic (4) HTN (hypertension) Status: Chronic (5) Respiratory failure Status: Acute Current Medications Current Medications Current Medications Albuterol/ Ipratropium (Duoneb) 3 ml 1X ONCE NEB Last administered on 03/13/19at 07:09; Start 03/13/19 at 07:00; Stop 03/13/19 at 07:01; Status DC Methylprednisolone Sodium Succinate (SOLU-Medrol 125MG VIAL) 125 mg 1X ONCE IV Last administered on 03/13/19at 07:13; Start 03/13/19 at 07:00; Stop 03/13/19 at 07:01; Status DC Furosemide (Lasix) 60 mg 1X ONCE IVP Last administered on 03/13/19at 07:12; Start 03/13/19 at 07:00; Stop 03/13/19 at 07:01; Status DC Furosemide (Lasix) 100 mg STK-MED ONCE .ROUTE ; Start 03/13/19 at 06:51; Stop 03/13/19 at 06:51; Status DC Ondansetron HCl (Zofran) 4 mg STK-MED ONCE .ROUTE ; Start 03/13/19 at 07:22; Stop 03/13/19 at 07:23; Status DC Ondansetron HCl (Zofran) 8 mg 1X ONCE IV Last administered on 03/13/19at 07:56; Start 03/13/19 at 07:23; Stop 03/13/19 at 07:54; Status DC Ondansetron HCl (Zofran) 4 mg PRN Q8HRS PRN IV NAUSEA/VOMITING; Start 03/13/19 at 09:15; Stop 03/14/19 at 09:14 Albuterol/ Ipratropium (Duoneb) 3 ml RTQID NEB Last administered on 03/13/19at 15:07; Start 03/13/19 at 12:00; Stop 03/14/19 at 11:59 Albuterol Sulfate (Ventolin Neb Soln) 2.5 mg PRN Q6HRS PRN INH SHORTNESS OF BREATH; Start 03/13/19 at 11:00 Amiodarone HCl (Cordarone) 200 mg DAILY PO Last administered on 03/13/19at 11:42; Start 03/13/19 at 11:00 Aspirin (Ecotrin) 81 mg DAILYWBKFT PO ; Start 03/14/19 at 08:00 Atorvastatin Calcium (Lipitor) 40 mg QHS PO ; Start 03/13/19 at 21:00 Guaifenesin (Robitussin Dm) 10 ml PRN Q6HRS PRN PO COUGH; Start 03/13/19 at 11:00 Insulin Glargine (Lantus Syringe) 15 unit HS SQ ; Start 03/13/19 at 21:00 Isosorbide Mononitrate (Imdur) 30 mg DAILY PO Last administered on 03/13/19at 11:42; Start 03/13/19 at 11:00 Metoprolol Succinate (Toprol Xl) 50 mg DAILY PO ; Start 03/13/19 at 11:00; Stop 03/13/19 at 12:23; Status DC Tamsulosin HCl (Flomax) 0.4 mg QHS PO ; Start 03/13/19 at 21:00 Ticagrelor (Brilinta) 90 mg BID PO ; Start 03/13/19 at 21:00 Warfarin Sodium (Coumadin) 5 mg QPM PO ; Start 03/13/19 at 18:00; Status UNV Budesonide (Pulmicort) 0.5 mg RTBID NEB Last administered on 03/13/19at 12:12; Start 03/13/19 at 11:30 Ferrous Sulfate (Feosol) 325 mg DAILYWBKFT PO ; Start 03/13/19 at 11:30 Warfarin Sodium (Coumadin Per Pharmacy) 1 each PRN DAILY PRN MC SEE COMMENTS Last administered on 03/13/19at 12:04; Start 03/13/19 at 11:00 Furosemide (Lasix) 40 mg BID92 IVP Last administered on 03/13/19at 13:58; Start 03/13/19 at 14:00 Insulin Human Lispro (HumaLOG) 0-7 UNITS TIDWMEALS SQ ; Start 03/13/19 at 12:00 Dextrose (Dextrose 50%-Water Syringe) 12.5 gm PRN Q15MIN PRN IV SEE COMMENTS; Start 03/13/19 at 11:15 Dextrose 250 ml PRN Q15MIN PRN IV SEE COMMENTS; Start 03/13/19 at 11:15 Warfarin Sodium (Coumadin) 5 mg 1X WARF ONCE PO ; Start 03/13/19 at 16:00; Stop 03/13/19 at 16:01 Metoprolol Succinate (Toprol Xl) 25 mg DAILY PO ; Start 03/14/19 at 09:00 Amlodipine Besylate (Norvasc) 10 mg DAILY PO Last administered on 03/13/19at 13:58; Start 03/13/19 at 12:30 Nitroglycerin (Nitro-Bid Oint) 0.5 inch PRN Q4HRS PRN TP hypertension; Start 03/13/19 at 15:15 Active Scripts Active Proair Hfa (Albuterol Sulfate) 8.5 Gm Hfa.aer.ad 1 Puff INH PRN Q6HRS PRN 30 Days Pulmicort Flexhaler (Budesonide) 180 Mcg Aer.pow.ba 2 Puff IH BID Guaifenesin Dm Syrup (Guaifenesin/Dextromethorphan) 5 Ml Syrup 10 Ml PO PRN Q6HRS PRN 7 Days Lantus (Insulin Glargine,Hum.rec.anlog) 100 Unit/1 Ml Vial 15 Unit SQ HS 30 Days Furosemide 40 Mg Tablet 40 Mg PO BID92 Aspirin Ec (Aspirin) 81 Mg Tablet.dr 81 Mg PO DAILYWBKFT Metoprolol Succinate ( Xl ) (Metoprolol Succinate) 25 Mg Tab.er.24h 50 Mg PO DAILY Isosorbide Mononitrate Er (Isosorbide Mononitrate) 30 Mg Tab.er.24h 30 Mg PO DAILY Atorvastatin Calcium 40 Mg Tablet 40 Mg PO QHS Brilinta (Ticagrelor) 90 Mg Tablet 90 Mg PO BID Amiodarone Hcl 200 Mg Tablet 200 Mg PO DAILY Reported Warfarin Sodium 5 Mg Tablet 5 Mg PO DAILY take 5mg on sat,sat.thur,sat,sun take 6 mg on saturday and saturday Ferrous Sulfate 324 Mg Tablet.dr 324 Mg PO DAILY Flomax (Tamsulosin Hcl) 0.4 Mg Cap.er.24h 0.4 Mg PO DAILY Allergies Allergies: Coded Allergies: No Known Drug Allergies (Unverified , 01/24/19) ROS Review of System Per HPI Physical Exam Physical Exam General: Alert, Oriented X3, Cooperative, mild distress HEENT: OM moist, On Bipap neck Supple Lungs: basilar crackles, Heart: Regular rate Abdomen: Soft, No tenderness Extremities: No cyanosis, Other (2+ bilateral LE pitting edema) Skin: No breakdown, No significant lesion Neuro: Normal speech, Sensation intact mendez Vital Signs Vital Signs Date Time Temp Pulse Resp B/P (MAP) Pulse Ox O2 Delivery O2 Flow Rate FiO2 03/13/19 15:07 98 BiPAP/CPAP 03/13/19 15:00 55 21 169/71 (103) 03/13/19 10:30 97.0 97.0 9/20/19 06:46 15.0 Assessment & Plan JESSICA -Cardiorenal back to baseline E-lytes and acid base stable, No uremic symptoms Currently No indication for HD, Supportive care,monitor CKD stage 4- was on HD in the past- taken off Dialysis appox 6 -8 months back Urinary retention, chronic mendez in place Per Urology ? UTI - indwelling Mendez Defer to primary Acute hypoxic respiratory failure -acute combined systolic and diastolic CHF on BIPAP, Recd Lasix Acute on chronic diastolic/systolic CHF - EF 40% previously, appears deco mpensated currently with CXR and BNP IV 40mg Lasix BID- card managing CAD - s/p PCI/stent placement one year ago and again 3 weeks ago Hypertension - not well controlled, Diabetes mellitus type 2 Paroxysmal AFIB with chronic LBBB - sinus now with LBBB, is on amiodarone and warfarin. Labs Labs Laboratory Tests Test 03/13/19 06:48 03/13/19 07:40 03/13/19 08:00 03/13/19 08:40 O2 Saturation 97 % (92-99) Arterial Blood pH 7.23 (7.35-7.45) Arterial Blood pCO2 at Patient Temp 39 mmHg (35-46) Arterial Blood pO2 at Patient Temp 107 mmHg (65-108) Arterial Blood HCO3 16 mmol/L (21-28) Arterial Blood Base Excess -11 mmol/L (-3-3) Oxyhemoglobin 96.2 % Methemoglobin 0.5 % (0.0-1.9) Carbon Monoxide, Quantitative 0.1 % (0.0-1.9) FiO2 100 White Blood Count 7.2 x10^3/uL (4.0-11.0) Red Blood Count 4.11 x10^6/uL (4.30-5.70) Hemoglobin 10.0 g/dL (13.0-17.5) Hematocrit 32.6 % (39.0-53.0) Mean Corpuscular Volume 79 fL (79-100) Mean Corpuscular Hemoglobin 25 pg (25-35) Mean Corpuscular Hemoglobin Concent 31 g/dL (31-37) Red Cell Distribution Width 24.0 % (11.5-14.5) Platelet Count 224 x10^3/uL (140-400) Neutrophils (%) (Auto) 56 % (31-73) Lymphocytes (%) (Auto) 33 % (24-48) Monocytes (%) (Auto) 10 % (0-9) Eosinophils (%) (Auto) 0 % (0-3) Basophils (%) (Auto) 1 % (0-3) Neutrophils # (Auto) 4.0 x10^3/uL (1.8-7.7) Lymphocytes # (Auto) 2.4 x10^3/uL (1.0-4.8) Monocytes # (Auto) 0.7 x10^3/uL (0.0-1.1) Eosinophils # (Auto) 0.0 x10^3/uL (0.0-0.7) Basophils # (Auto) 0.1 x10^3/uL (0.0-0.2) Prothrombin Time 17.6 SEC (11.7-14.0) Prothromb Time International Ratio 1.5 (0.8-1.1) Sodium Level 140 mmol/L (136-145) Potassium Level 4.8 mmol/L (3.5-5.1) Chloride Level 107 mmol/L (98-107) Carbon Dioxide Level 18 mmol/L (21-32) Anion Gap 15 (6-14) Blood Urea Nitrogen 39 mg/dL (8-26) Creatinine 3.0 mg/dL (0.7-1.3) Estimated GFR (Cockcroft-Gault) 24.9 BUN/Creatinine Ratio 13 (6-20) Glucose Level 191 mg/dL (70-99) Calcium Level 8.8 mg/dL (8.5-10.1) Total Bilirubin 0.6 mg/dL (0.2-1.0) Aspartate Amino Transf (AST/SGOT) 20 U/L (15-37) Alanine Aminotransferase (ALT/SGPT) 16 U/L (16-63) Alkaline Phosphatase 98 U/L (46-116) Troponin I Quantitative < 0.017 ng/mL (0.000-0.055) UE-Blt-E-Type Natriuretic Peptide 9472 pg/mL (0-124) Total Protein 8.3 g/dL (6.4-8.2) Albumin 3.1 g/dL (3.4-5.0) Albumin/Globulin Ratio 0.6 (1.0-1.7) Procalcitonin < 0.10 ng/mL (0.00-0.10) Urine Collection Type Unknown Urine Color Yellow Urine Clarity Cloudy Urine pH 6.0 Urine Specific [place] 1.010 Urine Protein 100 mg/dL (NEG-TRACE) Urine Glucose (UA) Negative mg/dL (NEG) Urine Ketones (Stick) Negative mg/dL (NEG) Urine Blood Moderate (NEG) Urine Nitrite Negative (NEG) Urine Bilirubin Negative (NEG) Urine Urobilinogen Dipstick 0.2 mg/dL (0.2 mg/dL) Urine Leukocyte Esterase Large (NEG) Urine RBC 3-5 /HPF (0-2) Urine WBC >40 /HPF (0-4) Urine Amorphous Sediment Present /HPF Urine Bacteria Moderate /HPF (0-FEW) Test 03/13/19 11:40 03/13/19 12:20 Glucose (Fingerstick) 155 mg/dL (70-99) O2 Saturation 96 % (92-99) Arterial Blood pH 7.36 (7.35-7.45) Arterial Blood pCO2 at Patient Temp 29 mmHg (35-46) Arterial Blood pO2 at Patient Temp 82 mmHg (65-108) Arterial Blood HCO3 16 mmol/L (21-28) Arterial Blood Base Excess -8 mmol/L (-3-3) FiO2 60 Laboratory Tests Test 03/13/19 06:48 03/13/19 07:40 03/13/19 08:00 03/13/19 08:40 O2 Saturation 97 % (92-99) Arterial Blood pH 7.23 (7.35-7.45) Arterial Blood pCO2 at Patient Temp 39 mmHg (35-46) Arterial Blood pO2 at Patient Temp 107 mmHg (65-108) Arterial Blood HCO3 16 mmol/L (21-28) Arterial Blood Base Excess -11 mmol/L (-3-3) Oxyhemoglobin 96.2 % Methemoglobin 0.5 % (0.0-1.9) Carbon Monoxide, Quantitative 0.1 % (0.0-1.9) FiO2 100 White Blood Count 7.2 x10^3/uL (4.0-11.0) Red Blood Count 4.11 x10^6/uL (4.30-5.70) Hemoglobin 10.0 g/dL (13.0-17.5) Hematocrit 32.6 % (39.0-53.0) Mean Corpuscular Volume 79 fL (79-100) Mean Corpuscular Hemoglobin 25 pg (25-35) Mean Corpuscular Hemoglobin Concent 31 g/dL (31-37) Red Cell Distribution Width 24.0 % (11.5-14.5) Platelet Count 224 x10^3/uL (140-400) Neutrophils (%) (Auto) 56 % (31-73) Lymphocytes (%) (Auto) 33 % (24-48) Monocytes (%) (Auto) 10 % (0-9) Eosinophils (%) (Auto) 0 % (0-3) Basophils (%) (Auto) 1 % (0-3) Neutrophils # (Auto) 4.0 x10^3/uL (1.8-7.7) Lymphocytes # (Auto) 2.4 x10^3/uL (1.0-4.8) Monocytes # (Auto) 0.7 x10^3/uL (0.0-1.1) Eosinophils # (Auto) 0.0 x10^3/uL (0.0-0.7) Basophils # (Auto) 0.1 x10^3/uL (0.0-0.2) Prothrombin Time 17.6 SEC (11.7-14.0) Prothromb Time International Ratio 1.5 (0.8-1.1) Sodium Level 140 mmol/L (136-145) Potassium Level 4.8 mmol/L (3.5-5.1) Chloride Level 107 mmol/L (98-107) Carbon Dioxide Level 18 mmol/L (21-32) Anion Gap 15 (6-14) Blood Urea Nitrogen 39 mg/dL (8-26) Creatinine 3.0 mg/dL (0.7-1.3) Estimated GFR (Cockcroft-Gault) 24.9 BUN/Creatinine Ratio 13 (6-20) Glucose Level 191 mg/dL (70-99) Calcium Level 8.8 mg/dL (8.5-10.1) Total Bilirubin 0.6 mg/dL (0.2-1.0) Aspartate Amino Transf (AST/SGOT) 20 U/L (15-37) Alanine Aminotransferase (ALT/SGPT) 16 U/L (16-63) Alkaline Phosphatase 98 U/L (46-116) Troponin I Quantitative < 0.017 ng/mL (0.000-0.055) DX-Iod-Z-Type Natriuretic Peptide 9472 pg/mL (0-124) Total Protein 8.3 g/dL (6.4-8.2) Albumin 3.1 g/dL (3.4-5.0) Albumin/Globulin Ratio 0.6 (1.0-1.7) Procalcitonin < 0.10 ng/mL (0.00-0.10) Urine Collection Type Unknown Urine Color Yellow Urine Clarity Cloudy Urine pH 6.0 Urine Specific [place] 1.010 Urine Protein 100 mg/dL (NEG-TRACE) Urine Glucose (UA) Negative mg/dL (NEG) Urine Ketones (Stick) Negative mg/dL (NEG) Urine Blood Moderate (NEG) Urine Nitrite Negative (NEG) Urine Bilirubin Negative (NEG) Urine Urobilinogen Dipstick 0.2 mg/dL (0.2 mg/dL) Urine Leukocyte Esterase Large (NEG) Urine RBC 3-5 /HPF (0-2) Urine WBC >40 /HPF (0-4) Urine Amorphous Sediment Present /HPF Urine Bacteria Moderate /HPF (0-FEW) Test 03/13/19 11:40 03/13/19 12:20 Glucose (Fingerstick) 155 mg/dL (70-99) O2 Saturation 96 % (92-99) Arterial Blood pH 7.36 (7.35-7.45) Arterial Blood pCO2 at Patient Temp 29 mmHg (35-46) Arterial Blood pO2 at Patient Temp 82 mmHg (65-108) Arterial Blood HCO3 16 mmol/L (21-28) Arterial Blood Base Excess -8 mmol/L (-3-3) FiO2 60 Review All relevant outside records, renal labs, imaging studies, telemetry/EKG's were reviewed. Images Images Diffuse interstitial and alveolar opacities with consolidative appearance of the left mid and lower lung. Small pleural effusions. Enlarged cardiac silhouette although portable technique accentuates cardiac size. No pneumothorax. Impression: 1. Increased diffuse interstitial and alveolar opacities with consolidative appearance in the left lung, concerning for pulmonary edema or pneumonia. 2. Probable small bilateral pleural effusions. ALANNA ESTEVEZ MD Mar 13, 2019 15:50
[2019-03-13] MEDS ORDERED: WARFARIN 5 MG TABLET. PO ONE (16:00)
[2019-03-13] MEDS ORDERED: WARFARIN 5 MG TABLET. PO SCH (18:00)
[2019-03-13] MEDS: TICAGRELOR 90 MG TABLET. PO SCH (20:42)
[2019-03-13] MEDS: ATORVASTATIN CALCIUM 40 MG TABLET. PO SCH (20:42)
[2019-03-13] MEDS: TAMSULOSIN 0.4 MG CAP.ER.24H. PO SCH (20:42)
[2019-03-13] MEDS: INSULIN GLARGINE SYRINGE. SQ SCH (20:45)
[2019-03-14] VITALS (17 sets, daily range): BP systolic 135–160; BP diastolic 58–77
[2019-03-14 05:05] LABS: BASO % 1 % (0-3); EOS % 0 % (0-3); HEMATOCRIT 28.3 % (39.0-53.0); LYMPH # 0.9 x10^3/uL (1.0-4.8); LYMPH % 19 % (24-48); MEAN CORPUSCULAR HEMOGLOBIN 25 pg (25-35); MEAN CORPUSCULAR HGB CONC 32 g/dL (31-37); MEAN CORPUSCULAR VOLUME 79 fL (79-100); MONO # 0.3 x10^3/uL (0.0-1.1); MONO % 6 % (0-9); NEUT # 3.6 x10^3/uL (1.8-7.7); NEUT % 74 % (31-73); PLATELET COUNT 220 x10^3/uL (140-400); RED CELL DISTRIBUTION WIDTH 22.3 % (11.5-14.5); WHITE BLOOD COUNT 4.8 x10^3/uL (4.0-11.0)
[2019-03-14 05:12] LABS: PROTHROMBIN TIME PATIENT 20.5 SEC (11.7-14.0)
[2019-03-14 05:26] LABS: ALBUMIN 2.7 g/dL (3.4-5.0); CALCIUM 8.8 mg/dL (8.5-10.1); CREATININE 3.2 mg/dL (0.7-1.3); GFR 23.1; PHOSPHORUS 4.2 mg/dL (2.6-4.7); POTASSIUM 5.6 mmol/L (3.5-5.1)
--- NOTE | 2019-03-14 05:46 | RAD ---
AP chest x-ray HISTORY: Congestive heart failure. COMPARISON: Chest March 13, 2019. FINDINGS: Cardiac megaly stable. Aortic arch calcified plaque. No pneumothorax. Pulmonary interstitial edema has mildly decreased. Persistent extensive lower lobe greater than upper lobe opacities have also decreased in density likely improving alveolar pulmonary edema. There may be a small right pleural effusion layering along the right lateral diaphragm new from the prior study. IMPRESSION: Mild improvement of the pulmonary edema with decreased interstitial thickening and pulmonary opacities. Residual pulmonary opacities are present at the lung bases representing alveolar edema or superimposed pneumonia. Development of a small right pleural effusion along the diaphragm. Electronically signed by: Humza William MD (03/14/2019 5:43 AM) [id number]
[2019-03-14 06:41] LABS: ANISOCYTOSIS MOD; HYPOCHROMIA PRESENT; PLT ESTIMATE ADEQUATE (ADEQUATE)
[2019-03-14] MEDS: INSULIN LISPRO 300 UNITS/3 ML VIAL. SQ SCH ×3 (08:00→17:00)
[2019-03-14] MEDS: BUDESONIDE 0.5 MG/2 ML NEBU. NEB SCH ×2 (08:05→18:24)
[2019-03-14] MEDS: IPRATRPIUM/ALBUTEROL 0.5/2.5MG 3 ML NEBU. NEB SCH ×2 (08:05→11:49)
[2019-03-14] MEDS: TICAGRELOR 90 MG TABLET. PO SCH ×2 (08:11→20:36)
[2019-03-14] MEDS: METOPROLOL SUCC 24HR ER 25 MG TAB.ER.24H. PO SCH (08:11)
[2019-03-14] MEDS: ASPIRIN ENTERIC COATED 81 MG TABLET.DR. PO SCH (08:11)
[2019-03-14] MEDS: ISOSORBIDE MONONITRATE ER 30 MG TAB.ER.24H PO SCH (08:12)
[2019-03-14] MEDS: FERROUS SULFATE 325 MG TABLET. PO SCH (08:12)
[2019-03-14] MEDS: AMIODARONE HCL 200 MG TABLET. PO SCH (08:12)
[2019-03-14] MEDS: amLODIPine BESYLATE 10 MG TABLET PO SCH (08:12)
[2019-03-14] MEDS: FUROSEMIDE 40 MG/4 ML VIAL. IVP SCH ×2 (08:13→14:43)
--- NOTE | 2019-03-14 08:42 | PDOC ---
PULMONARY PROGRESS NOTES Subjective The patient is a 73-year-old who has history of cardiomyopathy with an EF of 40% and recent cardiac catheterization with left ventricular diastolic pressure of 26. He had LAD stent in January. He was brought into the hospital with increasing shortness of breath for the last few days. He has increasing ankle edema.. He has a history of atrial fibrillation, on Coumadin. No chest pain, He was placed initially on 15 liters FiO2. His saturation was 62%, then placed on BiPAP. ABGs showed a pH of 7.23, pCO2 of 39, and a pO2 of 107 with a bicarbonate of 16. This was obtained on 100% oxygen. The patient received Lasix IV and currently on down to 60% oxygen. Since admission, he has been effectively diuresed. He notes that his shortness of breath is significantly better. This morning he is resting comfortably in bed on oxygen via nasal cannula. Vitals Vital Signs Date Time Temp Pulse Resp B/P (MAP) Pulse Ox O2 Delivery O2 Flow Rate FiO2 03/14/19 08:13 60 147/71 03/14/19 08:05 100 Nasal Cannula 4.0 03/14/19 07:00 20 03/14/19 04:00 98.7 98.7 ROS: No Nausea, No Chest Pain, No Abdominal Pain, No Increase Cough General: Alert, Oriented X4, No acute distress HEENT: Other (normal) Lungs: Other (equal clear breath sounds with a few bibasilar rales) Cardiovascular: S1, S2 Abdomen: Soft, Non-tender Neuro Exam: Alert, Oriented, Normal Speech, No Focal Findings Extremities: No Edema Skin: Warm, Dry Labs Laboratory Tests Test 03/13/19 06:48 03/13/19 07:40 03/13/19 08:00 03/13/19 08:40 O2 Saturation 97 % (92-99) Arterial Blood pH 7.23 (7.35-7.45) Arterial Blood pCO2 at Patient Temp 39 mmHg (35-46) Arterial Blood pO2 at Patient Temp 107 mmHg (65-108) Arterial Blood HCO3 16 mmol/L (21-28) Arterial Blood Base Excess -11 mmol/L (-3-3) Oxyhemoglobin 96.2 % Methemoglobin 0.5 % (0.0-1.9) Carbon Monoxide, Quantitative 0.1 % (0.0-1.9) FiO2 100 White Blood Count 7.2 x10^3/uL (4.0-11.0) Red Blood Count 4.11 x10^6/uL (4.30-5.70) Hemoglobin 10.0 g/dL (13.0-17.5) Hematocrit 32.6 % (39.0-53.0) Mean Corpuscular Volume 79 fL (79-100) Mean Corpuscular Hemoglobin 25 pg (25-35) Mean Corpuscular Hemoglobin Concent 31 g/dL (31-37) Red Cell Distribution Width 24.0 % (11.5-14.5) Platelet Count 224 x10^3/uL (140-400) Neutrophils (%) (Auto) 56 % (31-73) Lymphocytes (%) (Auto) 33 % (24-48) Monocytes (%) (Auto) 10 % (0-9) Eosinophils (%) (Auto) 0 % (0-3) Basophils (%) (Auto) 1 % (0-3) Neutrophils # (Auto) 4.0 x10^3/uL (1.8-7.7) Lymphocytes # (Auto) 2.4 x10^3/uL (1.0-4.8) Monocytes # (Auto) 0.7 x10^3/uL (0.0-1.1) Eosinophils # (Auto) 0.0 x10^3/uL (0.0-0.7) Basophils # (Auto) 0.1 x10^3/uL (0.0-0.2) Prothrombin Time 17.6 SEC (11.7-14.0) Prothromb Time International Ratio 1.5 (0.8-1.1) Sodium Level 140 mmol/L (136-145) Potassium Level 4.8 mmol/L (3.5-5.1) Chloride Level 107 mmol/L (98-107) Carbon Dioxide Level 18 mmol/L (21-32) Anion Gap 15 (6-14) Blood Urea Nitrogen 39 mg/dL (8-26) Creatinine 3.0 mg/dL (0.7-1.3) Estimated GFR (Cockcroft-Gault) 24.9 BUN/Creatinine Ratio 13 (6-20) Glucose Level 191 mg/dL (70-99) Calcium Level 8.8 mg/dL (8.5-10.1) Total Bilirubin 0.6 mg/dL (0.2-1.0) Aspartate Amino Transf (AST/SGOT) 20 U/L (15-37) Alanine Aminotransferase (ALT/SGPT) 16 U/L (16-63) Alkaline Phosphatase 98 U/L (46-116) Troponin I Quantitative < 0.017 ng/mL (0.000-0.055) FC-Pio-H-Type Natriuretic Peptide 9472 pg/mL (0-124) Total Protein 8.3 g/dL (6.4-8.2) Albumin 3.1 g/dL (3.4-5.0) Albumin/Globulin Ratio 0.6 (1.0-1.7) Procalcitonin < 0.10 ng/mL (0.00-0.10) Urine Collection Type Unknown Urine Color Yellow Urine Clarity Cloudy Urine pH 6.0 Urine Specific Tucker 1.010 Urine Protein 100 mg/dL (NEG-TRACE) Urine Glucose (UA) Negative mg/dL (NEG) Urine Ketones (Stick) Negative mg/dL (NEG) Urine Blood Moderate (NEG) Urine Nitrite Negative (NEG) Urine Bilirubin Negative (NEG) Urine Urobilinogen Dipstick 0.2 mg/dL (0.2 mg/dL) Urine Leukocyte Esterase Large (NEG) Urine RBC 3-5 /HPF (0-2) Urine WBC >40 /HPF (0-4) Urine Amorphous Sediment Present /HPF Urine Bacteria Moderate /HPF (0-FEW) Test 03/13/19 11:40 03/13/19 12:20 03/13/19 17:39 03/13/19 20:44 Glucose (Fingerstick) 155 mg/dL (70-99) 136 mg/dL (70-99) 226 mg/dL (70-99) O2 Saturation 96 % (92-99) Arterial Blood pH 7.36 (7.35-7.45) Arterial Blood pCO2 at Patient Temp 29 mmHg (35-46) Arterial Blood pO2 at Patient Temp 82 mmHg (65-108) Arterial Blood HCO3 16 mmol/L (21-28) Arterial Blood Base Excess -8 mmol/L (-3-3) FiO2 60 Test 03/14/19 04:30 White Blood Count 4.8 x10^3/uL (4.0-11.0) Red Blood Count 3.60 x10^6/uL (4.30-5.70) Hemoglobin 9.0 g/dL (13.0-17.5) Hematocrit 28.3 % (39.0-53.0) Mean Corpuscular Volume 79 fL (79-100) Mean Corpuscular Hemoglobin 25 pg (25-35) Mean Corpuscular Hemoglobin Concent 32 g/dL (31-37) Red Cell Distribution Width 22.3 % (11.5-14.5) Platelet Count 220 x10^3/uL (140-400) Neutrophils (%) (Auto) 74 % (31-73) Lymphocytes (%) (Auto) 19 % (24-48) Monocytes (%) (Auto) 6 % (0-9) Eosinophils (%) (Auto) 0 % (0-3) Basophils (%) (Auto) 1 % (0-3) Neutrophils # (Auto) 3.6 x10^3/uL (1.8-7.7) Lymphocytes # (Auto) 0.9 x10^3/uL (1.0-4.8) Monocytes # (Auto) 0.3 x10^3/uL (0.0-1.1) Eosinophils # (Auto) 0.0 x10^3/uL (0.0-0.7) Basophils # (Auto) 0.0 x10^3/uL (0.0-0.2) Platelet Estimate Adequate (ADEQUATE) Giant Platelets Occ Hypochromasia Present Anisocytosis Mod Prothrombin Time 20.5 SEC (11.7-14.0) Prothromb Time International Ratio 1.8 (0.8-1.1) Sodium Level 141 mmol/L (136-145) Potassium Level 5.6 mmol/L (3.5-5.1) Chloride Level 109 mmol/L (98-107) Carbon Dioxide Level 22 mmol/L (21-32) Anion Gap 10 (6-14) Blood Urea Nitrogen 44 mg/dL (8-26) Creatinine 3.2 mg/dL (0.7-1.3) Estimated GFR (Cockcroft-Gault) 23.1 Glucose Level 168 mg/dL (70-99) Calcium Level 8.8 mg/dL (8.5-10.1) Phosphorus Level 4.2 mg/dL (2.6-4.7) Albumin 2.7 g/dL (3.4-5.0) Laboratory Tests Test 03/13/19 08:40 03/13/19 11:40 03/13/19 12:20 03/13/19 17:39 Urine Collection Type Unknown Urine Color Yellow Urine Clarity Cloudy Urine pH 6.0 Urine Specific Tucker 1.010 Urine Protein 100 mg/dL (NEG-TRACE) Urine Glucose (UA) Negative mg/dL (NEG) Urine Ketones (Stick) Negative mg/dL (NEG) Urine Blood Moderate (NEG) Urine Nitrite Negative (NEG) Urine Bilirubin Negative (NEG) Urine Urobilinogen Dipstick 0.2 mg/dL (0.2 mg/dL) Urine Leukocyte Esterase Large (NEG) Urine RBC 3-5 /HPF (0-2) Urine WBC >40 /HPF (0-4) Urine Amorphous Sediment Present /HPF Urine Bacteria Moderate /HPF (0-FEW) Glucose (Fingerstick) 155 mg/dL (70-99) 136 mg/dL (70-99) O2 Saturation 96 % (92-99) Arterial Blood pH 7.36 (7.35-7.45) Arterial Blood pCO2 at Patient Temp 29 mmHg (35-46) Arterial Blood pO2 at Patient Temp 82 mmHg (65-108) Arterial Blood HCO3 16 mmol/L (21-28) Arterial Blood Base Excess -8 mmol/L (-3-3) FiO2 60 Test 03/13/19 20:44 03/14/19 04:30 Glucose (Fingerstick) 226 mg/dL (70-99) White Blood Count 4.8 x10^3/uL (4.0-11.0) Red Blood Count 3.60 x10^6/uL (4.30-5.70) Hemoglobin 9.0 g/dL (13.0-17.5) Hematocrit 28.3 % (39.0-53.0) Mean Corpuscular Volume 79 fL (79-100) Mean Corpuscular Hemoglobin 25 pg (25-35) Mean Corpuscular Hemoglobin Concent 32 g/dL (31-37) Red Cell Distribution Width 22.3 % (11.5-14.5) Platelet Count 220 x10^3/uL (140-400) Neutrophils (%) (Auto) 74 % (31-73) Lymphocytes (%) (Auto) 19 % (24-48) Monocytes (%) (Auto) 6 % (0-9) Eosinophils (%) (Auto) 0 % (0-3) Basophils (%) (Auto) 1 % (0-3) Neutrophils # (Auto) 3.6 x10^3/uL (1.8-7.7) Lymphocytes # (Auto) 0.9 x10^3/uL (1.0-4.8) Monocytes # (Auto) 0.3 x10^3/uL (0.0-1.1) Eosinophils # (Auto) 0.0 x10^3/uL (0.0-0.7) Basophils # (Auto) 0.0 x10^3/uL (0.0-0.2) Platelet Estimate Adequate (ADEQUATE) Giant Platelets Occ Hypochromasia Present Anisocytosis Mod Prothrombin Time 20.5 SEC (11.7-14.0) Prothromb Time International Ratio 1.8 (0.8-1.1) Sodium Level 141 mmol/L (136-145) Potassium Level 5.6 mmol/L (3.5-5.1) Chloride Level 109 mmol/L (98-107) Carbon Dioxide Level 22 mmol/L (21-32) Anion Gap 10 (6-14) Blood Urea Nitrogen 44 mg/dL (8-26) Creatinine 3.2 mg/dL (0.7-1.3) Estimated GFR (Cockcroft-Gault) 23.1 Glucose Level 168 mg/dL (70-99) Calcium Level 8.8 mg/dL (8.5-10.1) Phosphorus Level 4.2 mg/dL (2.6-4.7) Albumin 2.7 g/dL (3.4-5.0) Medications Active Scripts Medications Dose Route/Sig Max Daily Dose Days Date Category Dose Instructions Proair Hfa (Albuterol Sulfate) 8.5 Gm Hfa.aer.ad 1 Puff INH PRN Q6HRS PRN 30 02/21/19 Rx Pulmicort Flexhaler (Budesonide) 180 Mcg Aer.pow.ba 2 Puff IH BID 02/21/19 Rx Guaifenesin Dm Syrup (Guaifenesin/Dextromethorphan) 5 Ml Syrup 10 Ml PO PRN Q6HRS PRN 7 02/21/19 Rx Lantus (Insulin Glargine,Hum.rec.anlog) 100 Unit/1 Ml Vial 15 Unit SQ HS 30 02/21/19 Rx Furosemide 40 Mg Tablet 40 Mg PO [id number] 02/21/19 Rx Aspirin Ec (Aspirin) 81 Mg Tablet.dr 81 Mg PO DAILYWBKFT 02/21/19 Rx Metoprolol Succinate ( Xl ) (Metoprolol Succinate) 25 Mg Tab.er.24h 50 Mg PO DAILY 02/21/19 Rx Isosorbide Mononitrate Er (Isosorbide Mononitrate) 30 Mg Tab.er.24h 30 Mg PO DAILY 02/21/19 Rx Atorvastatin Calcium 40 Mg Tablet 40 Mg PO QHS 02/21/19 Rx Brilinta (Ticagrelor) 90 Mg Tablet 90 Mg PO BID 02/21/19 Rx Amiodarone Hcl 200 Mg Tablet 200 Mg PO DAILY 02/21/19 Rx Warfarin Sodium 5 Mg Tablet 5 Mg PO DAILY 01/24/19 Reported take 5mg on sat,sat.thur,sat,sun take 6 mg on saturday and saturday Ferrous Sulfate 324 Mg Tablet.dr 324 Mg PO DAILY 01/24/19 Reported Flomax (Tamsulosin Hcl) 0.4 Mg Cap.er.24h 0.4 Mg PO DAILY 01/24/19 Reported Comments Chest xray taken 03/14 shows significant improvement in pulmonary edema and pleural effusions. Impression . 1. Acute hypoxic respiratory failure secondary to acute on chronic systolic and diastolic heart failure, improving 2. Hypertensive emergency, present on admission, contributing to congestive heart failure, improving 3. Cardiomyopathy with an EF of 40% and history of increased left ventricular end diastolic pressure based on 01/2019 cardiac catheterization. 4. Abnormal arterial blood gases, consistent with acute metabolic acidosis, likely related to acute on chronic kidney disease. 5. Minimal history of tobacco use. 6. improving chest xray RECOMMENDATIONS: 1. Continue with oxygen therapy. 2. Continue diuresis per Cardiology. 3. Continue bronchodilators. 4. Anticoagulation for AFib per Cardiology. 7. Follow chest x-rays. With significant improvement radiographically, I am less concerned about additional interstitial lung disease on top of CHF, but I would suggest repeating CXR toward end of hospital stay when thought to be euvolemic. 8. Discussed with the patient's RN. JOSSIE GARCIA MD Mar 14, 2019 08:42
--- NOTE | 2019-03-14 09:16 | PDOC ---
CARDIOLOGY PROGRESS NOTE SUBJECTIVE: No acute events overnight. Seen by pulmonary team. OBJECTIVE: Vital Signs/I&O: Vital Signs Date Time Temp Pulse Resp B/P (MAP) Pulse Ox O2 Delivery O2 Flow Rate FiO2 03/14/19 08:13 60 147/71 03/14/19 08:05 100 Nasal Cannula 4.0 03/14/19 08:00 98.8 20 98.8 I & O 03/13/19 03/13/19 03/14/19 15:00 23:00 07:00 Intake Total 200 ml 150 ml 120 ml Output Total 1725 ml 775 ml 718 ml Balance -1525 ml -625 ml -598 ml Objective: Overall negative 2.7 L a/o x 3. NAD RRR, PAC's. no m/r/g Bibasilar rales No edema. Soft abd No focal neuro deficits. CURRENT MEDICATIONS: Reviewed meds. on appropriate therapy DIAGNOSTIC TESTING: Cr 3.2 ASSESSMENT: 1. Acute on chronic systolic and diastolic HF in the setting of CKD 2. HTN PLAN: 1. Continue IV diuresis. 2. He needs to reinitiate HD but him and his have not yet made a decision. He already has a fistula. 3. We will likely add hydralazine depending on if he chooses to start HD. Continue imdur. 4. Continue asa, ticagrelor, amiodarone, toprol and atorvastatin. Thanks. Will follow along. ALINA OSPINA MD Mar 14, 2019 09:16
--- NOTE | 2019-03-14 11:05 | NUR ---
Pharmacy Warfarin Dosing Note S: Pharmacy consulted to assist with anticoagulation therapy O: ROMMEL POLK is a 73 year old M with Atrial Fibrillation LABS: Last INR: 1.8 Last HGB: 9 Last HCT: 28.3 Last PLT: 220 Last dose of 5 mg given on 03/13/19 at 1740 Vitamin K given: N Ongoing Drug Interactions: Amiodarone, ASA, Ticagrelor, Atorvastatin A:INR of 1.8 is below desired range, trending up towards goal of 2 - 3. P: Warfarin dose: 5 mg Today at 1600 Next INR due 03/15/19 Pharmacy anticoagulation service will continue to follow. MIKEL BATES [facility] [place], 03/14/19 [id number]
--- NOTE | 2019-03-14 12:27 | PDOC ---
SUBJECTIVE ROS Breathing better, OBJECTIVE Vital Signs Vital Signs Date Time Temp Pulse Resp B/P (MAP) Pulse Ox O2 Delivery O2 Flow Rate FiO2 03/14/19 11:50 96 Nasal Cannula 1.0 03/14/19 11:00 71 22 145/63 (90) 03/14/19 08:00 98.8 98.8 I & 0 Intake and Output 03/14/19 07:00 Intake Total 470 ml Output Total 3218 ml Balance -2748 ml Intake Oral 470 ml Output Urine Total 3218 ml PHYSICAL EXAM Physical Exam General: NAD HEENT: OM moist, On O2 by NC neck Supple Lungs: basilar crackles, Heart: Regular rate Abdomen: Soft, No tenderness Extremities: No cyanosis, Other (2+ bilateral LE pitting edema) Skin: No breakdown, No significant lesion Neuro: Normal speech, Sensation intact mendez, chronic DIAGNOSIS/ASSESSMENT Assessment & Plan JESSICA -Cardiorenal back to baseline with Diuresis E-lytes and acid base stable, No uremic symptoms Currently No indication for HD, Supportive care,monitor CKD stage 4- eGFR is still 20's was on HD in the past- taken off Dialysis appox 6 -8 months back Urinary retention, chronic mendez in place Per Urology ? UTI - indwelling Mendez Defer to primary Acute hypoxic respiratory failure -acute combined systolic and diastolic CHF on BIPAP, Recd Lasix Acute on chronic diastolic/systolic CHF - EF 40% previously, appears decompensated currently with CXR and BNP IV 40mg Lasix BID- card managing CAD - s/p PCI/stent placement one year ago and again 3 weeks ago Hypertension - not well controlled, Diabetes mellitus type 2 Paroxysmal AFIB with chronic LBBB - sinus now with LBBB, is on amiodarone and warfarin. COMMENT/RELEVANT DATA Meds Current Medications Medications (Trade) Dose Ordered Sig/Gwen Start Time Stop Time Status Last Admin Dose Admin Albuterol Sulfate (Ventolin Neb Soln) 2.5 mg PRN Q6HRS PRN 03/13/19 11:00 Albuterol/ Ipratropium (Duoneb) 3 ml RTQID 03/13/19 12:00 03/14/19 11:59 DC 03/14/19 11:50 3 ML Amiodarone HCl (Cordarone) 200 mg DAILY 03/13/19 11:00 03/14/19 08:13 200 MG Amlodipine Besylate (Norvasc) 10 mg DAILY 03/13/19 12:30 03/14/19 08:13 10 MG Aspirin (Ecotrin) 81 mg DAILYWBKFT 03/14/19 08:00 03/14/19 08:11 81 MG Atorvastatin Calcium (Lipitor) 40 mg QHS 03/13/19 21:00 03/13/19 20:42 40 MG Budesonide (Pulmicort) 0.5 mg RTBID 03/13/19 11:30 03/14/19 08:05 0.5 MG Dextrose 250 ml PRN Q15MIN PRN 03/13/19 11:15 Dextrose (Dextrose 50%-Water Syringe) 12.5 gm PRN Q15MIN PRN 03/13/19 11:15 Ferrous Sulfate (Feosol) 325 mg DAILYWBKFT 03/13/19 11:30 03/14/19 08:13 325 MG Furosemide (Lasix) 40 mg BID92 03/13/19 14:00 03/14/19 08:13 40 MG Guaifenesin (Robitussin Dm) 10 ml PRN Q6HRS PRN 03/13/19 11:00 Insulin Glargine (Lantus Syringe) 15 unit HS 03/13/19 21:00 03/13/19 20:46 15 UNIT Insulin Human Lispro (HumaLOG) 0-7 UNITS TIDWMEALS 03/13/19 12:00 Isosorbide Mononitrate (Imdur) 30 mg DAILY 03/13/19 11:00 03/14/19 08:13 30 MG Methylprednisolone Sodium Succinate (SOLU-Medrol 125MG VIAL) 125 mg 1X ONCE 03/13/19 07:00 03/13/19 07:01 DC 03/13/19 07:13 125 MG Metoprolol Succinate (Toprol Xl) 25 mg DAILY 03/14/19 09:00 03/14/19 08:11 25 MG Nitroglycerin (Nitro-Bid Oint) 0.5 inch PRN Q4HRS PRN 03/13/19 15:15 03/13/19 15:58 0.5 INCH Ondansetron HCl (Zofran) 4 mg PRN Q8HRS PRN 03/13/19 09:15 03/14/19 09:14 DC Tamsulosin HCl (Flomax) 0.4 mg QHS 03/13/19 21:00 03/13/19 20:42 0.4 MG Ticagrelor (Brilinta) 90 mg BID 03/13/19 21:00 03/14/19 08:11 90 MG Warfarin Sodium (Coumadin Per Pharmacy) 1 each PRN DAILY PRN 03/13/19 11:00 03/14/19 11:04 1 EACH Warfarin Sodium (Coumadin) 5 mg 1X WARF ONCE 03/14/19 16:00 03/14/19 16:01 Lab Laboratory Tests Test 03/13/19 17:39 03/13/19 20:44 03/14/19 04:30 03/14/19 08:14 Glucose (Fingerstick) 136 mg/dL (70-99) 226 mg/dL (70-99) 155 mg/dL (70-99) White Blood Count 4.8 x10^3/uL (4.0-11.0) Red Blood Count 3.60 x10^6/uL (4.30-5.70) Hemoglobin 9.0 g/dL (13.0-17.5) Hematocrit 28.3 % (39.0-53.0) Mean Corpuscular Volume 79 fL (79-100) Mean Corpuscular Hemoglobin 25 pg (25-35) Mean Corpuscular Hemoglobin Concent 32 g/dL (31-37) Red Cell Distribution Width 22.3 % (11.5-14.5) Platelet Count 220 x10^3/uL (140-400) Neutrophils (%) (Auto) 74 % (31-73) Lymphocytes (%) (Auto) 19 % (24-48) Monocytes (%) (Auto) 6 % (0-9) Eosinophils (%) (Auto) 0 % (0-3) Basophils (%) (Auto) 1 % (0-3) Neutrophils # (Auto) 3.6 x10^3/uL (1.8-7.7) Lymphocytes # (Auto) 0.9 x10^3/uL (1.0-4.8) Monocytes # (Auto) 0.3 x10^3/uL (0.0-1.1) Eosinophils # (Auto) 0.0 x10^3/uL (0.0-0.7) Basophils # (Auto) 0.0 x10^3/uL (0.0-0.2) Platelet Estimate Adequate (ADEQUATE) Giant Platelets Occ Hypochromasia Present Anisocytosis Mod Prothrombin Time 20.5 SEC (11.7-14.0) Prothromb Time International Ratio 1.8 (0.8-1.1) Sodium Level 141 mmol/L (136-145) Potassium Level 5.6 mmol/L (3.5-5.1) Chloride Level 109 mmol/L (98-107) Carbon Dioxide Level 22 mmol/L (21-32) Anion Gap 10 (6-14) Blood Urea Nitrogen 44 mg/dL (8-26) Creatinine 3.2 mg/dL (0.7-1.3) Estimated GFR (Cockcroft-Gault) 23.1 Glucose Level 168 mg/dL (70-99) Calcium Level 8.8 mg/dL (8.5-10.1) Phosphorus Level 4.2 mg/dL (2.6-4.7) Albumin 2.7 g/dL (3.4-5.0) Results All relevant outside records, renal labs, imaging studies, telemetry/EKG's were reviewed. ALANNA ESTEVEZ MD Mar 14, 2019 12:26
--- NOTE | 2019-03-14 14:01 | PDOC ---
PROGRESS NOTES Chief Complaint Chief Complaint Acute hypoxic respiratory failure combination of acute combined systolic and diastolic CHF, req. BIPAP on admit , EF 40% previously acute renal faiulre, on CKD Metabolic acidosis - CAD - s/p PCI/stent placement one year ago and 3 weeks ago e) w. htn and lipids Diabetes mellitus type 2 - Paroxysmal AFIB with chronic LBBB - Anemia of chronic disease - on iron History of Present Illness History of Present Illness str better weaning oxygen down, was admit on BIPAP, now to 3 liters nc, and will decrease aas able start PT and OT out of ICU ordered for today much improved 24 hours Vitals Vitals Vital Signs Date Time Temp Pulse Resp B/P (MAP) Pulse Ox O2 Delivery O2 Flow Rate FiO2 03/14/19 12:00 98.7 60 152/77 (102) 100 Nasal Cannula 1.0 98.7 03/14/19 11:00 22 Physical Exam General: Alert, Oriented X3, Cooperative, No acute distress, mild distress Heart: Regular rate (SR LBBB), No murmurs, Other (distant heart sounds) Lungs: Other (equal clear breath sounds with a few bibasilar rales) Abdomen: Soft, No tenderness Extremities: No cyanosis, Other (2+ bilateral LE pitting edema) Skin: No breakdown, No significant lesion Labs LABS Laboratory Tests Test 03/13/19 17:39 03/13/19 20:44 03/14/19 04:30 03/14/19 08:14 Glucose (Fingerstick) 136 mg/dL (70-99) 226 mg/dL (70-99) 155 mg/dL (70-99) White Blood Count 4.8 x10^3/uL (4.0-11.0) Red Blood Count 3.60 x10^6/uL (4.30-5.70) Hemoglobin 9.0 g/dL (13.0-17.5) Hematocrit 28.3 % (39.0-53.0) Mean Corpuscular Volume 79 fL (79-100) Mean Corpuscular Hemoglobin 25 pg (25-35) Mean Corpuscular Hemoglobin Concent 32 g/dL (31-37) Red Cell Distribution Width 22.3 % (11.5-14.5) Platelet Count 220 x10^3/uL (140-400) Neutrophils (%) (Auto) 74 % (31-73) Lymphocytes (%) (Auto) 19 % (24-48) Monocytes (%) (Auto) 6 % (0-9) Eosinophils (%) (Auto) 0 % (0-3) Basophils (%) (Auto) 1 % (0-3) Neutrophils # (Auto) 3.6 x10^3/uL (1.8-7.7) Lymphocytes # (Auto) 0.9 x10^3/uL (1.0-4.8) Monocytes # (Auto) 0.3 x10^3/uL (0.0-1.1) Eosinophils # (Auto) 0.0 x10^3/uL (0.0-0.7) Basophils # (Auto) 0.0 x10^3/uL (0.0-0.2) Platelet Estimate Adequate (ADEQUATE) Giant Platelets Occ Hypochromasia Present Anisocytosis Mod Prothrombin Time 20.5 SEC (11.7-14.0) Prothromb Time International Ratio 1.8 (0.8-1.1) Sodium Level 141 mmol/L (136-145) Potassium Level 5.6 mmol/L (3.5-5.1) Chloride Level 109 mmol/L (98-107) Carbon Dioxide Level 22 mmol/L (21-32) Anion Gap 10 (6-14) Blood Urea Nitrogen 44 mg/dL (8-26) Creatinine 3.2 mg/dL (0.7-1.3) Estimated GFR (Cockcroft-Gault) 23.1 Glucose Level 168 mg/dL (70-99) Calcium Level 8.8 mg/dL (8.5-10.1) Phosphorus Level 4.2 mg/dL (2.6-4.7) Albumin 2.7 g/dL (3.4-5.0) Assessment and Plan Assessmemt and Plan Problems Medical Problems: (1) Acute on chronic diastolic (congestive) heart failure Status: Acute (2) CHF (congestive heart failure) Status: Chronic (3) CKD (chronic kidney disease) Status: Chronic (4) HTN (hypertension) Status: Chronic (5) Respiratory failure Status: Acute Comment Review of Relevant I have reviewed the following items juanita (where applicable) has been applied. Labs Laboratory Tests Test 03/13/19 06:48 03/13/19 07:40 03/13/19 08:00 03/13/19 08:40 O2 Saturation 97 % (92-99) Arterial Blood pH 7.23 (7.35-7.45) Arterial Blood pCO2 at Patient Temp 39 mmHg (35-46) Arterial Blood pO2 at Patient Temp 107 mmHg (65-108) Arterial Blood HCO3 16 mmol/L (21-28) Arterial Blood Base Excess -11 mmol/L (-3-3) Oxyhemoglobin 96.2 % Methemoglobin 0.5 % (0.0-1.9) Carbon Monoxide, Quantitative 0.1 % (0.0-1.9) FiO2 100 White Blood Count 7.2 x10^3/uL (4.0-11.0) Red Blood Count 4.11 x10^6/uL (4.30-5.70) Hemoglobin 10.0 g/dL (13.0-17.5) Hematocrit 32.6 % (39.0-53.0) Mean Corpuscular Volume 79 fL (79-100) Mean Corpuscular Hemoglobin 25 pg (25-35) Mean Corpuscular Hemoglobin Concent 31 g/dL (31-37) Red Cell Distribution Width 24.0 % (11.5-14.5) Platelet Count 224 x10^3/uL (140-400) Neutrophils (%) (Auto) 56 % (31-73) Lymphocytes (%) (Auto) 33 % (24-48) Monocytes (%) (Auto) 10 % (0-9) Eosinophils (%) (Auto) 0 % (0-3) Basophils (%) (Auto) 1 % (0-3) Neutrophils # (Auto) 4.0 x10^3/uL (1.8-7.7) Lymphocytes # (Auto) 2.4 x10^3/uL (1.0-4.8) Monocytes # (Auto) 0.7 x10^3/uL (0.0-1.1) Eosinophils # (Auto) 0.0 x10^3/uL (0.0-0.7) Basophils # (Auto) 0.1 x10^3/uL (0.0-0.2) Prothrombin Time 17.6 SEC (11.7-14.0) Prothromb Time International Ratio 1.5 (0.8-1.1) Sodium Level 140 mmol/L (136-145) Potassium Level 4.8 mmol/L (3.5-5.1) Chloride Level 107 mmol/L (98-107) Carbon Dioxide Level 18 mmol/L (21-32) Anion Gap 15 (6-14) Blood Urea Nitrogen 39 mg/dL (8-26) Creatinine 3.0 mg/dL (0.7-1.3) Estimated GFR (Cockcroft-Gault) 24.9 BUN/Creatinine Ratio 13 (6-20) Glucose Level 191 mg/dL (70-99) Calcium Level 8.8 mg/dL (8.5-10.1) Total Bilirubin 0.6 mg/dL (0.2-1.0) Aspartate Amino Transf (AST/SGOT) 20 U/L (15-37) Alanine Aminotransferase (ALT/SGPT) 16 U/L (16-63) Alkaline Phosphatase 98 U/L (46-116) Troponin I Quantitative < 0.017 ng/mL (0.000-0.055) DK-Lbk-V-Type Natriuretic Peptide 9472 pg/mL (0-124) Total Protein 8.3 g/dL (6.4-8.2) Albumin 3.1 g/dL (3.4-5.0) Albumin/Globulin Ratio 0.6 (1.0-1.7) Procalcitonin < 0.10 ng/mL (0.00-0.10) Urine Collection Type Unknown Urine Color Yellow Urine Clarity Cloudy Urine pH 6.0 Urine Specific [place] 1.010 Urine Protein 100 mg/dL (NEG-TRACE) Urine Glucose (UA) Negative mg/dL (NEG) Urine Ketones (Stick) Negative mg/dL (NEG) Urine Blood Moderate (NEG) Urine Nitrite Negative (NEG) Urine Bilirubin Negative (NEG) Urine Urobilinogen Dipstick 0.2 mg/dL (0.2 mg/dL) Urine Leukocyte Esterase Large (NEG) Urine RBC 3-5 /HPF (0-2) Urine WBC >40 /HPF (0-4) Urine Amorphous Sediment Present /HPF Urine Bacteria Moderate /HPF (0-FEW) Test 03/13/19 11:40 03/13/19 12:20 03/13/19 17:39 03/13/19 20:44 Glucose (Fingerstick) 155 mg/dL (70-99) 136 mg/dL (70-99) 226 mg/dL (70-99) O2 Saturation 96 % (92-99) Arterial Blood pH 7.36 (7.35-7.45) Arterial Blood pCO2 at Patient Temp 29 mmHg (35-46) Arterial Blood pO2 at Patient Temp 82 mmHg (65-108) Arterial Blood HCO3 16 mmol/L (21-28) Arterial Blood Base Excess -8 mmol/L (-3-3) FiO2 60 Test 03/14/19 04:30 03/14/19 08:14 White Blood Count 4.8 x10^3/uL (4.0-11.0) Red Blood Count 3.60 x10^6/uL (4.30-5.70) Hemoglobin 9.0 g/dL (13.0-17.5) Hematocrit 28.3 % (39.0-53.0) Mean Corpuscular Volume 79 fL (79-100) Mean Corpuscular Hemoglobin 25 pg (25-35) Mean Corpuscular Hemoglobin Concent 32 g/dL (31-37) Red Cell Distribution Width 22.3 % (11.5-14.5) Platelet Count 220 x10^3/uL (140-400) Neutrophils (%) (Auto) 74 % (31-73) Lymphocytes (%) (Auto) 19 % (24-48) Monocytes (%) (Auto) 6 % (0-9) Eosinophils (%) (Auto) 0 % (0-3) Basophils (%) (Auto) 1 % (0-3) Neutrophils # (Auto) 3.6 x10^3/uL (1.8-7.7) Lymphocytes # (Auto) 0.9 x10^3/uL (1.0-4.8) Monocytes # (Auto) 0.3 x10^3/uL (0.0-1.1) Eosinophils # (Auto) 0.0 x10^3/uL (0.0-0.7) Basophils # (Auto) 0.0 x10^3/uL (0.0-0.2) Platelet Estimate Adequate (ADEQUATE) Giant Platelets Occ Hypochromasia Present Anisocytosis Mod Prothrombin Time 20.5 SEC (11.7-14.0) Prothromb Time International Ratio 1.8 (0.8-1.1) Sodium Level 141 mmol/L (136-145) Potassium Level 5.6 mmol/L (3.5-5.1) Chloride Level 109 mmol/L (98-107) Carbon Dioxide Level 22 mmol/L (21-32) Anion Gap 10 (6-14) Blood Urea Nitrogen 44 mg/dL (8-26) Creatinine 3.2 mg/dL (0.7-1.3) Estimated GFR (Cockcroft-Gault) 23.1 Glucose Level 168 mg/dL (70-99) Calcium Level 8.8 mg/dL (8.5-10.1) Phosphorus Level 4.2 mg/dL (2.6-4.7) Albumin 2.7 g/dL (3.4-5.0) Glucose (Fingerstick) 155 mg/dL (70-99) Laboratory Tests Test 03/13/19 17:39 03/13/19 20:44 03/14/19 04:30 03/14/19 08:14 Glucose (Fingerstick) 136 mg/dL (70-99) 226 mg/dL (70-99) 155 mg/dL (70-99) White Blood Count 4.8 x10^3/uL (4.0-11.0) Red Blood Count 3.60 x10^6/uL (4.30-5.70) Hemoglobin 9.0 g/dL (13.0-17.5) Hematocrit 28.3 % (39.0-53.0) Mean Corpuscular Volume 79 fL (79-100) Mean Corpuscular Hemoglobin 25 pg (25-35) Mean Corpuscular Hemoglobin Concent 32 g/dL (31-37) Red Cell Distribution Width 22.3 % (11.5-14.5) Platelet Count 220 x10^3/uL (140-400) Neutrophils (%) (Auto) 74 % (31-73) Lymphocytes (%) (Auto) 19 % (24-48) Monocytes (%) (Auto) 6 % (0-9) Eosinophils (%) (Auto) 0 % (0-3) Basophils (%) (Auto) 1 % (0-3) Neutrophils # (Auto) 3.6 x10^3/uL (1.8-7.7) Lymphocytes # (Auto) 0.9 x10^3/uL (1.0-4.8) Monocytes # (Auto) 0.3 x10^3/uL (0.0-1.1) Eosinophils # (Auto) 0.0 x10^3/uL (0.0-0.7) Basophils # (Auto) 0.0 x10^3/uL (0.0-0.2) Platelet Estimate Adequate (ADEQUATE) Giant Platelets Occ Hypochromasia Present Anisocytosis Mod Prothrombin Time 20.5 SEC (11.7-14.0) Prothromb Time International Ratio 1.8 (0.8-1.1) Sodium Level 141 mmol/L (136-145) Potassium Level 5.6 mmol/L (3.5-5.1) Chloride Level 109 mmol/L (98-107) Carbon Dioxide Level 22 mmol/L (21-32) Anion Gap 10 (6-14) Blood Urea Nitrogen 44 mg/dL (8-26) Creatinine 3.2 mg/dL (0.7-1.3) Estimated GFR (Cockcroft-Gault) 23.1 Glucose Level 168 mg/dL (70-99) Calcium Level 8.8 mg/dL (8.5-10.1) Phosphorus Level 4.2 mg/dL (2.6-4.7) Albumin 2.7 g/dL (3.4-5.0) Medications Current Medications Albuterol/ Ipratropium (Duoneb) 3 ml 1X ONCE NEB Last administered on 03/13/19at 07:09; Start 03/13/19 at 07:00; Stop 03/13/19 at 07:01; Status DC Methylprednisolone Sodium Succinate (SOLU-Medrol 125MG VIAL) 125 mg 1X ONCE IV Last administered on 03/13/19at 07:13; Start 03/13/19 at 07:00; Stop 03/13/19 at 07:01; Status DC Furosemide (Lasix) 60 mg 1X ONCE IVP Last administered on 03/13/19at 07:12; Start 03/13/19 at 07:00; Stop 03/13/19 at 07:01; Status DC Furosemide (Lasix) 100 mg STK-MED ONCE .ROUTE ; Start 03/13/19 at 06:51; Stop 03/13/19 at 06:51; Status DC Ondansetron HCl (Zofran) 4 mg STK-MED ONCE .ROUTE ; Start 03/13/19 at 07:22; Stop 03/13/19 at 07:23; Status DC Ondansetron HCl (Zofran) 8 mg 1X ONCE IV Last administered on 03/13/19at 07:56; Start 03/13/19 at 07:23; Stop 03/13/19 at 07:54; Status DC Ondansetron HCl (Zofran) 4 mg PRN Q8HRS PRN IV NAUSEA/VOMITING; Start 03/13/19 at 09:15; Stop 03/14/19 at 09:14; Status DC Albuterol/ Ipratropium (Duoneb) 3 ml RTQID NEB Last administered on 03/14/19at 11:50; Start 03/13/19 at 12:00; Stop 03/14/19 at 11:59; Status DC Albuterol Sulfate (Ventolin Neb Soln) 2.5 mg PRN Q6HRS PRN INH SHORTNESS OF BREATH; Start 03/13/19 at 11:00 Amiodarone HCl (Cordarone) 200 mg DAILY PO Last administered on 03/14/19at 08:13; Start 03/13/19 at 11:00 Aspirin (Ecotrin) 81 mg DAILYWBKFT PO Last administered on 03/14/19at 08:11; Start 03/14/19 at 08:00 Atorvastatin Calcium (Lipitor) 40 mg QHS PO Last administered on 03/13/19at 20:42; Start 03/13/19 at 21:00 Guaifenesin (Robitussin Dm) 10 ml PRN Q6HRS PRN PO COUGH; Start 03/13/19 at 11:00 Insulin Glargine (Lantus Syringe) 15 unit HS SQ Last administered on 03/13/19at 20:46; Start 03/13/19 at 21:00 Isosorbide Mononitrate (Imdur) 30 mg DAILY PO Last administered on 03/14/19at 08:13; Start 03/13/19 at 11:00 Metoprolol Succinate (Toprol Xl) 50 mg DAILY PO ; Start 03/13/19 at 11:00; Stop 03/13/19 at 12:23; Status DC Tamsulosin HCl (Flomax) 0.4 mg QHS PO Last administered on 03/13/19at 20:42; Start 03/13/19 at 21:00 Ticagrelor (Brilinta) 90 mg BID PO Last administered on 03/14/19at 08:11; Start 03/13/19 at 21:00 Warfarin Sodium (Coumadin) 5 mg QPM PO ; Start 03/13/19 at 18:00; Status UNV Budesonide (Pulmicort) 0.5 mg RTBID NEB Last administered on 03/14/19 08:05; Start 03/13/19 at 11:30 Ferrous Sulfate (Feosol) 325 mg DAILYWBKFT PO Last administered on 03/14/19 08:13; Start 03/13/19 at 11:30 Warfarin Sodium (Coumadin Per Pharmacy) 1 each PRN DAILY PRN MC SEE COMMENTS Last administered on 03/14/19 11:04; Start 03/13/19 at 11:00 Furosemide (Lasix) 40 mg [id number] IVP Last administered on 03/14/19at 08:13; Start 03/13/19 at 14:00 Insulin Human Lispro (HumaLOG) 0-7 UNITS TIDWMEALS SQ Last administered on 03/14/19at 12:21; Start 03/13/19 at 12:00 Dextrose (Dextrose 50%-Water Syringe) 12.5 gm PRN Q15MIN PRN IV SEE COMMENTS; Start 03/13/19 at 11:15 Dextrose 250 ml PRN Q15MIN PRN IV SEE COMMENTS; Start 03/13/19 at 11:15 Warfarin Sodium (Coumadin) 5 mg 1X WARF ONCE PO Last administered on 03/13/19at 17:40; Start 03/13/19 at 16:00; Stop 03/13/19 at 16:01; Status DC Metoprolol Succinate (Toprol Xl) 25 mg DAILY PO Last administered on 03/14/19 08:11; Start 03/14/19 at 09:00 Amlodipine Besylate (Norvasc) 10 mg DAILY PO Last administered on 03/14/19at 08:13; Start 03/13/19 at 12:30 Nitroglycerin (Nitro-Bid Oint) 0.5 inch PRN Q4HRS PRN TP hypertension Last administered on 03/13/19at 15:58; Start 9/20/19 at 15:15 Warfarin Sodium (Coumadin) 5 mg 1X WARF ONCE PO ; Start 03/14/19 at 16:00; Stop 03/14/19 at 16:01 Active Scripts Active Proair Hfa (Albuterol Sulfate) 8.5 Gm Hfa.aer.ad 1 Puff INH PRN Q6HRS PRN 30 Days Pulmicort Flexhaler (Budesonide) 180 Mcg Aer.pow.ba 2 Puff IH BID Guaifenesin Dm Syrup (Guaifenesin/Dextromethorphan) 5 Ml Syrup 10 Ml PO PRN Q6HRS PRN 7 Days Lantus (Insulin Glargine,Hum.rec.anlog) 100 Unit/1 Ml Vial 15 Unit SQ HS 30 Days Furosemide 40 Mg Tablet 40 Mg PO [id number] Aspirin Ec (Aspirin) 81 Mg Tablet.dr 81 Mg PO [id number] Metoprolol Succinate ( Xl ) (Metoprolol Succinate) 25 Mg Tab.er.24h 50 Mg PO DAILY Isosorbide Mononitrate Er (Isosorbide Mononitrate) 30 Mg Tab.er.24h 30 Mg PO DAILY Atorvastatin Calcium 40 Mg Tablet 40 Mg PO QHS Brilinta (Ticagrelor) 90 Mg Tablet 90 Mg PO BID Amiodarone Hcl 200 Mg Tablet 200 Mg PO DAILY Reported Warfarin Sodium 5 Mg Tablet 5 Mg PO DAILY take 5mg on sat,sat.thur,sat,sun take 6 mg on saturday and saturday Ferrous Sulfate 324 Mg Tablet. 324 Mg PO DAILY Flomax (Tamsulosin Hcl) 0.4 Mg Cap.er.24h 0.4 Mg PO DAILY Vitals/I & O Vital Sign - Last 24 Hours 03/13/19 03/13/19 03/13/19 03/13/19 14:00 15:00 15:07 15:58 Pulse 55 55 60 Resp 19 21 B/P (MAP) 162/68 (99) 169/71 (103) 173/76 Pulse Ox 98 99 98 O2 Delivery BiPAP/CPAP BiPAP/CPAP BiPAP/CPAP 03/13/19 03/13/19 03/13/19 03/13/19 16:00 16:00 16:43 16:58 Temp 98.2 98.2 Pulse 58 57 Resp 20 20 B/P (MAP) 171/71 (104) 163/58 (93) Pulse Ox 99 100 99 O2 Delivery Bi-pap BiPAP/CPAP BiPAP/CPAP BiPAP/CPAP 03/13/19 03/13/19 03/13/19 03/13/19 18:00 19:00 19:53 20:00 Pulse 59 61 Resp 20 22 B/P (MAP) 164/62 (96) 171/77 (108) Pulse Ox 99 100 98 O2 Delivery BiPAP/CPAP BiPAP/CPAP BiPAP/CPAP Bi-pap 03/13/19 03/13/19 03/13/19 03/13/19 20:00 21:00 22:00 23:00 Temp 98.9 98.9 Pulse 60 62 62 62 Resp 22 22 22 20 B/P (MAP) 168/75 (106) 175/69 (104) 165/71 (102) 163/71 (101) Pulse Ox 100 95 96 97 O2 Delivery BiPAP/CPAP Nasal Cannula Nasal Cannula Nasal Cannula O2 Flow Rate 3.0 3.0 3.0 03/13/19 03/14/19 03/14/19 03/14/19 23:10 00:00 00:01 01:00 Temp 98.9 98.9 Pulse 62 58 Resp 22 14 B/P (MAP) 160/72 (101) 149/70 (96) Pulse Ox 96 97 100 O2 Delivery Nasal Cannula Nasal Cannula Nasal Cannula BiPAP/CPAP O2 Flow Rate 3.0 3.0 3.0 03/14/19 03/14/19 03/14/19 03/14/19 02:00 03:00 03:40 04:00 Pulse 53 54 Resp 20 18 B/P (MAP) 146/65 (92) 154/67 (96) Pulse Ox 100 100 98 O2 Delivery BiPAP/CPAP BiPAP/CPAP BiPAP/CPAP Nasal Cannula 03/14/19 03/14/19 03/14/19 03/14/19 04:00 05:00 05:45 06:00 Temp 98.7 98.7 Pulse 51 50 50 Resp 18 18 18 B/P (MAP) 139/66 (90) 141/69 (93) 140/65 (90) Pulse Ox 100 100 98 100 O2 Delivery BiPAP/CPAP BiPAP/CPAP BiPAP/CPAP BiPAP/CPAP 03/14/19 03/14/19 03/14/19 03/14/19 07:00 08:00 08:00 08:05 Temp 98.8 98.8 Pulse 59 60 Resp 20 20 B/P (MAP) 157/74 (101) 147/71 (96) Pulse Ox 99 98 100 O2 Delivery Nasal Cannula Nasal Cannula Nasal Cannula Nasal Cannula O2 Flow Rate 3.0 3.0 3.0 4.0 03/14/19 03/14/19 03/14/19 03/14/19 08:11 08:13 08:13 08:13 Pulse 60 60 60 60 B/P (MAP) 147/71 147/71 147/71 147/71 03/14/19 03/14/19 03/14/19 03/14/19 08:50 09:00 10:00 11:00 Pulse 63 61 71 Resp 16 19 22 B/P (MAP) 149/70 (96) 146/64 (91) 145/63 (90) Pulse Ox 99 96 98 96 O2 Delivery Nasal Cannula Nasal Cannula Nasal Cannula Nasal Cannula O2 Flow Rate 3.0 3.0 2.0 2.0 03/14/19 03/14/19 11:50 12:00 Temp 98.7 98.7 Pulse 60 B/P (MAP) 152/77 (102) Pulse Ox 96 100 O2 Delivery Nasal Cannula Nasal Cannula O2 Flow Rate 1.0 1.0 Intake and Output 03/13/19 03/13/19 03/14/19 15:00 23:00 07:00 Intake Total 200 ml 150 ml 120 ml Output Total 1725 ml 775 ml 718 ml Balance -1525 ml -625 ml -598 ml Nutrition Consultation Dietary Evaluation: Recommendations by RD: Dietary education by RD, Increase Calorie Intake, Protein supplementation Comments: REC advance diet as able pending respiratory status, goal diet cardiac/ADA REC glucerna BID (strawberry, w/meals per pt preference) Will provide CHF/low sodium diet education as able, when pt more awake/alert Expected Outcomes/Goals: PO intake to meet >75% est needs CHF/low sodium diet education when able Malnutrition Findings: Food and Nutrition Intake (Mod: <75% est energy req 7days Weight Status: Appropriate RIVAS GAMING MD Mar 14, 2019 14:01
[2019-03-14] MEDS ORDERED: WARFARIN 5 MG TABLET. PO ONE (16:00)
[2019-03-14] MEDS: ATORVASTATIN CALCIUM 40 MG TABLET. PO SCH (20:36)
[2019-03-14] MEDS: TAMSULOSIN 0.4 MG CAP.ER.24H. PO SCH (20:36)
[2019-03-14] MEDS: INSULIN GLARGINE SYRINGE. SQ SCH (20:45)
[2019-03-15 03:00] VITALS: BP 129/67
[2019-03-15 05:09] LABS: BASO % 1 % (0-3); EOS % 0 % (0-3); HEMATOCRIT 28.4 % (39.0-53.0); HEMOGLOBIN 9.1 g/dL (13.0-17.5); LYMPH # 1.8 x10^3/uL (1.0-4.8); LYMPH % 28 % (24-48); MEAN CORPUSCULAR HEMOGLOBIN 25 pg (25-35); MEAN CORPUSCULAR HGB CONC 32 g/dL (31-37); MEAN CORPUSCULAR VOLUME 77 fL (79-100); MONO % 15 % (0-9); NEUT # 3.6 x10^3/uL (1.8-7.7); NEUT % 56 % (31-73); PLATELET COUNT 188 x10^3/uL (140-400); RED BLOOD COUNT 3.69 x10^6/uL (4.30-5.70); RED CELL DISTRIBUTION WIDTH 22.5 % (11.5-14.5); WHITE BLOOD COUNT 6.5 x10^3/uL (4.0-11.0)
[2019-03-15 06:01] LABS: PROTHROMBIN TIME PATIENT 27.6 SEC (11.7-14.0)
[2019-03-15] MEDS: BUDESONIDE 0.5 MG/2 ML NEBU. NEB SCH ×2 (06:01→20:34)
[2019-03-15 07:27] VITALS: BP 153/71
[2019-03-15 07:41] LABS: ALBUMIN 2.7 g/dL (3.4-5.0); CALCIUM 8.9 mg/dL (8.5-10.1); CREATININE 3.3 mg/dL (0.7-1.3); GFR 22.3; PHOSPHORUS 3.7 mg/dL (2.6-4.7)
[2019-03-15] MEDS: INSULIN LISPRO 300 UNITS/3 ML VIAL. SQ SCH ×3 (08:00→17:27)
--- NOTE | 2019-03-15 08:10 | PDOC ---
PROGRESS NOTES Chief Complaint Chief Complaint impression Acute hypoxic respiratory failure combination of acute combined systolic and diastolic CHF, req. BIPAP on admit , EF 40% previously acute renal faiulre, on CKD CKD stage 4- was on HD in the past- taken off Dialysis appox 6 -8 months [facility] Urinary retention, chronic mendez in place Metabolic acidosis - CAD - s/p PCI/stent placement one year ago and 3 weeks ago e) w. htn and lipids Diabetes mellitus type 2 - Paroxysmal AFIB with chronic LBBB - Anemia of chronic disease - on iron gait instability 38 MIN PT EXAM, CHART REVIEW, > 50% OF TIME SPENT WITH EXAM, CHART REVIEW, PT CARE COORDINATION History of Present Illness History of Present Illness str better, gait unsteady weaning oxygen down, was admit on BIPAP, now to 3 liters nc, and will decrease as able PT and OT out of ICU Vitals Vitals Vital Signs Date Time Temp Pulse Resp B/P (MAP) Pulse Ox O2 Delivery O2 Flow Rate FiO2 03/15/19 07:27 98.4 64 18 153/71 (98) 99 Room Air 98.4 03/14/19 18:20 1.0 Physical Exam General: Alert, Oriented X3, Cooperative, No acute distress, mild distress Heart: Regular rate (SR LBBB), No murmurs, Other (distant heart sounds) Lungs: Other (equal clear breath sounds with a few bibasilar rales) Abdomen: Soft, No tenderness Extremities: No cyanosis, Other (2+ bilateral LE pitting edema) Skin: No breakdown, No significant lesion Labs LABS AP chest x-ray HISTORY: Congestive heart failure. COMPARISON: Chest March 13, 2019. FINDINGS: Cardiac megaly stable. Aortic arch calcified plaque. No pneumothorax. Pulmonary interstitial edema has mildly decreased. Persistent extensive lower lobe greater than upper lobe opacities have also decreased in density likely improving alveolar pulmonary edema. There may be a small right pleural effusion layering along the right lateral diaphragm new from the prior study. IMPRESSION: Mild improvement of the pulmonary edema with decreased interstitial thickening and pulmonary opacities. Residual pulmonary opacities are present at the lung bases representing alveolar edema or superimposed pneumonia. Development of a small right pleural effusion along the diaphragm. Electronically signed by: Humza William MD (03/14/2019 5:43 AM) [facility] Laboratory Tests Test 9/21/19 08:14 03/14/19 12:19 03/14/19 17:25 03/14/19 20:37 Glucose (Fingerstick) 155 mg/dL (70-99) 206 mg/dL (70-99) 166 mg/dL (70-99) 157 mg/dL (70-99) Test 03/15/19 04:20 White Blood Count 6.5 x10^3/uL (4.0-11.0) Red Blood Count 3.69 x10^6/uL (4.30-5.70) Hemoglobin 9.1 g/dL (13.0-17.5) Hematocrit 28.4 % (39.0-53.0) Mean Corpuscular Volume 77 fL (79-100) Mean Corpuscular Hemoglobin 25 pg (25-35) Mean Corpuscular Hemoglobin Concent 32 g/dL (31-37) Red Cell Distribution Width 22.5 % (11.5-14.5) Platelet Count 188 x10^3/uL (140-400) Neutrophils (%) (Auto) 56 % (31-73) Lymphocytes (%) (Auto) 28 % (24-48) Monocytes (%) (Auto) 15 % (0-9) Eosinophils (%) (Auto) 0 % (0-3) Basophils (%) (Auto) 1 % (0-3) Neutrophils # (Auto) 3.6 x10^3/uL (1.8-7.7) Lymphocytes # (Auto) 1.8 x10^3/uL (1.0-4.8) Monocytes # (Auto) 1.0 x10^3/uL (0.0-1.1) Eosinophils # (Auto) 0.0 x10^3/uL (0.0-0.7) Basophils # (Auto) 0.0 x10^3/uL (0.0-0.2) Prothrombin Time 27.6 SEC (11.7-14.0) Prothromb Time International Ratio 2.6 (0.8-1.1) Sodium Level 140 mmol/L (136-145) Potassium Level 4.0 mmol/L (3.5-5.1) Chloride Level 107 mmol/L (98-107) Carbon Dioxide Level 21 mmol/L (21-32) Anion Gap 12 (6-14) Blood Urea Nitrogen 54 mg/dL (8-26) Creatinine 3.3 mg/dL (0.7-1.3) Estimated GFR (Cockcroft-Gault) 22.3 Glucose Level 90 mg/dL (70-99) Calcium Level 8.9 mg/dL (8.5-10.1) Phosphorus Level 3.7 mg/dL (2.6-4.7) Albumin 2.7 g/dL (3.4-5.0) Assessment and Plan Assessmemt and Plan Problems Medical Problems: (1) Acute on chronic diastolic (congestive) heart failure Status: Acute (2) CHF (congestive heart failure) Status: Chronic (3) CKD (chronic kidney disease) Status: Chronic (4) HTN (hypertension) Status: Chronic (5) Respiratory failure Status: Acute * Stable Evaluation Complexity Level * Moderate Complexity Pt/caregiver agrees with plan of care/goals * Yes Patient condition at conclusion of therapy * Pt in chair * Call light in reach * Phone in reach * PtIn no apparent distress * Pt denies further needs Communicated Patient Care With (Name, Title) * Duran RN Goal 1 - Bed Mobility Assistance Required * Independent Goal 1 Assessment * Appropriate - Continue Goal 2 - Transfers Assistance Required * Independent Goal 2 - Transfer Type * Sit to Stand Goal 2 Assessment * Appropriate - Continue Goal 3 - Ambulation Assistance Required * Independent Goal 3 - Ambulation Distance * 250' Goal 3 - Ambulation Device * Roller Walker Goal 3 Assessment * Appropriate - Continue Goal 4 - Stairs Assistance Required * Supervision Goal 4 - Number of Stairs * 5-9 Goal 4 - Device on Stairs * Rail on Right * Rail on Left Goal 4 Assessment * Appropriate - Continue Treatment Plan * Therapeutic Exercise * Bed Mobility Training * Transfer training * Gait Training * Neuromuscular Re-Ed Frequency of Treatment Expected * 7 visits/week Duration of Treatment Expected * 2 weeks Discharge Recommendations * Home with Home Health Discharge Recommendation - DME * Rolling Walker needed * in order to complete ADLs * and ambulation safely Comment Review of Relevant I have reviewed the following items juanita (where applicable) has been applied. Labs Laboratory Tests Test 03/13/19 08:40 03/13/19 11:40 03/13/19 12:20 03/13/19 17:39 Urine Collection Type Unknown Urine Color Yellow Urine Clarity Cloudy Urine pH 6.0 Urine Specific Gordon 1.010 Urine Protein 100 mg/dL (NEG-TRACE) Urine Glucose (UA) Negative mg/dL (NEG) Urine Ketones (Stick) Negative mg/dL (NEG) Urine Blood Moderate (NEG) Urine Nitrite Negative (NEG) Urine Bilirubin Negative (NEG) Urine Urobilinogen Dipstick 0.2 mg/dL (0.2 mg/dL) Urine Leukocyte Esterase Large (NEG) Urine RBC 3-5 /HPF (0-2) Urine WBC >40 /HPF (0-4) Urine Amorphous Sediment Present /HPF Urine Bacteria Moderate /HPF (0-FEW) Glucose (Fingerstick) 155 mg/dL (70-99) 136 mg/dL (70-99) O2 Saturation 96 % (92-99) Arterial Blood pH 7.36 (7.35-7.45) Arterial Blood pCO2 at Patient Temp 29 mmHg (35-46) Arterial Blood pO2 at Patient Temp 82 mmHg (65-108) Arterial Blood HCO3 16 mmol/L (21-28) Arterial Blood Base Excess -8 mmol/L (-3-3) FiO2 60 Test 03/13/19 20:44 03/14/19 04:30 03/14/19 08:14 03/14/19 12:19 Glucose (Fingerstick) 226 mg/dL (70-99) 155 mg/dL (70-99) 206 mg/dL (70-99) White Blood Count 4.8 x10^3/uL (4.0-11.0) Red Blood Count 3.60 x10^6/uL (4.30-5.70) Hemoglobin 9.0 g/dL (13.0-17.5) Hematocrit 28.3 % (39.0-53.0) Mean Corpuscular Volume 79 fL (79-100) Mean Corpuscular Hemoglobin 25 pg (25-35) Mean Corpuscular Hemoglobin Concent 32 g/dL (31-37) Red Cell Distribution Width 22.3 % (11.5-14.5) Platelet Count 220 x10^3/uL (140-400) Neutrophils (%) (Auto) 74 % (31-73) Lymphocytes (%) (Auto) 19 % (24-48) Monocytes (%) (Auto) 6 % (0-9) Eosinophils (%) (Auto) 0 % (0-3) Basophils (%) (Auto) 1 % (0-3) Neutrophils # (Auto) 3.6 x10^3/uL (1.8-7.7) Lymphocytes # (Auto) 0.9 x10^3/uL (1.0-4.8) Monocytes # (Auto) 0.3 x10^3/uL (0.0-1.1) Eosinophils # (Auto) 0.0 x10^3/uL (0.0-0.7) Basophils # (Auto) 0.0 x10^3/uL (0.0-0.2) Platelet Estimate Adequate (ADEQUATE) Giant Platelets Occ Hypochromasia Present Anisocytosis Mod Prothrombin Time 20.5 SEC (11.7-14.0) Prothromb Time International Ratio 1.8 (0.8-1.1) Sodium Level 141 mmol/L (136-145) Potassium Level 5.6 mmol/L (3.5-5.1) Chloride Level 109 mmol/L (98-107) Carbon Dioxide Level 22 mmol/L (21-32) Anion Gap 10 (6-14) Blood Urea Nitrogen 44 mg/dL (8-26) Creatinine 3.2 mg/dL (0.7-1.3) Estimated GFR (Cockcroft-Gault) 23.1 Glucose Level 168 mg/dL (70-99) Calcium Level 8.8 mg/dL (8.5-10.1) Phosphorus Level 4.2 mg/dL (2.6-4.7) Albumin 2.7 g/dL (3.4-5.0) Test 03/14/19 17:25 03/14/19 20:37 03/15/19 04:20 Glucose (Fingerstick) 166 mg/dL (70-99) 157 mg/dL (70-99) White Blood Count 6.5 x10^3/uL (4.0-11.0) Red Blood Count 3.69 x10^6/uL (4.30-5.70) Hemoglobin 9.1 g/dL (13.0-17.5) Hematocrit 28.4 % (39.0-53.0) Mean Corpuscular Volume 77 fL (79-100) Mean Corpuscular Hemoglobin 25 pg (25-35) Mean Corpuscular Hemoglobin Concent 32 g/dL (31-37) Red Cell Distribution Width 22.5 % (11.5-14.5) Platelet Count 188 x10^3/uL (140-400) Neutrophils (%) (Auto) 56 % (31-73) Lymphocytes (%) (Auto) 28 % (24-48) Monocytes (%) (Auto) 15 % (0-9) Eosinophils (%) (Auto) 0 % (0-3) Basophils (%) (Auto) 1 % (0-3) Neutrophils # (Auto) 3.6 x10^3/uL (1.8-7.7) Lymphocytes # (Auto) 1.8 x10^3/uL (1.0-4.8) Monocytes # (Auto) 1.0 x10^3/uL (0.0-1.1) Eosinophils # (Auto) 0.0 x10^3/uL (0.0-0.7) Basophils # (Auto) 0.0 x10^3/uL (0.0-0.2) Prothrombin Time 27.6 SEC (11.7-14.0) Prothromb Time International Ratio 2.6 (0.8-1.1) Sodium Level 140 mmol/L (136-145) Potassium Level 4.0 mmol/L (3.5-5.1) Chloride Level 107 mmol/L (98-107) Carbon Dioxide Level 21 mmol/L (21-32) Anion Gap 12 (6-14) Blood Urea Nitrogen 54 mg/dL (8-26) Creatinine 3.3 mg/dL (0.7-1.3) Estimated GFR (Cockcroft-Gault) 22.3 Glucose Level 90 mg/dL (70-99) Calcium Level 8.9 mg/dL (8.5-10.1) Phosphorus Level 3.7 mg/dL (2.6-4.7) Albumin 2.7 g/dL (3.4-5.0) Laboratory Tests Test 03/14/19 08:14 03/14/19 12:19 03/14/19 17:25 03/14/19 20:37 Glucose (Fingerstick) 155 mg/dL (70-99) 206 mg/dL (70-99) 166 mg/dL (70-99) 157 mg/dL (70-99) Test 03/15/19 04:20 White Blood Count 6.5 x10^3/uL (4.0-11.0) Red Blood Count 3.69 x10^6/uL (4.30-5.70) Hemoglobin 9.1 g/dL (13.0-17.5) Hematocrit 28.4 % (39.0-53.0) Mean Corpuscular Volume 77 fL (79-100) Mean Corpuscular Hemoglobin 25 pg (25-35) Mean Corpuscular Hemoglobin Concent 32 g/dL (31-37) Red Cell Distribution Width 22.5 % (11.5-14.5) Platelet Count 188 x10^3/uL (140-400) Neutrophils (%) (Auto) 56 % (31-73) Lymphocytes (%) (Auto) 28 % (24-48) Monocytes (%) (Auto) 15 % (0-9) Eosinophils (%) (Auto) 0 % (0-3) Basophils (%) (Auto) 1 % (0-3) Neutrophils # (Auto) 3.6 x10^3/uL (1.8-7.7) Lymphocytes # (Auto) 1.8 x10^3/uL (1.0-4.8) Monocytes # (Auto) 1.0 x10^3/uL (0.0-1.1) Eosinophils # (Auto) 0.0 x10^3/uL (0.0-0.7) Basophils # (Auto) 0.0 x10^3/uL (0.0-0.2) Prothrombin Time 27.6 SEC (11.7-14.0) Prothromb Time International Ratio 2.6 (0.8-1.1) Sodium Level 140 mmol/L (136-145) Potassium Level 4.0 mmol/L (3.5-5.1) Chloride Level 107 mmol/L (98-107) Carbon Dioxide Level 21 mmol/L (21-32) Anion Gap 12 (6-14) Blood Urea Nitrogen 54 mg/dL (8-26) Creatinine 3.3 mg/dL (0.7-1.3) Estimated GFR (Cockcroft-Gault) 22.3 Glucose Level 90 mg/dL (70-99) Calcium Level 8.9 mg/dL (8.5-10.1) Phosphorus Level 3.7 mg/dL (2.6-4.7) Albumin 2.7 g/dL (3.4-5.0) Medications Current Medications Albuterol/ Ipratropium (Duoneb) 3 ml 1X ONCE NEB Last administered on 03/13/19at 07:09; Start 03/13/19 at 07:00; Stop 03/13/19 at 07:01; Status DC Methylprednisolone Sodium Succinate (SOLU-Medrol 125MG VIAL) 125 mg 1X ONCE IV Last administered on 03/13/19at 07:13; Start 03/13/19 at 07:00; Stop 03/13/19 at 07:01; Status DC Furosemide (Lasix) 60 mg 1X ONCE IVP Last administered on 03/13/19at 07:12; Start 03/13/19 at 07:00; Stop 03/13/19 at 07:01; Status DC Furosemide (Lasix) 100 mg STK-MED ONCE .ROUTE ; Start 03/13/19 at 06:51; Stop 03/13/19 at 06:51; Status DC Ondansetron HCl (Zofran) 4 mg STK-MED ONCE .ROUTE ; Start 03/13/19 at 07:22; Stop 03/13/19 at 07:23; Status DC Ondansetron HCl (Zofran) 8 mg 1X ONCE IV Last administered on 03/13/19at 07:56; Start 03/13/19 at 07:23; Stop 03/13/19 at 07:54; Status DC Ondansetron HCl (Zofran) 4 mg PRN Q8HRS PRN IV NAUSEA/VOMITING; Start 03/13/19 at 09:15; Stop 03/14/19 at 09:14; Status DC Albuterol/ Ipratropium (Duoneb) 3 ml RTQID NEB Last administered on 03/14/19at 11:50; Start 03/13/19 at 12:00; Stop 03/14/19 at 11:59; Status DC Albuterol Sulfate (Ventolin Neb Soln) 2.5 mg PRN Q6HRS PRN INH SHORTNESS OF BREATH; Start 03/13/19 at 11:00 Amiodarone HCl (Cordarone) 200 mg DAILY PO Last administered on 03/14/19at 08:13; Start 03/13/19 at 11:00 Aspirin (Ecotrin) 81 mg DAILYWBKFT PO Last administered on 03/14/19 08:11; Start 03/14/19 at 08:00 Atorvastatin Calcium (Lipitor) 40 mg QHS PO Last administered on 03/14/19 20:45; Start 03/13/19 at 21:00 Guaifenesin (Robitussin Dm) 10 ml PRN Q6HRS PRN PO COUGH; Start 03/13/19 at 11:00 Insulin Glargine (Lantus Syringe) 15 unit HS SQ Last administered on 03/14/19 20:45; Start 03/13/19 at 21:00 Isosorbide Mononitrate (Imdur) 30 mg DAILY PO Last administered on 03/14/19 08:13; Start 03/13/19 at 11:00 Metoprolol Succinate (Toprol Xl) 50 mg DAILY PO ; Start 03/13/19 at 11:00; Stop 03/13/19 at 12:23; Status DC Tamsulosin HCl (Flomax) 0.4 mg QHS PO Last administered on 03/14/19 20:45; Start 03/13/19 at 21:00 Ticagrelor (Brilinta) 90 mg BID PO Last administered on 03/14/19 20:45; Start 03/13/19 at 21:00 Warfarin Sodium (Coumadin) 5 mg QPM PO ; Start 03/13/19 at 18:00; Status UNV Budesonide (Pulmicort) 0.5 mg RTBID NEB Last administered on 03/15/19 06:01; Start 03/13/19 at 11:30 Ferrous Sulfate (Feosol) 325 mg DAILYWBKFT PO Last administered on 03/14/19 08:13; Start 03/13/19 at 11:30 Warfarin Sodium (Coumadin Per Pharmacy) 1 each PRN DAILY PRN MC SEE COMMENTS Last administered on 03/14/19 11:04; Start 03/13/19 at 11:00 Furosemide (Lasix) 40 mg BID92 IVP Last administered on 03/14/19 14:43; Start 03/13/19 at 14:00 Insulin Human Lispro (HumaLOG) 0-7 UNITS TIDWMEALS SQ Last administered on 03/14/19 12:21; Start 03/13/19 at 12:00 Dextrose (Dextrose 50%-Water Syringe) 12.5 gm PRN Q15MIN PRN IV SEE COMMENTS; Start 03/13/19 at 11:15 Dextrose 250 ml PRN Q15MIN PRN IV SEE COMMENTS; Start 03/13/19 at 11:15 Warfarin Sodium (Coumadin) 5 mg 1X WARF ONCE PO Last administered on 03/13/19at 17:40; Start 03/13/19 at 16:00; Stop 03/13/19 at 16:01; Status DC Metoprolol Succinate (Toprol Xl) 25 mg DAILY PO Last administered on 03/14/19at 08:11; Start 03/14/19 at 09:00 Amlodipine Besylate (Norvasc) 10 mg DAILY PO Last administered on 03/14/19at 08:13; Start 03/13/19 at 12:30 Nitroglycerin (Nitro-Bid Oint) 0.5 inch PRN Q4HRS PRN TP hypertension Last administered on 03/13/19at 15:58; Start 03/13/19 at 15:15 Warfarin Sodium (Coumadin) 5 mg 1X WARF ONCE PO Last administered on 03/14/19at 17:00; Start 03/14/19 at 16:00; Stop 03/14/19 at 16:01; Status DC Active Scripts Active Proair Hfa (Albuterol Sulfate) 8.5 Gm Hfa.aer.ad 1 Puff INH PRN Q6HRS PRN 30 Days Pulmicort Flexhaler (Budesonide) 180 Mcg Aer.pow.ba 2 Puff IH BID Guaifenesin Dm Syrup (Guaifenesin/Dextromethorphan) 5 Ml Syrup 10 Ml PO PRN Q6HRS PRN 7 Days Lantus (Insulin Glargine,Hum.rec.anlog) 100 Unit/1 Ml Vial 15 Unit SQ HS 30 Days Furosemide 40 Mg Tablet 40 Mg PO [id number] Aspirin Ec (Aspirin) 81 Mg Tablet. 81 Mg PO [id number] Metoprolol Succinate ( Xl ) (Metoprolol Succinate) 25 Mg Tab.er.24h 50 Mg PO DAILY Isosorbide Mononitrate Er (Isosorbide Mononitrate) 30 Mg Tab.er.24h 30 Mg PO DAILY Atorvastatin Calcium 40 Mg Tablet 40 Mg PO QHS Brilinta (Ticagrelor) 90 Mg Tablet 90 Mg PO BID Amiodarone Hcl 200 Mg Tablet 200 Mg PO DAILY Reported Warfarin Sodium 5 Mg Tablet 5 Mg PO DAILY take 5mg on sat,sat.thur,sat,sun take 6 mg on saturday and saturday Ferrous Sulfate 324 Mg Tablet.dr 324 Mg PO DAILY Flomax (Tamsulosin Hcl) 0.4 Mg Cap.er.24h 0.4 Mg PO DAILY Vitals/I & O Vital Sign - Last 24 Hours 03/14/19 03/14/19 03/14/19 03/14/19 08:11 08:13 08:13 08:13 Pulse 60 60 60 60 B/P (MAP) 147/71 147/71 147/71 147/71 03/14/19 03/14/19 03/14/19 03/14/19 08:50 09:00 10:00 11:00 Pulse 63 61 71 Resp 16 19 22 B/P (MAP) 149/70 (96) 146/64 (91) 145/63 (90) Pulse Ox 99 96 98 96 O2 Delivery Nasal Cannula Nasal Cannula Nasal Cannula Nasal Cannula O2 Flow Rate 3.0 3.0 2.0 2.0 03/14/19 03/14/19 03/14/19 03/14/19 11:50 12:00 15:53 16:00 Temp 98.7 98.8 98.7 98.8 Pulse 60 68 Resp 17 B/P (MAP) 152/77 (102) 138/67 (90) Pulse Ox 96 100 97 96 O2 Delivery Nasal Cannula Nasal Cannula Nasal Cannula Room Air O2 Flow Rate 1.0 1.0 1.0 03/14/19 03/14/19 03/14/19 03/14/19 17:41 18:20 18:24 20:00 Temp 98.0 98.0 Pulse 66 Resp 20 B/P (MAP) 153/70 (97) Pulse Ox 93 95 O2 Delivery Room Air Room Air Room Air Room Air O2 Flow Rate 1.0 03/14/19 03/14/19 03/15/19 03/15/19 20:14 23:01 03:00 06:01 Temp 97.9 98.4 98.4 97.9 98.4 98.4 Pulse 60 58 61 Resp 16 16 18 B/P (MAP) 137/63 (87) 135/58 (83) 129/67 (87) Pulse Ox 99 95 97 95 O2 Delivery Room Air Room Air Room Air Room Air 03/15/19 07:27 Temp 98.4 98.4 Pulse 64 Resp 18 B/P (MAP) 153/71 (98) Pulse Ox 99 O2 Delivery Room Air Intake and Output 03/14/19 03/14/19 03/15/19 15:00 23:00 07:00 Intake Total 720 ml 340 ml Output Total 835 ml 1825 ml 2175 ml Balance -115 ml -1485 ml -2175 ml Nutrition Consultation Dietary Evaluation: Recommendations by RD: Dietary education by RD, Increase Calorie Intake, Protein supplementation Comments: REC advance diet as able pending respiratory status, goal diet cardiac/ADA REC glucerna BID (strawberry, w/meals per pt preference) Will provide CHF/low sodium diet education as able, when pt more awake/alert Expected Outcomes/Goals: PO intake to meet >75% est needs CHF/low sodium diet education when able Malnutrition Findings: Food and Nutrition Intake (Mod: <75% est energy req 7days Weight Status: Appropriate JENI EASTMAN MD Mar 15, 2019 08:10
[2019-03-15] MEDS: METOPROLOL SUCC 24HR ER 25 MG TAB.ER.24H. PO SCH (08:44)
[2019-03-15] MEDS: AMIODARONE HCL 200 MG TABLET. PO SCH (08:44)
[2019-03-15] MEDS: FERROUS SULFATE 325 MG TABLET. PO SCH (08:44)
[2019-03-15] MEDS: FUROSEMIDE 40 MG/4 ML VIAL. IVP SCH ×2 (08:44→15:04)
[2019-03-15] MEDS: amLODIPine BESYLATE 10 MG TABLET PO SCH (08:45)
[2019-03-15] MEDS: ASPIRIN ENTERIC COATED 81 MG TABLET.DR. PO SCH (08:45)
[2019-03-15] MEDS: ISOSORBIDE MONONITRATE ER 30 MG TAB.ER.24H PO SCH (08:46)
[2019-03-15] MEDS: TICAGRELOR 90 MG TABLET. PO SCH ×2 (08:46→20:36)
--- NOTE | 2019-03-15 10:29 | PDOC ---
PULMONARY PROGRESS NOTES Subjective The patient is a 73-year-old who has history of cardiomyopathy with an EF of 40% and recent cardiac catheterization with left ventricular diastolic pressure of 26. He had LAD stent in January. He was brought into the hospital with increasing shortness of breath for the last few days. He has increasing ankle edema.. He has a history of atrial fibrillation, on Coumadin. No chest pain, He was placed initially on 15 liters FiO2. His saturation was 62%, then placed on BiPAP. ABGs showed a pH of 7.23, pCO2 of 39, and a pO2 of 107 with a bicarbonate of 16. This was obtained on 100% oxygen. The patient has been diuresed, and currently he is on room air and feels good. he was up and walking today. Vitals Vital Signs Date Time Temp Pulse Resp B/P (MAP) Pulse Ox O2 Delivery O2 Flow Rate FiO2 03/15/19 08:52 64 153/71 03/15/19 07:27 98.4 18 99 Room Air 98.4 03/14/19 18:20 1.0 ROS: No Nausea, No Chest Pain, No Abdominal Pain, No Increase Cough General: Alert, Oriented X4, No acute distress HEENT: Other (normal) Lungs: Other (equal clear breath sounds with a few bibasilar rales) Cardiovascular: S1, S2 Abdomen: Soft, Non-tender Neuro Exam: Alert, Oriented, Normal Speech, No Focal Findings Extremities: No Edema Skin: Warm, Dry Labs Laboratory Tests Test 03/13/19 11:40 03/13/19 12:20 03/13/19 17:39 03/13/19 20:44 Glucose (Fingerstick) 155 mg/dL (70-99) 136 mg/dL (70-99) 226 mg/dL (70-99) O2 Saturation 96 % (92-99) Arterial Blood pH 7.36 (7.35-7.45) Arterial Blood pCO2 at Patient Temp 29 mmHg (35-46) Arterial Blood pO2 at Patient Temp 82 mmHg (65-108) Arterial Blood HCO3 16 mmol/L (21-28) Arterial Blood Base Excess -8 mmol/L (-3-3) FiO2 60 Test 03/14/19 04:30 03/14/19 08:14 03/14/19 12:19 03/14/19 17:25 White Blood Count 4.8 x10^3/uL (4.0-11.0) Red Blood Count 3.60 x10^6/uL (4.30-5.70) Hemoglobin 9.0 g/dL (13.0-17.5) Hematocrit 28.3 % (39.0-53.0) Mean Corpuscular Volume 79 fL (79-100) Mean Corpuscular Hemoglobin 25 pg (25-35) Mean Corpuscular Hemoglobin Concent 32 g/dL (31-37) Red Cell Distribution Width 22.3 % (11.5-14.5) Platelet Count 220 x10^3/uL (140-400) Neutrophils (%) (Auto) 74 % (31-73) Lymphocytes (%) (Auto) 19 % (24-48) Monocytes (%) (Auto) 6 % (0-9) Eosinophils (%) (Auto) 0 % (0-3) Basophils (%) (Auto) 1 % (0-3) Neutrophils # (Auto) 3.6 x10^3/uL (1.8-7.7) Lymphocytes # (Auto) 0.9 x10^3/uL (1.0-4.8) Monocytes # (Auto) 0.3 x10^3/uL (0.0-1.1) Eosinophils # (Auto) 0.0 x10^3/uL (0.0-0.7) Basophils # (Auto) 0.0 x10^3/uL (0.0-0.2) Platelet Estimate Adequate (ADEQUATE) Giant Platelets Occ Hypochromasia Present Anisocytosis Mod Prothrombin Time 20.5 SEC (11.7-14.0) Prothromb Time International Ratio 1.8 (0.8-1.1) Sodium Level 141 mmol/L (136-145) Potassium Level 5.6 mmol/L (3.5-5.1) Chloride Level 109 mmol/L (98-107) Carbon Dioxide Level 22 mmol/L (21-32) Anion Gap 10 (6-14) Blood Urea Nitrogen 44 mg/dL (8-26) Creatinine 3.2 mg/dL (0.7-1.3) Estimated GFR (Cockcroft-Gault) 23.1 Glucose Level 168 mg/dL (70-99) Calcium Level 8.8 mg/dL (8.5-10.1) Phosphorus Level 4.2 mg/dL (2.6-4.7) Albumin 2.7 g/dL (3.4-5.0) Glucose (Fingerstick) 155 mg/dL (70-99) 206 mg/dL (70-99) 166 mg/dL (70-99) Test 03/14/19 20:37 03/15/19 04:20 03/15/19 07:07 03/15/19 07:37 Glucose (Fingerstick) 157 mg/dL (70-99) 64 mg/dL (70-99) 95 mg/dL (70-99) White Blood Count 6.5 x10^3/uL (4.0-11.0) Red Blood Count 3.69 x10^6/uL (4.30-5.70) Hemoglobin 9.1 g/dL (13.0-17.5) Hematocrit 28.4 % (39.0-53.0) Mean Corpuscular Volume 77 fL (79-100) Mean Corpuscular Hemoglobin 25 pg (25-35) Mean Corpuscular Hemoglobin Concent 32 g/dL (31-37) Red Cell Distribution Width 22.5 % (11.5-14.5) Platelet Count 188 x10^3/uL (140-400) Neutrophils (%) (Auto) 56 % (31-73) Lymphocytes (%) (Auto) 28 % (24-48) Monocytes (%) (Auto) 15 % (0-9) Eosinophils (%) (Auto) 0 % (0-3) Basophils (%) (Auto) 1 % (0-3) Neutrophils # (Auto) 3.6 x10^3/uL (1.8-7.7) Lymphocytes # (Auto) 1.8 x10^3/uL (1.0-4.8) Monocytes # (Auto) 1.0 x10^3/uL (0.0-1.1) Eosinophils # (Auto) 0.0 x10^3/uL (0.0-0.7) Basophils # (Auto) 0.0 x10^3/uL (0.0-0.2) Prothrombin Time 27.6 SEC (11.7-14.0) Prothromb Time International Ratio 2.6 (0.8-1.1) Sodium Level 140 mmol/L (136-145) Potassium Level 4.0 mmol/L (3.5-5.1) Chloride Level 107 mmol/L (98-107) Carbon Dioxide Level 21 mmol/L (21-32) Anion Gap 12 (6-14) Blood Urea Nitrogen 54 mg/dL (8-26) Creatinine 3.3 mg/dL (0.7-1.3) Estimated GFR (Cockcroft-Gault) 22.3 Glucose Level 90 mg/dL (70-99) Calcium Level 8.9 mg/dL (8.5-10.1) Phosphorus Level 3.7 mg/dL (2.6-4.7) Albumin 2.7 g/dL (3.4-5.0) Laboratory Tests Test 03/14/19 12:19 03/14/19 17:25 03/14/19 20:37 03/15/19 04:20 Glucose (Fingerstick) 206 mg/dL (70-99) 166 mg/dL (70-99) 157 mg/dL (70-99) White Blood Count 6.5 x10^3/uL (4.0-11.0) Red Blood Count 3.69 x10^6/uL (4.30-5.70) Hemoglobin 9.1 g/dL (13.0-17.5) Hematocrit 28.4 % (39.0-53.0) Mean Corpuscular Volume 77 fL (79-100) Mean Corpuscular Hemoglobin 25 pg (25-35) Mean Corpuscular Hemoglobin Concent 32 g/dL (31-37) Red Cell Distribution Width 22.5 % (11.5-14.5) Platelet Count 188 x10^3/uL (140-400) Neutrophils (%) (Auto) 56 % (31-73) Lymphocytes (%) (Auto) 28 % (24-48) Monocytes (%) (Auto) 15 % (0-9) Eosinophils (%) (Auto) 0 % (0-3) Basophils (%) (Auto) 1 % (0-3) Neutrophils # (Auto) 3.6 x10^3/uL (1.8-7.7) Lymphocytes # (Auto) 1.8 x10^3/uL (1.0-4.8) Monocytes # (Auto) 1.0 x10^3/uL (0.0-1.1) Eosinophils # (Auto) 0.0 x10^3/uL (0.0-0.7) Basophils # (Auto) 0.0 x10^3/uL (0.0-0.2) Prothrombin Time 27.6 SEC (11.7-14.0) Prothromb Time International Ratio 2.6 (0.8-1.1) Sodium Level 140 mmol/L (136-145) Potassium Level 4.0 mmol/L (3.5-5.1) Chloride Level 107 mmol/L (98-107) Carbon Dioxide Level 21 mmol/L (21-32) Anion Gap 12 (6-14) Blood Urea Nitrogen 54 mg/dL (8-26) Creatinine 3.3 mg/dL (0.7-1.3) Estimated GFR (Cockcroft-Gault) 22.3 Glucose Level 90 mg/dL (70-99) Calcium Level 8.9 mg/dL (8.5-10.1) Phosphorus Level 3.7 mg/dL (2.6-4.7) Albumin 2.7 g/dL (3.4-5.0) Test 03/15/19 07:07 03/15/19 07:37 Glucose (Fingerstick) 64 mg/dL (70-99) 95 mg/dL (70-99) Medications Active Scripts Medications Dose Route/Sig Max Daily Dose Days Date Category Dose Instructions Proair Hfa (Albuterol Sulfate) 8.5 Gm Hfa.aer.ad 1 Puff INH PRN Q6HRS PRN 30 02/21/19 Rx Pulmicort Flexhaler (Budesonide) 180 Mcg Aer.pow.ba 2 Puff IH BID 02/21/19 Rx Guaifenesin Dm Syrup (Guaifenesin/Dextromethorphan) 5 Ml Syrup 10 Ml PO PRN Q6HRS PRN 7 02/21/19 Rx Lantus (Insulin Glargine,Hum.rec.anlog) 100 Unit/1 Ml Vial 15 Unit SQ HS 30 02/21/19 Rx Furosemide 40 Mg Tablet 40 Mg PO [id number] 02/21/19 Rx Aspirin Ec (Aspirin) 81 Mg Tablet.dr 81 Mg PO DAILYWBKFT 02/21/19 Rx Metoprolol Succinate ( Xl ) (Metoprolol Succinate) 25 Mg Tab.er.24h 50 Mg PO DAILY 02/21/19 Rx Isosorbide Mononitrate Er (Isosorbide Mononitrate) 30 Mg Tab.er.24h 30 Mg PO DAILY 02/21/19 Rx Atorvastatin Calcium 40 Mg Tablet 40 Mg PO QHS 02/21/19 Rx Brilinta (Ticagrelor) 90 Mg Tablet 90 Mg PO BID 02/21/19 Rx Amiodarone Hcl 200 Mg Tablet 200 Mg PO DAILY 02/21/19 Rx Warfarin Sodium 5 Mg Tablet 5 Mg PO DAILY 01/24/19 Reported take 5mg on sat,sat.thur,sat,sun take 6 mg on saturday and saturday Ferrous Sulfate 324 Mg Tablet.dr 324 Mg PO DAILY 01/24/19 Reported Flomax (Tamsulosin Hcl) 0.4 Mg Cap.er.24h 0.4 Mg PO DAILY 01/24/19 Reported Comments Chest xray taken 03/14 shows significant improvement in pulmonary edema and pleural effusions. Impression . 1. Acute hypoxic respiratory failure secondary to acute on chronic systolic and diastolic heart failure, improving 2. Hypertensive emergency, present on admission, contributing to congestive heart failure, improving 3. Cardiomyopathy with an EF of 40% and history of increased left ventricular end diastolic pressure based on 01/2019 cardiac catheterization. 4. Abnormal arterial blood gases, consistent with acute metabolic acidosis, likely related to acute on chronic kidney disease. 5. Minimal history of tobacco use. 6. improving chest xray Plan . RECOMMENDATIONS: 1. Continue diuresis per Cardiology. 2. Continue bronchodilators. 3. Anticoagulation for AFib per Cardiology. 4. Follow chest x-rays. With significant improvement radiographically, I am less concerned about additional interstitial lung disease on top of CHF, but I would suggest repeating CXR toward end of hospital stay when thought to be euvolemic. JOSSIE GARCIA MD Mar 15, 2019 10:29
[2019-03-15 11:49] VITALS: BP 116/65
--- NOTE | 2019-03-15 13:05 | NUR ---
Pharmacy Warfarin Dosing Note S:Pharmacy consulted to assist with anticoagulation therapy started with target INR: 2 -3 O:ROMMEL POLK is a 73 year old M with Atrial Fibrillation LABS: Last INR: 2.6 Last HGB: 9.1 Last HCT: 28.4 Last PLT: 188 Last dose of 5 mg given on 03/14/19 at 1700 Previous Regimen: 5MG DAILY Vitamin K given: N Drug Interaction Changes: Same Interacting Drug Ongoing Drug Interactions: Amiodarone, ASA, Ticagrelor, Atorvastatin A:INR of 2.6 is within desired range. Target range for this patient is: 2 -3 P: Warfarin dose: 3 mg Today at 1600 Bridge Therapy: None Next INR due 03/16/19 Pharmacy anticoagulation service will continue to follow. KAYLI CHACON [facility], 03/15/19 [id number]
--- NOTE | 2019-03-15 13:23 | PDOC ---
SUBJECTIVE ROS Breathing better, Not On O2 OBJECTIVE Vital Signs Vital Signs Date Time Temp Pulse Resp B/P (MAP) Pulse Ox O2 Delivery O2 Flow Rate FiO2 03/15/19 11:49 98.2 58 20 116/65 (82) 96 Room Air 98.2 03/15/19 08:00 1.0 I & 0 Intake and Output 03/15/19 06:59 Intake Total 1060 ml Output Total 4873 ml Balance -3813 ml Intake Oral 1060 ml Output Urine Total 4873 ml PHYSICAL EXAM Physical Exam General: NAD HEENT: OM moist neck Supple Lungs: basilar crackles, Heart: Regular rate Abdomen: Soft, No tenderness Extremities: No cyanosis, Other (2+ bilateral LE pitting edema) Skin: No breakdown, No significant lesion Neuro: Normal speech, Sensation intact mendez, chronic DIAGNOSIS/ASSESSMENT Assessment & Plan JESSICA -Cardiorenal back to baseline with Diuresis E-lytes and acid base stable, No uremic symptoms CKD stage 4- eGFR is still 20's was on HD in the past- taken off Dialysis appox 6 -8 months back Consider restart back on HD mostly for UF /Vol Overload/CHF Pt agreeable, possibly will start tomorrow Urinary retention, chronic mendez in place Per Urology ? UTI - indwelling Mendez Defer to primary Acute hypoxic respiratory failure -acute combined systolic and diastolic CHF on BIPAP, Recd Lasix Acute on chronic diastolic/systolic CHF - EF 40% previously, appears decompensated currently with CXR and BNP IV 40mg Lasix BID- card managing CAD - s/p PCI/stent placement one year ago and again 3 weeks ago Hypertension - not well controlled, Diabetes mellitus type 2 Paroxysmal AFIB with chronic LBBB - sinus now with LBBB, is on amiodarone and warfarin. COMMENT/RELEVANT DATA Meds Current Medications Medications (Trade) Dose Ordered Sig/Gwen Start Time Stop Time Status Last Admin Dose Admin Albuterol Sulfate (Ventolin Neb Soln) 2.5 mg PRN Q6HRS PRN 03/13/19 11:00 Albuterol/ Ipratropium (Duoneb) 3 ml RTQID 03/13/19 12:00 03/14/19 11:59 DC 03/14/19 11:50 3 ML Amiodarone HCl (Cordarone) 200 mg DAILY 03/13/19 11:00 03/15/19 08:52 200 MG Amlodipine Besylate (Norvasc) 10 mg DAILY 03/13/19 12:30 03/15/19 08:52 10 MG Aspirin (Ecotrin) 81 mg DAILYWBKFT 03/14/19 08:00 03/15/19 08:52 81 MG Atorvastatin Calcium (Lipitor) 40 mg QHS 03/13/19 21:00 03/14/19 20:45 40 MG Budesonide (Pulmicort) 0.5 mg RTBID 03/13/19 11:30 03/15/19 06:01 0.5 MG Dextrose 250 ml PRN Q15MIN PRN 03/13/19 11:15 Dextrose (Dextrose 50%-Water Syringe) 12.5 gm PRN Q15MIN PRN 03/13/19 11:15 Ferrous Sulfate (Feosol) 325 mg DAILYWBKFT 03/13/19 11:30 03/15/19 08:52 325 MG Furosemide (Lasix) 40 mg BID92 03/13/19 14:00 03/15/19 08:52 40 MG Guaifenesin (Robitussin Dm) 10 ml PRN Q6HRS PRN 03/13/19 11:00 Insulin Glargine (Lantus Syringe) 15 unit HS 03/13/19 21:00 03/14/19 20:45 15 UNIT Insulin Human Lispro (HumaLOG) 0-7 UNITS TIDWMEALS 03/13/19 12:00 03/14/19 12:21 4 UNITS Isosorbide Mononitrate (Imdur) 30 mg DAILY 03/13/19 11:00 03/15/19 08:52 30 MG Methylprednisolone Sodium Succinate (SOLU-Medrol 125MG VIAL) 125 mg 1X ONCE 03/13/19 07:00 03/13/19 07:01 DC 03/13/19 07:13 125 MG Metoprolol Succinate (Toprol Xl) 25 mg DAILY 03/14/19 09:00 03/15/19 08:52 25 MG Nitroglycerin (Nitro-Bid Oint) 0.5 inch PRN Q4HRS PRN 03/13/19 15:15 03/13/19 15:58 0.5 INCH Ondansetron HCl (Zofran) 4 mg PRN Q8HRS PRN 03/13/19 09:15 03/14/19 09:14 DC Tamsulosin HCl (Flomax) 0.4 mg QHS 03/13/19 21:00 03/14/19 20:45 0.4 MG Ticagrelor (Brilinta) 90 mg BID 03/13/19 21:00 03/15/19 08:52 90 MG Warfarin Sodium (Coumadin Per Pharmacy) 1 each PRN DAILY PRN 03/13/19 11:00 03/15/19 13:04 1 EACH Warfarin Sodium (Coumadin) 3 mg 1X WARF ONCE 03/15/19 16:00 03/15/19 16:01 Lab Laboratory Tests Test 03/14/19 17:25 03/14/19 20:37 03/15/19 04:20 03/15/19 07:07 Glucose (Fingerstick) 166 mg/dL (70-99) 157 mg/dL (70-99) 64 mg/dL (70-99) White Blood Count 6.5 x10^3/uL (4.0-11.0) Red Blood Count 3.69 x10^6/uL (4.30-5.70) Hemoglobin 9.1 g/dL (13.0-17.5) Hematocrit 28.4 % (39.0-53.0) Mean Corpuscular Volume 77 fL (79-100) Mean Corpuscular Hemoglobin 25 pg (25-35) Mean Corpuscular Hemoglobin Concent 32 g/dL (31-37) Red Cell Distribution Width 22.5 % (11.5-14.5) Platelet Count 188 x10^3/uL (140-400) Neutrophils (%) (Auto) 56 % (31-73) Lymphocytes (%) (Auto) 28 % (24-48) Monocytes (%) (Auto) 15 % (0-9) Eosinophils (%) (Auto) 0 % (0-3) Basophils (%) (Auto) 1 % (0-3) Neutrophils # (Auto) 3.6 x10^3/uL (1.8-7.7) Lymphocytes # (Auto) 1.8 x10^3/uL (1.0-4.8) Monocytes # (Auto) 1.0 x10^3/uL (0.0-1.1) Eosinophils # (Auto) 0.0 x10^3/uL (0.0-0.7) Basophils # (Auto) 0.0 x10^3/uL (0.0-0.2) Prothrombin Time 27.6 SEC (11.7-14.0) Prothromb Time International Ratio 2.6 (0.8-1.1) Sodium Level 140 mmol/L (136-145) Potassium Level 4.0 mmol/L (3.5-5.1) Chloride Level 107 mmol/L (98-107) Carbon Dioxide Level 21 mmol/L (21-32) Anion Gap 12 (6-14) Blood Urea Nitrogen 54 mg/dL (8-26) Creatinine 3.3 mg/dL (0.7-1.3) Estimated GFR (Cockcroft-Gault) 22.3 Glucose Level 90 mg/dL (70-99) Calcium Level 8.9 mg/dL (8.5-10.1) Phosphorus Level 3.7 mg/dL (2.6-4.7) Albumin 2.7 g/dL (3.4-5.0) Test 03/15/19 07:37 03/15/19 12:01 Glucose (Fingerstick) 95 mg/dL (70-99) 133 mg/dL (70-99) Results All relevant outside records, renal labs, imaging studies, telemetry/EKG's were reviewed. ALANNA ESTEVEZ MD Mar 15, 2019 13:22
[2019-03-15 15:34] VITALS: BP 156/69
[2019-03-15] MEDS ORDERED: WARFARIN 3 MG TABLET. PO ONE (16:00)
[2019-03-15] MEDS: ALBUTEROL SULFATE 2.5 MG/3 ML NEBU. INH PRN (16:12)
[2019-03-15] MEDS: IPRATRPIUM/ALBUTEROL 0.5/2.5MG 3 ML NEBU. NEB SCH ×2 (16:15→20:34)
[2019-03-15 19:32] VITALS: BP 145/63
[2019-03-15] MEDS: TAMSULOSIN 0.4 MG CAP.ER.24H. PO SCH (20:36)
[2019-03-15] MEDS: ATORVASTATIN CALCIUM 40 MG TABLET. PO SCH (20:36)
[2019-03-15] MEDS: INSULIN GLARGINE SYRINGE. SQ SCH (20:47)
[2019-03-15 22:59] VITALS: BP 177/73
[2019-03-16 02:48] VITALS: BP 161/72
[2019-03-16 03:47] LABS: BASO % 0 % (0-3); EOS % 1 % (0-3); HEMATOCRIT 33.1 % (39.0-53.0); HEMOGLOBIN 10.7 g/dL (13.0-17.5); LYMPH # 1.3 x10^3/uL (1.0-4.8); LYMPH % 23 % (24-48); MEAN CORPUSCULAR HEMOGLOBIN 25 pg (25-35); MEAN CORPUSCULAR HGB CONC 32 g/dL (31-37); MEAN CORPUSCULAR VOLUME 77 fL (79-100); MONO # 1.2 x10^3/uL (0.0-1.1); MONO % 22 % (0-9); NEUT % 54 % (31-73); PLATELET COUNT 211 x10^3/uL (140-400); RED BLOOD COUNT 4.29 x10^6/uL (4.30-5.70); RED CELL DISTRIBUTION WIDTH 22.1 % (11.5-14.5); WHITE BLOOD COUNT 5.5 x10^3/uL (4.0-11.0)
[2019-03-16 03:56] LABS: PROTHROMBIN TIME PATIENT 25.4 SEC (11.7-14.0)
[2019-03-16 04:16] LABS: ALBUMIN 3.2 g/dL (3.4-5.0); CALCIUM 9.1 mg/dL (8.5-10.1); CREATININE 3.1 mg/dL (0.7-1.3); PHOSPHORUS 4.1 mg/dL (2.6-4.7)
[2019-03-16 06:24] LABS: % BANDS 1 % (0-9); % LYMPHS 31 % (24-48); % MONOS 12 % (0-10); % SEGS 56 % (35-66)
[2019-03-16 06:25] LABS: ANISOCYTOSIS MOD; PLT ESTIMATE ADEQUATE (ADEQUATE)
[2019-03-16 07:00] VITALS: BP 167/79
[2019-03-16] MEDS: BUDESONIDE 0.5 MG/2 ML NEBU. NEB SCH ×2 (07:24→19:56)
[2019-03-16] MEDS: IPRATRPIUM/ALBUTEROL 0.5/2.5MG 3 ML NEBU. NEB SCH ×4 (07:24→19:56)
[2019-03-16] MEDS: INSULIN LISPRO 300 UNITS/3 ML VIAL. SQ SCH ×3 (08:00→17:18)
[2019-03-16] MEDS: METOPROLOL SUCC 24HR ER 25 MG TAB.ER.24H. PO SCH (08:36)
[2019-03-16] MEDS: amLODIPine BESYLATE 10 MG TABLET PO SCH (08:36)
[2019-03-16] MEDS: TICAGRELOR 90 MG TABLET. PO SCH ×2 (08:37→21:47)
[2019-03-16] MEDS: AMIODARONE HCL 200 MG TABLET. PO SCH (08:37)
[2019-03-16] MEDS: ASPIRIN ENTERIC COATED 81 MG TABLET.DR. PO SCH (08:37)
[2019-03-16] MEDS: FERROUS SULFATE 325 MG TABLET. PO SCH (08:37)
[2019-03-16] MEDS: ISOSORBIDE MONONITRATE ER 30 MG TAB.ER.24H PO SCH (08:37)
[2019-03-16] MEDS: FUROSEMIDE 40 MG/4 ML VIAL. IVP SCH ×2 (08:38→14:40)
[2019-03-16] MEDS ORDERED: cloNIDine HCL 0.1 MG TABLET PO PRN (08:45)
[2019-03-16] MEDS ORDERED: ONDANSETRON PF 4 MG/2 ML VIAL. IV PRN (08:45)
[2019-03-16] MEDS ORDERED: ACETAMINOPHEN 500 MG TABLET PO PRN (08:45)
[2019-03-16 11:00] VITALS: BP 146/71
--- NOTE | 2019-03-16 11:14 | PDOC ---
PROGRESS NOTES Chief Complaint Chief Complaint Acute hypoxic respiratory failure combination of acute combined systolic and diastolic CHF, req. 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 htn and lipids Diabetes mellitus type 2 - Paroxysmal AFIB with chronic LBBB - Anemia of chronic disease - on iron gait instability History of Present Illness History of Present Illness agreeable to HD - he told docs few days ago HAs a left AV fistula that has been created and functioning fine CReat 3.1, mendez out and urinal has decent amt of urine other notes reviewed (cards and pulmo - cont nebs and diuresis for now EF 40% PT recs Home with HH with cont imdur per cards and maybe hydralazine prn for bp excursions PLAN: I am unsure what the renal plan is - do i keep him? HD? or send home with HH?? WILL wait for renal rounds Vitals Vitals Vital Signs Date Time Temp Pulse Resp B/P (MAP) Pulse Ox O2 Delivery O2 Flow Rate FiO2 03/16/19 08:38 73 167/79 03/16/19 07:27 100 Room Air 03/16/19 07:00 97.8 16 2.0 97.8 Physical Exam General: Alert, Oriented X3, Cooperative, No acute distress, mild distress Heart: Regular rate (SR LBBB), Normal S1, Normal S2, No murmurs, Other (distant heart sounds) Lungs: Clear, Other (equal clear breath sounds with a few bibasilar rales) Abdomen: Soft, No tenderness Extremities: No cyanosis, Other (2+ bilateral LE pitting edema) Skin: No breakdown, No significant lesion Labs LABS Laboratory Tests Test 03/15/19 12:01 03/15/19 16:58 03/15/19 20:17 03/16/19 02:40 Glucose (Fingerstick) 133 mg/dL (70-99) 188 mg/dL (70-99) 141 mg/dL (70-99) White Blood Count 5.5 x10^3/uL (4.0-11.0) Red Blood Count 4.29 x10^6/uL (4.30-5.70) Hemoglobin 10.7 g/dL (13.0-17.5) Hematocrit 33.1 % (39.0-53.0) Mean Corpuscular Volume 77 fL (79-100) Mean Corpuscular Hemoglobin 25 pg (25-35) Mean Corpuscular Hemoglobin Concent 32 g/dL (31-37) Red Cell Distribution Width 22.1 % (11.5-14.5) Platelet Count 211 x10^3/uL (140-400) Neutrophils (%) (Auto) 54 % (31-73) Lymphocytes (%) (Auto) 23 % (24-48) Monocytes (%) (Auto) 22 % (0-9) Eosinophils (%) (Auto) 1 % (0-3) Basophils (%) (Auto) 0 % (0-3) Neutrophils # (Auto) 3.0 x10^3/uL (1.8-7.7) Lymphocytes # (Auto) 1.3 x10^3/uL (1.0-4.8) Monocytes # (Auto) 1.2 x10^3/uL (0.0-1.1) Eosinophils # (Auto) 0.0 x10^3/uL (0.0-0.7) Basophils # (Auto) 0.0 x10^3/uL (0.0-0.2) Segmented Neutrophils % 56 % (35-66) Band Neutrophils % 1 % (0-9) Lymphocytes % 31 % (24-48) Monocytes % 12 % (0-10) Platelet Estimate Adequate (ADEQUATE) Anisocytosis Mod Prothrombin Time 25.4 SEC (11.7-14.0) Prothromb Time International Ratio 2.3 (0.8-1.1) Sodium Level 139 mmol/L (136-145) Potassium Level 4.0 mmol/L (3.5-5.1) Chloride Level 104 mmol/L (98-107) Carbon Dioxide Level 25 mmol/L (21-32) Anion Gap 10 (6-14) Blood Urea Nitrogen 51 mg/dL (8-26) Creatinine 3.1 mg/dL (0.7-1.3) Estimated GFR (Cockcroft-Gault) 24.0 Glucose Level 146 mg/dL (70-99) Calcium Level 9.1 mg/dL (8.5-10.1) Phosphorus Level 4.1 mg/dL (2.6-4.7) Albumin 3.2 g/dL (3.4-5.0) Test 03/16/19 07:14 Glucose (Fingerstick) 98 mg/dL (70-99) Review of Systems Review of Systems he has no complaints, 14 pt reviewed Assessment and Plan Assessmemt and Plan Problems Medical Problems: (1) Acute combined systolic (congestive) and diastolic (congestive) heart failure Status: Acute (2) Acute on chronic diastolic (congestive) heart failure Status: Acute (3) Acute respiratory failure with hypoxia Status: Acute (4) JESSICA (acute kidney injury) Status: Acute (5) CAD (coronary artery disease) of artery bypass graft Status: Chronic (6) CHF (congestive heart failure) Status: Chronic (7) CKD (chronic kidney disease) Status: Chronic (8) CKD (chronic kidney disease), stage IV Status: Chronic (9) HTN (hypertension) Status: Chronic (10) Hypertension Status: Chronic (11) LBBB (left bundle branch block) Status: Chronic (12) Paroxysmal A-fib Status: Chronic (13) Respiratory failure Status: Acute Comment Review of Relevant I have reviewed the following items juanita (where applicable) has been applied. Labs Laboratory Tests Test 03/14/19 12:19 03/14/19 17:25 03/14/19 20:37 03/15/19 04:20 Glucose (Fingerstick) 206 mg/dL (70-99) 166 mg/dL (70-99) 157 mg/dL (70-99) White Blood Count 6.5 x10^3/uL (4.0-11.0) Red Blood Count 3.69 x10^6/uL (4.30-5.70) Hemoglobin 9.1 g/dL (13.0-17.5) Hematocrit 28.4 % (39.0-53.0) Mean Corpuscular Volume 77 fL (79-100) Mean Corpuscular Hemoglobin 25 pg (25-35) Mean Corpuscular Hemoglobin Concent 32 g/dL (31-37) Red Cell Distribution Width 22.5 % (11.5-14.5) Platelet Count 188 x10^3/uL (140-400) Neutrophils (%) (Auto) 56 % (31-73) Lymphocytes (%) (Auto) 28 % (24-48) Monocytes (%) (Auto) 15 % (0-9) Eosinophils (%) (Auto) 0 % (0-3) Basophils (%) (Auto) 1 % (0-3) Neutrophils # (Auto) 3.6 x10^3/uL (1.8-7.7) Lymphocytes # (Auto) 1.8 x10^3/uL (1.0-4.8) Monocytes # (Auto) 1.0 x10^3/uL (0.0-1.1) Eosinophils # (Auto) 0.0 x10^3/uL (0.0-0.7) Basophils # (Auto) 0.0 x10^3/uL (0.0-0.2) Prothrombin Time 27.6 SEC (11.7-14.0) Prothromb Time International Ratio 2.6 (0.8-1.1) Sodium Level 140 mmol/L (136-145) Potassium Level 4.0 mmol/L (3.5-5.1) Chloride Level 107 mmol/L (98-107) Carbon Dioxide Level 21 mmol/L (21-32) Anion Gap 12 (6-14) Blood Urea Nitrogen 54 mg/dL (8-26) Creatinine 3.3 mg/dL (0.7-1.3) Estimated GFR (Cockcroft-Gault) 22.3 Glucose Level 90 mg/dL (70-99) Calcium Level 8.9 mg/dL (8.5-10.1) Phosphorus Level 3.7 mg/dL (2.6-4.7) Albumin 2.7 g/dL (3.4-5.0) Test 03/15/19 07:07 03/15/19 07:37 03/15/19 12:01 03/15/19 16:58 Glucose (Fingerstick) 64 mg/dL (70-99) 95 mg/dL (70-99) 133 mg/dL (70-99) 188 mg/dL (70-99) Test 03/15/19 20:17 03/16/19 02:40 03/16/19 07:14 Glucose (Fingerstick) 141 mg/dL (70-99) 98 mg/dL (70-99) White Blood Count 5.5 x10^3/uL (4.0-11.0) Red Blood Count 4.29 x10^6/uL (4.30-5.70) Hemoglobin 10.7 g/dL (13.0-17.5) Hematocrit 33.1 % (39.0-53.0) Mean Corpuscular Volume 77 fL (79-100) Mean Corpuscular Hemoglobin 25 pg (25-35) Mean Corpuscular Hemoglobin Concent 32 g/dL (31-37) Red Cell Distribution Width 22.1 % (11.5-14.5) Platelet Count 211 x10^3/uL (140-400) Neutrophils (%) (Auto) 54 % (31-73) Lymphocytes (%) (Auto) 23 % (24-48) Monocytes (%) (Auto) 22 % (0-9) Eosinophils (%) (Auto) 1 % (0-3) Basophils (%) (Auto) 0 % (0-3) Neutrophils # (Auto) 3.0 x10^3/uL (1.8-7.7) Lymphocytes # (Auto) 1.3 x10^3/uL (1.0-4.8) Monocytes # (Auto) 1.2 x10^3/uL (0.0-1.1) Eosinophils # (Auto) 0.0 x10^3/uL (0.0-0.7) Basophils # (Auto) 0.0 x10^3/uL (0.0-0.2) Segmented Neutrophils % 56 % (35-66) Band Neutrophils % 1 % (0-9) Lymphocytes % 31 % (24-48) Monocytes % 12 % (0-10) Platelet Estimate Adequate (ADEQUATE) Anisocytosis Mod Prothrombin Time 25.4 SEC (11.7-14.0) Prothromb Time International Ratio 2.3 (0.8-1.1) Sodium Level 139 mmol/L (136-145) Potassium Level 4.0 mmol/L (3.5-5.1) Chloride Level 104 mmol/L (98-107) Carbon Dioxide Level 25 mmol/L (21-32) Anion Gap 10 (6-14) Blood Urea Nitrogen 51 mg/dL (8-26) Creatinine 3.1 mg/dL (0.7-1.3) Estimated GFR (Cockcroft-Gault) 24.0 Glucose Level 146 mg/dL (70-99) Calcium Level 9.1 mg/dL (8.5-10.1) Phosphorus Level 4.1 mg/dL (2.6-4.7) Albumin 3.2 g/dL (3.4-5.0) Laboratory Tests Test 03/15/19 12:01 03/15/19 16:58 03/15/19 20:17 03/16/19 02:40 Glucose (Fingerstick) 133 mg/dL (70-99) 188 mg/dL (70-99) 141 mg/dL (70-99) White Blood Count 5.5 x10^3/uL (4.0-11.0) Red Blood Count 4.29 x10^6/uL (4.30-5.70) Hemoglobin 10.7 g/dL (13.0-17.5) Hematocrit 33.1 % (39.0-53.0) Mean Corpuscular Volume 77 fL (79-100) Mean Corpuscular Hemoglobin 25 pg (25-35) Mean Corpuscular Hemoglobin Concent 32 g/dL (31-37) Red Cell Distribution Width 22.1 % (11.5-14.5) Platelet Count 211 x10^3/uL (140-400) Neutrophils (%) (Auto) 54 % (31-73) Lymphocytes (%) (Auto) 23 % (24-48) Monocytes (%) (Auto) 22 % (0-9) Eosinophils (%) (Auto) 1 % (0-3) Basophils (%) (Auto) 0 % (0-3) Neutrophils # (Auto) 3.0 x10^3/uL (1.8-7.7) Lymphocytes # (Auto) 1.3 x10^3/uL (1.0-4.8) Monocytes # (Auto) 1.2 x10^3/uL (0.0-1.1) Eosinophils # (Auto) 0.0 x10^3/uL (0.0-0.7) Basophils # (Auto) 0.0 x10^3/uL (0.0-0.2) Segmented Neutrophils % 56 % (35-66) Band Neutrophils % 1 % (0-9) Lymphocytes % 31 % (24-48) Monocytes % 12 % (0-10) Platelet Estimate Adequate (ADEQUATE) Anisocytosis Mod Prothrombin Time 25.4 SEC (11.7-14.0) Prothromb Time International Ratio 2.3 (0.8-1.1) Sodium Level 139 mmol/L (136-145) Potassium Level 4.0 mmol/L (3.5-5.1) Chloride Level 104 mmol/L (98-107) Carbon Dioxide Level 25 mmol/L (21-32) Anion Gap 10 (6-14) Blood Urea Nitrogen 51 mg/dL (8-26) Creatinine 3.1 mg/dL (0.7-1.3) Estimated GFR (Cockcroft-Gault) 24.0 Glucose Level 146 mg/dL (70-99) Calcium Level 9.1 mg/dL (8.5-10.1) Phosphorus Level 4.1 mg/dL (2.6-4.7) Albumin 3.2 g/dL (3.4-5.0) Test 03/16/19 07:14 Glucose (Fingerstick) 98 mg/dL (70-99) Microbiology 03/13/19 Urine Culture - Preliminary, Resulted 03/13/19 Urine Culture Result 1 (RAMON) - Preliminary, Resulted Medications Current Medications Albuterol/ Ipratropium (Duoneb) 3 ml 1X ONCE NEB Last administered on 03/13/19at 07:09; Start 03/13/19 at 07:00; Stop 03/13/19 at 07:01; Status DC Methylprednisolone Sodium Succinate (SOLU-Medrol 125MG VIAL) 125 mg 1X ONCE IV Last administered on 03/13/19at 07:13; Start 03/13/19 at 07:00; Stop 03/13/19 at 07:01; Status DC Furosemide (Lasix) 60 mg 1X ONCE IVP Last administered on 03/13/19at 07:12; Start 03/13/19 at 07:00; Stop 03/13/19 at 07:01; Status DC Furosemide (Lasix) 100 mg STK-MED ONCE .ROUTE ; Start 03/13/19 at 06:51; Stop 03/13/19 at 06:51; Status DC Ondansetron HCl (Zofran) 4 mg STK-MED ONCE .ROUTE ; Start 03/13/19 at 07:22; Stop 03/13/19 at 07:23; Status DC Ondansetron HCl (Zofran) 8 mg 1X ONCE IV Last administered on 03/13/19 07:56; Start 03/13/19 at 07:23; Stop 03/13/19 at 07:54; Status DC Ondansetron HCl (Zofran) 4 mg PRN Q8HRS PRN IV NAUSEA/VOMITING; Start 03/13/19 at 09:15; Stop 03/14/19 at 09:14; Status DC Albuterol/ Ipratropium (Duoneb) 3 ml RTQID NEB Last administered on 03/14/19at 11:50; Start 03/13/19 at 12:00; Stop 03/14/19 at 11:59; Status DC Albuterol Sulfate (Ventolin Neb Soln) 2.5 mg PRN Q6HRS PRN INH SHORTNESS OF BREATH Last administered on 03/15/19 16:12; Start 03/13/19 at 11:00 Amiodarone HCl (Cordarone) 200 mg DAILY PO Last administered on 03/16/19 08:38; Start 03/13/19 at 11:00 Aspirin (Ecotrin) 81 mg DAILYWBKFT PO Last administered on 03/16/19 08:38; Start 03/14/19 at 08:00 Atorvastatin Calcium (Lipitor) 40 mg QHS PO Last administered on 03/15/19 20:52; Start 03/13/19 at 21:00 Guaifenesin (Robitussin Dm) 10 ml PRN Q6HRS PRN PO COUGH; Start 03/13/19 at 11:00 Insulin Glargine (Lantus Syringe) 15 unit HS SQ Last administered on 03/15/19 20:52; Start 03/13/19 at 21:00 Isosorbide Mononitrate (Imdur) 30 mg DAILY PO Last administered on 03/16/19 08:38; Start 03/13/19 at 11:00 Metoprolol Succinate (Toprol Xl) 50 mg DAILY PO ; Start 03/13/19 at 11:00; Stop 03/13/19 at 12:23; Status DC Tamsulosin HCl (Flomax) 0.4 mg QHS PO Last administered on 03/15/19at 20:52; Start 03/13/19 at 21:00 Ticagrelor (Brilinta) 90 mg BID PO Last administered on 03/16/19 08:38; Start 03/13/19 at 21:00 Warfarin Sodium (Coumadin) 5 mg QPM PO ; Start 03/13/19 at 18:00; Status UNV Budesonide (Pulmicort) 0.5 mg RTBID NEB Last administered on 03/16/19 07:24; Start 03/13/19 at 11:30 Ferrous Sulfate (Feosol) 325 mg DAILYWBKFT PO Last administered on 03/16/19 08:38; Start 03/13/19 at 11:30 Warfarin Sodium (Coumadin Per Pharmacy) 1 each PRN DAILY PRN MC SEE COMMENTS Last administered on 03/15/19 13:04; Start 03/13/19 at 11:00 Furosemide (Lasix) 40 mg BID92 IVP Last administered on 03/16/19 08:38; Start 03/13/19 at 14:00 Insulin Human Lispro (HumaLOG) 0-7 UNITS TIDWMEALS SQ Last administered on 03/15/19 17:28; Start 03/13/19 at 12:00 Dextrose (Dextrose 50%-Water Syringe) 12.5 gm PRN Q15MIN PRN IV SEE COMMENTS; Start 03/13/19 at 11:15 Dextrose 250 ml PRN Q15MIN PRN IV SEE COMMENTS; Start 03/13/19 at 11:15 Warfarin Sodium (Coumadin) 5 mg 1X WARF ONCE PO Last administered on 03/13/19 17:40; Start 03/13/19 at 16:00; Stop 03/13/19 at 16:01; Status DC Metoprolol Succinate (Toprol Xl) 25 mg DAILY PO Last administered on 03/16/19 08:38; Start 03/14/19 at 09:00 Amlodipine Besylate (Norvasc) 10 mg DAILY PO Last administered on 03/16/19 08:38; Start 03/13/19 at 12:30 Nitroglycerin (Nitro-Bid Oint) 0.5 inch PRN Q4HRS PRN TP hypertension Last administered on 03/13/19at 15:58; Start 03/13/19 at 15:15 Warfarin Sodium (Coumadin) 5 mg 1X WARF ONCE PO Last administered on 03/14/19at 17:00; Start 03/14/19 at 16:00; Stop 03/14/19 at 16:01; Status DC Warfarin Sodium (Coumadin) 3 mg 1X WARF ONCE PO Last administered on 03/15/19at 15:05; Start 03/15/19 at 16:00; Stop 03/15/19 at 16:01; Status DC Albuterol/ Ipratropium (Duoneb) 3 ml RTQID NEB Last administered on 03/16/19at 07:24; Start 03/15/19 at 16:15 Ondansetron HCl (Zofran) 4 mg PRN Q6HRS PRN IV NAUSEA/VOMITING; Start 03/16/19 at 08:45 Acetaminophen (Tylenol) 500 mg PRN Q6HRS PRN PO MILD PAIN / TEMP; Start 03/16/19 at 08:45 Clonidine HCl (Catapres) 0.1 mg PRN Q1HR PRN PO HYPERTENSION; Start 03/16/19 at 08:45 Active Scripts Active Proair Hfa (Albuterol Sulfate) 8.5 Gm Hfa.aer.ad 1 Puff INH PRN Q6HRS PRN 30 Days Pulmicort Flexhaler (Budesonide) 180 Mcg Aer.pow.ba 2 Puff IH BID Guaifenesin Dm Syrup (Guaifenesin/Dextromethorphan) 5 Ml Syrup 10 Ml PO PRN Q6HRS PRN 7 Days Lantus (Insulin Glargine,Hum.rec.anlog) 100 Unit/1 Ml Vial 15 Unit SQ HS 30 Days Furosemide 40 Mg Tablet 40 Mg PO BID92 Aspirin Ec (Aspirin) 81 Mg Tablet.dr 81 Mg PO DAILYWBKFT Metoprolol Succinate ( Xl ) (Metoprolol Succinate) 25 Mg Tab.er.24h 50 Mg PO DAILY Isosorbide Mononitrate Er (Isosorbide Mononitrate) 30 Mg Tab.er.24h 30 Mg PO DAILY Atorvastatin Calcium 40 Mg Tablet 40 Mg PO QHS Brilinta (Ticagrelor) 90 Mg Tablet 90 Mg PO BID Amiodarone Hcl 200 Mg Tablet 200 Mg PO DAILY Reported Warfarin Sodium 5 Mg Tablet 5 Mg PO DAILY take 5mg on mon,wed.thur,sat,sun take 6 mg on saturday and saturday Ferrous Sulfate 324 Mg Tablet.dr 324 Mg PO DAILY Flomax (Tamsulosin Hcl) 0.4 Mg Cap.er.24h 0.4 Mg PO DAILY Vitals/I & O Vital Sign - Last 24 Hours 03/15/19 03/15/19 03/15/19 03/15/19 11:49 15:34 16:13 19:32 Temp 98.2 97.4 97.9 98.2 97.4 97.9 Pulse 58 62 59 Resp 20 20 18 B/P (MAP) 116/65 (82) 156/69 (98) 145/63 (90) Pulse Ox 96 100 100 O2 Delivery Room Air Room Air Room Air Nasal Cannula O2 Flow Rate 2.0 03/15/19 03/15/19 03/15/19 03/15/19 20:00 20:37 20:37 22:59 Temp 98.0 98.0 Pulse 64 Resp 16 B/P (MAP) 177/73 (107) Pulse Ox 100 O2 Delivery Nasal Cannula Room Air Room Air Nasal Cannula O2 Flow Rate 2.0 2.0 03/16/19 03/16/19 03/16/19 03/16/19 02:48 07:00 07:27 08:38 Temp 97.8 97.8 97.8 97.8 Pulse 62 73 73 Resp 18 16 B/P (MAP) 161/72 (101) 167/79 (108) 167/79 Pulse Ox 97 98 100 O2 Delivery Nasal Cannula Nasal Cannula Room Air O2 Flow Rate 2.0 2.0 03/16/19 03/16/19 03/16/19 08:38 08:38 08:38 Pulse 73 73 73 B/P (MAP) 167/79 167/79 167/79 Intake and Output 03/15/19 03/15/19 03/16/19 15:00 23:00 07:00 Intake Total 240 ml 600 ml 750 ml Output Total 1225 ml 1465 ml Balance -985 ml 600 ml -715 ml Nutrition Consultation Dietary Evaluation: Recommendations by RD: Dietary education by RD, Increase Calorie Intake, Protein supplementation Comments: REC advance diet as able pending respiratory status, goal diet cardiac/ADA REC glucerna BID (strawberry, w/meals per pt preference) Will provide CHF/low sodium diet education as able, when pt more awake/alert Expected Outcomes/Goals: PO intake to meet >75% est needs CHF/low sodium diet education when able Malnutrition Findings: Food and Nutrition Intake (Mod: <75% est energy req 7days Weight Status: Appropriate BONI VEGA MD Mar 16, 2019 11:14
[2019-03-16] MEDS ORDERED: AMLO10TA8 PO (11:17)
[2019-03-16] MEDS ORDERED: METO-239 PO (11:17)
[2019-03-16] MEDS ORDERED: IPRA3AMP29 NEB (11:17)
--- NOTE | 2019-03-16 11:18 | SNU/HH DC ---
DISCHARGE WITH HOME HEALTH DISCHARGE INFORMATION: Discharge Date: Mar 16, 2019 Final Diagnosis: Problems Medical Problems: (1) Acute combined systolic (congestive) and diastolic (congestive) heart failure Status: Acute (2) Acute on chronic diastolic (congestive) heart failure Status: Acute (3) Acute respiratory failure with hypoxia Status: Acute (4) JESSICA (acute kidney injury) Status: Acute (5) CAD (coronary artery disease) of artery bypass graft Status: Chronic (6) CHF (congestive heart failure) Status: Chronic (7) CKD (chronic kidney disease) Status: Chronic (8) CKD (chronic kidney disease), stage IV Status: Chronic (9) HTN (hypertension) Status: Chronic (10) Hypertension Status: Chronic (11) LBBB (left bundle branch block) Status: Chronic (12) Paroxysmal A-fib Status: Chronic (13) Respiratory failure Status: Acute Condition on Discharge: Stable CODE STATUS: Code Status: Full HOME HEALTH: Face to Face: I certify this patient is under my care and that I, or a nurse practitioner or physician's electrician assistant working with me, had a face to face encounter that meets the physician face to face encounter requirements with this patient on []. RN For Eval/Treatment: Yes Physical Therapy For: Evalulation/Treatment Occupational Therapy For: Evaluation/Treatment Home Health Aide For: Self-care GRAIN I FARMWORKER For: Community Resources Pt Meets Homebound Status: Unsteady balance w/ amb, POST DISCHARGE ORDERS: Activity Instructions for Disc: Activity as tolerated Weight Bearing Status after Di: No restrictions, As tolerated DIET AFTER DISCHARGE: Cardiac CHECKS AFTER DISCHARGE: Checks after discharge: Check blood press - daily, Check blood sugar, ac/hs, Weigh Yourself Daily FOLLOW-UP: PCP to follow Home Health: esrd on hd - nephro as instructed TREATMENT/EQUIPMENT ORDERS: Adaptive Equipment Issued: None CERTIFICATION STATEMENT: Certification Statement: Certification Statement: Based on the above finding, I certify that this patient is confined to the home and needs intermittent alf care, physical therapy and/or speech therapy, or continues to need occupational therapy.~ This patient is under my care, and I have initiated the establishment of the plan of care.~ This patient will be followed by myself or a community physician who will periodically review the plan of care. Home Meds Active Scripts Amlodipine Besylate (AMLODIPINE BESYLATE) 10 Mg Tablet, 10 MG PO DAILY for htn, #60 TAB Prov:BONI VEGA MD 03/16/19 Metoprolol Succinate (METOPROLOL SUCCINATE ( XL )) 25 Mg Tab.er.24h, 25 MG PO DAILY for htn, #60 TAB.SR Prov:BONI VEGA MD 03/16/19 Ipratropium/Albuterol Sulfate (DUONEB 0.5-3(2.5) MG/3 ML) 3 Ml Ampul.neb, 3 ML NEB RTQID for soa, #60 EACH Prov:BONI VEGA MD 03/16/19 Albuterol Sulfate (Proair Hfa) 8.5 Gm Hfa.aer.ad, 1 PUFF INH PRN Q6HRS PRN for SHORTNESS OF BREATH for 30 Days, INHALER Prov:BONI VEGA MD 02/21/19 Budesonide (PULMICORT FLEXHALER) 180 Mcg Aer.pow.ba, 2 PUFF IH BID for soa, #1 INHALER 6 Refills Prov:BONI VEGA MD 02/21/19 Guaifenesin/Dextromethorphan (GUAIFENESIN DM SYRUP) 5 Ml Syrup, 10 ML PO PRN Q6HRS PRN for COUGH for 7 Days, MISC Prov:BONI VEGA MD 02/21/19 Insulin Glargine,Hum.rec.anlog (LANTUS) 100 Unit/1 Ml Vial, 15 UNIT SQ HS for dm for 30 Days, EACH Prov:BONI VEGA MD 02/21/19 Furosemide (FUROSEMIDE) 40 Mg Tablet, 40 MG PO BID92 for chf, , #120 TAB Prov:BONI VEGA MD 02/21/19 Aspirin (ASPIRIN EC) 81 Mg Tablet.dr, 81 MG PO DAILYWBKFT for a fib, #120 TAB.SR Prov:BONI VEGA MD 02/21/19 Isosorbide Mononitrate (ISOSORBIDE MONONITRATE ER) 30 Mg Tab.er.24h, 30 MG PO DAILY for htn, #90 TAB.SR Prov:BONI VEGA MD 02/21/19 Atorvastatin Calcium (ATORVASTATIN CALCIUM) 40 Mg Tablet, 40 MG PO QHS for lipids, #90 TAB Prov:BONI VEGA MD 02/21/19 Ticagrelor (BRILINTA) 90 Mg Tablet, 90 MG PO BID for a fob, #120 TAB Prov:BONI VEGA MD 02/21/19 Amiodarone Hcl (AMIODARONE HCL) 200 Mg Tablet, 200 MG PO DAILY for a fib, #90 TAB Prov:BONI VEGA MD 02/21/19 Reported Medications Warfarin Sodium (WARFARIN SODIUM) 5 Mg Tablet, 5 MG PO DAILY for anticoagulant take 5mg on sat,sat.thur,sat,sun take 6 mg on saturday and saturday01/24/19 Ferrous Sulfate (FERROUS SULFATE) 324 Mg Tablet.dr, 324 MG PO DAILY for iron supplment 01/24/19 Tamsulosin Hcl (FLOMAX) 0.4 Mg Cap.er.24h, 0.4 MG PO DAILY for BPH 01/24/19 Discontinued Scripts Metoprolol Succinate (METOPROLOL SUCCINATE ( XL )) 25 Mg Tab.er.24h, 50 MG PO DAILY for htn a fib, #90 TAB.SR Prov:BONI VEGA MD 02/21/19 BONI VEGA MD Mar 16, 2019 11:18
--- NOTE | 2019-03-16 12:11 | PDOC ---
PULMONARY PROGRESS NOTES Subjective The patient is a 73-year-old who has history of cardiomyopathy with an EF of 40% and recent cardiac catheterization with left ventricular diastolic pressure of 26. He had LAD stent in January. He was brought into the hospital with increasing shortness of breath for the last few days. He has increasing ankle edema.. He has a history of atrial fibrillation, on Coumadin. No chest pain, He was placed initially on 15 liters FiO2. His saturation was 62%, then placed on BiPAP. ABGs showed a pH of 7.23, pCO2 of 39, and a pO2 of 107 with a bicarbonate of 16. This was obtained on 100% oxygen. The patient has been diuresed, and currently he is on room air and feels good. he was up and walking today. Vitals Vital Signs Date Time Temp Pulse Resp B/P (MAP) Pulse Ox O2 Delivery O2 Flow Rate FiO2 03/16/19 11:59 100 Room Air 03/16/19 11:00 97.8 73 20 146/71 (96) 2.0 97.8 ROS: No Nausea, No Chest Pain, No Abdominal Pain, No Increase Cough General: Alert, Oriented X4, No acute distress HEENT: Other (normal) Lungs: Clear Cardiovascular: S1, S2 Abdomen: Soft, Non-tender Neuro Exam: Alert, Oriented, Normal Speech, No Focal Findings Extremities: No Edema Skin: Warm, Dry Labs Laboratory Tests Test 03/14/19 12:19 03/14/19 17:25 03/14/19 20:37 03/15/19 04:20 Glucose (Fingerstick) 206 mg/dL (70-99) 166 mg/dL (70-99) 157 mg/dL (70-99) White Blood Count 6.5 x10^3/uL (4.0-11.0) Red Blood Count 3.69 x10^6/uL (4.30-5.70) Hemoglobin 9.1 g/dL (13.0-17.5) Hematocrit 28.4 % (39.0-53.0) Mean Corpuscular Volume 77 fL (79-100) Mean Corpuscular Hemoglobin 25 pg (25-35) Mean Corpuscular Hemoglobin Concent 32 g/dL (31-37) Red Cell Distribution Width 22.5 % (11.5-14.5) Platelet Count 188 x10^3/uL (140-400) Neutrophils (%) (Auto) 56 % (31-73) Lymphocytes (%) (Auto) 28 % (24-48) Monocytes (%) (Auto) 15 % (0-9) Eosinophils (%) (Auto) 0 % (0-3) Basophils (%) (Auto) 1 % (0-3) Neutrophils # (Auto) 3.6 x10^3/uL (1.8-7.7) Lymphocytes # (Auto) 1.8 x10^3/uL (1.0-4.8) Monocytes # (Auto) 1.0 x10^3/uL (0.0-1.1) Eosinophils # (Auto) 0.0 x10^3/uL (0.0-0.7) Basophils # (Auto) 0.0 x10^3/uL (0.0-0.2) Prothrombin Time 27.6 SEC (11.7-14.0) Prothromb Time International Ratio 2.6 (0.8-1.1) Sodium Level 140 mmol/L (136-145) Potassium Level 4.0 mmol/L (3.5-5.1) Chloride Level 107 mmol/L (98-107) Carbon Dioxide Level 21 mmol/L (21-32) Anion Gap 12 (6-14) Blood Urea Nitrogen 54 mg/dL (8-26) Creatinine 3.3 mg/dL (0.7-1.3) Estimated GFR (Cockcroft-Gault) 22.3 Glucose Level 90 mg/dL (70-99) Calcium Level 8.9 mg/dL (8.5-10.1) Phosphorus Level 3.7 mg/dL (2.6-4.7) Albumin 2.7 g/dL (3.4-5.0) Test 03/15/19 07:07 03/15/19 07:37 03/15/19 12:01 03/15/19 16:58 Glucose (Fingerstick) 64 mg/dL (70-99) 95 mg/dL (70-99) 133 mg/dL (70-99) 188 mg/dL (70-99) Test 03/15/19 20:17 03/16/19 02:40 03/16/19 07:14 03/16/19 11:12 Glucose (Fingerstick) 141 mg/dL (70-99) 98 mg/dL (70-99) 149 mg/dL (70-99) White Blood Count 5.5 x10^3/uL (4.0-11.0) Red Blood Count 4.29 x10^6/uL (4.30-5.70) Hemoglobin 10.7 g/dL (13.0-17.5) Hematocrit 33.1 % (39.0-53.0) Mean Corpuscular Volume 77 fL (79-100) Mean Corpuscular Hemoglobin 25 pg (25-35) Mean Corpuscular Hemoglobin Concent 32 g/dL (31-37) Red Cell Distribution Width 22.1 % (11.5-14.5) Platelet Count 211 x10^3/uL (140-400) Neutrophils (%) (Auto) 54 % (31-73) Lymphocytes (%) (Auto) 23 % (24-48) Monocytes (%) (Auto) 22 % (0-9) Eosinophils (%) (Auto) 1 % (0-3) Basophils (%) (Auto) 0 % (0-3) Neutrophils # (Auto) 3.0 x10^3/uL (1.8-7.7) Lymphocytes # (Auto) 1.3 x10^3/uL (1.0-4.8) Monocytes # (Auto) 1.2 x10^3/uL (0.0-1.1) Eosinophils # (Auto) 0.0 x10^3/uL (0.0-0.7) Basophils # (Auto) 0.0 x10^3/uL (0.0-0.2) Segmented Neutrophils % 56 % (35-66) Band Neutrophils % 1 % (0-9) Lymphocytes % 31 % (24-48) Monocytes % 12 % (0-10) Platelet Estimate Adequate (ADEQUATE) Anisocytosis Mod Prothrombin Time 25.4 SEC (11.7-14.0) Prothromb Time International Ratio 2.3 (0.8-1.1) Sodium Level 139 mmol/L (136-145) Potassium Level 4.0 mmol/L (3.5-5.1) Chloride Level 104 mmol/L (98-107) Carbon Dioxide Level 25 mmol/L (21-32) Anion Gap 10 (6-14) Blood Urea Nitrogen 51 mg/dL (8-26) Creatinine 3.1 mg/dL (0.7-1.3) Estimated GFR (Cockcroft-Gault) 24.0 Glucose Level 146 mg/dL (70-99) Calcium Level 9.1 mg/dL (8.5-10.1) Phosphorus Level 4.1 mg/dL (2.6-4.7) Albumin 3.2 g/dL (3.4-5.0) Laboratory Tests Test 03/15/19 16:58 03/15/19 20:17 03/16/19 02:40 03/16/19 07:14 Glucose (Fingerstick) 188 mg/dL (70-99) 141 mg/dL (70-99) 98 mg/dL (70-99) White Blood Count 5.5 x10^3/uL (4.0-11.0) Red Blood Count 4.29 x10^6/uL (4.30-5.70) Hemoglobin 10.7 g/dL (13.0-17.5) Hematocrit 33.1 % (39.0-53.0) Mean Corpuscular Volume 77 fL (79-100) Mean Corpuscular Hemoglobin 25 pg (25-35) Mean Corpuscular Hemoglobin Concent 32 g/dL (31-37) Red Cell Distribution Width 22.1 % (11.5-14.5) Platelet Count 211 x10^3/uL (140-400) Neutrophils (%) (Auto) 54 % (31-73) Lymphocytes (%) (Auto) 23 % (24-48) Monocytes (%) (Auto) 22 % (0-9) Eosinophils (%) (Auto) 1 % (0-3) Basophils (%) (Auto) 0 % (0-3) Neutrophils # (Auto) 3.0 x10^3/uL (1.8-7.7) Lymphocytes # (Auto) 1.3 x10^3/uL (1.0-4.8) Monocytes # (Auto) 1.2 x10^3/uL (0.0-1.1) Eosinophils # (Auto) 0.0 x10^3/uL (0.0-0.7) Basophils # (Auto) 0.0 x10^3/uL (0.0-0.2) Segmented Neutrophils % 56 % (35-66) Band Neutrophils % 1 % (0-9) Lymphocytes % 31 % (24-48) Monocytes % 12 % (0-10) Platelet Estimate Adequate (ADEQUATE) Anisocytosis Mod Prothrombin Time 25.4 SEC (11.7-14.0) Prothromb Time International Ratio 2.3 (0.8-1.1) Sodium Level 139 mmol/L (136-145) Potassium Level 4.0 mmol/L (3.5-5.1) Chloride Level 104 mmol/L (98-107) Carbon Dioxide Level 25 mmol/L (21-32) Anion Gap 10 (6-14) Blood Urea Nitrogen 51 mg/dL (8-26) Creatinine 3.1 mg/dL (0.7-1.3) Estimated GFR (Cockcroft-Gault) 24.0 Glucose Level 146 mg/dL (70-99) Calcium Level 9.1 mg/dL (8.5-10.1) Phosphorus Level 4.1 mg/dL (2.6-4.7) Albumin 3.2 g/dL (3.4-5.0) Test 03/16/19 11:12 Glucose (Fingerstick) 149 mg/dL (70-99) Medications Active Scripts Medications Dose Route/Sig Max Daily Dose Days Date Category Dose Instructions Proair Hfa (Albuterol Sulfate) 8.5 Gm Hfa.aer.ad 1 Puff INH PRN Q6HRS PRN 30 02/21/19 Rx Pulmicort Flexhaler (Budesonide) 180 Mcg Aer.pow.ba 2 Puff IH BID 02/21/19 Rx Guaifenesin Dm Syrup (Guaifenesin/Dextromethorphan) 5 Ml Syrup 10 Ml PO PRN Q6HRS PRN 7 02/21/19 Rx Lantus (Insulin Glargine,Hum.rec.anlog) 100 Unit/1 Ml Vial 15 Unit SQ HS 30 02/21/19 Rx Furosemide 40 Mg Tablet 40 Mg PO [id number] 02/21/19 Rx Aspirin Ec (Aspirin) 81 Mg Tablet.dr 81 Mg PO DAILYWBKFT 02/21/19 Rx Metoprolol Succinate ( Xl ) (Metoprolol Succinate) 25 Mg Tab.er.24h 50 Mg PO DAILY 02/21/19 Rx Isosorbide Mononitrate Er (Isosorbide Mononitrate) 30 Mg Tab.er.24h 30 Mg PO DAILY 02/21/19 Rx Atorvastatin Calcium 40 Mg Tablet 40 Mg PO QHS 02/21/19 Rx Brilinta (Ticagrelor) 90 Mg Tablet 90 Mg PO BID 02/21/19 Rx Amiodarone Hcl 200 Mg Tablet 200 Mg PO DAILY 02/21/19 Rx Warfarin Sodium 5 Mg Tablet 5 Mg PO DAILY 01/24/19 Reported take 5mg on sat,sat.thur,sat,sun take 6 mg on saturday and saturday Ferrous Sulfate 324 Mg Tablet.dr 324 Mg PO DAILY 01/24/19 Reported Flomax (Tamsulosin Hcl) 0.4 Mg Cap.er.24h 0.4 Mg PO DAILY 01/24/19 Reported Comments Chest xray taken 03/14 shows significant improvement in pulmonary edema and pleural effusions. Impression . 1. Acute hypoxic respiratory failure secondary to acute on chronic systolic and diastolic heart failure, improving 2. Hypertensive emergency, present on admission, contributing to congestive heart failure, improving 3. Cardiomyopathy with an EF of 40% and history of increased left ventricular end diastolic pressure based on 01/2019 cardiac catheterization. 4. Abnormal arterial blood gases, consistent with acute metabolic acidosis, likely related to acute on chronic kidney disease. 5. Minimal history of tobacco use. 6. improving chest xray Plan . 1. Continue diuresis per Cardiology. 2. Continue bronchodilators. 3. Anticoagulation for AFib per Cardiology. 4. Follow chest x-rays. With significant improvement radiographically, I am less concerned about additional interstitial lung disease on top of CHF, but I would suggest repeating CXR toward end of hospital stay when thought to be euvolemic. 5. follow renal rec for possible HD TRISH REECE MD Mar 16, 2019 12:11
--- NOTE | 2019-03-16 12:28 | PDOC ---
Renal-Progress Notes Subjective Notes Notes MULTIPLE ADMIT FOR SOB AND CHF. HE WANTS TO START DIALYSIS History of Present Illness Hx of present illness PT WANTS TO START DIALYSIS. HAS HAD SEVERAL ADMIT FOR SOB AND HAD BEEN ON HD BEFORE. FAMILY AGREES WELL Vitals Vitals Vital Signs Date Time Temp Pulse Resp B/P (MAP) Pulse Ox O2 Delivery O2 Flow Rate FiO2 03/16/19 11:59 100 Room Air 03/16/19 11:00 97.8 73 20 146/71 (96) 2.0 97.8 Weight Weight [ ] I.O. Intake and Output Intake and Output 03/16/19 07:00 Intake Total 1590 ml Output Total 2690 ml Balance -1100 ml Intake Oral 1590 ml Output Urine Total 2525 ml Post Void Residual 165 ml # Voids 4 Labs Labs Laboratory Tests Test 03/15/19 16:58 03/15/19 20:17 03/16/19 02:40 03/16/19 07:14 Glucose (Fingerstick) 188 mg/dL (70-99) 141 mg/dL (70-99) 98 mg/dL (70-99) White Blood Count 5.5 x10^3/uL (4.0-11.0) Red Blood Count 4.29 x10^6/uL (4.30-5.70) Hemoglobin 10.7 g/dL (13.0-17.5) Hematocrit 33.1 % (39.0-53.0) Mean Corpuscular Volume 77 fL (79-100) Mean Corpuscular Hemoglobin 25 pg (25-35) Mean Corpuscular Hemoglobin Concent 32 g/dL (31-37) Red Cell Distribution Width 22.1 % (11.5-14.5) Platelet Count 211 x10^3/uL (140-400) Neutrophils (%) (Auto) 54 % (31-73) Lymphocytes (%) (Auto) 23 % (24-48) Monocytes (%) (Auto) 22 % (0-9) Eosinophils (%) (Auto) 1 % (0-3) Basophils (%) (Auto) 0 % (0-3) Neutrophils # (Auto) 3.0 x10^3/uL (1.8-7.7) Lymphocytes # (Auto) 1.3 x10^3/uL (1.0-4.8) Monocytes # (Auto) 1.2 x10^3/uL (0.0-1.1) Eosinophils # (Auto) 0.0 x10^3/uL (0.0-0.7) Basophils # (Auto) 0.0 x10^3/uL (0.0-0.2) Segmented Neutrophils % 56 % (35-66) Band Neutrophils % 1 % (0-9) Lymphocytes % 31 % (24-48) Monocytes % 12 % (0-10) Platelet Estimate Adequate (ADEQUATE) Anisocytosis Mod Prothrombin Time 25.4 SEC (11.7-14.0) Prothromb Time International Ratio 2.3 (0.8-1.1) Sodium Level 139 mmol/L (136-145) Potassium Level 4.0 mmol/L (3.5-5.1) Chloride Level 104 mmol/L (98-107) Carbon Dioxide Level 25 mmol/L (21-32) Anion Gap 10 (6-14) Blood Urea Nitrogen 51 mg/dL (8-26) Creatinine 3.1 mg/dL (0.7-1.3) Estimated GFR (Cockcroft-Gault) 24.0 Glucose Level 146 mg/dL (70-99) Calcium Level 9.1 mg/dL (8.5-10.1) Phosphorus Level 4.1 mg/dL (2.6-4.7) Albumin 3.2 g/dL (3.4-5.0) Test 03/16/19 11:12 Glucose (Fingerstick) 149 mg/dL (70-99) Micro Micro Microbiology 03/13/19 Urine Culture - Preliminary, Resulted 03/13/19 Urine Culture Result 1 (RAMON) - Preliminary, Resulted Review of Systems Constitutional: yes: alert, oriented Ears/Nose/Throat: Yes: no symptom reported Eyes: Yes: no symptom reported Pulmonary: Yes dyspnea Cardiovascular: Yes no symptom reported Gastrointestional: Yes: no symptom reported Genitourinary: Yes: no symptom reported Musculoskeletal: Yes: no symptom reported Skin: Yes no symptom reported Psychiatric/Neurological: Yes: no symptom reported Endocrine: Yes: no symptom reported Hematologic/Lymphatic: Yes: no symptom reported Physical Exam General Appearance: no apparent distress Skin: warm Respiratory: decreased breath sounds Heart: S1S2, RRR Abdomen: soft, bowel sounds present Genitourinary: bladder flat Extremities: pulses present, no edema, atrophy Neurology: alert, oriented Musculoskeletal: Osteoarthritis Assessment Assessment IMP NEW ESRD ANEMIA ACUTE HYPOXIC RESP FAILURE HTN CM WITH EF OF 40% PLAN WILL HAVE HD STARTED TODAY UNSURE WITH HIS LEFT ARM AVF WILL WITHSTAND CANNULATION IF SO WILL HD TODAY AND UF ABOUT 1.0 LITER WILL NEED TUNNELED HD CATHETER TOMORROW IF CANNULATION DOES NOT GO WELL HAVE ASKED SW TO SET UP OP HD HE WOULD LIKE TO GO TO [facility] OR [facility] DIALYSIS WILL FOLLOW ESAU ROSALES MD Mar 16, 2019 12:28
[2019-03-16] MEDS ORDERED: IV NORMAL SALINE 1000ML BAG 1,000 ML IV PRN ×2 (14:34)
[2019-03-16] MEDS ORDERED: LIDOCAINE 1% PF 2 ML VIAL. INJ ONE (14:45)
[2019-03-16] MEDS ORDERED: DIALYSIS PATIENT. MC PRN ×2 (14:45)
[2019-03-16 14:51] VITALS: BP 129/81
--- NOTE | 2019-03-16 15:24 | NUR ---
Pharmacy Warfarin Dosing Note S: Pharmacy consulted to assist with anticoagulation therapy O: ROMMEL POLK is a 73 year old M with Atrial Fibrillation LABS: Last INR: 2.3 Last HGB: 10.7 Last HCT: 33.1 Last PLT: 211 Last dose of 3 mg given on 03/15/19 at 1505 Vitamin K given: N Ongoing Drug Interactions: Amiodarone, ASA, Ticagrelor, Atorvastatin A:INR of 2.3 is within desired range. Target range for this patient is: 2 - 3 P: Warfarin dose: 4 mg @1600 Bridge Therapy: None Next INR due 03/17/19 Pharmacy anticoagulation service will continue to follow. MIKEL BATES, [facility], 03/16/19 [id number]
[2019-03-16] MEDS ORDERED: WARFARIN 4 MG TABLET. PO ONE (16:00)
--- NOTE | 2019-03-16 16:07 | NUR ---
SW consulted for Op HD. Chart reviewed and discussed with RN. Pt lives at home with spouse. PT/OT recommends home health. SW phoned and faxed referral to [facility]. Pt acceptance and chair time pending. Access report and flow sheet pending. Pt is starting new HD today. Will continue to follow.
--- NOTE | 2019-03-16 16:45 | NUR ---
PATIENT ARRIVED ON THE UNIT ALERT AND VERBALLY RESPONSIVE, DENIES PAIN AND DISCOMFORT AT THIS TIME, ASSISTED UP TO BATHROOM PER THIS RELIEF OPERATOR, PATIENT ENCOURAGED TO USE CALL LIGHT PRIOR TO GETTING OOB, WILL MONITOR.
[2019-03-16] MEDS: cefTRIAXone IV Push 1 GM VIAL. IVP SCH (17:05)
[2019-03-16 19:00] VITALS: BP 163/71
[2019-03-16] MEDS: LACTOBACILLUS RHAMNOSUS GG 1 CAPSULE. PO SCH (21:47)
[2019-03-16] MEDS: ATORVASTATIN CALCIUM 40 MG TABLET. PO SCH (21:47)
[2019-03-16] MEDS: TAMSULOSIN 0.4 MG CAP.ER.24H. PO SCH (21:47)
[2019-03-16 22:53] VITALS: BP 180/83
--- NOTE | 2019-03-16 23:12 | NUR ---
MENDEZ INSERTION NOTE Pt complaining of urine retention. Bladder scanned and resulted [address] Floyd, received orders to re-insert mendez. 16 F 10 mL mendez placed at 2305. 1200 mLs of yellow, clear urine out post mendez placement. Pt tolerated procedure well. Pt has no other complaints at this time, will continue to monitor.
[2019-03-17] MEDS: INSULIN GLARGINE SYRINGE. SQ SCH ×2 (00:12→21:22)
[2019-03-17 03:00] VITALS: BP 116/59
[2019-03-17 05:03] LABS: PROTHROMBIN TIME PATIENT 26.1 SEC (11.7-14.0)
[2019-03-17 05:05] LABS: HEMATOCRIT 29.5 % (39.0-53.0); HEMOGLOBIN 9.5 g/dL (13.0-17.5); RED BLOOD COUNT 3.82 x10^6/uL (4.30-5.70); RED CELL DISTRIBUTION WIDTH 22.2 % (11.5-14.5); WHITE BLOOD COUNT 6.7 x10^3/uL (4.0-11.0)
[2019-03-17 05:21] LABS: CALCIUM 8.8 mg/dL (8.5-10.1); CREATININE 2.9 mg/dL (0.7-1.3); GFR 25.9; POTASSIUM 4.1 mmol/L (3.5-5.1)
[2019-03-17 06:35] VITALS: BP 134/66
[2019-03-17] MEDS: BUDESONIDE 0.5 MG/2 ML NEBU. NEB SCH (07:25)
[2019-03-17] MEDS: IPRATRPIUM/ALBUTEROL 0.5/2.5MG 3 ML NEBU. NEB SCH ×4 (07:25→20:08)
[2019-03-17] MEDS: INSULIN LISPRO 300 UNITS/3 ML VIAL. SQ SCH ×3 (08:00→21:14)
[2019-03-17] MEDS ORDERED: LIDOCAINE WITH 8.4% SOD BICARB 3 ML DISP.SYRIN. ONE (08:28)
[2019-03-17] MEDS ORDERED: LIDOCAINE WITH 8.4% SOD BICARB 3 ML DISP.SYRIN. INJ ONE (09:15)
--- NOTE | 2019-03-17 09:20 | PDOC ---
PROGRESS NOTES Chief Complaint Chief Complaint impression Acute hypoxic respiratory failure combination of acute combined systolic and diastolic CHF, req. BIPAP on admit , EF 40% previously acute renal faiulre, on CKD CKD stage 4- was on HD in the past- taken off Dialysis appox 6 -8 months [employer] Urinary retention, chronic mendez in place Metabolic acidosis - Abnormal arterial blood gases, consistent with acute metabolic acidosis, likely related to acute on chronic kidney disease. CAD - s/p PCI/stent placement one year ago and 3 weeks ago e) w. htn and lipids Diabetes mellitus type 2 - Paroxysmal AFIB with chronic LBBB - Anemia of chronic disease - on iron gait instability Anticoagulation for AFib per Cardiology. 39 MIN PT EXAM, CHART REVIEW, > 50% OF TIME SPENT WITH EXAM, CHART REVIEW, PT CARE COORDINATION History of Present Illness History of Present Illness agreeable to HD - he told docs few days ago HAs a left AV fistula that has been created and functioning fine CReat 3.1, mendez out and urinal has decent amt of urine other notes reviewed (cards and pulmo - cont nebs and diuresis for now EF 40% PT recs Home with HH with cont imdur per cards and maybe hydralazine prn for bp excursions PLAN: I am unsure what the renal plan is - do i keep him? HD? or send home with HH?? WILL wait for renal rounds Vitals Vitals Vital Signs Date Time Temp Pulse Resp B/P (MAP) Pulse Ox O2 Delivery O2 Flow Rate FiO2 03/17/19 07:27 100 Nasal Cannula 1.5 03/17/19 06:35 98.3 60 19 134/66 (88) 98.3 Physical Exam General: Alert, Oriented X3, Cooperative, No acute distress, mild distress Heart: Regular rate (SR LBBB), Normal S1, Normal S2, No murmurs, Other (distant heart sounds) Lungs: Clear Abdomen: Soft, No tenderness Extremities: No cyanosis, Other (2+ bilateral LE pitting edema) Skin: No breakdown, No significant lesion Labs LABS AP chest x-ray HISTORY: Congestive heart failure. COMPARISON: Chest March 13, 2019. FINDINGS: Cardiac megaly stable. Aortic arch calcified plaque. No pneumothorax. Pulmonary interstitial edema has mildly decreased. Persistent extensive lower lobe greater than upper lobe opacities have also decreased in density likely improving alveolar pulmonary edema. There may be a small right pleural effusion layering along the right lateral diaphragm new from the prior study. IMPRESSION: Mild improvement of the pulmonary edema with decreased interstitial thickening and pulmonary opacities. Residual pulmonary opacities are present at the lung bases representing alveolar edema or superimposed pneumonia. Development of a small right pleural effusion along the diaphragm. Electronically signed by: Alethea William MD (03/14/2019 5:43 AM) [facility] [place] and SIGNED BY: ALETHEA WILLIAM MD DATE: 03/14/19 0543 Laboratory Tests Test 03/16/19 11:12 03/16/19 17:02 03/16/19 20:11 03/17/19 04:45 Glucose (Fingerstick) 149 mg/dL (70-99) 209 mg/dL (70-99) 159 mg/dL (70-99) White Blood Count 6.7 x10^3/uL (4.0-11.0) Red Blood Count 3.82 x10^6/uL (4.30-5.70) Hemoglobin 9.5 g/dL (13.0-17.5) Hematocrit 29.5 % (39.0-53.0) Mean Corpuscular Volume 77 fL (79-100) Mean Corpuscular Hemoglobin 25 pg (25-35) Mean Corpuscular Hemoglobin Concent 32 g/dL (31-37) Red Cell Distribution Width 22.2 % (11.5-14.5) Platelet Count 203 x10^3/uL (140-400) Prothrombin Time 26.1 SEC (11.7-14.0) Prothromb Time International Ratio 2.4 (0.8-1.1) Sodium Level 139 mmol/L (136-145) Potassium Level 4.1 mmol/L (3.5-5.1) Chloride Level 104 mmol/L (98-107) Carbon Dioxide Level 24 mmol/L (21-32) Anion Gap 11 (6-14) Blood Urea Nitrogen 50 mg/dL (8-26) Creatinine 2.9 mg/dL (0.7-1.3) Estimated GFR (Cockcroft-Gault) 25.9 Glucose Level 105 mg/dL (70-99) Calcium Level 8.8 mg/dL (8.5-10.1) Assessment and Plan Assessmemt and Plan Problems Medical Problems: (1) Acute combined systolic (congestive) and diastolic (congestive) heart failure Status: Acute (2) Acute on chronic diastolic (congestive) heart failure Status: Acute (3) Acute respiratory failure with hypoxia Status: Acute (4) JESSICA (acute kidney injury) Status: Acute (5) CAD (coronary artery disease) of artery bypass graft Status: Chronic (6) CHF (congestive heart failure) Status: Chronic (7) CKD (chronic kidney disease) Status: Chronic (8) CKD (chronic kidney disease), stage IV Status: Chronic (9) HTN (hypertension) Status: Chronic (10) Hypertension Status: Chronic (11) LBBB (left bundle branch block) Status: Chronic (12) Paroxysmal A-fib Status: Chronic (13) Respiratory failure Status: Acute Comment Review of Relevant I have reviewed the following items juanita (where applicable) has been applied. Labs Laboratory Tests Test 03/15/19 12:01 03/15/19 16:58 03/15/19 20:17 03/16/19 02:40 Glucose (Fingerstick) 133 mg/dL (70-99) 188 mg/dL (70-99) 141 mg/dL (70-99) White Blood Count 5.5 x10^3/uL (4.0-11.0) Red Blood Count 4.29 x10^6/uL (4.30-5.70) Hemoglobin 10.7 g/dL (13.0-17.5) Hematocrit 33.1 % (39.0-53.0) Mean Corpuscular Volume 77 fL (79-100) Mean Corpuscular Hemoglobin 25 pg (25-35) Mean Corpuscular Hemoglobin Concent 32 g/dL (31-37) Red Cell Distribution Width 22.1 % (11.5-14.5) Platelet Count 211 x10^3/uL (140-400) Neutrophils (%) (Auto) 54 % (31-73) Lymphocytes (%) (Auto) 23 % (24-48) Monocytes (%) (Auto) 22 % (0-9) Eosinophils (%) (Auto) 1 % (0-3) Basophils (%) (Auto) 0 % (0-3) Neutrophils # (Auto) 3.0 x10^3/uL (1.8-7.7) Lymphocytes # (Auto) 1.3 x10^3/uL (1.0-4.8) Monocytes # (Auto) 1.2 x10^3/uL (0.0-1.1) Eosinophils # (Auto) 0.0 x10^3/uL (0.0-0.7) Basophils # (Auto) 0.0 x10^3/uL (0.0-0.2) Segmented Neutrophils % 56 % (35-66) Band Neutrophils % 1 % (0-9) Lymphocytes % 31 % (24-48) Monocytes % 12 % (0-10) Platelet Estimate Adequate (ADEQUATE) Anisocytosis Mod Prothrombin Time 25.4 SEC (11.7-14.0) Prothromb Time International Ratio 2.3 (0.8-1.1) Sodium Level 139 mmol/L (136-145) Potassium Level 4.0 mmol/L (3.5-5.1) Chloride Level 104 mmol/L (98-107) Carbon Dioxide Level 25 mmol/L (21-32) Anion Gap 10 (6-14) Blood Urea Nitrogen 51 mg/dL (8-26) Creatinine 3.1 mg/dL (0.7-1.3) Estimated GFR (Cockcroft-Gault) 24.0 Glucose Level 146 mg/dL (70-99) Calcium Level 9.1 mg/dL (8.5-10.1) Phosphorus Level 4.1 mg/dL (2.6-4.7) Albumin 3.2 g/dL (3.4-5.0) Hepatitis B Surface Antigen Nonreactive (Nonreactive) Hepatitis B Surface Antibody Nonreactive Hepatitis B Surface Antibody, Quant <3.1 mIU/mL (Immunity>9.9) Hepatitis B Core Total Antibody Nonreactive (Nonreactive) Test 03/16/19 07:14 03/16/19 11:12 03/16/19 17:02 03/16/19 20:11 Glucose (Fingerstick) 98 mg/dL (70-99) 149 mg/dL (70-99) 209 mg/dL (70-99) 159 mg/dL (70-99) Test 03/17/19 04:45 White Blood Count 6.7 x10^3/uL (4.0-11.0) Red Blood Count 3.82 x10^6/uL (4.30-5.70) Hemoglobin 9.5 g/dL (13.0-17.5) Hematocrit 29.5 % (39.0-53.0) Mean Corpuscular Volume 77 fL (79-100) Mean Corpuscular Hemoglobin 25 pg (25-35) Mean Corpuscular Hemoglobin Concent 32 g/dL (31-37) Red Cell Distribution Width 22.2 % (11.5-14.5) Platelet Count 203 x10^3/uL (140-400) Prothrombin Time 26.1 SEC (11.7-14.0) Prothromb Time International Ratio 2.4 (0.8-1.1) Sodium Level 139 mmol/L (136-145) Potassium Level 4.1 mmol/L (3.5-5.1) Chloride Level 104 mmol/L (98-107) Carbon Dioxide Level 24 mmol/L (21-32) Anion Gap 11 (6-14) Blood Urea Nitrogen 50 mg/dL (8-26) Creatinine 2.9 mg/dL (0.7-1.3) Estimated GFR (Cockcroft-Gault) 25.9 Glucose Level 105 mg/dL (70-99) Calcium Level 8.8 mg/dL (8.5-10.1) Laboratory Tests Test 03/16/19 11:12 03/16/19 17:02 03/16/19 20:11 03/17/19 04:45 Glucose (Fingerstick) 149 mg/dL (70-99) 209 mg/dL (70-99) 159 mg/dL (70-99) White Blood Count 6.7 x10^3/uL (4.0-11.0) Red Blood Count 3.82 x10^6/uL (4.30-5.70) Hemoglobin 9.5 g/dL (13.0-17.5) Hematocrit 29.5 % (39.0-53.0) Mean Corpuscular Volume 77 fL (79-100) Mean Corpuscular Hemoglobin 25 pg (25-35) Mean Corpuscular Hemoglobin Concent 32 g/dL (31-37) Red Cell Distribution Width 22.2 % (11.5-14.5) Platelet Count 203 x10^3/uL (140-400) Prothrombin Time 26.1 SEC (11.7-14.0) Prothromb Time International Ratio 2.4 (0.8-1.1) Sodium Level 139 mmol/L (136-145) Potassium Level 4.1 mmol/L (3.5-5.1) Chloride Level 104 mmol/L (98-107) Carbon Dioxide Level 24 mmol/L (21-32) Anion Gap 11 (6-14) Blood Urea Nitrogen 50 mg/dL (8-26) Creatinine 2.9 mg/dL (0.7-1.3) Estimated GFR (Cockcroft-Gault) 25.9 Glucose Level 105 mg/dL (70-99) Calcium Level 8.8 mg/dL (8.5-10.1) Microbiology 03/13/19 Urine Culture - Final, Complete 03/13/19 Urine Culture Result 1 (RAMON) - Final, Complete 03/13/19 Antimicrobic Susceptibility - Final, Complete Medications Current Medications Albuterol/ Ipratropium (Duoneb) 3 ml 1X ONCE NEB Last administered on 03/13/19at 07:09; Start 03/13/19 at 07:00; Stop 03/13/19 at 07:01; Status DC Methylprednisolone Sodium Succinate (SOLU-Medrol 125MG VIAL) 125 mg 1X ONCE IV Last administered on 03/13/19at 07:13; Start 03/13/19 at 07:00; Stop 03/13/19 at 07:01; Status DC Furosemide (Lasix) 60 mg 1X ONCE IVP Last administered on 03/13/19at 07:12; Start 03/13/19 at 07:00; Stop 03/13/19 at 07:01; Status DC Furosemide (Lasix) 100 mg STK-MED ONCE .ROUTE ; Start 03/13/19 at 06:51; Stop 03/13/19 at 06:51; Status DC Ondansetron HCl (Zofran) 4 mg STK-MED ONCE .ROUTE ; Start 03/13/19 at 07:22; Stop 03/13/19 at 07:23; Status DC Ondansetron HCl (Zofran) 8 mg 1X ONCE IV Last administered on 03/13/19at 07:56; Start 03/13/19 at 07:23; Stop 03/13/19 at 07:54; Status DC Ondansetron HCl (Zofran) 4 mg PRN Q8HRS PRN IV NAUSEA/VOMITING; Start 03/13/19 at 09:15; Stop 03/14/19 at 09:14; Status DC Albuterol/ Ipratropium (Duoneb) 3 ml RTQID NEB Last administered on 03/14/19 11:50; Start 03/13/19 at 12:00; Stop 03/14/19 at 11:59; Status DC Albuterol Sulfate (Ventolin Neb Soln) 2.5 mg PRN Q6HRS PRN INH SHORTNESS OF BREATH Last administered on 03/15/19at 16:12; Start 03/13/19 at 11:00 Amiodarone HCl (Cordarone) 200 mg DAILY PO Last administered on 03/16/19 08:38; Start 03/13/19 at 11:00 Aspirin (Ecotrin) 81 mg DAILYWBKFT PO Last administered on 03/16/19 08:38; Start 03/14/19 at 08:00 Atorvastatin Calcium (Lipitor) 40 mg QHS PO Last administered on 03/16/19 21:50; Start 03/13/19 at 21:00 Guaifenesin (Robitussin Dm) 10 ml PRN Q6HRS PRN PO COUGH; Start 03/13/19 at 11:00 Insulin Glargine (Lantus Syringe) 15 unit HS SQ Last administered on 03/17/19at 00:12; Start 03/13/19 at 21:00 Isosorbide Mononitrate (Imdur) 30 mg DAILY PO Last administered on 03/16/19 08:38; Start 03/13/19 at 11:00 Metoprolol Succinate (Toprol Xl) 50 mg DAILY PO ; Start 03/13/19 at 11:00; Stop 03/13/19 at 12:23; Status DC Tamsulosin HCl (Flomax) 0.4 mg QHS PO Last administered on 03/16/19 21:50; Start 03/13/19 at 21:00 Ticagrelor (Brilinta) 90 mg BID PO Last administered on 03/16/19 21:50; Start 03/13/19 at 21:00 Warfarin Sodium (Coumadin) 5 mg QPM PO ; Start 03/13/19 at 18:00; Status UNV Budesonide (Pulmicort) 0.5 mg RTBID NEB Last administered on 03/17/19 07:27; Start 03/13/19 at 11:30 Ferrous Sulfate (Feosol) 325 mg DAILYWBKFT PO Last administered on 03/16/19 08:38; Start 03/13/19 at 11:30 Warfarin Sodium (Coumadin Per Pharmacy) 1 each PRN DAILY PRN MC SEE COMMENTS Last administered on 03/16/19 15:24; Start 03/13/19 at 11:00 Furosemide (Lasix) 40 mg BID92 IVP Last administered on 03/16/19 08:38; Start 03/13/19 at 14:00 Insulin Human Lispro (HumaLOG) 0-7 UNITS TIDWMEALS SQ Last administered on 03/16/19 17:18; Start 03/13/19 at 12:00 Dextrose (Dextrose 50%-Water Syringe) 12.5 gm PRN Q15MIN PRN IV SEE COMMENTS; Start 03/13/19 at 11:15 Dextrose 250 ml PRN Q15MIN PRN IV SEE COMMENTS; Start 03/13/19 at 11:15 Warfarin Sodium (Coumadin) 5 mg 1X WARF ONCE PO Last administered on 03/13/19 17:40; Start 03/13/19 at 16:00; Stop 03/13/19 at 16:01; Status DC Metoprolol Succinate (Toprol Xl) 25 mg DAILY PO Last administered on 03/16/19 08:38; Start 03/14/19 at 09:00 Amlodipine Besylate (Norvasc) 10 mg DAILY PO Last administered on 03/16/19 08:38; Start 03/13/19 at 12:30 Nitroglycerin (Nitro-Bid Oint) 0.5 inch PRN Q4HRS PRN TP hypertension Last administered on 03/13/19at 15:58; Start 03/13/19 at 15:15 Warfarin Sodium (Coumadin) 5 mg 1X WARF ONCE PO Last administered on 03/14/19 17:00; Start 03/14/19 at 16:00; Stop 03/14/19 at 16:01; Status DC Warfarin Sodium (Coumadin) 3 mg 1X WARF ONCE PO Last administered on 03/15/19 15:05; Start 03/15/19 at 16:00; Stop 03/15/19 at 16:01; Status DC Albuterol/ Ipratropium (Duoneb) 3 ml RTQID NEB Last administered on 03/17/19at 07:27; Start 03/15/19 at 16:15 Ondansetron HCl (Zofran) 4 mg PRN Q6HRS PRN IV NAUSEA/VOMITING; Start 03/16/19 at 08:45 Acetaminophen (Tylenol) 500 mg PRN Q6HRS PRN PO MILD PAIN / TEMP; Start 03/16/19 at 08:45 Clonidine HCl (Catapres) 0.1 mg PRN Q1HR PRN PO HYPERTENSION; Start 03/16/19 at 08:45 Sodium Chloride 1,000 ml @ 1,000 mls/hr Q1H PRN IV hypotension; Start 03/16/19 at 14:34; Stop 03/16/19 at 20:33; Status DC Sodium Chloride 1,000 ml @ 400 mls/hr Q2H30M PRN IV PATENCY; Start 03/16/19 at 14:34; Stop 03/17/19 at 02:33; Status DC Info (PHARMACY MONITORING -- do not chart) 1 each PRN DAILY PRN MC SEE COMMENTS; Start 03/16/19 at 14:45; Status UNV Info (PHARMACY MONITORING -- do not chart) 1 each PRN DAILY PRN MC SEE COMMENTS; Start 03/16/19 at 14:45 Lidocaine HCl (Xylocaine-Mpf 1% 2ml Vial) 2 ml 1X ONCE INJ ; Start 03/16/19 at 14:45; Stop 03/16/19 at 14:46; Status DC Warfarin Sodium (Coumadin) 4 mg 1X WARF ONCE PO ; Start 03/16/19 at 16:00; Stop 03/16/19 at 16:01; Status DC Ceftriaxone Sodium (Rocephin) 1 gm Q24H IVP Last administered on 03/16/19at 17:05; Start 03/16/19 at 16:00 Lactobacillus Rhamnosus (Culturelle) 1 cap BID PO Last administered on 03/16/19at 21:50; Start 03/16/19 at 21:00 Lidocaine/Sodium Bicarbonate (Buffered Lidocaine 1%) 3 ml STK-MED ONCE .ROUTE ; Start 03/17/19 at 08:28; Stop 03/17/19 at 08:29; Status DC Lidocaine/Sodium Bicarbonate (Buffered Lidocaine 1%) 6 ml 1X ONCE INJ ; Start 03/17/19 at 09:15; Stop 03/17/19 at 09:16; Status DC Active Scripts Active Amlodipine Besylate 10 Mg Tablet 10 Mg PO DAILY Metoprolol Succinate ( Xl ) (Metoprolol Succinate) 25 Mg Tab.er.24h 25 Mg PO DAILY Duoneb 0.5-3(2.5) Mg/3 Ml (Albuterol/Ipratropium) 3 Ml Ampul.neb 3 Ml NEB RTQID Proair Hfa (Albuterol Sulfate) 8.5 Gm Hfa.aer.ad 1 Puff INH PRN Q6HRS PRN 30 Days Pulmicort Flexhaler (Budesonide) 180 Mcg Aer.pow.ba 2 Puff IH BID Guaifenesin Dm Syrup (Guaifenesin/Dextromethorphan) 5 Ml Syrup 10 Ml PO PRN Q6HRS PRN 7 Days Lantus (Insulin Glargine,Hum.rec.anlog) 100 Unit/1 Ml Vial 15 Unit SQ HS 30 Days Furosemide 40 Mg Tablet 40 Mg PO BID92 Aspirin Ec (Aspirin) 81 Mg Tablet. 81 Mg PO DAILYWBKFT Isosorbide Mononitrate Er (Isosorbide Mononitrate) 30 Mg Tab.er.24h 30 Mg PO DAILY Atorvastatin Calcium 40 Mg Tablet 40 Mg PO QHS Brilinta (Ticagrelor) 90 Mg Tablet 90 Mg PO BID Amiodarone Hcl 200 Mg Tablet 200 Mg PO DAILY Reported Warfarin Sodium 5 Mg Tablet 5 Mg PO DAILY take 5mg on sat,sat.thur,sat,sun take 6 mg on saturday and saturday Ferrous Sulfate 324 Mg Tablet. 324 Mg PO DAILY Flomax (Tamsulosin Hcl) 0.4 Mg Cap.er.24h 0.4 Mg PO DAILY Vitals/I & O Vital Sign - Last 24 Hours 03/16/19 03/16/19 03/16/19 03/16/19 07:27 08:00 08:38 08:38 Pulse 73 73 B/P (MAP) 167/79 167/79 Pulse Ox 100 O2 Delivery Room Air Nasal Cannula O2 Flow Rate 2.0 03/16/19 03/16/19 03/16/19 03/16/19 08:38 08:38 11:00 11:59 Temp 97.8 97.8 Pulse 73 73 73 Resp 20 B/P (MAP) 167/79 167/79 146/71 (96) Pulse Ox 99 100 O2 Delivery Nasal Cannula Room Air O2 Flow Rate 2.0 03/16/19 03/16/19 03/16/19 03/16/19 14:51 15:32 19:00 20:00 Temp 97.8 97.7 97.8 97.7 Pulse 51 77 Resp 18 17 B/P (MAP) 129/81 (97) 163/71 (101) Pulse Ox 95 100 O2 Delivery Room Air Room Air Nasal Cannula Nasal Cannula O2 Flow Rate 2.0 2.0 03/16/19 03/17/19 03/17/19 03/17/19 22:53 03:00 06:35 07:27 Temp 97.7 97.9 98.3 97.7 97.9 98.3 Pulse 80 66 60 Resp 18 18 19 B/P (MAP) 180/83 (115) 116/59 (78) 134/66 (88) Pulse Ox 100 100 100 100 O2 Delivery Nasal Cannula Nasal Cannula Nasal Cannula Nasal Cannula O2 Flow Rate 2.0 2.0 2.0 1.5 Intake and Output 03/16/19 03/17/19 03/17/19 16:59 00:59 08:59 Intake Total 340 ml 300 ml Output Total 350 ml 2225 ml Balance 340 ml -50 ml -2225 ml Nutrition Consultation Dietary Evaluation: Recommendations by RD: Dietary education by RD, Increase Calorie Intake, Protein supplementation Comments: REC advance diet as able pending respiratory status, goal diet cardiac/ADA REC glucerna BID (strawberry, w/meals per pt preference) Will provide CHF/low sodium diet education as able, when pt more awake/alert Expected Outcomes/Goals: PO intake to meet >75% est needs CHF/low sodium diet education when able Malnutrition Findings: Food and Nutrition Intake (Mod: <75% est energy req 7days Weight Status: Appropriate JENI EASTMAN MD Mar 17, 2019 09:20
[2019-03-17] MEDS: TICAGRELOR 90 MG TABLET. PO SCH ×2 (09:50→21:13)
[2019-03-17] MEDS: amLODIPine BESYLATE 10 MG TABLET PO SCH (09:51)
[2019-03-17] MEDS: ISOSORBIDE MONONITRATE ER 30 MG TAB.ER.24H PO SCH (09:51)
[2019-03-17] MEDS: ASPIRIN ENTERIC COATED 81 MG TABLET.DR. PO SCH (09:51)
[2019-03-17] MEDS: FERROUS SULFATE 325 MG TABLET. PO SCH (09:51)
[2019-03-17] MEDS: LACTOBACILLUS RHAMNOSUS GG 1 CAPSULE. PO SCH ×2 (09:52→21:13)
[2019-03-17] MEDS: AMIODARONE HCL 200 MG TABLET. PO SCH (09:52)
[2019-03-17] MEDS: METOPROLOL SUCC 24HR ER 25 MG TAB.ER.24H. PO SCH (09:52)
[2019-03-17] MEDS: FUROSEMIDE 40 MG/4 ML VIAL. IVP SCH ×2 (09:53→14:00)
[2019-03-17] MEDS ORDERED: IV NORMAL SALINE 1000ML BAG 1,000 ML IV PRN (10:19)
--- NOTE | 2019-03-17 10:27 | NUR ---
HAKEEM following pt. HAKEEM faxed flow Sheet to [facility]. Pt is going to HD again today. Acceptance and chair time pending. Will continue to follow.
[2019-03-17] MEDS ORDERED: 0.9 % SODIUM CHLORIDE 10 ML DISP.SYRIN. IV PRN ×2 (10:30)
[2019-03-17] MEDS ORDERED: DIALYSIS PATIENT. MC PRN ×2 (10:30)
[2019-03-17 11:00] VITALS: BP 165/51
--- NOTE | 2019-03-17 11:08 | PDOC ---
PULMONARY PROGRESS NOTES Subjective no soa had attempted HD yesterday Vitals Vital Signs Date Time Temp Pulse Resp B/P (MAP) Pulse Ox O2 Delivery O2 Flow Rate FiO2 03/17/19 09:53 60 134/66 03/17/19 07:27 100 Nasal Cannula 1.5 03/17/19 06:35 98.3 19 98.3 ROS: No Nausea, No Chest Pain, No Abdominal Pain, No Increase Cough General: Alert, Oriented X4, No acute distress HEENT: Other (normal) Lungs: Clear Cardiovascular: S1, S2 Abdomen: Soft, Non-tender Neuro Exam: Alert, Oriented, Normal Speech, No Focal Findings Extremities: No Edema Skin: Warm, Dry Labs Laboratory Tests Test 03/15/19 12:01 03/15/19 16:58 03/15/19 20:17 03/16/19 02:40 Glucose (Fingerstick) 133 mg/dL (70-99) 188 mg/dL (70-99) 141 mg/dL (70-99) White Blood Count 5.5 x10^3/uL (4.0-11.0) Red Blood Count 4.29 x10^6/uL (4.30-5.70) Hemoglobin 10.7 g/dL (13.0-17.5) Hematocrit 33.1 % (39.0-53.0) Mean Corpuscular Volume 77 fL (79-100) Mean Corpuscular Hemoglobin 25 pg (25-35) Mean Corpuscular Hemoglobin Concent 32 g/dL (31-37) Red Cell Distribution Width 22.1 % (11.5-14.5) Platelet Count 211 x10^3/uL (140-400) Neutrophils (%) (Auto) 54 % (31-73) Lymphocytes (%) (Auto) 23 % (24-48) Monocytes (%) (Auto) 22 % (0-9) Eosinophils (%) (Auto) 1 % (0-3) Basophils (%) (Auto) 0 % (0-3) Neutrophils # (Auto) 3.0 x10^3/uL (1.8-7.7) Lymphocytes # (Auto) 1.3 x10^3/uL (1.0-4.8) Monocytes # (Auto) 1.2 x10^3/uL (0.0-1.1) Eosinophils # (Auto) 0.0 x10^3/uL (0.0-0.7) Basophils # (Auto) 0.0 x10^3/uL (0.0-0.2) Segmented Neutrophils % 56 % (35-66) Band Neutrophils % 1 % (0-9) Lymphocytes % 31 % (24-48) Monocytes % 12 % (0-10) Platelet Estimate Adequate (ADEQUATE) Anisocytosis Mod Prothrombin Time 25.4 SEC (11.7-14.0) Prothromb Time International Ratio 2.3 (0.8-1.1) Sodium Level 139 mmol/L (136-145) Potassium Level 4.0 mmol/L (3.5-5.1) Chloride Level 104 mmol/L (98-107) Carbon Dioxide Level 25 mmol/L (21-32) Anion Gap 10 (6-14) Blood Urea Nitrogen 51 mg/dL (8-26) Creatinine 3.1 mg/dL (0.7-1.3) Estimated GFR (Cockcroft-Gault) 24.0 Glucose Level 146 mg/dL (70-99) Calcium Level 9.1 mg/dL (8.5-10.1) Phosphorus Level 4.1 mg/dL (2.6-4.7) Albumin 3.2 g/dL (3.4-5.0) Hepatitis B Surface Antigen Nonreactive (Nonreactive) Hepatitis B Surface Antibody Nonreactive Hepatitis B Surface Antibody, Quant <3.1 mIU/mL (Immunity>9.9) Hepatitis B Core Total Antibody Nonreactive (Nonreactive) Test 03/16/19 07:14 03/16/19 11:12 03/16/19 17:02 03/16/19 20:11 Glucose (Fingerstick) 98 mg/dL (70-99) 149 mg/dL (70-99) 209 mg/dL (70-99) 159 mg/dL (70-99) Test 03/17/19 04:45 03/17/19 10:00 White Blood Count 6.7 x10^3/uL (4.0-11.0) Red Blood Count 3.82 x10^6/uL (4.30-5.70) Hemoglobin 9.5 g/dL (13.0-17.5) Hematocrit 29.5 % (39.0-53.0) Mean Corpuscular Volume 77 fL (79-100) Mean Corpuscular Hemoglobin 25 pg (25-35) Mean Corpuscular Hemoglobin Concent 32 g/dL (31-37) Red Cell Distribution Width 22.2 % (11.5-14.5) Platelet Count 203 x10^3/uL (140-400) Prothrombin Time 26.1 SEC (11.7-14.0) Prothromb Time International Ratio 2.4 (0.8-1.1) Sodium Level 139 mmol/L (136-145) Potassium Level 4.1 mmol/L (3.5-5.1) Chloride Level 104 mmol/L (98-107) Carbon Dioxide Level 24 mmol/L (21-32) Anion Gap 11 (6-14) Blood Urea Nitrogen 50 mg/dL (8-26) Creatinine 2.9 mg/dL (0.7-1.3) Estimated GFR (Cockcroft-Gault) 25.9 Glucose Level 105 mg/dL (70-99) Calcium Level 8.8 mg/dL (8.5-10.1) Glucose (Fingerstick) 121 mg/dL (70-99) Laboratory Tests Test 03/16/19 11:12 03/16/19 17:02 03/16/19 20:11 03/17/19 04:45 Glucose (Fingerstick) 149 mg/dL (70-99) 209 mg/dL (70-99) 159 mg/dL (70-99) White Blood Count 6.7 x10^3/uL (4.0-11.0) Red Blood Count 3.82 x10^6/uL (4.30-5.70) Hemoglobin 9.5 g/dL (13.0-17.5) Hematocrit 29.5 % (39.0-53.0) Mean Corpuscular Volume 77 fL (79-100) Mean Corpuscular Hemoglobin 25 pg (25-35) Mean Corpuscular Hemoglobin Concent 32 g/dL (31-37) Red Cell Distribution Width 22.2 % (11.5-14.5) Platelet Count 203 x10^3/uL (140-400) Prothrombin Time 26.1 SEC (11.7-14.0) Prothromb Time International Ratio 2.4 (0.8-1.1) Sodium Level 139 mmol/L (136-145) Potassium Level 4.1 mmol/L (3.5-5.1) Chloride Level 104 mmol/L (98-107) Carbon Dioxide Level 24 mmol/L (21-32) Anion Gap 11 (6-14) Blood Urea Nitrogen 50 mg/dL (8-26) Creatinine 2.9 mg/dL (0.7-1.3) Estimated GFR (Cockcroft-Gault) 25.9 Glucose Level 105 mg/dL (70-99) Calcium Level 8.8 mg/dL (8.5-10.1) Test 03/17/19 10:00 Glucose (Fingerstick) 121 mg/dL (70-99) Medications Active Scripts Medications Dose Route/Sig Max Daily Dose Days Date Category Dose Instructions Proair Hfa (Albuterol Sulfate) 8.5 Gm Hfa.aer.ad 1 Puff INH PRN Q6HRS PRN 30 02/21/19 Rx Pulmicort Flexhaler (Budesonide) 180 Mcg Aer.pow.ba 2 Puff IH BID 02/21/19 Rx Guaifenesin Dm Syrup (Guaifenesin/Dextromethorphan) 5 Ml Syrup 10 Ml PO PRN Q6HRS PRN 7 02/21/19 Rx Lantus (Insulin Glargine,Hum.rec.anlog) 100 Unit/1 Ml Vial 15 Unit SQ HS 30 02/21/19 Rx Furosemide 40 Mg Tablet 40 Mg PO [id number] 02/21/19 Rx Aspirin Ec (Aspirin) 81 Mg Tablet.dr 81 Mg PO [id number] 02/21/19 Rx Metoprolol Succinate ( Xl ) (Metoprolol Succinate) 25 Mg Tab.er.24h 50 Mg PO DAILY 02/21/19 Rx Isosorbide Mononitrate Er (Isosorbide Mononitrate) 30 Mg Tab.er.24h 30 Mg PO DAILY 02/21/19 Rx Atorvastatin Calcium 40 Mg Tablet 40 Mg PO QHS 02/21/19 Rx Brilinta (Ticagrelor) 90 Mg Tablet 90 Mg PO BID 02/21/19 Rx Amiodarone Hcl 200 Mg Tablet 200 Mg PO DAILY 02/21/19 Rx Warfarin Sodium 5 Mg Tablet 5 Mg PO DAILY 01/24/19 Reported take 5mg on sat,sat.thur,sat,sun take 6 mg on saturday and saturday Ferrous Sulfate 324 Mg Tablet.dr 324 Mg PO DAILY 01/24/19 Reported Flomax (Tamsulosin Hcl) 0.4 Mg Cap.er.24h 0.4 Mg PO DAILY 01/24/19 Reported Comments Chest xray taken 03/14 shows significant improvement in pulmonary edema and pleural effusions. Impression . 1. Acute hypoxic respiratory failure secondary to acute on chronic systolic and diastolic heart failure, improving 2. Hypertensive emergency, present on admission, contributing to congestive heart failure, improving 3. Cardiomyopathy with an EF of 40% and history of increased left ventricular end diastolic pressure based on 01/2019 cardiac catheterization. 4. Abnormal arterial blood gases, consistent with acute metabolic acidosis, likely related to acute on chronic kidney disease. 5. Minimal history of tobacco use. 6. improving chest xray Plan . 1. stable pulmonary status 2. Continue bronchodilators. 3. Anticoagulation for AFib per Cardiology. 4. would suggest repeating CXR after few HD sessions 5. follow renal rec TRISH REECE MD Mar 17, 2019 11:08
--- NOTE | 2019-03-17 11:18 | NUR ---
Pharmacy Warfarin Dosing Note S:Pharmacy consulted to assist with anticoagulation therapy started with target INR: 2 -3 O:ROMMEL POLK is a 73 year old M with Atrial Fibrillation LABS: Last INR: 2.4 Last HGB: 10.7 Last HCT: 33.1 Last PLT: 211 Last dose of 4 mg given on 03/16/19 at 1700 Previous Regimen: 5MG DAILY Vitamin K given: N Drug Interaction Changes: Same Interacting Drug Ongoing Drug Interactions: Amiodarone, ASA, Ticagrelor, Atorvastatin A:INR of 2.4 is within desired range. Target range for this patient is: 2 -3 P: Warfarin dose: 4 mg Today at 1600 Bridge Therapy: None Next INR due IN AM Pharmacy anticoagulation service will continue to follow. ILDEFONSO ROMEO RPH, 03/17/19 [id number]
--- NOTE | 2019-03-17 13:45 | PDOC ---
Renal-Progress Notes Subjective Notes Notes SITTING UP History of Present Illness Hx of present illness STABLE Vitals Vitals Vital Signs Date Time Temp Pulse Resp B/P (MAP) Pulse Ox O2 Delivery O2 Flow Rate FiO2 03/17/19 11:18 98 Room Air 03/17/19 11:00 98.0 58 16 165/51 (89) 98.0 03/17/19 07:27 1.5 Weight Weight [ ] I.O. Intake and Output Intake and Output 03/17/19 07:00 Intake Total 940 ml Output Total 2075 ml Balance -1135 ml Intake Oral 940 ml Output Urine Total 2075 ml Labs Labs Laboratory Tests Test 03/16/19 17:02 03/16/19 20:11 03/17/19 04:45 03/17/19 10:00 Glucose (Fingerstick) 209 mg/dL (70-99) 159 mg/dL (70-99) 121 mg/dL (70-99) White Blood Count 6.7 x10^3/uL (4.0-11.0) Red Blood Count 3.82 x10^6/uL (4.30-5.70) Hemoglobin 9.5 g/dL (13.0-17.5) Hematocrit 29.5 % (39.0-53.0) Mean Corpuscular Volume 77 fL (79-100) Mean Corpuscular Hemoglobin 25 pg (25-35) Mean Corpuscular Hemoglobin Concent 32 g/dL (31-37) Red Cell Distribution Width 22.2 % (11.5-14.5) Platelet Count 203 x10^3/uL (140-400) Prothrombin Time 26.1 SEC (11.7-14.0) Prothromb Time International Ratio 2.4 (0.8-1.1) Sodium Level 139 mmol/L (136-145) Potassium Level 4.1 mmol/L (3.5-5.1) Chloride Level 104 mmol/L (98-107) Carbon Dioxide Level 24 mmol/L (21-32) Anion Gap 11 (6-14) Blood Urea Nitrogen 50 mg/dL (8-26) Creatinine 2.9 mg/dL (0.7-1.3) Estimated GFR (Cockcroft-Gault) 25.9 Glucose Level 105 mg/dL (70-99) Calcium Level 8.8 mg/dL (8.5-10.1) Test 03/17/19 12:01 Glucose (Fingerstick) 108 mg/dL (70-99) Micro Micro Microbiology 03/13/19 Urine Culture - Final, Complete 03/13/19 Urine Culture Result 1 (RAMON) - Final, Complete 03/13/19 Antimicrobic Susceptibility - Final, Complete Review of Systems Constitutional: yes: alert, oriented Ears/Nose/Throat: Yes: no symptom reported Eyes: Yes: no symptom reported Pulmonary: Yes dyspnea Cardiovascular: Yes no symptom reported Gastrointestional: Yes: no symptom reported Genitourinary: Yes: no symptom reported Musculoskeletal: Yes: no symptom reported Skin: Yes no symptom reported Psychiatric/Neurological: Yes: no symptom reported Endocrine: Yes: no symptom reported Hematologic/Lymphatic: Yes: no symptom reported Physical Exam General Appearance: no apparent distress Skin: warm Respiratory: decreased breath sounds Heart: S1S2, RRR Abdomen: soft, bowel sounds present Genitourinary: bladder flat Extremities: pulses present, no edema, atrophy Neurology: alert, oriented Musculoskeletal: Osteoarthritis Assessment Assessment IMP NEW ESRD ANEMIA ACUTE HYPOXIC RESP FAILURE HTN CM WITH EF OF 40% PLAN HIS AVF DID NOT WORK WELL WILL NEED TO HAVE INTERVENTION TO FIX IT - THIS CAN BE DONE OP TEMP HD CATHETER PLACED HD TODAY UF ABOUT 1.5 LITERS WILL NEED TO HAVE TUNNELED HD CATHETER PLACED ONCE INR IS ACCEPTABLE SW TO WORK ON DISCHARGE AND OP HD DAY AND TIME WILL FOLLOW PT AGREEABLE TO THE PLAN ESAU ROSALES MD Mar 17, 2019 13:45
--- NOTE | 2019-03-17 14:22 | RAD ---
Procedure: Temporary hemodialysis catheter placement under fluoroscopy Clinical Indication: Renal failure Fluoro Time: 0.2 Dose area product: 1 Gycm2 Contrast: None Sterility: All elements of maximal sterile barrier technique including the use of a cap, mask, sterile gown, sterile gloves, large sterile sheet, appropriate hand hygiene, and 2% chlorhexidine for cutaneous antisepsis (or acceptable alternative antiseptic per current guidelines) were followed for this procedure. Consent: The procedure was explained in its entirety to the patient or the patients designated bilingual inside sales representative by a member of the treatment team, including a discussion of the risks, benefits and commonly accepted alternatives to the procedure, as well as the expected consequences of no therapy whatsoever. Discussion of the risks included, but was not limited to, those that are most frequent and those that are rare but possibly severe or life-threatening, as well as the possibility of unforeseen complications. Technique and Findings: Following informed consent, the patient was prepped and draped in the usual sterile fashion. Ultrasound interrogation of the right neck revealed patency and compressibility of the right internal jugular vein. A 21-gauge micropuncture needle was used to gain access to this vein after 1% Lidocaine was used to achieve local anesthesia. A hardcopy ultrasound image was recorded. The needle was exchanged over a wire for serial dilators followed by a 20 cm temporary hemodialysis catheter which was deployed under fluoroscopic guidance such that the distal tip resided in the mid right atrium. The catheter flow rates were assessed manually and found to be excellent. The catheter was then flushed, packed with Heparin, capped, and sutured to the skin. Complications: No immediate Impression: Ultrasound and fluoroscopic guided placement of a temporary hemodialysis catheter which exhibits excellent manual flow rates as described.
[2019-03-17 15:00] VITALS: BP 135/63
[2019-03-17] MEDS ORDERED: WARFARIN 4 MG TABLET. PO ONE ×2 (16:00→21:00)
[2019-03-17 19:00] VITALS: BP 131/51
[2019-03-17] MEDS: ALBUTEROL SULFATE 2.5 MG/3 ML NEBU. INH PRN (20:08)
[2019-03-17] MEDS: cefTRIAXone IV Push 1 GM VIAL. IVP SCH (21:12)
[2019-03-17] MEDS: ATORVASTATIN CALCIUM 40 MG TABLET. PO SCH (21:13)
[2019-03-17] MEDS: TAMSULOSIN 0.4 MG CAP.ER.24H. PO SCH (21:13)
[2019-03-17 23:00] VITALS: BP 131/57
[2019-03-18 02:37] VITALS: BP 137/60
[2019-03-18 04:04] LABS: HEMATOCRIT 29.8 % (39.0-53.0); HEMOGLOBIN 9.4 g/dL (13.0-17.5); RED BLOOD COUNT 3.89 x10^6/uL (4.30-5.70); RED CELL DISTRIBUTION WIDTH 21.3 % (11.5-14.5); WHITE BLOOD COUNT 5.8 x10^3/uL (4.0-11.0)
[2019-03-18 04:14] LABS: PROTHROMBIN TIME PATIENT 24.1 SEC (11.7-14.0)
[2019-03-18 05:01] LABS: ALBUMIN 2.6 g/dL (3.4-5.0); CALCIUM 8.3 mg/dL (8.5-10.1); CREATININE 2.8 mg/dL (0.7-1.3); GFR 26.9; PHOSPHORUS 3.6 mg/dL (2.6-4.7); POTASSIUM 3.8 mmol/L (3.5-5.1)
[2019-03-18 07:00] VITALS: BP 139/80
[2019-03-18] MEDS: IPRATRPIUM/ALBUTEROL 0.5/2.5MG 3 ML NEBU. NEB SCH ×4 (07:45→20:38)
[2019-03-18] MEDS: BUDESONIDE 0.5 MG/2 ML NEBU. NEB SCH ×2 (07:45→20:38)
[2019-03-18] MEDS: INSULIN LISPRO 300 UNITS/3 ML VIAL. SQ SCH ×3 (08:00→21:30)
[2019-03-18] MEDS: ISOSORBIDE MONONITRATE ER 30 MG TAB.ER.24H PO SCH (08:44)
[2019-03-18] MEDS: ASPIRIN ENTERIC COATED 81 MG TABLET.DR. PO SCH (08:44)
[2019-03-18] MEDS: FUROSEMIDE 40 MG/4 ML VIAL. IVP SCH ×2 (08:45→14:12)
[2019-03-18] MEDS: TICAGRELOR 90 MG TABLET. PO SCH ×2 (08:45→21:30)
[2019-03-18] MEDS: AMIODARONE HCL 200 MG TABLET. PO SCH (08:45)
[2019-03-18] MEDS: FERROUS SULFATE 325 MG TABLET. PO SCH (08:45)
[2019-03-18] MEDS: METOPROLOL SUCC 24HR ER 25 MG TAB.ER.24H. PO SCH (08:45)
[2019-03-18] MEDS: LACTOBACILLUS RHAMNOSUS GG 1 CAPSULE. PO SCH ×2 (08:45→21:29)
[2019-03-18] MEDS: amLODIPine BESYLATE 10 MG TABLET PO SCH (08:45)
--- NOTE | 2019-03-18 10:43 | PDOC2 ---
UROLOGY CONSULT Date of Consult Date of Consult DATE: 03/18/19 TIME: 10:41 Identification/Chief Complaint Chief Complaint urinary retention Source Source: Caregiver, Chart review, Patient History of Present Illness Reason for Visit: 73yo male known to [facility] [place] for urinary retention. He was admitted to [facility] for sob, PMH of CKD, CHF, DM, afib. A voiding trial was attempted during his stay and was unsuccessful, a catheter was placed again. He states the catheter doesn't bother him, and he prefers to keep it in place. Past Medical History Cardiovascular: AFIB, CAD, CHF, HTN Pulmonary: Pneumonia GI: Other Heme/Onc: Anemia NOS Hepatobiliary: No pertinent hx Psych: No pertinent hx Musculoskeletal: Osteoarthritis Rheumatologic: No pertinent hx Infectious disease: No pertinent hx Renal/: Chronic renal insuff Endocrine: Diabetes Past Surgical History Past Surgical History: Other Family History Family History: Hypertension Social History <1 pack per day ALCOHOL: none Drugs: None Lives: with Family Current Medications Current Medications Current Medications Warfarin Sodium (Coumadin) 4 mg 1X WARF ONCE PO ; Start 03/17/19 at 16:00; Stop 03/17/19 at 16:01; Status Cancel Warfarin Sodium (Coumadin) 4 mg 1X WARF ONCE PO Last administered on 03/17/19at 21:23; Start 03/17/19 at 21:00; Stop 03/17/19 at 21:01; Status DC Allergies Allergies: Coded Allergies: No Known Drug Allergies (Unverified , 01/24/19) ROS Review Of Systems: CONSTITUTIONAL: No fever or chills EYES: No recent changes SKIN: No rash or itching CARDIOVASCULAR: No chest pain, syncope, palpitations, or edema RESPIRATORY: No SOB or cough GASTROINTESTINAL: No nausea, vomiting or abdominal pain NEUROLOGICAL: No headaches or weakness ENDOCRINE: No cold or heat intolerance GENITOURINARY: No urgency or frequency of urination MUSCULOSKELETAL: No back pain or joint pain LYMPHATICS: No enlarged lymph nodes PSYCHIATRIC: No anxiety or depression Physical Exam Physical Exam: General: Pleasant, no acute distress, well groomed Eyes: conjunctiva anicteric, eyes full range of motion ENT: moist oral mucosa, normal dentition Neck: Trachea midline, no masses Respiratory: unlabored breathing, not using accessory muscles, no crackles or wheezes Cardiovascular: Regular rate and rhythm, no peripheral edema Abdomen: nontender, nondistended, no hepatosplenomegaly, no masses Skin: no rashes or skin lesions on visualized skin Psych: normal mood, affect. Alert and oriented x 3. Vitals VITALS Vital Signs Date Time Temp Pulse Resp B/P (MAP) Pulse Ox O2 Delivery O2 Flow Rate FiO2 03/18/19 08:46 63 139/80 03/18/19 07:43 100 Room Air 03/18/19 07:00 97.9 19 2.0 97.9 Labs Labs Laboratory Tests Test 03/16/19 11:12 03/16/19 17:02 03/16/19 20:11 03/17/19 04:45 Glucose (Fingerstick) 149 mg/dL (70-99) 209 mg/dL (70-99) 159 mg/dL (70-99) White Blood Count 6.7 x10^3/uL (4.0-11.0) Red Blood Count 3.82 x10^6/uL (4.30-5.70) Hemoglobin 9.5 g/dL (13.0-17.5) Hematocrit 29.5 % (39.0-53.0) Mean Corpuscular Volume 77 fL (79-100) Mean Corpuscular Hemoglobin 25 pg (25-35) Mean Corpuscular Hemoglobin Concent 32 g/dL (31-37) Red Cell Distribution Width 22.2 % (11.5-14.5) Platelet Count 203 x10^3/uL (140-400) Prothrombin Time 26.1 SEC (11.7-14.0) Prothromb Time International Ratio 2.4 (0.8-1.1) Sodium Level 139 mmol/L (136-145) Potassium Level 4.1 mmol/L (3.5-5.1) Chloride Level 104 mmol/L (98-107) Carbon Dioxide Level 24 mmol/L (21-32) Anion Gap 11 (6-14) Blood Urea Nitrogen 50 mg/dL (8-26) Creatinine 2.9 mg/dL (0.7-1.3) Estimated GFR (Cockcroft-Gault) 25.9 Glucose Level 105 mg/dL (70-99) Calcium Level 8.8 mg/dL (8.5-10.1) Test 03/17/19 10:00 03/17/19 12:01 03/17/19 16:50 03/17/19 20:17 Glucose (Fingerstick) 121 mg/dL (70-99) 108 mg/dL (70-99) 111 mg/dL (70-99) 212 mg/dL (70-99) Test 03/18/19 03:30 White Blood Count 5.8 x10^3/uL (4.0-11.0) Red Blood Count 3.89 x10^6/uL (4.30-5.70) Hemoglobin 9.4 g/dL (13.0-17.5) Hematocrit 29.8 % (39.0-53.0) Mean Corpuscular Volume 77 fL (79-100) Mean Corpuscular Hemoglobin 24 pg (25-35) Mean Corpuscular Hemoglobin Concent 32 g/dL (31-37) Red Cell Distribution Width 21.3 % (11.5-14.5) Platelet Count 192 x10^3/uL (140-400) Prothrombin Time 24.1 SEC (11.7-14.0) Prothromb Time International Ratio 2.2 (0.8-1.1) Sodium Level 140 mmol/L (136-145) Potassium Level 3.8 mmol/L (3.5-5.1) Chloride Level 104 mmol/L (98-107) Carbon Dioxide Level 29 mmol/L (21-32) Anion Gap 7 (6-14) Blood Urea Nitrogen 41 mg/dL (8-26) Creatinine 2.8 mg/dL (0.7-1.3) Estimated GFR (Cockcroft-Gault) 26.9 Glucose Level 122 mg/dL (70-99) Calcium Level 8.3 mg/dL (8.5-10.1) Phosphorus Level 3.6 mg/dL (2.6-4.7) Albumin 2.6 g/dL (3.4-5.0) Laboratory Tests Test 03/17/19 12:01 03/17/19 16:50 03/17/19 20:17 03/18/19 03:30 Glucose (Fingerstick) 108 mg/dL (70-99) 111 mg/dL (70-99) 212 mg/dL (70-99) White Blood Count 5.8 x10^3/uL (4.0-11.0) Red Blood Count 3.89 x10^6/uL (4.30-5.70) Hemoglobin 9.4 g/dL (13.0-17.5) Hematocrit 29.8 % (39.0-53.0) Mean Corpuscular Volume 77 fL (79-100) Mean Corpuscular Hemoglobin 24 pg (25-35) Mean Corpuscular Hemoglobin Concent 32 g/dL (31-37) Red Cell Distribution Width 21.3 % (11.5-14.5) Platelet Count 192 x10^3/uL (140-400) Prothrombin Time 24.1 SEC (11.7-14.0) Prothromb Time International Ratio 2.2 (0.8-1.1) Sodium Level 140 mmol/L (136-145) Potassium Level 3.8 mmol/L (3.5-5.1) Chloride Level 104 mmol/L (98-107) Carbon Dioxide Level 29 mmol/L (21-32) Anion Gap 7 (6-14) Blood Urea Nitrogen 41 mg/dL (8-26) Creatinine 2.8 mg/dL (0.7-1.3) Estimated GFR (Cockcroft-Gault) 26.9 Glucose Level 122 mg/dL (70-99) Calcium Level 8.3 mg/dL (8.5-10.1) Phosphorus Level 3.6 mg/dL (2.6-4.7) Albumin 2.6 g/dL (3.4-5.0) Assessment/Plan Assessment/Plan Urinary retention with chronic urethral mendez catheter Failed voiding trial Continue chronic catheter with monthly changes Not a great candidate for prostate surgery - dialysis; doesn't want to do self- cath SYMONE MILES Mar 18, 2019 10:43
[2019-03-18] MEDS ORDERED: PHYTONADIONE 10 MG/ML ORAL SOLUTION. PO ONE (10:45)
--- NOTE | 2019-03-18 10:57 | PDOC ---
Renal-Progress Notes Subjective Notes Notes NO NEW COMPLAINTS History of Present Illness Hx of present illness STABLE Vitals Vitals Vital Signs Date Time Temp Pulse Resp B/P (MAP) Pulse Ox O2 Delivery O2 Flow Rate FiO2 03/18/19 08:46 63 139/80 03/18/19 07:43 100 Room Air 03/18/19 07:00 97.9 19 2.0 97.9 Weight Weight [ ] I.O. Intake and Output Intake and Output 03/18/19 07:00 Intake Total 0 ml Output Total 1700 ml Balance -1700 ml Intake Oral 0 ml Output Urine Total 1700 ml Labs Labs Laboratory Tests Test 03/17/19 12:01 03/17/19 16:50 03/17/19 20:17 03/18/19 03:30 Glucose (Fingerstick) 108 mg/dL (70-99) 111 mg/dL (70-99) 212 mg/dL (70-99) White Blood Count 5.8 x10^3/uL (4.0-11.0) Red Blood Count 3.89 x10^6/uL (4.30-5.70) Hemoglobin 9.4 g/dL (13.0-17.5) Hematocrit 29.8 % (39.0-53.0) Mean Corpuscular Volume 77 fL (79-100) Mean Corpuscular Hemoglobin 24 pg (25-35) Mean Corpuscular Hemoglobin Concent 32 g/dL (31-37) Red Cell Distribution Width 21.3 % (11.5-14.5) Platelet Count 192 x10^3/uL (140-400) Prothrombin Time 24.1 SEC (11.7-14.0) Prothromb Time International Ratio 2.2 (0.8-1.1) Sodium Level 140 mmol/L (136-145) Potassium Level 3.8 mmol/L (3.5-5.1) Chloride Level 104 mmol/L (98-107) Carbon Dioxide Level 29 mmol/L (21-32) Anion Gap 7 (6-14) Blood Urea Nitrogen 41 mg/dL (8-26) Creatinine 2.8 mg/dL (0.7-1.3) Estimated GFR (Cockcroft-Gault) 26.9 Glucose Level 122 mg/dL (70-99) Calcium Level 8.3 mg/dL (8.5-10.1) Phosphorus Level 3.6 mg/dL (2.6-4.7) Albumin 2.6 g/dL (3.4-5.0) Micro Micro Microbiology 03/13/19 Urine Culture - Final, Complete 03/13/19 Urine Culture Result 1 (RAMON) - Final, Complete 03/13/19 Antimicrobic Susceptibility - Final, Complete Review of Systems Constitutional: yes: alert, oriented Ears/Nose/Throat: Yes: no symptom reported Eyes: Yes: no symptom reported Pulmonary: Yes dyspnea Cardiovascular: Yes no symptom reported Gastrointestional: Yes: no symptom reported Genitourinary: Yes: no symptom reported Musculoskeletal: Yes: no symptom reported Skin: Yes no symptom reported Psychiatric/Neurological: Yes: no symptom reported Endocrine: Yes: no symptom reported Hematologic/Lymphatic: Yes: no symptom reported Physical Exam General Appearance: no apparent distress Skin: warm Respiratory: decreased breath sounds Heart: S1S2, RRR Abdomen: soft, bowel sounds present Genitourinary: bladder flat Extremities: pulses present, no edema, atrophy Neurology: alert, oriented Musculoskeletal: Osteoarthritis Assessment Assessment IMP NEW ESRD ANEMIA ACUTE HYPOXIC RESP FAILURE HTN CM WITH EF OF 40% PLAN HIS AVF DID NOT WORK WELL WILL NEED TO HAVE INTERVENTION TO FIX IT - THIS CAN BE DONE OP TEMP HD CATHETER PLACED HD TODAY UF ABOUT 1.5 LITERS WILL NEED TO HAVE TUNNELED HD CATHETER PLACED ONCE INR IS ACCEPTABLE SW TO WORK ON DISCHARGE AND OP HD DAY AND TIME WILL FOLLOW PT AGREEABLE TO THE PLAN D/W ESAU SMALL MD Mar 18, 2019 10:57
--- NOTE | 2019-03-18 11:28 | PDOC ---
PULMONARY PROGRESS NOTES Subjective no soa Vitals Vital Signs Date Time Temp Pulse Resp B/P (MAP) Pulse Ox O2 Delivery O2 Flow Rate FiO2 03/18/19 08:46 63 139/80 03/18/19 07:43 100 Room Air 03/18/19 07:00 97.9 19 2.0 97.9 ROS: No Nausea, No Chest Pain, No Abdominal Pain, No Increase Cough General: Alert, Oriented X4, No acute distress HEENT: Other (normal) Lungs: Clear Cardiovascular: S1, S2 Abdomen: Soft, Non-tender Neuro Exam: Alert, Oriented, Normal Speech, No Focal Findings Extremities: No Edema Skin: Warm, Dry Labs Laboratory Tests Test 03/16/19 17:02 03/16/19 20:11 03/17/19 04:45 03/17/19 10:00 Glucose (Fingerstick) 209 mg/dL (70-99) 159 mg/dL (70-99) 121 mg/dL (70-99) White Blood Count 6.7 x10^3/uL (4.0-11.0) Red Blood Count 3.82 x10^6/uL (4.30-5.70) Hemoglobin 9.5 g/dL (13.0-17.5) Hematocrit 29.5 % (39.0-53.0) Mean Corpuscular Volume 77 fL (79-100) Mean Corpuscular Hemoglobin 25 pg (25-35) Mean Corpuscular Hemoglobin Concent 32 g/dL (31-37) Red Cell Distribution Width 22.2 % (11.5-14.5) Platelet Count 203 x10^3/uL (140-400) Prothrombin Time 26.1 SEC (11.7-14.0) Prothromb Time International Ratio 2.4 (0.8-1.1) Sodium Level 139 mmol/L (136-145) Potassium Level 4.1 mmol/L (3.5-5.1) Chloride Level 104 mmol/L (98-107) Carbon Dioxide Level 24 mmol/L (21-32) Anion Gap 11 (6-14) Blood Urea Nitrogen 50 mg/dL (8-26) Creatinine 2.9 mg/dL (0.7-1.3) Estimated GFR (Cockcroft-Gault) 25.9 Glucose Level 105 mg/dL (70-99) Calcium Level 8.8 mg/dL (8.5-10.1) Test 03/17/19 12:01 03/17/19 16:50 03/17/19 20:17 03/18/19 03:30 Glucose (Fingerstick) 108 mg/dL (70-99) 111 mg/dL (70-99) 212 mg/dL (70-99) White Blood Count 5.8 x10^3/uL (4.0-11.0) Red Blood Count 3.89 x10^6/uL (4.30-5.70) Hemoglobin 9.4 g/dL (13.0-17.5) Hematocrit 29.8 % (39.0-53.0) Mean Corpuscular Volume 77 fL (79-100) Mean Corpuscular Hemoglobin 24 pg (25-35) Mean Corpuscular Hemoglobin Concent 32 g/dL (31-37) Red Cell Distribution Width 21.3 % (11.5-14.5) Platelet Count 192 x10^3/uL (140-400) Prothrombin Time 24.1 SEC (11.7-14.0) Prothromb Time International Ratio 2.2 (0.8-1.1) Sodium Level 140 mmol/L (136-145) Potassium Level 3.8 mmol/L (3.5-5.1) Chloride Level 104 mmol/L (98-107) Carbon Dioxide Level 29 mmol/L (21-32) Anion Gap 7 (6-14) Blood Urea Nitrogen 41 mg/dL (8-26) Creatinine 2.8 mg/dL (0.7-1.3) Estimated GFR (Cockcroft-Gault) 26.9 Glucose Level 122 mg/dL (70-99) Calcium Level 8.3 mg/dL (8.5-10.1) Phosphorus Level 3.6 mg/dL (2.6-4.7) Albumin 2.6 g/dL (3.4-5.0) Laboratory Tests Test 03/17/19 12:01 03/17/19 16:50 03/17/19 20:17 03/18/19 03:30 Glucose (Fingerstick) 108 mg/dL (70-99) 111 mg/dL (70-99) 212 mg/dL (70-99) White Blood Count 5.8 x10^3/uL (4.0-11.0) Red Blood Count 3.89 x10^6/uL (4.30-5.70) Hemoglobin 9.4 g/dL (13.0-17.5) Hematocrit 29.8 % (39.0-53.0) Mean Corpuscular Volume 77 fL (79-100) Mean Corpuscular Hemoglobin 24 pg (25-35) Mean Corpuscular Hemoglobin Concent 32 g/dL (31-37) Red Cell Distribution Width 21.3 % (11.5-14.5) Platelet Count 192 x10^3/uL (140-400) Prothrombin Time 24.1 SEC (11.7-14.0) Prothromb Time International Ratio 2.2 (0.8-1.1) Sodium Level 140 mmol/L (136-145) Potassium Level 3.8 mmol/L (3.5-5.1) Chloride Level 104 mmol/L (98-107) Carbon Dioxide Level 29 mmol/L (21-32) Anion Gap 7 (6-14) Blood Urea Nitrogen 41 mg/dL (8-26) Creatinine 2.8 mg/dL (0.7-1.3) Estimated GFR (Cockcroft-Gault) 26.9 Glucose Level 122 mg/dL (70-99) Calcium Level 8.3 mg/dL (8.5-10.1) Phosphorus Level 3.6 mg/dL (2.6-4.7) Albumin 2.6 g/dL (3.4-5.0) Medications Active Scripts Medications Dose Route/Sig Max Daily Dose Days Date Category Dose Instructions Proair Hfa (Albuterol Sulfate) 8.5 Gm Hfa.aer.ad 1 Puff INH PRN Q6HRS PRN 30 02/21/19 Rx Pulmicort Flexhaler (Budesonide) 180 Mcg Aer.pow.ba 2 Puff IH BID 02/21/19 Rx Guaifenesin Dm Syrup (Guaifenesin/Dextromethorphan) 5 Ml Syrup 10 Ml PO PRN Q6HRS PRN 7 02/21/19 Rx Lantus (Insulin Glargine,Hum.rec.anlog) 100 Unit/1 Ml Vial 15 Unit SQ HS 30 02/21/19 Rx Furosemide 40 Mg Tablet 40 Mg PO [id number] 02/21/19 Rx Aspirin Ec (Aspirin) 81 Mg Tablet. 81 Mg PO [id number] 02/21/19 Rx Metoprolol Succinate ( Xl ) (Metoprolol Succinate) 25 Mg Tab.er.24h 50 Mg PO DAILY 02/21/19 Rx Isosorbide Mononitrate Er (Isosorbide Mononitrate) 30 Mg Tab.er.24h 30 Mg PO DAILY 02/21/19 Rx Atorvastatin Calcium 40 Mg Tablet 40 Mg PO QHS 02/21/19 Rx Brilinta (Ticagrelor) 90 Mg Tablet 90 Mg PO BID 02/21/19 Rx Amiodarone Hcl 200 Mg Tablet 200 Mg PO DAILY 02/21/19 Rx Warfarin Sodium 5 Mg Tablet 5 Mg PO DAILY 01/24/19 Reported take 5mg on sat,sat.thur,sat,sun take 6 mg on saturday and saturday Ferrous Sulfate 324 Mg Tablet. 324 Mg PO DAILY 01/24/19 Reported Flomax (Tamsulosin Hcl) 0.4 Mg Cap.er.24h 0.4 Mg PO DAILY 01/24/19 Reported Comments Chest xray taken 03/14 shows significant improvement in pulmonary edema and pleural effusions. Impression . 1. Acute hypoxic respiratory failure secondary to acute on chronic systolic and diastolic heart failure, improving 2. Hypertensive emergency, present on admission, contributing to congestive heart failure, improving 3. Cardiomyopathy with an EF of 40% and history of increased left ventricular end diastolic pressure based on 01/2019 cardiac catheterization. 4. Abnormal arterial blood gases, consistent with acute metabolic acidosis, likely related to acute on chronic kidney disease. 5. Minimal history of tobacco use. 6. improving chest xray Plan . 1. stable pulmonary status 2. Continue bronchodilators. 3. Anticoagulation for AFib per Cardiology. 4. would suggest repeating CXR after few HD sessions 5. follow renal rec not much to add. will sign off TRISH REECE MD Mar 18, 2019 11:28
--- NOTE | 2019-03-18 11:37 | PDOC ---
PROGRESS NOTES Chief Complaint Chief Complaint impression Acute hypoxic respiratory failure combination of acute combined systolic and diastolic CHF, req. BIPAP on admit , EF 40% previously acute renal failure onCKD stage 4- was on HD in the past- taken off Dialysis appox 6 -8 months [employer] Urinary retention, chronic mendez in place. Metabolic acidosis - Abnormal arterial blood gases, consistent with acute metabolic acidosis, likely related to acute on chronic kidney disease. CAD - s/p PCI/stent placement one year ago and 3 weeks ago w. htn and lipids Diabetes mellitus type 2 - Paroxysmal AFIB with chronic LBBB Anemia of chronic disease - on iron gait instability Anticoagulation for AFib per Cardiology. History of Present Illness History of Present Illness PLAN: agreeable to HD HAs a left AV fistula not working well temp HD cath placed needs tunneled cath prior to dc keep mendez in place for urinary retention--consulted urology sw to asssist with OP HD day and times will give 2.5 mg vit k now. recheck INR at 5 PM. if still elevated will give additional vit K continue current BP meds apprec pulm and nephro involvement. Vitals Vitals Vital Signs Date Time Temp Pulse Resp B/P (MAP) Pulse Ox O2 Delivery O2 Flow Rate FiO2 03/18/19 08:46 63 139/80 03/18/19 07:43 100 Room Air 03/18/19 07:00 97.9 19 2.0 97.9 Physical Exam General: Alert, Oriented X3, Cooperative, No acute distress, mild distress Heart: Regular rate (SR LBBB), Normal S1, Normal S2, No murmurs, Other (distant heart sounds) Lungs: Clear Abdomen: Soft, No tenderness Extremities: No cyanosis, Other (2+ bilateral LE pitting edema) Skin: No breakdown, No significant lesion Labs LABS Laboratory Tests Test 03/17/19 12:01 03/17/19 16:50 03/17/19 20:17 03/18/19 03:30 Glucose (Fingerstick) 108 mg/dL (70-99) 111 mg/dL (70-99) 212 mg/dL (70-99) White Blood Count 5.8 x10^3/uL (4.0-11.0) Red Blood Count 3.89 x10^6/uL (4.30-5.70) Hemoglobin 9.4 g/dL (13.0-17.5) Hematocrit 29.8 % (39.0-53.0) Mean Corpuscular Volume 77 fL (79-100) Mean Corpuscular Hemoglobin 24 pg (25-35) Mean Corpuscular Hemoglobin Concent 32 g/dL (31-37) Red Cell Distribution Width 21.3 % (11.5-14.5) Platelet Count 192 x10^3/uL (140-400) Prothrombin Time 24.1 SEC (11.7-14.0) Prothromb Time International Ratio 2.2 (0.8-1.1) Sodium Level 140 mmol/L (136-145) Potassium Level 3.8 mmol/L (3.5-5.1) Chloride Level 104 mmol/L (98-107) Carbon Dioxide Level 29 mmol/L (21-32) Anion Gap 7 (6-14) Blood Urea Nitrogen 41 mg/dL (8-26) Creatinine 2.8 mg/dL (0.7-1.3) Estimated GFR (Cockcroft-Gault) 26.9 Glucose Level 122 mg/dL (70-99) Calcium Level 8.3 mg/dL (8.5-10.1) Phosphorus Level 3.6 mg/dL (2.6-4.7) Albumin 2.6 g/dL (3.4-5.0) Assessment and Plan Assessmemt and Plan Problems Medical Problems: (1) Acute combined systolic (congestive) and diastolic (congestive) heart failure Status: Acute (2) Acute on chronic diastolic (congestive) heart failure Status: Acute (3) Acute respiratory failure with hypoxia Status: Acute (4) JESSICA (acute kidney injury) Status: Acute (5) CAD (coronary artery disease) of artery bypass graft Status: Chronic (6) CHF (congestive heart failure) Status: Chronic (7) CKD (chronic kidney disease) Status: Chronic (8) CKD (chronic kidney disease), stage IV Status: Chronic (9) HTN (hypertension) Status: Chronic (10) Hypertension Status: Chronic (11) LBBB (left bundle branch block) Status: Chronic (12) Paroxysmal A-fib Status: Chronic (13) Respiratory failure Status: Acute Comment Review of Relevant I have reviewed the following items juanita (where applicable) has been applied. Labs Laboratory Tests Test 03/16/19 17:02 9/23/19 20:11 03/17/19 04:45 03/17/19 10:00 Glucose (Fingerstick) 209 mg/dL (70-99) 159 mg/dL (70-99) 121 mg/dL (70-99) White Blood Count 6.7 x10^3/uL (4.0-11.0) Red Blood Count 3.82 x10^6/uL (4.30-5.70) Hemoglobin 9.5 g/dL (13.0-17.5) Hematocrit 29.5 % (39.0-53.0) Mean Corpuscular Volume 77 fL (79-100) Mean Corpuscular Hemoglobin 25 pg (25-35) Mean Corpuscular Hemoglobin Concent 32 g/dL (31-37) Red Cell Distribution Width 22.2 % (11.5-14.5) Platelet Count 203 x10^3/uL (140-400) Prothrombin Time 26.1 SEC (11.7-14.0) Prothromb Time International Ratio 2.4 (0.8-1.1) Sodium Level 139 mmol/L (136-145) Potassium Level 4.1 mmol/L (3.5-5.1) Chloride Level 104 mmol/L (98-107) Carbon Dioxide Level 24 mmol/L (21-32) Anion Gap 11 (6-14) Blood Urea Nitrogen 50 mg/dL (8-26) Creatinine 2.9 mg/dL (0.7-1.3) Estimated GFR (Cockcroft-Gault) 25.9 Glucose Level 105 mg/dL (70-99) Calcium Level 8.8 mg/dL (8.5-10.1) Test 03/17/19 12:01 03/17/19 16:50 03/17/19 20:17 03/18/19 03:30 Glucose (Fingerstick) 108 mg/dL (70-99) 111 mg/dL (70-99) 212 mg/dL (70-99) White Blood Count 5.8 x10^3/uL (4.0-11.0) Red Blood Count 3.89 x10^6/uL (4.30-5.70) Hemoglobin 9.4 g/dL (13.0-17.5) Hematocrit 29.8 % (39.0-53.0) Mean Corpuscular Volume 77 fL (79-100) Mean Corpuscular Hemoglobin 24 pg (25-35) Mean Corpuscular Hemoglobin Concent 32 g/dL (31-37) Red Cell Distribution Width 21.3 % (11.5-14.5) Platelet Count 192 x10^3/uL (140-400) Prothrombin Time 24.1 SEC (11.7-14.0) Prothromb Time International Ratio 2.2 (0.8-1.1) Sodium Level 140 mmol/L (136-145) Potassium Level 3.8 mmol/L (3.5-5.1) Chloride Level 104 mmol/L (98-107) Carbon Dioxide Level 29 mmol/L (21-32) Anion Gap 7 (6-14) Blood Urea Nitrogen 41 mg/dL (8-26) Creatinine 2.8 mg/dL (0.7-1.3) Estimated GFR (Cockcroft-Gault) 26.9 Glucose Level 122 mg/dL (70-99) Calcium Level 8.3 mg/dL (8.5-10.1) Phosphorus Level 3.6 mg/dL (2.6-4.7) Albumin 2.6 g/dL (3.4-5.0) Laboratory Tests Test 03/17/19 12:01 03/17/19 16:50 03/17/19 20:17 03/18/19 03:30 Glucose (Fingerstick) 108 mg/dL (70-99) 111 mg/dL (70-99) 212 mg/dL (70-99) White Blood Count 5.8 x10^3/uL (4.0-11.0) Red Blood Count 3.89 x10^6/uL (4.30-5.70) Hemoglobin 9.4 g/dL (13.0-17.5) Hematocrit 29.8 % (39.0-53.0) Mean Corpuscular Volume 77 fL (79-100) Mean Corpuscular Hemoglobin 24 pg (25-35) Mean Corpuscular Hemoglobin Concent 32 g/dL (31-37) Red Cell Distribution Width 21.3 % (11.5-14.5) Platelet Count 192 x10^3/uL (140-400) Prothrombin Time 24.1 SEC (11.7-14.0) Prothromb Time International Ratio 2.2 (0.8-1.1) Sodium Level 140 mmol/L (136-145) Potassium Level 3.8 mmol/L (3.5-5.1) Chloride Level 104 mmol/L (98-107) Carbon Dioxide Level 29 mmol/L (21-32) Anion Gap 7 (6-14) Blood Urea Nitrogen 41 mg/dL (8-26) Creatinine 2.8 mg/dL (0.7-1.3) Estimated GFR (Cockcroft-Gault) 26.9 Glucose Level 122 mg/dL (70-99) Calcium Level 8.3 mg/dL (8.5-10.1) Phosphorus Level 3.6 mg/dL (2.6-4.7) Albumin 2.6 g/dL (3.4-5.0) Microbiology 03/13/19 Urine Culture - Final, Complete 03/13/19 Urine Culture Result 1 (RAMON) - Final, Complete 03/13/19 Antimicrobic Susceptibility - Final, Complete Medications Current Medications Albuterol/ Ipratropium (Duoneb) 3 ml 1X ONCE NEB Last administered on 03/13/19at 07:09; Start 03/13/19 at 07:00; Stop 03/13/19 at 07:01; Status DC Methylprednisolone Sodium Succinate (SOLU-Medrol 125MG VIAL) 125 mg 1X ONCE IV Last administered on 03/13/19at 07:13; Start 03/13/19 at 07:00; Stop 03/13/19 at 07:01; Status DC Furosemide (Lasix) 60 mg 1X ONCE IVP Last administered on 03/13/19at 07:12; Start 03/13/19 at 07:00; Stop 03/13/19 at 07:01; Status DC Furosemide (Lasix) 100 mg STK-MED ONCE .ROUTE ; Start 03/13/19 at 06:51; Stop 03/13/19 at 06:51; Status DC Ondansetron HCl (Zofran) 4 mg STK-MED ONCE .ROUTE ; Start 03/13/19 at 07:22; Stop 03/13/19 at 07:23; Status DC Ondansetron HCl (Zofran) 8 mg 1X ONCE IV Last administered on 03/13/19at 07:56; Start 03/13/19 at 07:23; Stop 03/13/19 at 07:54; Status DC Ondansetron HCl (Zofran) 4 mg PRN Q8HRS PRN IV NAUSEA/VOMITING; Start 03/13/19 at 09:15; Stop 03/14/19 at 09:14; Status DC Albuterol/ Ipratropium (Duoneb) 3 ml RTQID NEB Last administered on 03/14/19at 11:50; Start 03/13/19 at 12:00; Stop 03/14/19 at 11:59; Status DC Albuterol Sulfate (Ventolin Neb Soln) 2.5 mg PRN Q6HRS PRN INH SHORTNESS OF BREATH Last administered on 03/17/19 20:08; Start 03/13/19 at 11:00 Amiodarone HCl (Cordarone) 200 mg DAILY PO Last administered on 03/18/19 08:46; Start 03/13/19 at 11:00 Aspirin (Ecotrin) 81 mg DAILYWBKFT PO Last administered on 03/18/19 08:46; Start 03/14/19 at 08:00 Atorvastatin Calcium (Lipitor) 40 mg QHS PO Last administered on 03/17/19 21:23; Start 03/13/19 at 21:00 Guaifenesin (Robitussin Dm) 10 ml PRN Q6HRS PRN PO COUGH; Start 03/13/19 at 11:00 Insulin Glargine (Lantus Syringe) 15 unit HS SQ Last administered on 03/17/19 21:23; Start 03/13/19 at 21:00 Isosorbide Mononitrate (Imdur) 30 mg DAILY PO Last administered on 03/18/19 08:46; Start 03/13/19 at 11:00 Metoprolol Succinate (Toprol Xl) 50 mg DAILY PO ; Start 03/13/19 at 11:00; Stop 03/13/19 at 12:23; Status DC Tamsulosin HCl (Flomax) 0.4 mg QHS PO Last administered on 03/17/19 21:23; Start 03/13/19 at 21:00 Ticagrelor (Brilinta) 90 mg BID PO Last administered on 03/18/19 08:46; Start 03/13/19 at 21:00 Warfarin Sodium (Coumadin) 5 mg QPM PO ; Start 03/13/19 at 18:00; Status UNV Budesonide (Pulmicort) 0.5 mg RTBID NEB Last administered on 03/18/19 07:45; Start 03/13/19 at 11:30 Ferrous Sulfate (Feosol) 325 mg DAILYWBKFT PO Last administered on 03/18/19 08:46; Start 03/13/19 at 11:30 Warfarin Sodium (Coumadin Per Pharmacy) 1 each PRN DAILY PRN MC SEE COMMENTS Last administered on 03/17/19 11:18; Start 03/13/19 at 11:00; Stop 03/18/19 at 10:51; Status DC Furosemide (Lasix) 40 mg [id number] IVP Last administered on 03/18/19 08:46; Start 03/13/19 at 14:00 Insulin Human Lispro (HumaLOG) 0-7 UNITS TIDWMEALS SQ Last administered on 03/16/19 17:18; Start 03/13/19 at 12:00 Dextrose (Dextrose 50%-Water Syringe) 12.5 gm PRN Q15MIN PRN IV SEE COMMENTS; Start 03/13/19 at 11:15 Dextrose 250 ml PRN Q15MIN PRN IV SEE COMMENTS; Start 03/13/19 at 11:15 Warfarin Sodium (Coumadin) 5 mg 1X WARF ONCE PO Last administered on 03/13/19at 17:40; Start 03/13/19 at 16:00; Stop 03/13/19 at 16:01; Status DC Metoprolol Succinate (Toprol Xl) 25 mg DAILY PO Last administered on 03/18/19 08:46; Start 03/14/19 at 09:00 Amlodipine Besylate (Norvasc) 10 mg DAILY PO Last administered on 03/18/19 08:46; Start 03/13/19 at 12:30 Nitroglycerin (Nitro-Bid Oint) 0.5 inch PRN Q4HRS PRN TP hypertension Last administered on 03/13/19at 15:58; Start 03/13/19 at 15:15 Warfarin Sodium (Coumadin) 5 mg 1X WARF ONCE PO Last administered on 03/14/19at 17:00; Start 03/14/19 at 16:00; Stop 03/14/19 at 16:01; Status DC Warfarin Sodium (Coumadin) 3 mg 1X WARF ONCE PO Last administered on 03/15/19at 15:05; Start 03/15/19 at 16:00; Stop 03/15/19 at 16:01; Status DC Albuterol/ Ipratropium (Duoneb) 3 ml RTQID NEB Last administered on 03/18/19at 07:45; Start 03/15/19 at 16:15 Ondansetron HCl (Zofran) 4 mg PRN Q6HRS PRN IV NAUSEA/VOMITING; Start 03/16/19 at 08:45 Acetaminophen (Tylenol) 500 mg PRN Q6HRS PRN PO MILD PAIN / TEMP; Start 03/16/19 at 08:45 Clonidine HCl (Catapres) 0.1 mg PRN Q1HR PRN PO HYPERTENSION; Start 03/16/19 at 08:45 Sodium Chloride 1,000 ml @ 1,000 mls/hr Q1H PRN IV hypotension; Start 03/16/19 at 14:34; Stop 03/16/19 at 20:33; Status DC Sodium Chloride 1,000 ml @ 400 mls/hr Q2H30M PRN IV PATENCY; Start 03/16/19 at 14:34; Stop 03/17/19 at 02:33; Status DC Info (PHARMACY MONITORING -- do not chart) 1 each PRN DAILY PRN MC SEE COMMENTS; Start 03/16/19 at 14:45; Status UNV Info (PHARMACY MONITORING -- do not chart) 1 each PRN DAILY PRN MC SEE COMMENTS; Start 03/16/19 at 14:45 Lidocaine HCl (Xylocaine-Mpf 1% 2ml Vial) 2 ml 1X ONCE INJ ; Start 03/16/19 at 14:45; Stop 03/16/19 at 14:46; Status DC Warfarin Sodium (Coumadin) 4 mg 1X WARF ONCE PO ; Start 03/16/19 at 16:00; Stop 03/16/19 at 16:01; Status DC Ceftriaxone Sodium (Rocephin) 1 gm Q24H IVP Last administered on 03/17/19at 21:23; Start 03/16/19 at 16:00 Lactobacillus Rhamnosus (Culturelle) 1 cap BID PO Last administered on 03/18/19at 08:46; Start 03/16/19 at 21:00 Lidocaine/Sodium Bicarbonate (Buffered Lidocaine 1%) 3 ml STK-MED ONCE .ROUTE ; Start 03/17/19 at 08:28; Stop 03/17/19 at 08:29; Status DC Lidocaine/Sodium Bicarbonate (Buffered Lidocaine 1%) 6 ml 1X ONCE INJ Last administered on 03/17/19at 09:25; Start 03/17/19 at 09:15; Stop 03/17/19 at 09:16; Status DC Sodium Chloride 1,000 ml @ 1,000 mls/hr Q1H PRN IV hypotension; Start 03/17/19 at 10:19; Stop 03/17/19 at 16:18; Status DC Sodium Chloride (Normal Saline Flush) 10 ml 1X PRN PRN IV AP catheter pack; Start 03/17/19 at 10:30; Stop 03/18/19 at 10:29; Status DC Sodium Chloride (Normal Saline Flush) 10 ml 1X PRN PRN IV SOUND ENGINE[employer] catheter pack; Start 03/17/19 at 10:30; Stop 03/18/19 at 10:29; Status DC Info (PHARMACY MONITORING -- do not chart) 1 each PRN DAILY PRN MC SEE COMMENTS; Start 03/17/19 at 10:30; Stop 03/17/19 at 10:24; Status DC Info (PHARMACY MONITORING -- do not chart) 1 each PRN DAILY PRN MC SEE COMMENTS; Start 03/17/19 at 10:30; Stop 03/17/19 at 10:24; Status DC Warfarin Sodium (Coumadin) 4 mg 1X WARF ONCE PO ; Start 03/17/19 at 16:00; Stop 03/17/19 at 16:01; Status Cancel Warfarin Sodium (Coumadin) 4 mg 1X WARF ONCE PO Last administered on 03/17/19at 21:23; Start 03/17/19 at 21:00; Stop 03/17/19 at 21:01; Status DC Phytonadione (Mephyton Oral Soln) 2.5 mg 1X ONCE PO ; Start 03/18/19 at 10:45; Stop 03/18/19 at 10:52; Status DC Active Scripts Active Amlodipine Besylate 10 Mg Tablet 10 Mg PO DAILY Metoprolol Succinate ( Xl ) (Metoprolol Succinate) 25 Mg Tab.er.24h 25 Mg PO DAILY Duoneb 0.5-3(2.5) Mg/3 Ml (Albuterol/Ipratropium) 3 Ml Ampul.neb 3 Ml NEB RTQID Proair Hfa (Albuterol Sulfate) 8.5 Gm Hfa.aer.ad 1 Puff INH PRN Q6HRS PRN 30 Days Pulmicort Flexhaler (Budesonide) 180 Mcg Aer.pow.ba 2 Puff IH BID Guaifenesin Dm Syrup (Guaifenesin/Dextromethorphan) 5 Ml Syrup 10 Ml PO PRN Q6HRS PRN 7 Days Lantus (Insulin Glargine,Hum.rec.anlog) 100 Unit/1 Ml Vial 15 Unit SQ HS 30 Days Furosemide 40 Mg Tablet 40 Mg PO [id number] Aspirin Ec (Aspirin) 81 Mg Tablet. 81 Mg PO DAILYWBKFT Isosorbide Mononitrate Er (Isosorbide Mononitrate) 30 Mg Tab.er.24h 30 Mg PO DAILY Atorvastatin Calcium 40 Mg Tablet 40 Mg PO QHS Brilinta (Ticagrelor) 90 Mg Tablet 90 Mg PO BID Amiodarone Hcl 200 Mg Tablet 200 Mg PO DAILY Reported Warfarin Sodium 5 Mg Tablet 5 Mg PO DAILY take 5mg on sat,sat.thur,sat,sun take 6 mg on saturday and saturday Ferrous Sulfate 324 Mg Tablet. 324 Mg PO DAILY Flomax (Tamsulosin Hcl) 0.4 Mg Cap.er.24h 0.4 Mg PO DAILY Vitals/I & O Vital Sign - Last 24 Hours 03/17/19 03/17/19 03/17/19 03/17/19 15:00 19:00 20:00 20:10 Temp 98.0 98.1 98.0 98.1 Pulse 57 61 Resp 16 18 B/P (MAP) 135/63 (87) 131/51 (77) Pulse Ox 99 100 100 O2 Delivery Room Air Nasal Cannula Nasal Cannula Room Air O2 Flow Rate 1.5 2.0 03/17/19 03/18/19 03/18/19 03/18/19 23:00 02:37 07:00 07:43 Temp 98.1 98.3 97.9 98.1 98.3 97.9 Pulse 67 53 63 Resp 18 17 19 B/P (MAP) 131/57 (81) 137/60 (85) 139/80 (99) Pulse Ox 100 98 100 100 O2 Delivery Nasal Cannula Nasal Cannula Nasal Cannula Room Air O2 Flow Rate 1.5 2.0 2.0 03/18/19 03/18/19 03/18/19 03/18/19 08:46 08:46 08:46 08:46 Pulse 63 63 63 63 B/P (MAP) 139/80 139/80 139/80 139/80 Intake and Output 03/17/19 03/17/19 03/18/19 15:00 23:00 07:00 Intake Total 0 ml Output Total 1000 ml 700 ml Balance -1000 ml -700 ml Nutrition Consultation Dietary Evaluation: Recommendations by RD: Dietary education by RD, Increase Calorie Intake, Protein supplementation Comments: REC continue ADA, cardiac diet REC glucerna BID (strawberry, w/Breakfast and dinners) Monitor need for renal diet Expected Outcomes/Goals: PO intake to meet >75% est needs Malnutrition Findings: Food and Nutrition Intake (Mod: <75% est energy req 7days Weight Status: Appropriate SAUL WILKES MD Mar 18, 2019 11:37
[2019-03-18 11:56] VITALS: BP 129/59
--- NOTE | 2019-03-18 13:37 | NUR ---
HAKEEM following pt. Spoke with RN, pt is not ready to dc home. Received a VM from [facility] admission, awaiting on confirmed chair time at [facility]. Discussed with Evelyn at [facility] as well and she is awaiting on a response from director client. Spoke with Pt's , Bella, phone: [phone] regarding OP HD and HH. Pt's stated pt has been using [facility] home health and would like to use them. Pt's stated pt has been at [facility] but does not mind him going to [facility]. SW explained OP HD placement process. Plan 1. SW phoned and faxed referral to [facility], phone: [phone], fax: [phone]. Pt is on service with them and they will need resumption orders. 2. Chair time pending. Will continue to follow.
[2019-03-18] MEDS ORDERED: IV NORMAL SALINE 1000ML BAG 1,000 ML IV PRN ×2 (14:05)
[2019-03-18] MEDS ORDERED: DIALYSIS PATIENT. MC PRN (14:15)
[2019-03-18] MEDS ORDERED: diphenhydrAMINE 50 MG/ML VIAL IV PRN ×2 (14:15)
[2019-03-18] MEDS ORDERED: ACETAMINOPHEN 500 MG TABLET PO PRN (14:15)
[2019-03-18 15:00] VITALS: BP 122/57
[2019-03-18 18:34] LABS: PROTHROMBIN TIME PATIENT 20.7 SEC (11.7-14.0)
[2019-03-18] MEDS: cefTRIAXone IV Push 1 GM VIAL. IVP SCH (21:29)
[2019-03-18] MEDS: TAMSULOSIN 0.4 MG CAP.ER.24H. PO SCH (21:29)
[2019-03-18] MEDS: ATORVASTATIN CALCIUM 40 MG TABLET. PO SCH (21:30)
[2019-03-18] MEDS: INSULIN GLARGINE SYRINGE. SQ SCH (21:33)
[2019-03-18 22:59] VITALS: BP 116/53
[2019-03-19 03:00] VITALS: BP 124/60
[2019-03-19] MEDS: BUDESONIDE 0.5 MG/2 ML NEBU. NEB SCH ×2 (06:47→20:19)
[2019-03-19] MEDS: IPRATRPIUM/ALBUTEROL 0.5/2.5MG 3 ML NEBU. NEB SCH ×4 (06:47→20:19)
[2019-03-19 07:00] VITALS: BP 132/60
[2019-03-19] MEDS: INSULIN LISPRO 300 UNITS/3 ML VIAL. SQ SCH ×3 (08:00→17:00)
[2019-03-19] MEDS: ASPIRIN ENTERIC COATED 81 MG TABLET.DR. PO SCH (09:18)
[2019-03-19] MEDS: METOPROLOL SUCC 24HR ER 25 MG TAB.ER.24H. PO SCH (09:18)
[2019-03-19] MEDS: amLODIPine BESYLATE 10 MG TABLET PO SCH (09:19)
[2019-03-19] MEDS: AMIODARONE HCL 200 MG TABLET. PO SCH (09:19)
[2019-03-19] MEDS: FERROUS SULFATE 325 MG TABLET. PO SCH (09:19)
[2019-03-19] MEDS: LACTOBACILLUS RHAMNOSUS GG 1 CAPSULE. PO SCH ×2 (09:19→20:51)
[2019-03-19] MEDS: FUROSEMIDE 40 MG/4 ML VIAL. IVP SCH ×2 (09:20→16:06)
[2019-03-19] MEDS: ISOSORBIDE MONONITRATE ER 30 MG TAB.ER.24H PO SCH (09:20)
[2019-03-19] MEDS: TICAGRELOR 90 MG TABLET. PO SCH ×2 (09:20→20:51)
--- NOTE | 2019-03-19 09:51 | PDOC ---
PROGRESS NOTES Chief Complaint Chief Complaint impression Acute hypoxic respiratory failure combination of acute combined systolic and diastolic CHF, req. BIPAP on admit , EF 40% previously acute renal failure onCKD stage 4- was on HD in the past- taken off Dialysis appox 6 -8 months [facility] Urinary retention, chronic mendez in place. Metabolic acidosis - Abnormal arterial blood gases, consistent with acute metabolic acidosis, likely related to acute on chronic kidney disease. CAD - s/p PCI/stent placement one year ago and 3 weeks ago w. htn and lipids Diabetes mellitus type 2 - Paroxysmal AFIB with chronic LBBB Anemia of chronic disease - on iron gait instability Anticoagulation for AFib per Cardiology. WILL NEED TO HAVE TUNNELED HD CATHETER PLACED ONCE INR IS ACCEPTABLE TEMP HD CATHETER PLACED - CONVERT TO TUNNELED HD CATHETER TODAY 03/19 HD TOMORROW SW TO WORK ON DISCHARGE AND OP HD DAY AND TIME # [phone] 38 min pt exam, chart review, > 50% of time spent with exam, chart review, pt care coordination History of Present Illness History of Present Illness PLAN: agreeable to HD HAs a left AV fistula not working well temp HD cath placed needs tunneled cath prior to dc keep mendez in place for urinary retention--consulted urology sw to asssist with OP HD day and times will give 2.5 mg vit k now. recheck INR at 5 PM. if still elevated will give additional vit K continue current BP meds apprec pulm and nephro involvement. Vitals Vitals Vital Signs Date Time Temp Pulse Resp B/P (MAP) Pulse Ox O2 Delivery O2 Flow Rate FiO2 03/19/19 09:20 67 132/60 03/19/19 07:00 98.6 17 97 Room Air 98.6 03/18/19 07:00 2.0 Physical Exam General: Alert, Oriented X3, Cooperative, No acute distress, mild distress Heart: Regular rate (SR LBBB), Normal S1, Normal S2, No murmurs, Other (distant heart sounds) Lungs: Clear Abdomen: Soft, No tenderness Extremities: No cyanosis, Other (2+ bilateral LE pitting edema) Skin: No breakdown, No significant lesion Labs LABS Laboratory Tests Test 03/18/19 11:34 03/18/19 17:40 03/18/19 21:25 03/19/19 07:11 Glucose (Fingerstick) 144 mg/dL (70-99) 108 mg/dL (70-99) 116 mg/dL (70-99) Prothrombin Time 20.7 SEC (11.7-14.0) Prothromb Time International Ratio 1.8 (0.8-1.1) Assessment and Plan Assessmemt and Plan Problems Medical Problems: (1) Acute combined systolic (congestive) and diastolic (congestive) heart failur e Status: Acute (2) Acute on chronic diastolic (congestive) heart failure Status: Acute (3) Acute respiratory failure with hypoxia Status: Acute (4) JESSICA (acute kidney injury) Status: Acute (5) CAD (coronary artery disease) of artery bypass graft Status: Chronic (6) CHF (congestive heart failure) Status: Chronic (7) CKD (chronic kidney disease) Status: Chronic (8) CKD (chronic kidney disease), stage IV Status: Chronic (9) HTN (hypertension) Status: Chronic (10) Hypertension Status: Chronic (11) LBBB (left bundle branch block) Status: Chronic (12) Paroxysmal A-fib Status: Chronic (13) Respiratory failure Status: Acute Comment Review of Relevant I have reviewed the following items juanita (where applicable) has been applied. Labs Laboratory Tests Test 03/17/19 10:00 03/17/19 12:01 03/17/19 16:50 03/17/19 20:17 Glucose (Fingerstick) 121 mg/dL (70-99) 108 mg/dL (70-99) 111 mg/dL (70-99) 212 mg/dL (70-99) Test 03/18/19 03:30 03/18/19 11:34 03/18/19 17:40 03/18/19 21:25 White Blood Count 5.8 x10^3/uL (4.0-11.0) Red Blood Count 3.89 x10^6/uL (4.30-5.70) Hemoglobin 9.4 g/dL (13.0-17.5) Hematocrit 29.8 % (39.0-53.0) Mean Corpuscular Volume 77 fL (79-100) Mean Corpuscular Hemoglobin 24 pg (25-35) Mean Corpuscular Hemoglobin Concent 32 g/dL (31-37) Red Cell Distribution Width 21.3 % (11.5-14.5) Platelet Count 192 x10^3/uL (140-400) Prothrombin Time 24.1 SEC (11.7-14.0) 20.7 SEC (11.7-14.0) Prothromb Time International Ratio 2.2 (0.8-1.1) 1.8 (0.8-1.1) Sodium Level 140 mmol/L (136-145) Potassium Level 3.8 mmol/L (3.5-5.1) Chloride Level 104 mmol/L (98-107) Carbon Dioxide Level 29 mmol/L (21-32) Anion Gap 7 (6-14) Blood Urea Nitrogen 41 mg/dL (8-26) Creatinine 2.8 mg/dL (0.7-1.3) Estimated GFR (Cockcroft-Gault) 26.9 Glucose Level 122 mg/dL (70-99) Calcium Level 8.3 mg/dL (8.5-10.1) Phosphorus Level 3.6 mg/dL (2.6-4.7) Albumin 2.6 g/dL (3.4-5.0) Glucose (Fingerstick) 144 mg/dL (70-99) 108 mg/dL (70-99) Test 03/19/19 07:11 Glucose (Fingerstick) 116 mg/dL (70-99) Laboratory Tests Test 03/18/19 11:34 03/18/19 17:40 03/18/19 21:25 03/19/19 07:11 Glucose (Fingerstick) 144 mg/dL (70-99) 108 mg/dL (70-99) 116 mg/dL (70-99) Prothrombin Time 20.7 SEC (11.7-14.0) Prothromb Time International Ratio 1.8 (0.8-1.1) Microbiology 03/13/19 Urine Culture - Final, Complete 03/13/19 Urine Culture Result 1 (RAMON) - Final, Complete 03/13/19 Antimicrobic Susceptibility - Final, Complete Medications Current Medications Albuterol/ Ipratropium (Duoneb) 3 ml 1X ONCE NEB Last administered on 03/13/19at 07:09; Start 03/13/19 at 07:00; Stop 03/13/19 at 07:01; Status DC Methylprednisolone Sodium Succinate (SOLU-Medrol 125MG VIAL) 125 mg 1X ONCE IV Last administered on 03/13/19at 07:13; Start 03/13/19 at 07:00; Stop 03/13/19 at 07:01; Status DC Furosemide (Lasix) 60 mg 1X ONCE IVP Last administered on 03/13/19at 07:12; Start 03/13/19 at 07:00; Stop 03/13/19 at 07:01; Status DC Furosemide (Lasix) 100 mg STK-MED ONCE .ROUTE ; Start 03/13/19 at 06:51; Stop 03/13/19 at 06:51; Status DC Ondansetron HCl (Zofran) 4 mg STK-MED ONCE .ROUTE ; Start 03/13/19 at 07:22; Stop 03/13/19 at 07:23; Status DC Ondansetron HCl (Zofran) 8 mg 1X ONCE IV Last administered on 03/13/19at 07:56; Start 03/13/19 at 07:23; Stop 03/13/19 at 07:54; Status DC Ondansetron HCl (Zofran) 4 mg PRN Q8HRS PRN IV NAUSEA/VOMITING; Start 03/13/19 at 09:15; Stop 03/14/19 at 09:14; Status DC Albuterol/ Ipratropium (Duoneb) 3 ml RTQID NEB Last administered on 03/14/19at 11:50; Start 03/13/19 at 12:00; Stop 03/14/19 at 11:59; Status DC Albuterol Sulfate (Ventolin Neb Soln) 2.5 mg PRN Q6HRS PRN INH SHORTNESS OF BREATH Last administered on 03/17/19at 20:08; Start 03/13/19 at 11:00 Amiodarone HCl (Cordarone) 200 mg DAILY PO Last administered on 03/19/19at 09:19; Start 03/13/19 at 11:00 Aspirin (Ecotrin) 81 mg DAILYWBKFT PO Last administered on 03/19/19at 09:18; Start 03/14/19 at 08:00 Atorvastatin Calcium (Lipitor) 40 mg QHS PO Last administered on 03/18/19at 21:30; Start 03/13/19 at 21:00 Guaifenesin (Robitussin Dm) 10 ml PRN Q6HRS PRN PO COUGH; Start 03/13/19 at 11:00 Insulin Glargine (Lantus Syringe) 15 unit HS SQ Last administered on 03/18/19at 21:33; Start 03/13/19 at 21:00 Isosorbide Mononitrate (Imdur) 30 mg DAILY PO Last administered on 03/19/19at 09:20; Start 03/13/19 at 11:00 Metoprolol Succinate (Toprol Xl) 50 mg DAILY PO ; Start 03/13/19 at 11:00; Stop 03/13/19 at 12:23; Status DC Tamsulosin HCl (Flomax) 0.4 mg QHS PO Last administered on 03/18/19at 21:29; Start 03/13/19 at 21:00 Ticagrelor (Brilinta) 90 mg BID PO Last administered on 03/19/19at 09:20; Start 03/13/19 at 21:00 Warfarin Sodium (Coumadin) 5 mg QPM PO ; Start 03/13/19 at 18:00; Status UNV Budesonide (Pulmicort) 0.5 mg RTBID NEB Last administered on 03/19/19at 06:47; Start 03/13/19 at 11:30 Ferrous Sulfate (Feosol) 325 mg DAILYWBKFT PO Last administered on 03/19/19 09:19; Start 03/13/19 at 11:30 Warfarin Sodium (Coumadin Per Pharmacy) 1 each PRN DAILY PRN MC SEE COMMENTS Last administered on 03/17/19at 11:18; Start 03/13/19 at 11:00; Stop 03/18/19 at 10:51; Status DC Furosemide (Lasix) 40 mg BID92 IVP Last administered on 03/19/19at 09:20; Start 03/13/19 at 14:00 Insulin Human Lispro (HumaLOG) 0-7 UNITS TIDWMEALS SQ Last administered on 03/16/19at 17:18; Start 03/13/19 at 12:00 Dextrose (Dextrose 50%-Water Syringe) 12.5 gm PRN Q15MIN PRN IV SEE COMMENTS; Start 03/13/19 at 11:15 Dextrose 250 ml PRN Q15MIN PRN IV SEE COMMENTS; Start 03/13/19 at 11:15 Warfarin Sodium (Coumadin) 5 mg 1X WARF ONCE PO Last administered on 03/13/19at 17:40; Start 03/13/19 at 16:00; Stop 03/13/19 at 16:01; Status DC Metoprolol Succinate (Toprol Xl) 25 mg DAILY PO Last administered on 03/19/19at 09:18; Start 03/14/19 at 09:00 Amlodipine Besylate (Norvasc) 10 mg DAILY PO Last administered on 03/19/19at 09:19; Start 03/13/19 at 12:30 Nitroglycerin (Nitro-Bid Oint) 0.5 inch PRN Q4HRS PRN TP hypertension Last administered on 03/13/19at 15:58; Start 03/13/19 at 15:15 Warfarin Sodium (Coumadin) 5 mg 1X WARF ONCE PO Last administered on 03/14/19at 17:00; Start 03/14/19 at 16:00; Stop 03/14/19 at 16:01; Status DC Warfarin Sodium (Coumadin) 3 mg 1X WARF ONCE PO Last administered on 03/15/19at 15:05; Start 03/15/19 at 16:00; Stop 03/15/19 at 16:01; Status DC Albuterol/ Ipratropium (Duoneb) 3 ml RTQID NEB Last administered on 03/19/19at 06:47; Start 03/15/19 at 16:15 Ondansetron HCl (Zofran) 4 mg PRN Q6HRS PRN IV NAUSEA/VOMITING; Start 03/16/19 at 08:45 Acetaminophen (Tylenol) 500 mg PRN Q6HRS PRN PO MILD PAIN / TEMP; Start 03/16/19 at 08:45 Clonidine HCl (Catapres) 0.1 mg PRN Q1HR PRN PO HYPERTENSION; Start 03/16/19 at 08:45 Sodium Chloride 1,000 ml @ 1,000 mls/hr Q1H PRN IV hypotension; Start 03/16/19 at 14:34; Stop 03/16/19 at 20:33; Status DC Sodium Chloride 1,000 ml @ 400 mls/hr Q2H30M PRN IV PATENCY; Start 03/16/19 at 14:34; Stop 03/17/19 at 02:33; Status DC Info (PHARMACY MONITORING -- do not chart) 1 each PRN DAILY PRN MC SEE COMMENTS; Start 03/16/19 at 14:45; Status UNV Info (PHARMACY MONITORING -- do not chart) 1 each PRN DAILY PRN MC SEE COMMENTS; Start 03/16/19 at 14:45 Lidocaine HCl (Xylocaine-Mpf 1% 2ml Vial) 2 ml 1X ONCE INJ ; Start 03/16/19 at 14:45; Stop 03/16/19 at 14:46; Status DC Warfarin Sodium (Coumadin) 4 mg 1X WARF ONCE PO ; Start 03/16/19 at 16:00; Stop 03/16/19 at 16:01; Status DC Ceftriaxone Sodium (Rocephin) 1 gm Q24H IVP Last administered on 03/18/19at 21:29; Start 03/16/19 at 16:00 Lactobacillus Rhamnosus (Culturelle) 1 cap BID PO Last administered on 03/19/19at 09:19; Start 03/16/19 at 21:00 Lidocaine/Sodium Bicarbonate (Buffered Lidocaine 1%) 3 ml STK-MED ONCE .ROUTE ; Start 03/17/19 at 08:28; Stop 03/17/19 at 08:29; Status DC Lidocaine/Sodium Bicarbonate (Buffered Lidocaine 1%) 6 ml 1X ONCE INJ Last administered on 03/17/19at 09:25; Start 03/17/19 at 09:15; Stop 03/17/19 at 09:16; Status DC Sodium Chloride 1,000 ml @ 1,000 mls/hr Q1H PRN IV hypotension; Start 03/17/19 at 10:19; Stop 03/17/19 at 16:18; Status DC Sodium Chloride (Normal Saline Flush) 10 ml 1X PRN PRN IV AP catheter pack; Start 03/17/19 at 10:30; Stop 03/18/19 at 10:29; Status DC Sodium Chloride (Normal Saline Flush) 10 ml 1X PRN PRN IV THREAD REELER catheter pack; Start 03/17/19 at 10:30; Stop 03/18/19 at 10:29; Status DC Info (PHARMACY MONITORING -- do not chart) 1 each PRN DAILY PRN MC SEE COMMENTS; Start 03/17/19 at 10:30; Stop 03/17/19 at 10:24; Status DC Info (PHARMACY MONITORING -- do not chart) 1 each PRN DAILY PRN MC SEE COMMENTS; Start 03/17/19 at 10:30; Stop 03/17/19 at 10:24; Status DC Warfarin Sodium (Coumadin) 4 mg 1X WARF ONCE PO ; Start 03/17/19 at 16:00; Stop 03/17/19 at 16:01; Status Cancel Warfarin Sodium (Coumadin) 4 mg 1X WARF ONCE PO Last administered on 03/17/19at 21:23; Start 03/17/19 at 21:00; Stop 03/17/19 at 21:01; Status DC Phytonadione (Mephyton Oral Soln) 2.5 mg 1X ONCE PO Last administered on 03/18/19at 11:43; Start 03/18/19 at 10:45; Stop 03/18/19 at 10:52; Status DC Sodium Chloride 1,000 ml @ 1,000 mls/hr Q1H PRN IV hypotension; Start 03/18/19 at 14:05; Stop 03/18/19 at 20:04; Status DC Acetaminophen (Tylenol) 500 mg 1X PRN PRN PO MILD PAIN / TEMP; Start 03/18/19 at 14:15; Stop 03/19/19 at 14:14 Diphenhydramine HCl (Benadryl) 25 mg 1X PRN PRN IV ITCHING; Start 03/18/19 at 14:15; Stop 03/19/19 at 14:14 Diphenhydramine HCl (Benadryl) 25 mg 1X PRN PRN IV ITCHING; Start 03/18/19 at 14:15; Stop 03/19/19 at 14:14 Sodium Chloride 1,000 ml @ 400 mls/hr Q2H30M PRN IV PATENCY; Start 03/18/19 at 14:05; Stop 03/19/19 at 02:04; Status DC Info (PHARMACY MONITORING -- do not chart) 1 each PRN DAILY PRN MC SEE COMMENTS; Start 03/18/19 at 14:15 Active Scripts Active Amlodipine Besylate 10 Mg Tablet 10 Mg PO DAILY Metoprolol Succinate ( Xl ) (Metoprolol Succinate) 25 Mg Tab.er.24h 25 Mg PO DAILY Duoneb 0.5-3(2.5) Mg/3 Ml (Albuterol/Ipratropium) 3 Ml Ampul.neb 3 Ml NEB RTQID Proair Hfa (Albuterol Sulfate) 8.5 Gm Hfa.aer.ad 1 Puff INH PRN Q6HRS PRN 30 Days Pulmicort Flexhaler (Budesonide) 180 Mcg Aer.pow.ba 2 Puff IH BID Guaifenesin Dm Syrup (Guaifenesin/Dextromethorphan) 5 Ml Syrup 10 Ml PO PRN Q6HRS PRN 7 Days Lantus (Insulin Glargine,Hum.rec.anlog) 100 Unit/1 Ml Vial 15 Unit SQ HS 30 Days Furosemide 40 Mg Tablet 40 Mg PO BID92 Aspirin Ec (Aspirin) 81 Mg Tablet. 81 Mg PO DAILYWBKFT Isosorbide Mononitrate Er (Isosorbide Mononitrate) 30 Mg Tab.er.24h 30 Mg PO DAILY Atorvastatin Calcium 40 Mg Tablet 40 Mg PO QHS Brilinta (Ticagrelor) 90 Mg Tablet 90 Mg PO BID Amiodarone Hcl 200 Mg Tablet 200 Mg PO DAILY Reported Warfarin Sodium 5 Mg Tablet 5 Mg PO DAILY take 5mg on sat,sat.thur,sat,sun take 6 mg on saturday and saturday Ferrous Sulfate 324 Mg Tablet. 324 Mg PO DAILY Flomax (Tamsulosin Hcl) 0.4 Mg Cap.er.24h 0.4 Mg PO DAILY Vitals/I & O Vital Sign - Last 24 Hours 03/18/19 03/18/19 03/18/19 03/18/19 11:48 11:56 15:00 16:13 Temp 98.1 98.1 98.1 98.1 Pulse 63 117 Resp 21 17 B/P (MAP) 129/59 (82) 122/57 (78) Pulse Ox 99 O2 Delivery Room Air Room Air Room Air 03/18/19 03/18/19 03/18/19 03/18/19 20:00 20:39 20:40 22:59 Temp 98.2 98.2 Pulse 70 Resp 17 B/P (MAP) 116/53 (74) Pulse Ox 100 100 100 O2 Delivery Room Air Room Air Room Air Room Air 03/19/19 03/19/19 03/19/19 03/19/19 03:00 06:49 07:00 09:18 Temp 98.2 98.6 98.2 98.6 Pulse 82 67 67 Resp 16 17 B/P (MAP) 124/60 (81) 132/60 (84) 132/60 Pulse Ox 99 100 97 O2 Delivery Room Air Room Air Room Air 03/19/19 03/19/19 03/19/19 09:19 09:19 09:20 Pulse 67 67 67 B/P (MAP) 132/60 132/60 132/60 Intake and Output 03/18/19 03/18/19 03/19/19 15:00 23:00 07:00 Output Total 0 ml 800 ml 400 ml Balance 0 ml -800 ml -400 ml Nutrition Consultation Dietary Evaluation: Recommendations by RD: Dietary education by RD, Increase Calorie Intake, Protein supplementation Comments: REC continue ADA, cardiac diet REC glucerna BID (strawberry, w/Breakfast and dinners) Monitor need for renal diet Expected Outcomes/Goals: PO intake to meet >75% est needs Malnutrition Findings: Food and Nutrition Intake (Mod: <75% est energy req 7days Weight Status: Appropriate JENI EASTMAN MD Mar 19, 2019 09:51
[2019-03-19 11:00] VITALS: BP 143/62
--- NOTE | 2019-03-19 12:07 | PDOC ---
Renal-Progress Notes Subjective Notes Notes NO NEW COMPLAINTS History of Present Illness Hx of present illness STABLE Vitals Vitals Vital Signs Date Time Temp Pulse Resp B/P (MAP) Pulse Ox O2 Delivery O2 Flow Rate FiO2 03/19/19 11:01 100 Room Air 03/19/19 09:20 67 132/60 03/19/19 07:00 98.6 17 98.6 03/18/19 07:00 2.0 Weight Weight [ ] I.O. Intake and Output Intake and Output 03/19/19 07:00 Output Total 1200 ml Balance -1200 ml Output Urine Total 1200 ml Labs Labs Laboratory Tests Test 03/18/19 17:40 03/18/19 21:25 03/19/19 07:11 Prothrombin Time 20.7 SEC (11.7-14.0) Prothromb Time International Ratio 1.8 (0.8-1.1) Glucose (Fingerstick) 108 mg/dL (70-99) 116 mg/dL (70-99) Micro Micro Microbiology 03/13/19 Urine Culture - Final, Complete 03/13/19 Urine Culture Result 1 (RAMON) - Final, Complete 03/13/19 Antimicrobic Susceptibility - Final, Complete Review of Systems Constitutional: yes: alert, oriented Ears/Nose/Throat: Yes: no symptom reported Eyes: Yes: no symptom reported Pulmonary: Yes dyspnea Cardiovascular: Yes no symptom reported Gastrointestional: Yes: no symptom reported Genitourinary: Yes: no symptom reported Musculoskeletal: Yes: no symptom reported Skin: Yes no symptom reported Psychiatric/Neurological: Yes: no symptom reported Endocrine: Yes: no symptom reported Hematologic/Lymphatic: Yes: no symptom reported Physical Exam General Appearance: no apparent distress Skin: warm Respiratory: decreased breath sounds Heart: S1S2, RRR Abdomen: soft, bowel sounds present Genitourinary: bladder flat Extremities: pulses present, no edema, atrophy Neurology: alert, oriented Musculoskeletal: Osteoarthritis Assessment Assessment IMP NEW ESRD ANEMIA ACUTE HYPOXIC RESP FAILURE HTN CM WITH EF OF 40% PLAN HIS AVF DID NOT WORK WELL WILL NEED TO HAVE INTERVENTION TO FIX IT - THIS CAN BE DONE OP TEMP HD CATHETER PLACED - CONVERT TO TUNNELED HD CATHETER TODAY HD TOMORROW SW TO WORK ON DISCHARGE AND OP HD DAY AND TIME WILL FOLLOW PT AGREEABLE TO THE PLAN D/W IR UPDATED ESAU ROSALES MD Mar 19, 2019 12:07
[2019-03-19 15:00] VITALS: BP 127/55
[2019-03-19] MEDS: cefTRIAXone IV Push 1 GM VIAL. IVP SCH (16:06)
--- NOTE | 2019-03-19 16:23 | NUR ---
SW following pt. Pt has a confirmed HD time at [facility] at 1100. Plan to put perm cath tomorrow morning. IR was not able to place one today. Discussed with Physician, RN and pt's .
[2019-03-19 19:00] VITALS: BP 122/60
[2019-03-19] MEDS: TAMSULOSIN 0.4 MG CAP.ER.24H. PO SCH (20:51)
[2019-03-19] MEDS: ATORVASTATIN CALCIUM 40 MG TABLET. PO SCH (20:51)
[2019-03-19] MEDS: INSULIN GLARGINE SYRINGE. SQ SCH (20:56)
[2019-03-19 23:00] VITALS: BP 133/63
[2019-03-20] VITALS (13 sets, daily range): BP systolic 106–164; BP diastolic 51–92
[2019-03-20] MEDS: IPRATRPIUM/ALBUTEROL 0.5/2.5MG 3 ML NEBU. NEB SCH ×4 (07:26→19:35)
[2019-03-20] MEDS: BUDESONIDE 0.5 MG/2 ML NEBU. NEB SCH ×2 (07:26→19:35)
--- NOTE | 2019-03-20 07:39 | PDOC ---
PROGRESS NOTES Chief Complaint Chief Complaint error, not my patient today impression Acute hypoxic respiratory failure combination of acute combined systolic and diastolic CHF, req. BIPAP on admit , EF 40% previously acute renal failure onCKD stage 4- was on HD in the past- taken off Dialysis appox 6 -8 months [facility] Urinary retention, chronic mendez in place. Metabolic acidosis - Abnormal arterial blood gases, consistent with acute metabolic acidosis, likely related to acute on chronic kidney disease. CAD - s/p PCI/stent placement one year ago and 3 weeks ago w. htn and lipids Diabetes mellitus type 2 - Paroxysmal AFIB with chronic LBBB Anemia of chronic disease - on iron gait instability Anticoagulation for AFib per Cardiology. WILL NEED TO HAVE TUNNELED HD CATHETER PLACED ONCE INR IS ACCEPTABLE TEMP HD CATHETER PLACED - CONVERT TO TUNNELED HD CATHETER TODAY 03/19 HD TOMORROW SW TO WORK ON DISCHARGE AND OP HD DAY AND TIME # [phone] 38 min pt exam, chart review, > 50% of time spent with exam, chart review, pt care coordination History of Present Illness History of Present Illness PLAN: agreeable to HD HAs a left AV fistula not working well temp HD cath placed needs tunneled cath prior to dc keep mendez in place for urinary retention--consulted urology sw to asssist with OP HD day and times will give 2.5 mg vit k now. recheck INR at 5 PM. if still elevated will give additional vit K continue current BP meds apprec pulm and nephro involvement. Vitals Vitals Vital Signs Date Time Temp Pulse Resp B/P (MAP) Pulse Ox O2 Delivery O2 Flow Rate FiO2 03/20/19 07:28 99 Room Air 03/20/19 02:37 98.0 64 18 139/62 (87) 98.0 03/19/19 08:00 2.0 Physical Exam General: Alert, Oriented X3, Cooperative, No acute distress, mild distress Heart: Regular rate (SR LBBB), Normal S1, Normal S2, No murmurs, Other (distant heart sounds) Lungs: Clear Abdomen: Soft, No tenderness Extremities: No cyanosis, Other (2+ bilateral LE pitting edema) Skin: No breakdown, No significant lesion Labs LABS Laboratory Tests Test 03/19/19 12:02 03/19/19 17:10 03/19/19 20:51 Glucose (Fingerstick) 158 mg/dL (70-99) 136 mg/dL (70-99) 238 mg/dL (70-99) Assessment and Plan Assessmemt and Plan Problems Medical Problems: (1) Acute combined systolic (congestive) and diastolic (congestive) heart failure Status: Acute (2) Acute on chronic diastolic (congestive) heart failure Status: Acute (3) Acute respiratory failure with hypoxia Status: Acute (4) JESSICA (acute kidney injury) Status: Acute (5) CAD (coronary artery disease) of artery bypass graft Status: Chronic (6) CHF (congestive heart failure) Status: Chronic (7) CKD (chronic kidney disease) Status: Chronic (8) CKD (chronic kidney disease), stage IV Status: Chronic (9) HTN (hypertension) Status: Chronic (10) Hypertension Status: Chronic (11) LBBB (left bundle branch block) Status: Chronic (12) Paroxysmal A-fib Status: Chronic (13) Respiratory failure Status: Acute Comment Review of Relevant I have reviewed the following items juanita (where applicable) has been applied. Labs Laboratory Tests Test 03/18/19 11:34 03/18/19 17:40 03/18/19 21:25 03/19/19 07:11 Glucose (Fingerstick) 144 mg/dL (70-99) 108 mg/dL (70-99) 116 mg/dL (70-99) Prothrombin Time 20.7 SEC (11.7-14.0) Prothromb Time International Ratio 1.8 (0.8-1.1) Test 03/19/19 12:02 03/19/19 17:10 03/19/19 20:51 Glucose (Fingerstick) 158 mg/dL (70-99) 136 mg/dL (70-99) 238 mg/dL (70-99) Laboratory Tests Test 03/19/19 12:02 03/19/19 17:10 03/19/19 20:51 Glucose (Fingerstick) 158 mg/dL (70-99) 136 mg/dL (70-99) 238 mg/dL (70-99) Microbiology 03/13/19 Urine Culture - Final, Complete 03/13/19 Urine Culture Result 1 (RAMON) - Final, Complete 03/13/19 Antimicrobic Susceptibility - Final, Complete Medications Current Medications Albuterol/ Ipratropium (Duoneb) 3 ml 1X ONCE NEB Last administered on 03/13/19a t 07:09; Start 03/13/19 at 07:00; Stop 03/13/19 at 07:01; Status DC Methylprednisolone Sodium Succinate (SOLU-Medrol 125MG VIAL) 125 mg 1X ONCE IV Last administered on 03/13/19at 07:13; Start 03/13/19 at 07:00; Stop 03/13/19 at 07:01; Status DC Furosemide (Lasix) 60 mg 1X ONCE IVP Last administered on 03/13/19at 07:12; Start 03/13/19 at 07:00; Stop 03/13/19 at 07:01; Status DC Furosemide (Lasix) 100 mg STK-MED ONCE .ROUTE ; Start 03/13/19 at 06:51; Stop 03/13/19 at 06:51; Status DC Ondansetron HCl (Zofran) 4 mg STK-MED ONCE .ROUTE ; Start 03/13/19 at 07:22; Stop 03/13/19 at 07:23; Status DC Ondansetron HCl (Zofran) 8 mg 1X ONCE IV Last administered on 03/13/19at 07:56; Start 03/13/19 at 07:23; Stop 03/13/19 at 07:54; Status DC Ondansetron HCl (Zofran) 4 mg PRN Q8HRS PRN IV NAUSEA/VOMITING; Start 03/13/19 at 09:15; Stop 03/14/19 at 09:14; Status DC Albuterol/ Ipratropium (Duoneb) 3 ml RTQID NEB Last administered on 03/14/19at 11:50; Start 03/13/19 at 12:00; Stop 03/14/19 at 11:59; Status DC Albuterol Sulfate (Ventolin Neb Soln) 2.5 mg PRN Q6HRS PRN INH SHORTNESS OF BREATH Last administered on 03/17/19at 20:08; Start 03/13/19 at 11:00 Amiodarone HCl (Cordarone) 200 mg DAILY PO Last administered on 03/19/19at 09:19; Start 03/13/19 at 11:00 Aspirin (Ecotrin) 81 mg DAILYWBKFT PO Last administered on 03/19/19at 09:18; Start 03/14/19 at 08:00 Atorvastatin Calcium (Lipitor) 40 mg QHS PO Last administered on 03/19/19 20:51; Start 03/13/19 at 21:00 Guaifenesin (Robitussin Dm) 10 ml PRN Q6HRS PRN PO COUGH; Start 03/13/19 at 11:00 Insulin Glargine (Lantus Syringe) 15 unit HS SQ Last administered on 03/19/19at 20:56; Start 03/13/19 at 21:00 Isosorbide Mononitrate (Imdur) 30 mg DAILY PO Last administered on 03/19/19 09:20; Start 03/13/19 at 11:00 Metoprolol Succinate (Toprol Xl) 50 mg DAILY PO ; Start 03/13/19 at 11:00; Stop 03/13/19 at 12:23; Status DC Tamsulosin HCl (Flomax) 0.4 mg QHS PO Last administered on 03/19/19 20:51; Start 03/13/19 at 21:00 Ticagrelor (Brilinta) 90 mg BID PO Last administered on 03/19/19 20:51; Start 03/13/19 at 21:00 Warfarin Sodium (Coumadin) 5 mg QPM PO ; Start 03/13/19 at 18:00; Status UNV Budesonide (Pulmicort) 0.5 mg RTBID NEB Last administered on 03/20/19 07:26; Start 03/13/19 at 11:30 Ferrous Sulfate (Feosol) 325 mg DAILYWBKFT PO Last administered on 03/19/19 09:19; Start 03/13/19 at 11:30 Warfarin Sodium (Coumadin Per Pharmacy) 1 each PRN DAILY PRN MC SEE COMMENTS Last administered on 03/17/19 11:18; Start 03/13/19 at 11:00; Stop 03/18/19 at 10:51; Status DC Furosemide (Lasix) 40 mg BID92 IVP Last administered on 03/19/19 16:06; Start 03/13/19 at 14:00 Insulin Human Lispro (HumaLOG) 0-7 UNITS TIDWMEALS SQ Last administered on 03/16/19 17:18; Start 03/13/19 at 12:00 Dextrose (Dextrose 50%-Water Syringe) 12.5 gm PRN Q15MIN PRN IV SEE COMMENTS; Start 03/13/19 at 11:15 Dextrose 250 ml PRN Q15MIN PRN IV SEE COMMENTS; Start 03/13/19 at 11:15; Stop 03/19/19 at 15:42; Status DC Warfarin Sodium (Coumadin) 5 mg 1X WARF ONCE PO Last administered on 03/13/19at 17:40; Start 03/13/19 at 16:00; Stop 03/13/19 at 16:01; Status DC Metoprolol Succinate (Toprol Xl) 25 mg DAILY PO Last administered on 03/19/19at 09:18; Start 03/14/19 at 09:00 Amlodipine Besylate (Norvasc) 10 mg DAILY PO Last administered on 03/19/19at 09:19; Start 03/13/19 at 12:30 Nitroglycerin (Nitro-Bid Oint) 0.5 inch PRN Q4HRS PRN TP hypertension Last administered on 03/13/19at 15:58; Start 03/13/19 at 15:15 Warfarin Sodium (Coumadin) 5 mg 1X WARF ONCE PO Last administered on 03/14/19at 17:00; Start 03/14/19 at 16:00; Stop 03/14/19 at 16:01; Status DC Warfarin Sodium (Coumadin) 3 mg 1X WARF ONCE PO Last administered on 03/15/19at 15:05; Start 03/15/19 at 16:00; Stop 03/15/19 at 16:01; Status DC Albuterol/ Ipratropium (Duoneb) 3 ml RTQID NEB Last administered on 03/20/19at 07:26; Start 03/15/19 at 16:15 Ondansetron HCl (Zofran) 4 mg PRN Q6HRS PRN IV NAUSEA/VOMITING; Start 03/16/19 at 08:45 Acetaminophen (Tylenol) 500 mg PRN Q6HRS PRN PO MILD PAIN / TEMP; Start 03/16/19 at 08:45 Clonidine HCl (Catapres) 0.1 mg PRN Q1HR PRN PO HYPERTENSION; Start 03/16/19 at 08:45 Sodium Chloride 1,000 ml @ 1,000 mls/hr Q1H PRN IV hypotension; Start 03/16/19 at 14:34; Stop 03/16/19 at 20:33; Status DC Sodium Chloride 1,000 ml @ 400 mls/hr Q2H30M PRN IV PATENCY; Start 03/16/19 at 14:34; Stop 03/17/19 at 02:33; Status DC Info (PHARMACY MONITORING -- do not chart) 1 each PRN DAILY PRN MC SEE FARHAT TS; Start 03/16/19 at 14:45; Status UNV Info (PHARMACY MONITORING -- do not chart) 1 each PRN DAILY PRN MC SEE COMMENTS; Start 03/16/19 at 14:45 Lidocaine HCl (Xylocaine-Mpf 1% 2ml Vial) 2 ml 1X ONCE INJ ; Start 03/16/19 at 14:45; Stop 03/16/19 at 14:46; Status DC Warfarin Sodium (Coumadin) 4 mg 1X WARF ONCE PO ; Start 03/16/19 at 16:00; Stop 03/16/19 at 16:01; Status DC Ceftriaxone Sodium (Rocephin) 1 gm Q24H IVP Last administered on 03/19/19at 16:06; Start 03/16/19 at 16:00 Lactobacillus Rhamnosus (Culturelle) 1 cap BID PO Last administered on 03/19/19at 20:51; Start 03/16/19 at 21:00 Lidocaine/Sodium Bicarbonate (Buffered Lidocaine 1%) 3 ml STK-MED ONCE .ROUTE ; Start 03/17/19 at 08:28; Stop 03/17/19 at 08:29; Status DC Lidocaine/Sodium Bicarbonate (Buffered Lidocaine 1%) 6 ml 1X ONCE INJ Last administered on 03/17/19at 09:25; Start 03/17/19 at 09:15; Stop 03/17/19 at 09:1 6; Status DC Sodium Chloride 1,000 ml @ 1,000 mls/hr Q1H PRN IV hypotension; Start 03/17/19 at 10:19; Stop 03/17/19 at 16:18; Status DC Sodium Chloride (Normal Saline Flush) 10 ml 1X PRN PRN IV AP catheter pack; Start 03/17/19 at 10:30; Stop 03/18/19 at 10:29; Status DC Sodium Chloride (Normal Saline Flush) 10 ml 1X PRN PRN IV [employer]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 catheter pack; Start 03/17/19 at 10:30; Stop 03/18/19 at 10:29; Status DC Info (PHARMACY MONITORING -- do not chart) 1 each PRN DAILY PRN MC SEE COMMENTS; Start 03/17/19 at 10:30; Stop 03/17/19 at 10:24; Status DC Info (PHARMACY MONITORING -- do not chart) 1 each PRN DAILY PRN MC SEE COMMENTS; Start 03/17/19 at 10:30; Stop 03/17/19 at 10:24; Status DC Warfarin Sodium (Coumadin) 4 mg 1X WARF ONCE PO ; Start 03/17/19 at 16:00; Stop 03/17/19 at 16:01; Status Cancel Warfarin Sodium (Coumadin) 4 mg 1X WARF ONCE PO Last administered on 03/17/19at 21:23; Start 03/17/19 at 21:00; Stop 03/17/19 at 21:01; Status DC Phytonadione (Mephyton Oral Soln) 2.5 mg 1X ONCE PO Last administered on 03/18/19at 11:43; Start 03/18/19 at 10:45; Stop 03/18/19 at 10:52; Status DC Sodium Chloride 1,000 ml @ 1,000 mls/hr Q1H PRN IV hypotension; Start 03/18/19 at 14:05; Stop 03/18/19 at 20:04; Status DC Acetaminophen (Tylenol) 500 mg 1X PRN PRN PO MILD PAIN / TEMP; Start 03/18/19 at 14:15; Stop 03/19/19 at 14:14; Status DC Diphenhydramine HCl (Benadryl) 25 mg 1X PRN PRN IV ITCHING; Start 03/18/19 at 14:15; Stop 03/19/19 at 14:14; Status DC Diphenhydramine HCl (Benadryl) 25 mg 1X PRN PRN IV ITCHING; Start 03/18/19 at 14:15; Stop 03/19/19 at 14:14; Status DC Sodium Chloride 1,000 ml @ 400 mls/hr Q2H30M PRN IV PATENCY; Start 03/18/19 at 14:05; Stop 03/19/19 at 02:04; Status DC Info (PHARMACY MONITORING -- do not chart) 1 each PRN DAILY PRN MC SEE COMMENTS; Start 9/25/19 at 14:15; Status Cancel Active Scripts Active Amlodipine Besylate 10 Mg Tablet 10 Mg PO DAILY Metoprolol Succinate ( Xl ) (Metoprolol Succinate) 25 Mg Tab.er.24h 25 Mg PO DAILY Duoneb 0.5-3(2.5) Mg/3 Ml (Albuterol/Ipratropium) 3 Ml Ampul.neb 3 Ml NEB RTQID Proair Hfa (Albuterol Sulfate) 8.5 Gm Hfa.aer.ad 1 Puff INH PRN Q6HRS PRN 30 Days Pulmicort Flexhaler (Budesonide) 180 Mcg Aer.pow.ba 2 Puff IH BID Guaifenesin Dm Syrup (Guaifenesin/Dextromethorphan) 5 Ml Syrup 10 Ml PO PRN Q6HRS PRN 7 Days Lantus (Insulin Glargine,Hum.rec.anlog) 100 Unit/1 Ml Vial 15 Unit SQ HS 30 Days Furosemide 40 Mg Tablet 40 Mg PO [id number] Aspirin Ec (Aspirin) 81 Mg Tablet. 81 Mg PO DAILYWBKFT Isosorbide Mononitrate Er (Isosorbide Mononitrate) 30 Mg Tab.er.24h 30 Mg PO DAILY Atorvastatin Calcium 40 Mg Tablet 40 Mg PO QHS Brilinta (Ticagrelor) 90 Mg Tablet 90 Mg PO BID Amiodarone Hcl 200 Mg Tablet 200 Mg PO DAILY Reported Warfarin Sodium 5 Mg Tablet 5 Mg PO DAILY take 5mg on sat,sat.thur,sat,sun take 6 mg on saturday and saturday Ferrous Sulfate 324 Mg Tablet. 324 Mg PO DAILY Flomax (Tamsulosin Hcl) 0.4 Mg Cap.er.24h 0.4 Mg PO DAILY Vitals/I & O Vital Sign - Last 24 Hours 03/19/19 03/19/19 03/19/19 03/19/19 08:00 09:18 09:19 09:19 Pulse 67 67 67 B/P (MAP) 132/60 132/60 132/60 O2 Delivery Room Air O2 Flow Rate 2.0 03/19/19 03/19/19 03/19/19 03/19/19 09:20 11:00 11:01 15:00 Temp 98.1 98.6 98.1 98.6 Pulse 67 66 66 Resp 16 18 B/P (MAP) 132/60 143/62 (89) 127/55 (79) Pulse Ox 100 100 100 O2 Delivery Room Air Room Air Room Air 03/19/19 03/19/19 03/19/19 03/19/19 16:05 19:00 20:00 20:18 Temp 98.2 98.2 Pulse 65 Resp 18 B/P (MAP) 122/60 (80) Pulse Ox 100 100 100 O2 Delivery Room Air Room Air Room Air Room Air 03/19/19 03/20/19 03/20/19 23:00 02:37 07:28 Temp 98.2 98.0 98.2 98.0 Pulse 62 64 Resp 18 18 B/P (MAP) 133/63 (86) 139/62 (87) Pulse Ox 100 100 99 O2 Delivery Room Air Room Air Room Air Intake and Output 03/19/19 03/19/19 03/20/19 15:00 23:00 07:00 Intake Total 200 ml Output Total 300 ml 600 ml 950 ml Balance -300 ml -600 ml -750 ml Nutrition Consultation Dietary Evaluation: Recommendations by RD: Dietary education by RD, Increase Calorie Intake, Protein supplementation Comments: REC continue ADA, cardiac diet REC glucerna BID (strawberry, w/Breakfast and dinners) Monitor need for renal diet Expected Outcomes/Goals: PO intake to meet >75% est needs Malnutrition Findings: Food and Nutrition Intake (Mod: <75% est energy req 7days Weight Status: Appropriate JENI EASTMAN MD Mar 20, 2019 07:39
[2019-03-20] MEDS ORDERED: LIDOCAINE 1%/EPI 1:100,000 20 ML VIAL. ONE ×2 (07:58→15:16)
[2019-03-20] MEDS ORDERED: MIDAZOLAM HCL/PF 2 MG/2 ML VIAL. IV ONE ×2 (08:00→16:00)
[2019-03-20] MEDS ORDERED: fentaNYL PF VIAL 100 MCG/2 ML VIAL IV ONE ×2 (08:00→16:00)
[2019-03-20] MEDS: INSULIN LISPRO 300 UNITS/3 ML VIAL. SQ SCH ×3 (08:00→17:00)
[2019-03-20] MEDS ORDERED: ceFAZolin 1GM IVPB FOR OMNI 100 ML IV ONE (08:05)
[2019-03-20] MEDS ORDERED: MIDAZOLAM HCL/PF 2 MG/2 ML VIAL. ONE ×2 (08:05→15:30)
[2019-03-20] MEDS ORDERED: fentaNYL PF VIAL 100 MCG/2 ML VIAL ONE ×2 (08:06→15:30)
[2019-03-20] MEDS ORDERED: LIDOCAINE 1% Multi-Dose 20 ML VIAL. INJ ONE (09:00)
[2019-03-20 10:11] LABS: CALCIUM 8.5 mg/dL (8.5-10.1); CREATININE 2.5 mg/dL (0.7-1.3); GFR 30.7; POTASSIUM 4.2 mmol/L (3.5-5.1)
[2019-03-20] MEDS: FERROUS SULFATE 325 MG TABLET. PO SCH (10:21)
[2019-03-20] MEDS: FUROSEMIDE 40 MG/4 ML VIAL. IVP SCH ×2 (10:21→18:03)
[2019-03-20] MEDS: TICAGRELOR 90 MG TABLET. PO SCH ×2 (10:21→21:48)
[2019-03-20] MEDS: ASPIRIN ENTERIC COATED 81 MG TABLET.DR. PO SCH (10:22)
[2019-03-20] MEDS: amLODIPine BESYLATE 10 MG TABLET PO SCH (10:22)
[2019-03-20] MEDS: METOPROLOL SUCC 24HR ER 25 MG TAB.ER.24H. PO SCH (10:22)
[2019-03-20] MEDS: LACTOBACILLUS RHAMNOSUS GG 1 CAPSULE. PO SCH ×2 (10:22→21:47)
[2019-03-20] MEDS: ISOSORBIDE MONONITRATE ER 30 MG TAB.ER.24H PO SCH (10:23)
[2019-03-20] MEDS: AMIODARONE HCL 200 MG TABLET. PO SCH (10:24)
[2019-03-20] MEDS ORDERED: IV NORMAL SALINE 1000ML BAG 1,000 ML IV PRN ×2 (11:00)
--- NOTE | 2019-03-20 11:18 | PDOC3 ---
Discharge Summary Visit Information Date of Admission: Mar 13, 2019 Date of Discharge: Mar 20, 2019 Admitting Diagnosis Comment: Acute hypoxic respiratory failure combination of acute combined systolic and diastolic CHF, req. BIPAP on admit , EF 40% previously acute renal faiulre, on CKD CKD stage 4- was on HD in the past- taken off Dialysis appox 6 -8 months [employer] Urinary retention, chronic mendez in place Metabolic acidosis - CAD - s/p PCI/stent placement one year ago and 3 weeks ago e) w. htn and lipids Diabetes mellitus type 2 - Paroxysmal AFIB with chronic LBBB - Anemia of chronic disease - on iron gait instability Final Diagnosis Problems Medical Problems: (1) Acute combined systolic (congestive) and diastolic (congestive) heart failure Status: Acute (2) Acute on chronic diastolic (congestive) heart failure Status: Acute (3) Acute respiratory failure with hypoxia Status: Acute (4) JESSICA (acute kidney injury) Status: Acute (5) CAD (coronary artery disease) of artery bypass graft Status: Chronic (6) CHF (congestive heart failure) Status: Chronic (7) CKD (chronic kidney disease) Status: Chronic (8) CKD (chronic kidney disease), stage IV Status: Chronic (9) HTN (hypertension) Status: Chronic (10) Hypertension Status: Chronic (11) LBBB (left bundle branch block) Status: Chronic (12) Paroxysmal A-fib Status: Chronic (13) Respiratory failure Status: Acute Brief Hospital Course Allergies Allergies Coded Allergies Type Severity Reaction Last Updated Verified No Known Drug Allergies 01/24/19 No Vital Signs Vital Signs Date Time Temp Pulse Resp B/P (MAP) Pulse Ox O2 Delivery O2 Flow Rate FiO2 03/20/19 10:24 159/73 03/20/19 10:23 67 03/20/19 08:53 10 100 Nasal Cannula 2.0 03/20/19 07:00 98.0 98.0 Lab Results Laboratory Tests Test 03/18/19 11:34 03/18/19 17:40 03/18/19 21:25 03/19/19 07:11 Glucose (Fingerstick) 144 mg/dL (70-99) 108 mg/dL (70-99) 116 mg/dL (70-99) Prothrombin Time 20.7 SEC (11.7-14.0) Prothromb Time International Ratio 1.8 (0.8-1.1) Test 03/19/19 12:02 03/19/19 17:10 03/19/19 20:51 03/20/19 07:44 Glucose (Fingerstick) 158 mg/dL (70-99) 136 mg/dL (70-99) 238 mg/dL (70-99) 88 mg/dL (70-99) Test 03/20/19 09:35 Sodium Level 141 mmol/L (136-145) Potassium Level 4.2 mmol/L (3.5-5.1) Chloride Level 103 mmol/L (98-107) Carbon Dioxide Level 28 mmol/L (21-32) Anion Gap 10 (6-14) Blood Urea Nitrogen 28 mg/dL (8-26) Creatinine 2.5 mg/dL (0.7-1.3) Estimated GFR (Cockcroft-Gault) 30.7 Glucose Level 119 mg/dL (70-99) Calcium Level 8.5 mg/dL (8.5-10.1) Laboratory Tests Test 03/19/19 12:02 03/19/19 17:10 03/19/19 20:51 03/20/19 07:44 Glucose (Fingerstick) 158 mg/dL (70-99) 136 mg/dL (70-99) 238 mg/dL (70-99) 88 mg/dL (70-99) Test 03/20/19 09:35 Sodium Level 141 mmol/L (136-145) Potassium Level 4.2 mmol/L (3.5-5.1) Chloride Level 103 mmol/L (98-107) Carbon Dioxide Level 28 mmol/L (21-32) Anion Gap 10 (6-14) Blood Urea Nitrogen 28 mg/dL (8-26) Creatinine 2.5 mg/dL (0.7-1.3) Estimated GFR (Cockcroft-Gault) 30.7 Glucose Level 119 mg/dL (70-99) Calcium Level 8.5 mg/dL (8.5-10.1) Brief Hospital Course Mr. Banerjee is a 73 old very pleasant AA male who came in bec of hypoxic respif ailure from combi of fluid overlaod, systolic./diastolic, HE was on HD at one point then stopped, HE had some issues with left AV fistula, now an HD cath has been placed and he will have his run HD and OP HD has been set up and will go home with and HH today after HD Pt seen and examined MAR has been done days ago along with HH paperwork, (by me) FULL CODE consults: ID IR Proc; HD cath insertion Discharge Information Condition at Discharge: Improved, Stable Disposition/Orders: D/C to Home w/ HH Scheduled Amiodarone Hcl (Amiodarone Hcl) 200 Mg Tablet, 200 MG PO DAILY for a fib, #90 Prescribed by: BONI VEGA on 02/21/19 1029 Last Action: Continued on 03/13/19 1058 by BONITA LEE MD Amlodipine Besylate (Amlodipine Besylate) 10 Mg Tablet, 10 MG PO DAILY for htn, #60 Prescribed by: BONI VEGA on 03/16/19 1117 Aspirin (Aspirin Ec) 81 Mg Tablet., 81 MG PO DAILYWBKFT for a fib, #120 Prescribed by: BONI VEGA on 02/21/19 1029 Last Action: Continued on 03/13/19 105 by BONITA LEE MD Atorvastatin Calcium (Atorvastatin Calcium) 40 Mg Tablet, 40 MG PO QHS for lipids, #90 Prescribed by: BONI VEGA on 02/21/19 1029 Last Action: Continued on 03/13/19 105 by BONITA LEE MD Budesonide (Pulmicort Flexhaler) 180 Mcg Aer.pow.ba, 2 PUFF IH BID for soa, #1 Ref 6 Prescribed by: BONI VEGA on 02/21/19 1029 Last Action: Converted on 03/13/191057 by BONITA LEE MD Ferrous Sulfate (Ferrous Sulfate) 324 Mg Tablet., 324 MG PO DAILY for iron supplment, (Reported) Entered as Reported by: DEMETRIS BRADFORD on 01/24/19 1148 Last Action: Converted on 03/13/191057 by BONITA LEE MD Furosemide (Furosemide) 40 Mg Tablet, 40 MG PO BID92 for chf, , #120 Prescribed by: BONI VEGA on 02/21/19 1029 Last Action: HELD on 03/13/19 105 by BONITA LEE MD Insulin Glargine,Hum.rec.anlog (Lantus) 100 Unit/1 Ml Vial, 15 UNIT SQ HS for dm for 30 Days Prescribed by: BONI VEGA on 02/21/19 1029 Last Action: Continued on 03/13/19 105 by BONITA LEE MD Ipratropium/Albuterol Sulfate (Duoneb 0.5-3(2.5) Mg/3 Ml) 3 Ml Ampul.neb, 3 ML NEB RTQID for soa, #60 Prescribed by: BONI VEGA on 03/16/19 1117 Isosorbide Mononitrate (Isosorbide Mononitrate Er) 30 Mg Tab.er.24h, 30 MG PO DAILY for htn, #90 Prescribed by: BONI VEGA on 02/21/19 1029 Last Action: Continued on 03/13/19 105 by BONITA LEE MD Metoprolol Succinate (Metoprolol Succinate ( Xl )) 25 Mg Tab.er.24h, 25 MG PO DAILY for htn, #60 Prescribed by: BONI VEGA on 03/16/19 1117 Tamsulosin Hcl (Flomax) 0.4 Mg Cap.er.24h, 0.4 MG PO DAILY for BPH, (Reported) Entered as Reported by: DEMETRIS BRADFORD on 01/24/19 1148 Last Action: Continued on 03/13/191057 by BONITA LEE MD Ticagrelor (Brilinta) 90 Mg Tablet, 90 MG PO BID for a fob, #120 Prescribed by: BONI VEGA on 02/21/19 1029 Last Action: Continued on 03/13/19 105 by BONITA LEE MD Warfarin Sodium (Warfarin Sodium) 5 Mg Tablet, 5 MG PO DAILY for anticoagulant, (Reported) take 5mg on sat,wed.thur,sat,sun take 6 mg on saturday and saturday Entered as Reported by: DEMETRIS BRADFORD on 01/24/19 1148 Last Action: Continued on 03/13/19 105 by BONITA LEE MD Scheduled PRN Albuterol Sulfate (Proair Hfa) 8.5 Gm Hfa.aer.ad, 1 PUFF INH PRN Q6HRS PRN for SHORTNESS OF BREATH for 30 Days Prescribed by: BONI VEGA on 02/21/19 1029 Last Action: Continued on 03/13/19 1058 by BONITA LEE MD Guaifenesin/Dextromethorphan (Guaifenesin Dm Syrup) 5 Ml Syrup, 10 ML PO PRN Q6HRS PRN for COUGH for 7 Days Prescribed by: BONI VEGA on 02/21/19 1029 Last Action: Continued on 03/13/19 1058 by BONITA LEE MD Discontinued Medications Metoprolol Succinate (Metoprolol Succinate ( Xl )) 25 Mg Tab.er.24h, 50 MG PO DAILY for htn a fib, #90 Prescribed by: BONI VEGA on 02/21/19 1029 Last Action: Continued on 03/13/19 1058 by MD GARY JAMIL CHERRIE Y MD Mar 20, 2019 11:18
--- NOTE | 2019-03-20 11:39 | PDOC ---
Renal-Progress Notes Subjective Notes Notes NO NEW COMPLAINTS History of Present Illness Hx of present illness STABLE Vitals Vitals Vital Signs Date Time Temp Pulse Resp B/P (MAP) Pulse Ox O2 Delivery O2 Flow Rate FiO2 03/20/19 10:24 159/73 03/20/19 10:23 67 03/20/19 08:53 10 100 Nasal Cannula 2.0 03/20/19 07:00 98.0 98.0 Weight Weight [ ] I.O. Intake and Output Intake and Output 03/20/19 07:00 Intake Total 200 ml Output Total 1850 ml Balance -1650 ml Intake Oral 200 ml Output Urine Total 1550 ml Stool Total 300 ml Labs Labs Laboratory Tests Test 03/19/19 12:02 03/19/19 17:10 03/19/19 20:51 03/20/19 07:44 Glucose (Fingerstick) 158 mg/dL (70-99) 136 mg/dL (70-99) 238 mg/dL (70-99) 88 mg/dL (70-99) Test 03/20/19 09:35 Sodium Level 141 mmol/L (136-145) Potassium Level 4.2 mmol/L (3.5-5.1) Chloride Level 103 mmol/L (98-107) Carbon Dioxide Level 28 mmol/L (21-32) Anion Gap 10 (6-14) Blood Urea Nitrogen 28 mg/dL (8-26) Creatinine 2.5 mg/dL (0.7-1.3) Estimated GFR (Cockcroft-Gault) 30.7 Glucose Level 119 mg/dL (70-99) Calcium Level 8.5 mg/dL (8.5-10.1) Micro Micro Microbiology 03/13/19 Urine Culture - Final, Complete 03/13/19 Urine Culture Result 1 (RAMON) - Final, Complete 03/13/19 Antimicrobic Susceptibility - Final, Complete Review of Systems Constitutional: yes: alert, oriented Ears/Nose/Throat: Yes: no symptom reported Eyes: Yes: no symptom reported Pulmonary: Yes dyspnea Cardiovascular: Yes no symptom reported Gastrointestional: Yes: no symptom reported Genitourinary: Yes: no symptom reported Musculoskeletal: Yes: no symptom reported Skin: Yes no symptom reported Psychiatric/Neurological: Yes: no symptom reported Endocrine: Yes: no symptom reported Hematologic/Lymphatic: Yes: no symptom reported Physical Exam General Appearance: no apparent distress Skin: warm Respiratory: decreased breath sounds Heart: S1S2, RRR Abdomen: soft, bowel sounds present Genitourinary: bladder flat Extremities: pulses present, no edema, atrophy Neurology: alert, oriented Musculoskeletal: Osteoarthritis Assessment Assessment IMP NEW ESRD ANEMIA ACUTE HYPOXIC RESP FAILURE HTN CM WITH EF OF 40% S/P TDC PLAN HIS AVF DID NOT WORK WELL WILL NEED TO HAVE INTERVENTION TO FIX IT - THIS CAN BE DONE OP TEMP HD CATHETER PLACED - CONVERT TO TUNNELED HD CATHETER TODAY HD TODAY UF TO DW OP HD SET UP FOR MWF 11 AM AT [facility] ESAU ROSALES MD Mar 20, 2019 11:39
--- NOTE | 2019-03-20 11:47 | PDOC ---
PULMONARY PROGRESS NOTES Subjective no soa Vitals Vital Signs Date Time Temp Pulse Resp B/P (MAP) Pulse Ox O2 Delivery O2 Flow Rate FiO2 03/20/19 10:24 159/73 03/20/19 10:23 67 03/20/19 08:53 10 100 Nasal Cannula 2.0 03/20/19 07:00 98.0 98.0 ROS: No Nausea, No Chest Pain, No Abdominal Pain, No Increase Cough General: Alert, Oriented X4, No acute distress HEENT: Other (normal) Lungs: Clear Cardiovascular: S1, S2 Abdomen: Soft, Non-tender Neuro Exam: Alert, Oriented, Normal Speech, No Focal Findings Extremities: No Edema Skin: Warm, Dry Labs Laboratory Tests Test 03/18/19 17:40 03/18/19 21:25 03/19/19 07:11 03/19/19 12:02 Prothrombin Time 20.7 SEC (11.7-14.0) Prothromb Time International Ratio 1.8 (0.8-1.1) Glucose (Fingerstick) 108 mg/dL (70-99) 116 mg/dL (70-99) 158 mg/dL (70-99) Test 03/19/19 17:10 03/19/19 20:51 03/20/19 07:44 03/20/19 09:35 Glucose (Fingerstick) 136 mg/dL (70-99) 238 mg/dL (70-99) 88 mg/dL (70-99) Sodium Level 141 mmol/L (136-145) Potassium Level 4.2 mmol/L (3.5-5.1) Chloride Level 103 mmol/L (98-107) Carbon Dioxide Level 28 mmol/L (21-32) Anion Gap 10 (6-14) Blood Urea Nitrogen 28 mg/dL (8-26) Creatinine 2.5 mg/dL (0.7-1.3) Estimated GFR (Cockcroft-Gault) 30.7 Glucose Level 119 mg/dL (70-99) Calcium Level 8.5 mg/dL (8.5-10.1) Laboratory Tests Test 03/19/19 12:02 03/19/19 17:10 03/19/19 20:51 03/20/19 07:44 Glucose (Fingerstick) 158 mg/dL (70-99) 136 mg/dL (70-99) 238 mg/dL (70-99) 88 mg/dL (70-99) Test 03/20/19 09:35 Sodium Level 141 mmol/L (136-145) Potassium Level 4.2 mmol/L (3.5-5.1) Chloride Level 103 mmol/L (98-107) Carbon Dioxide Level 28 mmol/L (21-32) Anion Gap 10 (6-14) Blood Urea Nitrogen 28 mg/dL (8-26) Creatinine 2.5 mg/dL (0.7-1.3) Estimated GFR (Cockcroft-Gault) 30.7 Glucose Level 119 mg/dL (70-99) Calcium Level 8.5 mg/dL (8.5-10.1) Medications Active Scripts Medications Dose Route/Sig Max Daily Dose Days Date Category Dose Instructions Proair Hfa (Albuterol Sulfate) 8.5 Gm Hfa.aer.ad 1 Puff INH PRN Q6HRS PRN 30 02/21/19 Rx Pulmicort Flexhaler (Budesonide) 180 Mcg Aer.pow.ba 2 Puff IH BID 02/21/19 Rx Guaifenesin Dm Syrup (Guaifenesin/Dextromethorphan) 5 Ml Syrup 10 Ml PO PRN Q6HRS PRN 7 02/21/19 Rx Lantus (Insulin Glargine,Hum.rec.anlog) 100 Unit/1 Ml Vial 15 Unit SQ HS 30 02/21/19 Rx Furosemide 40 Mg Tablet 40 Mg PO BID92 02/21/19 Rx Aspirin Ec (Aspirin) 81 Mg Tablet.dr 81 Mg PO DAILYWBKFT 02/21/19 Rx Metoprolol Succinate ( Xl ) (Metoprolol Succinate) 25 Mg Tab.er.24h 50 Mg PO DAILY 02/21/19 Rx Isosorbide Mononitrate Er (Isosorbide Mononitrate) 30 Mg Tab.er.24h 30 Mg PO DAILY 02/21/19 Rx Atorvastatin Calcium 40 Mg Tablet 40 Mg PO QHS 02/21/19 Rx Brilinta (Ticagrelor) 90 Mg Tablet 90 Mg PO BID 02/21/19 Rx Amiodarone Hcl 200 Mg Tablet 200 Mg PO DAILY 02/21/19 Rx Warfarin Sodium 5 Mg Tablet 5 Mg PO DAILY 01/24/19 Reported take 5mg on mon,wed.thur,sat,sun take 6 mg on saturday and saturday Ferrous Sulfate 324 Mg Tablet.dr 324 Mg PO DAILY 01/24/19 Reported Flomax (Tamsulosin Hcl) 0.4 Mg Cap.er.24h 0.4 Mg PO DAILY 01/24/19 Reported Comments Chest xray taken 03/14 shows significant improvement in pulmonary edema and pleural effusions. Impression . 1. Acute hypoxic respiratory failure secondary to acute on chronic systolic and diastolic heart failure, improving 2. Hypertensive emergency, present on admission, contributing to congestive heart failure, improving 3. Cardiomyopathy with an EF of 40% and history of increased left ventricular end diastolic pressure based on 01/2019 cardiac catheterization. 4. Abnormal arterial blood gases, consistent with acute metabolic acidosis, likely related to acute on chronic kidney disease. 5. Minimal history of tobacco use. 6. improving chest xray Plan . 1. stable pulmonary status 2. Continue bronchodilators. 3. Anticoagulation for AFib per Cardiology. 4. repeating CXR prn 5. follow renal rec not much to add. ok with dc home with OP TRISH PEREZ MD Mar 20, 2019 11:47
[2019-03-20] MEDS ORDERED: FLU VAX QS 2019-20 (36MOS+)/PF 0.5 ML SYRINGE. VAX IM ONE (12:15)
--- NOTE | 2019-03-20 12:51 | RAD ---
Conversion of a right internal jugular temporary dialysis catheter to a tunneled hemodialysis catheter 03/20/2019 INDICATION: Patient needs longer term dialysis access COMPARISON STUDY: None Discussion: The procedure was explained in its entirety to the patient or the patients designated veterans employment representative by a member of the treatment team, including a discussion of the risks, benefits and commonly accepted alternatives to the procedure, as well as the expected consequences of no therapy whatsoever. Discussion of the risks included, but was not limited to, those that are most frequent and those that are rare but possibly severe or life-threatening, as well as the possibility of unforeseen complications. All elements of maximal sterile barrier technique including the use of a cap, mask, sterile gown, sterile gloves, large sterile sheet, appropriate hand hygiene, and 2% chlorhexidine for cutaneous antisepsis (or acceptable alternative antiseptic per current guidelines) were followed for this procedure. The pre-existing catheter was evaluated fluoroscopically and found to be normal position. A guidewire is advanced through the catheter into the IVC. The catheter was removed over the wire. New 23 cm tip to cuff palindrome dialysis catheter was advanced from small dermatotomy several centimeters inferior to the right clavicle to the access site. The catheter was advanced through the peel-away sheath into the mid right atrium with the patient supine. The patient tolerated the procedure well. The new catheter was found to flush and aspirate normally. The catheter was secured in place. Sterile dressings were applied. Total fluoroscopy time: 0.4 min Dose area product: 1 Gycm2 The procedures performed under conscious sedation including continuous cardiopulmonary monitoring via dedicated sedation nurse. [id number] sedation time: 20 minutes Impression: Conversion of right internal jugular temporary dialysis catheter to a tunneled dialysis catheter
[2019-03-20] MEDS ORDERED: GELATIN SPONGE SIZE 12-7MM SPONGE. ONE (15:52)
[2019-03-20] MEDS ORDERED: GELATIN SPONGE SIZE 12-7MM SPONGE. TP ONE (16:00)
[2019-03-20] MEDS ORDERED: LIDOCAINE 1%/EPI 1:100,000 20 ML VIAL. INJ ONE (16:00)
--- NOTE | 2019-03-20 16:06 | NUR ---
SW following pt. SW provided pt with OP HD schedule/copy left in room. Attempted to reach twice, phone keeps ringing. HH orders are faxed to [facility] and SW notified them pt is not dc today. Please notify HH agency if pt dc over the weekend. Updates faxed to [facility] and Pt will start first HD on Saturday at 1115. D/W ANUJ.
--- NOTE | 2019-03-20 16:35 | RAD ---
Procedure: Removal of prior tunnel dialysis catheter and placement of a new right internal jugular Tunneled hemodialysis catheter placement 03/20/2019 2:28 PM Clinical Indication: Nonfunctional catheter Sterility: All elements of maximal sterile barrier technique including the use of a cap, mask, sterile gown, sterile gloves, large sterile sheet, appropriate hand hygiene, and 2% chlorhexidine for cutaneous antisepsis (or acceptable alternative antiseptic per current guidelines) were followed for this procedure. Consent: The procedure was explained in its entirety to the patient or the patients designated inside sales representative by a member of the treatment team, including a discussion of the risks, benefits and commonly accepted alternatives to the procedure, as well as the expected consequences of no therapy whatsoever. Discussion of the risks included, but was not limited to, those that are most frequent and those that are rare but possibly severe or life-threatening, as well as the possibility of unforeseen complications. Technique and Findings: Following informed consent, a timeout procedure was performed. The patient was prepped and draped in the usual sterile fashion. Ultrasound interrogation of the right neck revealed patency and compressibility of the right internal jugular vein. A 21-gauge micropuncture was then used to gain access to this vein under ultrasound guidance. A hard copy ultrasound image was recorded. The needle was exchanged over a wire for a 4 Polish sheath which was used to guide an guidewire into the IVC. The skin over the right anterior chest wall was copiously anesthetized with 1% Lidocaine and a small dermatotomy was made. A 23 cm tipped cuff palindrome tunneled hemodialysis catheter was then tunneled subcutaneously towards the neck dermatotomy and deployed through a large caliber peel-away sheath under fluoroscopic guidance such that the distal tip resided in the mid right atrium. Manual flow rates were assessed and found to be within normal limits. The catheter was then flushed, packed with Heparin, capped, and sutured to the skin. The neck dermatotomy was closed with Dermabond. No immediate complications were identified. Sedation: Conscious sedation was administered for 30 minutes. The patient was monitored by a qualified independent observer throughout the time of sedation. Please refer to the medical record for exact doses of medications utilized to achieve moderate sedation. Fluoroscopy time:1.1MIN Dose area product: [id number] Impression: Tunneled hemodialysis catheter placement as described
[2019-03-20] MEDS ORDERED: DIALYSIS PATIENT. MC PRN ×2 (16:45)
[2019-03-20] MEDS: cefTRIAXone IV Push 1 GM VIAL. IVP SCH (18:02)
[2019-03-20] MEDS: TAMSULOSIN 0.4 MG CAP.ER.24H. PO SCH (21:47)
[2019-03-20] MEDS: ATORVASTATIN CALCIUM 40 MG TABLET. PO SCH (21:48)
[2019-03-20] MEDS: INSULIN GLARGINE SYRINGE. SQ SCH (21:54)
[2019-03-21 03:00] VITALS: BP 136/61
[2019-03-21] MEDS: BUDESONIDE 0.5 MG/2 ML NEBU. NEB SCH (06:14)
[2019-03-21] MEDS: IPRATRPIUM/ALBUTEROL 0.5/2.5MG 3 ML NEBU. NEB SCH ×3 (06:14→16:06)
[2019-03-21 06:29] LABS: BASO % 1 % (0-3); EOS % 1 % (0-3); HEMATOCRIT 27.4 % (39.0-53.0); HEMOGLOBIN 8.8 g/dL (13.0-17.5); LYMPH # 0.9 x10^3/uL (1.0-4.8); LYMPH % 18 % (24-48); MEAN CORPUSCULAR HEMOGLOBIN 25 pg (25-35); MEAN CORPUSCULAR HGB CONC 32 g/dL (31-37); MEAN CORPUSCULAR VOLUME 77 fL (79-100); MONO # 1.2 x10^3/uL (0.0-1.1); MONO % 24 % (0-9); NEUT % 57 % (31-73); PLATELET COUNT 139 x10^3/uL (140-400); RED BLOOD COUNT 3.55 x10^6/uL (4.30-5.70); RED CELL DISTRIBUTION WIDTH 20.9 % (11.5-14.5); WHITE BLOOD COUNT 5.2 x10^3/uL (4.0-11.0)
[2019-03-21 06:44] LABS: CALCIUM 8.2 mg/dL (8.5-10.1); CREATININE 2.3 mg/dL (0.7-1.3); GFR 33.8; POTASSIUM 3.8 mmol/L (3.5-5.1)
[2019-03-21 07:00] VITALS: BP 139/60
[2019-03-21] MEDS: INSULIN LISPRO 300 UNITS/3 ML VIAL. SQ SCH ×3 (08:00→17:00)
[2019-03-21] MEDS ORDERED: IV NORMAL SALINE 1000ML BAG 1,000 ML IV PRN ×2 (08:11)
[2019-03-21] MEDS ORDERED: DIALYSIS PATIENT. MC PRN (08:15)
[2019-03-21] MEDS ORDERED: diphenhydrAMINE 50 MG/ML VIAL IV PRN ×2 (08:15)
[2019-03-21] MEDS ORDERED: ACETAMINOPHEN 500 MG TABLET PO PRN (08:15)
--- NOTE | 2019-03-21 11:10 | PDOC ---
PROGRESS NOTES Chief Complaint Chief Complaint discharge dx Acute hypoxic respiratory failure combination of acute combined systolic and diastolic CHF, req. BIPAP on admit , EF 40% previously acute renal failure onCKD stage 4- was on HD in the past- taken off Dialysis appox 6 -8 months [facility] Urinary retention, chronic mendez in place. Metabolic acidosis - Abnormal arterial blood gases, consistent with acute metabolic acidosis, likely related to acute on chronic kidney disease. CAD - s/p PCI/stent placement one year ago and 3 weeks ago w. htn and lipids Diabetes mellitus type 2 - Paroxysmal AFIB with chronic LBBB Anemia of chronic disease - on iron gait instability Anticoagulation for AFib per Cardiology. WILL NEED TO HAVE TUNNELED HD CATHETER PLACED ONCE INR IS ACCEPTABLE TEMP HD CATHETER PLACED - CONVERT TO TUNNELED HD CATHETER TODAY 03/19 HD TOMORROW SW TO WORK ON DISCHARGE AND OP HD DAY AND TIME arranged for saturday, home with leg bag mendez 03/21 # [phone] 38 min pt exam, chart review d/c planning , > 50% of time spent with exam, chart review, pt care coordination History of Present Illness History of Present Illness PLAN: agreeable to HD HAs a left AV fistula not working well temp HD cath placed needs tunneled cath prior to dc keep mendez in place for urinary retention--consulted urology sw to asssist with OP HD day and times will give 2.5 mg vit k now. recheck INR at 5 PM. if still elevated will give additional vit K continue current BP meds apprec pulm and nephro involvement. Vitals Vitals Vital Signs Date Time Temp Pulse Resp B/P (MAP) Pulse Ox O2 Delivery O2 Flow Rate FiO2 03/21/19 07:00 98.2 65 18 139/60 (86) 100 Room Air 98.2 03/20/19 16:12 2.0 Physical Exam General: Alert, Oriented X3, Cooperative, No acute distress Heart: Regular rate (SR LBBB), Normal S1, Normal S2, No murmurs, Other (distant heart sounds) Lungs: Clear Abdomen: Normal bowel sounds, Soft, No tenderness Extremities: No cyanosis, Other (2+ bilateral LE pitting edema) Skin: No breakdown, No significant lesion Labs LABS Laboratory Tests Test 03/20/19 12:07 03/20/19 17:03 03/20/19 21:19 03/21/19 05:37 Glucose (Fingerstick) 100 mg/dL (70-99) 117 mg/dL (70-99) 234 mg/dL (70-99) White Blood Count 5.2 x10^3/uL (4.0-11.0) Red Blood Count 3.55 x10^6/uL (4.30-5.70) Hemoglobin 8.8 g/dL (13.0-17.5) Hematocrit 27.4 % (39.0-53.0) Mean Corpuscular Volume 77 fL (79-100) Mean Corpuscular Hemoglobin 25 pg (25-35) Mean Corpuscular Hemoglobin Concent 32 g/dL (31-37) Red Cell Distribution Width 20.9 % (11.5-14.5) Platelet Count 139 x10^3/uL (140-400) Neutrophils (%) (Auto) 57 % (31-73) Lymphocytes (%) (Auto) 18 % (24-48) Monocytes (%) (Auto) 24 % (0-9) Eosinophils (%) (Auto) 1 % (0-3) Basophils (%) (Auto) 1 % (0-3) Neutrophils # (Auto) 3.0 x10^3/uL (1.8-7.7) Lymphocytes # (Auto) 0.9 x10^3/uL (1.0-4.8) Monocytes # (Auto) 1.2 x10^3/uL (0.0-1.1) Eosinophils # (Auto) 0.0 x10^3/uL (0.0-0.7) Basophils # (Auto) 0.0 x10^3/uL (0.0-0.2) Sodium Level 140 mmol/L (136-145) Potassium Level 3.8 mmol/L (3.5-5.1) Chloride Level 103 mmol/L (98-107) Carbon Dioxide Level 30 mmol/L (21-32) Anion Gap 7 (6-14) Blood Urea Nitrogen 24 mg/dL (8-26) Creatinine 2.3 mg/dL (0.7-1.3) Estimated GFR (Cockcroft-Gault) 33.8 Glucose Level 56 mg/dL (70-99) Calcium Level 8.2 mg/dL (8.5-10.1) Test 03/21/19 07:33 03/21/19 07:51 Glucose (Fingerstick) 46 mg/dL (70-99) 80 mg/dL (70-99) Assessment and Plan Assessmemt and Plan Problems Medical Problems: (1) Acute combined systolic (congestive) and diastolic (congestive) heart failure Status: Acute (2) Acute on chronic diastolic (congestive) heart failure Status: Acute (3) Acute respiratory failure with hypoxia Status: Acute (4) JESSICA (acute kidney injury) Status: Acute (5) CAD (coronary artery disease) of artery bypass graft Status: Chronic (6) CHF (congestive heart failure) Status: Chronic (7) CKD (chronic kidney disease) Status: Chronic (8) CKD (chronic kidney disease), stage IV Status: Chronic (9) HTN (hypertension) Status: Chronic (10) Hypertension Status: Chronic (11) LBBB (left bundle branch block) Status: Chronic (12) Paroxysmal A-fib Status: Chronic (13) Respiratory failure Status: Acute Comment Review of Relevant I have reviewed the following items juanita (where applicable) has been applied. Labs Laboratory Tests Test 03/19/19 12:02 03/19/19 17:10 03/19/19 20:51 03/20/19 07:44 Glucose (Fingerstick) 158 mg/dL (70-99) 136 mg/dL (70-99) 238 mg/dL (70-99) 88 mg/dL (70-99) Test 03/20/19 09:35 03/20/19 12:07 03/20/19 17:03 03/20/19 21:19 Sodium Level 141 mmol/L (136-145) Potassium Level 4.2 mmol/L (3.5-5.1) Chloride Level 103 mmol/L (98-107) Carbon Dioxide Level 28 mmol/L (21-32) Anion Gap 10 (6-14) Blood Urea Nitrogen 28 mg/dL (8-26) Creatinine 2.5 mg/dL (0.7-1.3) Estimated GFR (Cockcroft-Gault) 30.7 Glucose Level 119 mg/dL (70-99) Calcium Level 8.5 mg/dL (8.5-10.1) Glucose (Fingerstick) 100 mg/dL (70-99) 117 mg/dL (70-99) 234 mg/dL (70-99) Test 03/21/19 05:37 03/21/19 07:33 03/21/19 07:51 White Blood Count 5.2 x10^3/uL (4.0-11.0) Red Blood Count 3.55 x10^6/uL (4.30-5.70) Hemoglobin 8.8 g/dL (13.0-17.5) Hematocrit 27.4 % (39.0-53.0) Mean Corpuscular Volume 77 fL (79-100) Mean Corpuscular Hemoglobin 25 pg (25-35) Mean Corpuscular Hemoglobin Concent 32 g/dL (31-37) Red Cell Distribution Width 20.9 % (11.5-14.5) Platelet Count 139 x10^3/uL (140-400) Neutrophils (%) (Auto) 57 % (31-73) Lymphocytes (%) (Auto) 18 % (24-48) Monocytes (%) (Auto) 24 % (0-9) Eosinophils (%) (Auto) 1 % (0-3) Basophils (%) (Auto) 1 % (0-3) Neutrophils # (Auto) 3.0 x10^3/uL (1.8-7.7) Lymphocytes # (Auto) 0.9 x10^3/uL (1.0-4.8) Monocytes # (Auto) 1.2 x10^3/uL (0.0-1.1) Eosinophils # (Auto) 0.0 x10^3/uL (0.0-0.7) Basophils # (Auto) 0.0 x10^3/uL (0.0-0.2) Sodium Level 140 mmol/L (136-145) Potassium Level 3.8 mmol/L (3.5-5.1) Chloride Level 103 mmol/L (98-107) Carbon Dioxide Level 30 mmol/L (21-32) Anion Gap 7 (6-14) Blood Urea Nitrogen 24 mg/dL (8-26) Creatinine 2.3 mg/dL (0.7-1.3) Estimated GFR (Cockcroft-Gault) 33.8 Glucose Level 56 mg/dL (70-99) Calcium Level 8.2 mg/dL (8.5-10.1) Glucose (Fingerstick) 46 mg/dL (70-99) 80 mg/dL (70-99) Laboratory Tests Test 03/20/19 12:07 03/20/19 17:03 03/20/19 21:19 03/21/19 05:37 Glucose (Fingerstick) 100 mg/dL (70-99) 117 mg/dL (70-99) 234 mg/dL (70-99) White Blood Count 5.2 x10^3/uL (4.0-11.0) Red Blood Count 3.55 x10^6/uL (4.30-5.70) Hemoglobin 8.8 g/dL (13.0-17.5) Hematocrit 27.4 % (39.0-53.0) Mean Corpuscular Volume 77 fL (79-100) Mean Corpuscular Hemoglobin 25 pg (25-35) Mean Corpuscular Hemoglobin Concent 32 g/dL (31-37) Red Cell Distribution Width 20.9 % (11.5-14.5) Platelet Count 139 x10^3/uL (140-400) Neutrophils (%) (Auto) 57 % (31-73) Lymphocytes (%) (Auto) 18 % (24-48) Monocytes (%) (Auto) 24 % (0-9) Eosinophils (%) (Auto) 1 % (0-3) Basophils (%) (Auto) 1 % (0-3) Neutrophils # (Auto) 3.0 x10^3/uL (1.8-7.7) Lymphocytes # (Auto) 0.9 x10^3/uL (1.0-4.8) Monocytes # (Auto) 1.2 x10^3/uL (0.0-1.1) Eosinophils # (Auto) 0.0 x10^3/uL (0.0-0.7) Basophils # (Auto) 0.0 x10^3/uL (0.0-0.2) Sodium Level 140 mmol/L (136-145) Potassium Level 3.8 mmol/L (3.5-5.1) Chloride Level 103 mmol/L (98-107) Carbon Dioxide Level 30 mmol/L (21-32) Anion Gap 7 (6-14) Blood Urea Nitrogen 24 mg/dL (8-26) Creatinine 2.3 mg/dL (0.7-1.3) Estimated GFR (Cockcroft-Gault) 33.8 Glucose Level 56 mg/dL (70-99) Calcium Level 8.2 mg/dL (8.5-10.1) Test 03/21/19 07:33 03/21/19 07:51 Glucose (Fingerstick) 46 mg/dL (70-99) 80 mg/dL (70-99) Microbiology 03/13/19 Urine Culture - Final, Complete 03/13/19 Urine Culture Result 1 (RAMON) - Final, Complete 03/13/19 Antimicrobic Susceptibility - Final, Complete Medications Current Medications Albuterol/ Ipratropium (Duoneb) 3 ml 1X ONCE NEB Last administered on 03/13/19at 07:09; Start 03/13/19 at 07:00; Stop 03/13/19 at 07:01; Status DC Methylprednisolone Sodium Succinate (SOLU-Medrol 125MG VIAL) 125 mg 1X ONCE IV Last administered on 03/13/19at 07:13; Start 03/13/19 at 07:00; Stop 03/13/19 at 07:01; Status DC Furosemide (Lasix) 60 mg 1X ONCE IVP Last administered on 03/13/19at 07:12; Start 03/13/19 at 07:00; Stop 03/13/19 at 07:01; Status DC Furosemide (Lasix) 100 mg STK-MED ONCE .ROUTE ; Start 03/13/19 at 06:51; Stop 03/13/19 at 06:51; Status DC Ondansetron HCl (Zofran) 4 mg STK-MED ONCE .ROUTE ; Start 03/13/19 at 07:22; Stop 03/13/19 at 07:23; Status DC Ondansetron HCl (Zofran) 8 mg 1X ONCE IV Last administered on 03/13/19at 07:56; Start 03/13/19 at 07:23; Stop 03/13/19 at 07:54; Status DC Ondansetron HCl (Zofran) 4 mg PRN Q8HRS PRN IV NAUSEA/VOMITING; Start 03/13/19 at 09:15; Stop 03/14/19 at 09:14; Status DC Albuterol/ Ipratropium (Duoneb) 3 ml RTQID NEB Last administered on 03/14/19 11:50; Start 03/13/19 at 12:00; Stop 03/14/19 at 11:59; Status DC Albuterol Sulfate (Ventolin Neb Soln) 2.5 mg PRN Q6HRS PRN INH SHORTNESS OF BREATH Last administered on 03/17/19 20:08; Start 03/13/19 at 11:00 Amiodarone HCl (Cordarone) 200 mg DAILY PO Last administered on 03/20/19 10:24; Start 03/13/19 at 11:00 Aspirin (Ecotrin) 81 mg DAILYWBKFT PO Last administered on 03/20/19 10:22; Start 03/14/19 at 08:00 Atorvastatin Calcium (Lipitor) 40 mg QHS PO Last administered on 03/20/19 21:48; Start 03/13/19 at 21:00 Guaifenesin (Robitussin Dm) 10 ml PRN Q6HRS PRN PO COUGH; Start 03/13/19 at 11:00 Insulin Glargine (Lantus Syringe) 15 unit HS SQ Last administered on 03/20/19at 21:54; Start 03/13/19 at 21:00 Isosorbide Mononitrate (Imdur) 30 mg DAILY PO Last administered on 03/20/19 10:23; Start 03/13/19 at 11:00 Metoprolol Succinate (Toprol Xl) 50 mg DAILY PO ; Start 03/13/19 at 11:00; Stop 03/13/19 at 12:23; Status DC Tamsulosin HCl (Flomax) 0.4 mg QHS PO Last administered on 03/20/19 21:47; Start 03/13/19 at 21:00 Ticagrelor (Brilinta) 90 mg BID PO Last administered on 03/20/19 21:48; Start 03/13/19 at 21:00 Warfarin Sodium (Coumadin) 5 mg QPM PO ; Start 03/13/19 at 18:00; Status UNV Budesonide (Pulmicort) 0.5 mg RTBID NEB Last administered on 03/21/19 06:14; Start 03/13/19 at 11:30 Ferrous Sulfate (Feosol) 325 mg DAILYWBKFT PO Last administered on 03/20/19at 10:21; Start 03/13/19 at 11:30 Warfarin Sodium (Coumadin Per Pharmacy) 1 each PRN DAILY PRN MC SEE COMMENTS Last administered on 03/17/19at 11:18; Start 03/13/19 at 11:00; Stop 03/18/19 at 10:51; Status DC Furosemide (Lasix) 40 mg [id number] IVP Last administered on 03/20/19at 18:03; Start 03/13/19 at 14:00 Insulin Human Lispro (HumaLOG) 0-7 UNITS TIDWMEALS SQ Last administered on 03/16/19at 17:18; Start 03/13/19 at 12:00 Dextrose (Dextrose 50%-Water Syringe) 12.5 gm PRN Q15MIN PRN IV SEE COMMENTS; Start 03/13/19 at 11:15 Dextrose 250 ml PRN Q15MIN PRN IV SEE COMMENTS; Start 03/13/19 at 11:15; Stop 03/19/19 at 15:42; Status DC Warfarin Sodium (Coumadin) 5 mg 1X WARF ONCE PO Last administered on 03/13/19at 17:40; Start 03/13/19 at 16:00; Stop 03/13/19 at 16:01; Status DC Metoprolol Succinate (Toprol Xl) 25 mg DAILY PO Last administered on 03/20/19at 10:22; Start 03/14/19 at 09:00 Amlodipine Besylate (Norvasc) 10 mg DAILY PO Last administered on 03/20/19at 10:22; Start 03/13/19 at 12:30 Nitroglycerin (Nitro-Bid Oint) 0.5 inch PRN Q4HRS PRN TP hypertension Last administered on 03/13/19at 15:58; Start 03/13/19 at 15:15 Warfarin Sodium (Coumadin) 5 mg 1X WARF ONCE PO Last administered on 03/14/19at 17:00; Start 03/14/19 at 16:00; Stop 03/14/19 at 16:01; Status DC Warfarin Sodium (Coumadin) 3 mg 1X WARF ONCE PO Last administered on 03/15/19at 15:05; Start 03/15/19 at 16:00; Stop 03/15/19 at 16:01; Status DC Albuterol/ Ipratropium (Duoneb) 3 ml RTQID NEB Last administered on 03/21/19at 06:14; Start 03/15/19 at 16:15 Ondansetron HCl (Zofran) 4 mg PRN Q6HRS PRN IV NAUSEA/VOMITING; Start 03/16/19 at 08:45 Acetaminophen (Tylenol) 500 mg PRN Q6HRS PRN PO MILD PAIN / TEMP; Start 03/16/19 at 08:45 Clonidine HCl (Catapres) 0.1 mg PRN Q1HR PRN PO HYPERTENSION; Start 03/16/19 at 08:45 Sodium Chloride 1,000 ml @ 1,000 mls/hr Q1H PRN IV hypotension; Start 03/16/19 at 14:34; Stop 03/16/19 at 20:33; Status DC Sodium Chloride 1,000 ml @ 400 mls/hr Q2H30M PRN IV PATENCY; Start 03/16/19 at 14:34; Stop 03/17/19 at 02:33; Status DC Info (PHARMACY MONITORING -- do not chart) 1 each PRN DAILY PRN MC SEE COMMENTS; Start 03/16/19 at 14:45; Status UNV Info (PHARMACY MONITORING -- do not chart) 1 each PRN DAILY PRN MC SEE COMMENTS; Start 03/16/19 at 14:45; Status Cancel Lidocaine HCl (Xylocaine-Mpf 1% 2ml Vial) 2 ml 1X ONCE INJ ; Start 03/16/19 at 14:45; Stop 03/16/19 at 14:46; Status DC Warfarin Sodium (Coumadin) 4 mg 1X WARF ONCE PO ; Start 03/16/19 at 16:00; Stop 03/16/19 at 16:01; Status DC Ceftriaxone Sodium (Rocephin) 1 gm Q24H IVP Last administered on 03/20/19at 18:02; Start 03/16/19 at 16:00 Lactobacillus Rhamnosus (Culturelle) 1 cap BID PO Last administered on 03/20/19at 21:47; Start 03/16/19 at 21:00 Lidocaine/Sodium Bicarbonate (Buffered Lidocaine 1%) 3 ml STK-MED ONCE .ROUTE ; Start 03/17/19 at 08:28; Stop 03/17/19 at 08:29; Status DC Lidocaine/Sodium Bicarbonate (Buffered Lidocaine 1%) 6 ml 1X ONCE INJ Last administered on 03/17/19at 09:25; Start 03/17/19 at 09:15; Stop 03/17/19 at 09:16; Status DC Sodium Chloride 1,000 ml @ 1,000 mls/hr Q1H PRN IV hypotension; Start 03/17/19 at 10:19; Stop 03/17/19 at 16:18; Status DC Sodium Chloride (Normal Saline Flush) 10 ml 1X PRN PRN IV AP catheter pack; Start 03/17/19 at 10:30; Stop 03/18/19 at 10:29; Status DC Sodium Chloride (Normal Saline Flush) 10 ml 1X PRN PRN IV [employer] catheter pack; Start 03/17/19 at 10:30; Stop 03/18/19 at 10:29; Status DC Info (PHARMACY MONITORING -- do not chart) 1 each PRN DAILY PRN MC SEE COMMENTS; Start 03/17/19 at 10:30; Stop 03/17/19 at 10:24; Status DC Info (PHARMACY MONITORING -- do not chart) 1 each PRN DAILY PRN MC SEE COMMENTS; Start 03/17/19 at 10:30; Stop 03/17/19 at 10:24; Status DC Warfarin Sodium (Coumadin) 4 mg 1X WARF ONCE PO ; Start 03/17/19 at 16:00; Stop 03/17/19 at 16:01; Status Cancel Warfarin Sodium (Coumadin) 4 mg 1X WARF ONCE PO Last administered on 03/17/19at 21:23; Start 03/17/19 at 21:00; Stop 03/17/19 at 21:01; Status DC Phytonadione (Mephyton Oral Soln) 2.5 mg 1X ONCE PO Last administered on 03/18at 11:43; Start 03/18/19 at 10:45; Stop 03/18/19 at 10:52; Status DC Sodium Chloride 1,000 ml @ 1,000 mls/hr Q1H PRN IV hypotension; Start 03/18/19 at 14:05; Stop 03/18/19 at 20:04; Status DC Acetaminophen (Tylenol) 500 mg 1X PRN PRN PO MILD PAIN / TEMP; Start 03/18/19 at 14:15; Stop 03/19/19 at 14:14; Status DC Diphenhydramine HCl (Benadryl) 25 mg 1X PRN PRN IV ITCHING; Start 03/18/19 at 14:15; Stop 03/19/19 at 14:14; Status DC Diphenhydramine HCl (Benadryl) 25 mg 1X PRN PRN IV ITCHING; Start 03/18/19 at 14:15; Stop 03/19/19 at 14:14; Status DC Sodium Chloride 1,000 ml @ 400 mls/hr Q2H30M PRN IV PATENCY; Start 03/18/19 at 14:05; Stop 03/19/19 at 02:04; Status DC Info (PHARMACY MONITORING -- do not chart) 1 each PRN DAILY PRN MC SEE COMMENTS; Start 03/18/19 at 14:15; Status Cancel Lidocaine/ Epinephrine (LIDOCAINE 1%-EPI 1:100,000 Multi-Dose) 20 ml STK-MED ONCE .ROUTE ; Start 03/20/19 at 07:58; Stop 03/20/19 at 07:58; Status DC Cefazolin Sodium 100 ml @ As Directed STK-MED ONCE IV ; Start 03/20/19 at 08:05; Stop 03/20/19 at 08:05; Status DC Midazolam HCl (Versed) 2 mg STK-MED ONCE .ROUTE ; Start 03/20/19 at 08:05; Stop 03/20/19 at 08:06; Status DC Fentanyl Citrate (Fentanyl 2ml Vial) 100 mcg STK-MED ONCE .ROUTE ; Start 03/20/19 at 08:06; Stop 03/20/19 at 08:06; Status DC Midazolam HCl (Versed) 2 mg 1X ONCE IV Last administered on 03/20/19at 08:00; Start 03/20/19 at 08:00; Stop 03/20/19 at 08:09; Status DC Fentanyl Citrate (Fentanyl 2ml Vial) 100 mcg 1X ONCE IV Last administered on 03/20/19at 08:00; Start 03/20/19 at 08:00; Stop 03/20/19 at 08:09; Status DC Cefazolin Sodium 50 ml @ 100 mls/hr 1X ONCE IV Last administered on 03/20/19at 08:00; Start 03/20/19 at 08:00; Stop 03/20/19 at 08:29; Status DC Cefazolin Sodium 50 ml @ 100 mls/hr 1X ONCE IV ; Start 03/20/19 at 08:15; Stop 03/20/19 at 08:12; Status DC Lidocaine HCl (Lidocaine 1% 20ml Vial) 10 ml 1X ONCE INJ Last administered on 03/20/19at 08:52; Start 03/20/19 at 09:00; Stop 03/20/19 at 09:01; Status DC Influenza Virus Vaccine Quadrival (Afluria Quad 2019-20 (3yr Up) Syringe) 0.5 ml ONCE ONCE VAX IM Last administered on 03/20/19at 18:09; Start 03/20/19 at 12:15; Stop 03/20/19 at 12:16; Status DC Lidocaine/ Epinephrine (LIDOCAINE 1%-EPI 1:100,000 Multi-Dose) 20 ml STK-MED ONCE .ROUTE ; Start 03/20/19 at 15:16; Stop 03/20/19 at 15:16; Status DC Midazolam HCl (Versed) 2 mg STK-MED ONCE .ROUTE ; Start 03/20/19 at 15:30; Stop 03/20/19 at 15:30; Status DC Fentanyl Citrate (Fentanyl 2ml Vial) 100 mcg STK-MED ONCE .ROUTE ; Start 03/20 at 15:30; Stop 03/20/19 at 15:30; Status DC Midazolam HCl (Versed) 2 mg 1X ONCE IV Last administered on 03/20/19at 16:12; Start 03/20/19 at 16:00; Stop 03/20/19 at 16:01; Status DC Fentanyl Citrate (Fentanyl 2ml Vial) 100 mcg 1X ONCE IV Last administered on 03/20/19at 16:12; Start 03/20/19 at 16:00; Stop 03/20/19 at 16:01; Status DC Lidocaine/ Epinephrine (LIDOCAINE 1%-EPI 1:100,000 Multi-Dose) 20 ml 1X ONCE INJ Last administered on 03/20/19at 16:12; Start 03/20/19 at 16:00; Stop 03/20/19 at 16:01; Status DC Gelatin (Gelfoam Size 12-7mm) 1 each STK-MED ONCE .ROUTE ; Start 03/20/19 at 15:52; Stop 03/20/19 at 15:52; Status DC Gelatin (Gelfoam Size 12-7mm) 1 each 1X ONCE TP ; Start 03/20/19 at 16:00; Stop 03/20/19 at 16:01; Status DC Sodium Chloride 1,000 ml @ 1,000 mls/hr Q1H PRN IV hypotension; Start 03/20/19 at 11:00; Stop 03/20/19 at 16:59; Status DC Sodium Chloride 1,000 ml @ 400 mls/hr Q2H30M PRN IV PATENCY; Start 03/20/19 at 11:00; Stop 03/20/19 at 22:59; Status DC Info (PHARMACY MONITORING -- do not chart) 1 each PRN DAILY PRN MC SEE COMMENTS; Start 03/20/19 at 16:45; Status UNV Info (PHARMACY MONITORING -- do not chart) 1 each PRN DAILY PRN MC SEE COMMENTS; Start 03/20/19 at 16:45 Sodium Chloride 1,000 ml @ 1,000 mls/hr Q1H PRN IV hypotension; Start 03/21/19 at 08:11; Stop 03/21/19 at 14:10 Acetaminophen (Tylenol) 500 mg 1X PRN PRN PO MILD PAIN / TEMP; Start 03/21/19 at 08:15; Stop 03/22/19 at 08:14 Diphenhydramine HCl (Benadryl) 25 mg 1X PRN PRN IV ITCHING; Start 03/21/19 at 08:15; Stop 03/22/19 at 08:14 Diphenhydramine HCl (Benadryl) 25 mg 1X PRN PRN IV ITCHING; Start 03/21/19 at 08:15; Stop 03/22/19 at 08:14 Sodium Chloride 1,000 ml @ 400 mls/hr Q2H30M PRN IV PATENCY; Start 03/21/19 at 08:11; Stop 03/21/19 at 20:10 Info (PHARMACY MONITORING -- do not chart) 1 each PRN DAILY PRN MC SEE COMMENTS; Start 03/21/19 at 08:15 Active Scripts Active Amlodipine Besylate 10 Mg Tablet 10 Mg PO DAILY Metoprolol Succinate ( Xl ) (Metoprolol Succinate) 25 Mg Tab.er.24h 25 Mg PO DAILY Duoneb 0.5-3(2.5) Mg/3 Ml (Albuterol/Ipratropium) 3 Ml Ampul.neb 3 Ml NEB RTQID Proair Hfa (Albuterol Sulfate) 8.5 Gm Hfa.aer.ad 1 Puff INH PRN Q6HRS PRN 30 Days Pulmicort Flexhaler (Budesonide) 180 Mcg Aer.pow.ba 2 Puff IH BID Guaifenesin Dm Syrup (Guaifenesin/Dextromethorphan) 5 Ml Syrup 10 Ml PO PRN Q6HRS PRN 7 Days Lantus (Insulin Glargine,Hum.rec.anlog) 100 Unit/1 Ml Vial 15 Unit SQ HS 30 Days Furosemide 40 Mg Tablet 40 Mg PO [id number] Aspirin Ec (Aspirin) 81 Mg Tablet. 81 Mg PO [id number] Isosorbide Mononitrate Er (Isosorbide Mononitrate) 30 Mg Tab.er.24h 30 Mg PO DAILY Atorvastatin Calcium 40 Mg Tablet 40 Mg PO QHS Brilinta (Ticagrelor) 90 Mg Tablet 90 Mg PO BID Amiodarone Hcl 200 Mg Tablet 200 Mg PO DAILY Reported Warfarin Sodium 5 Mg Tablet 5 Mg PO DAILY take 5mg on sat,sat.thur,sat,sun take 6 mg on saturday and saturday Ferrous Sulfate 324 Mg Tablet. 324 Mg PO DAILY Flomax (Tamsulosin Hcl) 0.4 Mg Cap.er.24h 0.4 Mg PO DAILY Vitals/I & O Vital Sign - Last 24 Hours 03/20/19 03/20/19 03/20/19 03/20/19 16:09 16:12 16:15 16:44 Temp 98.0 98.0 Pulse 62 68 Resp 14 14 18 B/P (MAP) 129/92 (104) Pulse Ox 100 100 100 98 O2 Delivery Nasal Cannula Nasal Cannula Room Air Room Air O2 Flow Rate 2.0 2.0 03/20/19 03/20/19 03/20/19 03/20/19 19:00 19:36 19:36 20:00 Temp 98.2 98.2 Pulse 69 Resp 18 B/P (MAP) 141/64 (89) Pulse Ox 99 100 100 O2 Delivery Room Air Room Air Room Air Room Air 03/20/19 03/21/19 03/21/19 03/21/19 23:00 03:00 06:14 07:00 Temp 98.4 98.2 98.2 98.4 98.2 98.2 Pulse 63 56 65 Resp 18 18 18 B/P (MAP) 126/63 (84) 136/61 (86) 139/60 (86) Pulse Ox 99 99 100 O2 Delivery Room Air Room Air Room Air Room Air Intake and Output 03/20/19 03/20/19 03/21/19 15:00 23:00 07:00 Intake Total 0 ml Output Total 500 ml 500 ml 550 ml Balance -500 ml -500 ml -550 ml Nutrition Consultation Dietary Evaluation: Recommendations by RD: Dietary education by RD, Increase Calorie Intake, Protein supplementation Comments: REC continue ADA, cardiac diet REC glucerna BID (strawberry, w/Breakfast and dinners) Monitor need for renal diet Expected Outcomes/Goals: PO intake to meet >75% est needs Malnutrition Findings: Food and Nutrition Intake (Mod: <75% est energy req 7days Weight Status: Appropriate JENI EASTMAN MD Mar 21, 2019 11:10
[2019-03-21] MEDS: LACTOBACILLUS RHAMNOSUS GG 1 CAPSULE. PO SCH (12:14)
[2019-03-21] MEDS: FERROUS SULFATE 325 MG TABLET. PO SCH (12:14)
[2019-03-21] MEDS: ASPIRIN ENTERIC COATED 81 MG TABLET.DR. PO SCH (12:14)
[2019-03-21] MEDS: amLODIPine BESYLATE 10 MG TABLET PO SCH (12:15)
[2019-03-21] MEDS: ISOSORBIDE MONONITRATE ER 30 MG TAB.ER.24H PO SCH (12:16)
[2019-03-21] MEDS: AMIODARONE HCL 200 MG TABLET. PO SCH (12:16)
[2019-03-21] MEDS: TICAGRELOR 90 MG TABLET. PO SCH (12:16)
[2019-03-21] MEDS: METOPROLOL SUCC 24HR ER 25 MG TAB.ER.24H. PO SCH (12:17)
[2019-03-21] MEDS: FUROSEMIDE 40 MG/4 ML VIAL. IVP SCH ×2 (12:17→12:52)
[2019-03-21 15:00] VITALS: BP 141/65
--- NOTE | 2019-03-21 15:17 | PDOC3 ---
Discharge Summary Date of Admission: Mar 13, 2019 Date of Discharge: Mar 21, 2019 Follow-Up: 1-2 days Admitting Diagnosis comment: discharge dx Acute hypoxic respiratory failure combination of acute combined systolic and diastolic CHF, req. BIPAP on admit , EF 40% previously acute renal failure onCKD stage 4- was on HD in the past- taken off Dialysis appox 6 -8 months [employer] Urinary retention, chronic mendez in place. Metabolic acidosis - Abnormal arterial blood gases, consistent with acute metabolic acidosis, likely related to acute on chronic kidney disease. CAD - s/p PCI/stent placement one year ago and 3 weeks ago w. htn and lipids Diabetes mellitus type 2 - Paroxysmal AFIB with chronic LBBB Anemia of chronic disease - on iron gait instability Anticoagulation for AFib per Cardiology. WILL NEED TO HAVE TUNNELED HD CATHETER PLACED ONCE INR IS ACCEPTABLE TEMP HD CATHETER PLACED - CONVERT TO TUNNELED HD CATHETER TODAY 03/19 HD TOMORROW SW TO WORK ON DISCHARGE AND OP HD DAY AND TIME arranged for saturday, home with leg bag mendez 03/21 # [phone] 38 min pt exam, chart review d/c planning , > 50% of time spent with exam, chart review, pt care coordination History of Present Illness History of Present Illness PLAN: agreeable to HD HAs a left AV fistula not working well temp HD cath placed needs tunneled cath prior to dc keep mendez in place for urinary retention--consulted urology sw to asssist with OP HD day and times will give 2.5 mg vit k now. recheck INR at 5 PM. if still elevated will give additional vit K continue current BP meds apprec pulm and nephro involvement. Vitals Vitals Vital Signs Date Time Temp Pulse Resp B/P (MAP) Pulse Ox O2 Delivery O2 Flow Rate FiO2 03/21/19 07:00 98.2 65 18 139/60 (86) 100 Room Air 98.2 03/20/19 16:12 2.0 Physical Exam General: Alert, Oriented X3, Cooperative, No acute distress Heart: Regular rate (SR LBBB), Normal S1, Normal S2, No murmurs, Other (distant heart sounds) Lungs: Clear Abdomen: Normal bowel sounds, Soft, No tenderness Extremities: No cyanosis, Other (2+ bilateral LE pitting edema) Skin: No breakdown, No significant lesion FINAL DIAGNOSIS Problems Medical Problems: (1) Acute combined systolic (congestive) and diastolic (congestive) heart failur e Status: Acute (2) Acute on chronic diastolic (congestive) heart failure Status: Acute (3) Acute respiratory failure with hypoxia Status: Acute (4) JESSICA (acute kidney injury) Status: Acute (5) CAD (coronary artery disease) of artery bypass graft Status: Chronic (6) CHF (congestive heart failure) Status: Chronic (7) CKD (chronic kidney disease) Status: Chronic (8) CKD (chronic kidney disease), stage IV Status: Chronic (9) HTN (hypertension) Status: Chronic (10) Hypertension Status: Chronic (11) LBBB (left bundle branch block) Status: Chronic (12) Paroxysmal A-fib Status: Chronic (13) Respiratory failure Status: Acute Brief Hospital Course Mr. Banerjee is a 73 old [sex] who presented with [acute CHF, RENAL FAILURE ] CONDITION AT DISCHARGE: Improved Discharge Medications Current Medications Albuterol/ Ipratropium (Duoneb) 3 ml 1X ONCE NEB Last administered on 03/13/19at 07:09; Start 03/13/19 at 07:00; Stop 03/13/19 at 07:01; Status DC Methylprednisolone Sodium Succinate (SOLU-Medrol 125MG VIAL) 125 mg 1X ONCE IV Last administered on 03/13/19at 07:13; Start 03/13/19 at 07:00; Stop 03/13/19 at 07:01; Status DC Furosemide (Lasix) 60 mg 1X ONCE IVP Last administered on 03/13/19at 07:12; Start 03/13/19 at 07:00; Stop 03/13/19 at 07:01; Status DC Furosemide (Lasix) 100 mg STK-MED ONCE .ROUTE ; Start 03/13/19 at 06:51; Stop 03/13/19 at 06:51; Status DC Ondansetron HCl (Zofran) 4 mg STK-MED ONCE .ROUTE ; Start 03/13/19 at 07:22; Stop 03/13/19 at 07:23; Status DC Ondansetron HCl (Zofran) 8 mg 1X ONCE IV Last administered on 03/13/19at 07:56; Start 03/13/19 at 07:23; Stop 03/13/19 at 07:54; Status DC Ondansetron HCl (Zofran) 4 mg PRN Q8HRS PRN IV NAUSEA/VOMITING; Start 03/13/19 at 09:15; Stop 03/14/19 at 09:14; Status DC Albuterol/ Ipratropium (Duoneb) 3 ml RTQID NEB Last administered on 03/14/19at 11:50; Start 03/13/19 at 12:00; Stop 03/14/19 at 11:59; Status DC Albuterol Sulfate (Ventolin Neb Soln) 2.5 mg PRN Q6HRS PRN INH SHORTNESS OF BREATH Last administered on 03/17/19 20:08; Start 03/13/19 at 11:00 Amiodarone HCl (Cordarone) 200 mg DAILY PO Last administered on 03/21/19 12:16; Start 03/13/19 at 11:00 Aspirin (Ecotrin) 81 mg DAILYWBKFT PO Last administered on 03/21/19 12:14; Start 03/14/19 at 08:00 Atorvastatin Calcium (Lipitor) 40 mg QHS PO Last administered on 03/20/19 21:48; Start 03/13/19 at 21:00 Guaifenesin (Robitussin Dm) 10 ml PRN Q6HRS PRN PO COUGH; Start 03/13/19 at 11:00 Insulin Glargine (Lantus Syringe) 15 unit HS SQ Last administered on 03/20/19at 21:54; Start 03/13/19 at 21:00 Isosorbide Mononitrate (Imdur) 30 mg DAILY PO Last administered on 03/21/19 12:16; Start 03/13/19 at 11:00 Metoprolol Succinate (Toprol Xl) 50 mg DAILY PO ; Start 03/13/19 at 11:00; Stop 03/13/19 at 12:23; Status DC Tamsulosin HCl (Flomax) 0.4 mg QHS PO Last administered on 03/20/19at 21:47; Start 03/13/19 at 21:00 Ticagrelor (Brilinta) 90 mg BID PO Last administered on 03/21/19 12:16; Start 03/13/19 at 21:00 Warfarin Sodium (Coumadin) 5 mg QPM PO ; Start 03/13/19 at 18:00; Status UNV Budesonide (Pulmicort) 0.5 mg RTBID NEB Last administered on 03/21/19 06:14; Start 03/13/19 at 11:30 Ferrous Sulfate (Feosol) 325 mg DAILYWBKFT PO Last administered on 03/21/19 12:14; Start 03/13/19 at 11:30 Warfarin Sodium (Coumadin Per Pharmacy) 1 each PRN DAILY PRN MC SEE COMMENTS Last administered on 03/17/19 11:18; Start 03/13/19 at 11:00; Stop 03/18/19 at 10:51; Status DC Furosemide (Lasix) 40 mg BID92 IVP Last administered on 03/21/19 12:17; Start 03/13/19 at 14:00 Insulin Human Lispro (HumaLOG) 0-7 UNITS TIDWMEALS SQ Last administered on 03/16/19 17:18; Start 03/13/19 at 12:00 Dextrose (Dextrose 50%-Water Syringe) 12.5 gm PRN Q15MIN PRN IV SEE COMMENTS; Start 03/13/19 at 11:15 Dextrose 250 ml PRN Q15MIN PRN IV SEE COMMENTS; Start 03/13/19 at 11:15; Stop 03/19/19 at 15:42; Status DC Warfarin Sodium (Coumadin) 5 mg 1X WARF ONCE PO Last administered on 03/13/19at 17:40; Start 03/13/19 at 16:00; Stop 03/13/19 at 16:01; Status DC Metoprolol Succinate (Toprol Xl) 25 mg DAILY PO Last administered on 03/21/19 12:17; Start 03/14/19 at 09:00 Amlodipine Besylate (Norvasc) 10 mg DAILY PO Last administered on 03/21/19 12:15; Start 03/13/19 at 12:30 Nitroglycerin (Nitro-Bid Oint) 0.5 inch PRN Q4HRS PRN TP hypertension Last administered on 03/13/19at 15:58; Start 03/13/19 at 15:15 Warfarin Sodium (Coumadin) 5 mg 1X WARF ONCE PO Last administered on 03/14/19at 17:00; Start 03/14/19 at 16:00; Stop 03/14/19 at 16:01; Status DC Warfarin Sodium (Coumadin) 3 mg 1X WARF ONCE PO Last administered on 03/15/19at 15:05; Start 03/15/19 at 16:00; Stop 03/15/19 at 16:01; Status DC Albuterol/ Ipratropium (Duoneb) 3 ml RTQID NEB Last administered on 03/21/19at 06:14; Start 03/15/19 at 16:15 Ondansetron HCl (Zofran) 4 mg PRN Q6HRS PRN IV NAUSEA/VOMITING; Start 03/16/19 at 08:45 Acetaminophen (Tylenol) 500 mg PRN Q6HRS PRN PO MILD PAIN / TEMP; Start 03/16/19 at 08:45 Clonidine HCl (Catapres) 0.1 mg PRN Q1HR PRN PO HYPERTENSION; Start 03/16/19 at 08:45 Sodium Chloride 1,000 ml @ 1,000 mls/hr Q1H PRN IV hypotension; Start 03/16/19 at 14:34; Stop 03/16/19 at 20:33; Status DC Sodium Chloride 1,000 ml @ 400 mls/hr Q2H30M PRN IV PATENCY; Start 03/16/19 at 14:34; Stop 03/17/19 at 02:33; Status DC Info (PHARMACY MONITORING -- do not chart) 1 each PRN DAILY PRN MC SEE COMMENTS; Start 03/16/19 at 14:45; Status UNV Info (PHARMACY MONITORING -- do not chart) 1 each PRN DAILY PRN MC SEE COM MENTS; Start 03/16/19 at 14:45; Status Cancel Lidocaine HCl (Xylocaine-Mpf 1% 2ml Vial) 2 ml 1X ONCE INJ ; Start 03/16/19 at 14:45; Stop 03/16/19 at 14:46; Status DC Warfarin Sodium (Coumadin) 4 mg 1X WARF ONCE PO ; Start 03/16/19 at 16:00; Stop 03/16/19 at 16:01; Status DC Ceftriaxone Sodium (Rocephin) 1 gm Q24H IVP Last administered on 03/20/19at 18:02; Start 03/16/19 at 16:00 Lactobacillus Rhamnosus (Culturelle) 1 cap BID PO Last administered on 03/21/19at 12:14; Start 03/16/19 at 21:00 Lidocaine/Sodium Bicarbonate (Buffered Lidocaine 1%) 3 ml STK-MED ONCE .ROUTE ; Start 03/17/19 at 08:28; Stop 03/17/19 at 08:29; Status DC Lidocaine/Sodium Bicarbonate (Buffered Lidocaine 1%) 6 ml 1X ONCE INJ Last administered on 03/17/19at 09:25; Start 03/17/19 at 09:15; Stop 03/17/19 at 09:16; Status DC Sodium Chloride 1,000 ml @ 1,000 mls/hr Q1H PRN IV hypotension; Start 03/17/19 at 10:19; Stop 03/17/19 at 16:18; Status DC Sodium Chloride (Normal Saline Flush) 10 ml 1X PRN PRN IV AP catheter pack; Start 03/17/19 at 10:30; Stop 03/18/19 at 10:29; Status DC Sodium Chloride (Normal Saline Flush) 10 ml 1X PRN PRN IV [employer] catheter pack; St art 03/17/19 at 10:30; Stop 03/18/19 at 10:29; Status DC Info (PHARMACY MONITORING -- do not chart) 1 each PRN DAILY PRN MC SEE COMMENTS; Start 03/17/19 at 10:30; Stop 03/17/19 at 10:24; Status DC Info (PHARMACY MONITORING -- do not chart) 1 each PRN DAILY PRN MC SEE COMMENTS; Start 03/17/19 at 10:30; Stop 03/17/19 at 10:24; Status DC Warfarin Sodium (Coumadin) 4 mg 1X WARF ONCE PO ; Start 03/17/19 at 16:00; Stop 03/17/19 at 16:01; Status Cancel Warfarin Sodium (Coumadin) 4 mg 1X WARF ONCE PO Last administered on 03/17/19at 21:23; Start 03/17/19 at 21:00; Stop 03/17/19 at 21:01; Status DC Phytonadione (Mephyton Oral Soln) 2.5 mg 1X ONCE PO Last administered on 03/18/19at 11:43; Start 03/18/19 at 10:45; Stop 03/18/19 at 10:52; Status DC Sodium Chloride 1,000 ml @ 1,000 mls/hr Q1H PRN IV hypotension; Start 03/18/19 at 14:05; Stop 03/18/19 at 20:04; Status DC Acetaminophen (Tylenol) 500 mg 1X PRN PRN PO MILD PAIN / TEMP; Start 03/18/19 at 14:15; Stop 03/19/19 at 14:14; Status DC Diphenhydramine HCl (Benadryl) 25 mg 1X PRN PRN IV ITCHING; Start 03/18/19 at 14:15; Stop 03/19/19 at 14:14; Status DC Diphenhydramine HCl (Benadryl) 25 mg 1X PRN PRN IV ITCHING; Start 03/18/19 at 14:15; Stop 03/19/19 at 14:14; Status DC Sodium Chloride 1,000 ml @ 400 mls/hr Q2H30M PRN IV PATENCY; Start 03/18/19 at 14:05; Stop 03/19/19 at 02:04; Status DC Info (PHARMACY MONITORING -- do not chart) 1 each PRN DAILY PRN MC SEE COMMENTS; Start 03/18/19 at 14:15; Status Cancel Lidocaine/ Epinephrine (LIDOCAINE 1%-EPI 1:100,000 Multi-Dose) 20 ml STK-MED ONCE .ROUTE ; Start 03/20/19 at 07:58; Stop 03/20/19 at 07:58; Status DC Cefazolin Sodium 100 ml @ As Directed STK-MED ONCE IV ; Start 03/20/19 at 08:05; Stop 03/20/19 at 08:05; Status DC Midazolam HCl (Versed) 2 mg STK-MED ONCE .ROUTE ; Start 03/20/19 at 08:05; Stop 03/20/19 at 08:06; Status DC Fentanyl Citrate (Fentanyl 2ml Vial) 100 mcg STK-MED ONCE .ROUTE ; Start 03/20/19 at 08:06; Stop 03/20/19 at 08:06; Status DC Midazolam HCl (Versed) 2 mg 1X ONCE IV Last administered on 03/20/19at 08:00; Start 03/20/19 at 08:00; Stop 03/20/19 at 08:09; Status DC Fentanyl Citrate (Fentanyl 2ml Vial) 100 mcg 1X ONCE IV Last administered on 03/20/19at 08:00; Start 03/20/19 at 08:00; Stop 03/20/19 at 08:09; Status DC Cefazolin Sodium 50 ml @ 100 mls/hr 1X ONCE IV Last administered on 03/20/19at 08:00; Start 03/20/19 at 08:00; Stop 03/20/19 at 08:29; Status DC Cefazolin Sodium 50 ml @ 100 mls/hr 1X ONCE IV ; Start 03/20/19 at 08:15; Stop 03/20/19 at 08:12; Status DC Lidocaine HCl (Lidocaine 1% 20ml Vial) 10 ml 1X ONCE INJ Last administered on 03/20/19at 08:52; Start 03/20/19 at 09:00; Stop 03/20/19 at 09:01; Status DC Influenza Virus Vaccine Quadrival (Afluria Quad 2019-20 (3yr Up) Syringe) 0.5 ml ONCE ONCE VAX IM Last administered on 03/20/19at 18:09; Start 03/20/19 at 12:15; Stop 03/20/19 at 12:16; Status DC Lidocaine/ Epinephrine (LIDOCAINE 1%-EPI 1:100,000 Multi-Dose) 20 ml STK-MED ONCE .ROUTE ; Start 03/20/19 at 15:16; Stop 03/20/19 at 15:16; Status DC Midazolam HCl (Versed) 2 mg STK-MED ONCE .ROUTE ; Start 03/20/19 at 15:30; Stop 03/20/19 at 15:30; Status DC Fentanyl Citrate (Fentanyl 2ml Vial) 100 mcg STK-MED ONCE .ROUTE ; Start 03/20/19 at 15:30; Stop 03/20/19 at 15:30; Status DC Midazolam HCl (Versed) 2 mg 1X ONCE IV Last administered on 03/20/19at 16:12; Start 03/20/19 at 16:00; Stop 03/20/19 at 16:01; Status DC Fentanyl Citrate (Fentanyl 2ml Vial) 100 mcg 1X ONCE IV Last administered on 03/20/19at 16:12; Start 03/20/19 at 16:00; Stop 03/20/19 at 16:01; Status DC Lidocaine/ Epinephrine (LIDOCAINE 1%-EPI 1:100,000 Multi-Dose) 20 ml 1X ONCE INJ Last administered on 03/20/19at 16:12; Start 03/20/19 at 16:00; Stop 03/20/19 at 16:01; Status DC Gelatin (Gelfoam Size 12-7mm) 1 each STK-MED ONCE .ROUTE ; Start 03/20/19 at 15:52; Stop 03/20/19 at 15:52; Status DC Gelatin (Gelfoam Size 12-7mm) 1 each 1X ONCE TP ; Start 03/20/19 at 16:00; St op 03/20/19 at 16:01; Status DC Sodium Chloride 1,000 ml @ 1,000 mls/hr Q1H PRN IV hypotension; Start 03/20/19 at 11:00; Stop 03/20/19 at 16:59; Status DC Sodium Chloride 1,000 ml @ 400 mls/hr Q2H30M PRN IV PATENCY; Start 03/20/19 at 11:00; Stop 03/20/19 at 22:59; Status DC Info (PHARMACY MONITORING -- do not chart) 1 each PRN DAILY PRN MC SEE COMMENTS; Start 03/20/19 at 16:45; Status UNV Info (PHARMACY MONITORING -- do not chart) 1 each PRN DAILY PRN MC SEE COMMENTS; Start 03/20/19 at 16:45 Sodium Chloride 1,000 ml @ 1,000 mls/hr Q1H PRN IV hypotension; Start 03/21/19 at 08:11; Stop 03/21/19 at 14:10; Status DC Acetaminophen (Tylenol) 500 mg 1X PRN PRN PO MILD PAIN / TEMP; Start 03/21/19 at 08:15; Stop 03/22/19 at 08:14 Diphenhydramine HCl (Benadryl) 25 mg 1X PRN PRN IV ITCHING; Start 03/21/19 at 08:15; Stop 03/22/19 at 08:14 Diphenhydramine HCl (Benadryl) 25 mg 1X PRN PRN IV ITCHING; Start 03/21/19 at 08:15; Stop 03/22/19 at 08:14 Sodium Chloride 1,000 ml @ 400 mls/hr Q2H30M PRN IV PATENCY; Start 03/21/19 at 08:11; Stop 03/21/19 at 20:10 Info (PHARMACY MONITORING -- do not chart) 1 each PRN DAILY PRN MC SEE COMMENTS; Start 03/21/19 at 08:15 Active Scripts Active Amlodipine Besylate 10 Mg Tablet 10 Mg PO DAILY Metoprolol Succinate ( Xl ) (Metoprolol Succinate) 25 Mg Tab.er.24h 25 Mg PO DAILY Duoneb 0.5-3(2.5) Mg/3 Ml (Albuterol/Ipratropium) 3 Ml Ampul.neb 3 Ml NEB RTQID Proair Hfa (Albuterol Sulfate) 8.5 Gm Hfa.aer.ad 1 Puff INH PRN Q6HRS PRN 30 Days Pulmicort Flexhaler (Budesonide) 180 Mcg Aer.pow.ba 2 Puff IH BID Guaifenesin Dm Syrup (Guaifenesin/Dextromethorphan) 5 Ml Syrup 10 Ml PO PRN Q6HRS PRN 7 Days Lantus (Insulin Glargine,Hum.rec.anlog) 100 Unit/1 Ml Vial 15 Unit SQ HS 30 Days Furosemide 40 Mg Tablet 40 Mg PO BID92 Aspirin Ec (Aspirin) 81 Mg Tablet. 81 Mg PO DAILYWBKFT Isosorbide Mononitrate Er (Isosorbide Mononitrate) 30 Mg Tab.er.24h 30 Mg PO DAILY Atorvastatin Calcium 40 Mg Tablet 40 Mg PO QHS Brilinta (Ticagrelor) 90 Mg Tablet 90 Mg PO BID Amiodarone Hcl 200 Mg Tablet 200 Mg PO DAILY Reported Warfarin Sodium 5 Mg Tablet 5 Mg PO DAILY take 5mg on sat,sat.thur,sat,sun take 6 mg on saturday and saturday Ferrous Sulfate 324 Mg Tablet. 324 Mg PO DAILY Flomax (Tamsulosin Hcl) 0.4 Mg Cap.er.24h 0.4 Mg PO DAILY Vital Signs Vital Signs Date Time Temp Pulse Resp B/P (MAP) Pulse Ox O2 Delivery O2 Flow Rate FiO2 03/21/19 12:17 67 139/59 03/21/19 07:00 98.2 18 100 Room Air 98.2 03/20/19 16:12 2.0 Labs Laboratory Tests Test 03/19/19 17:10 03/19/19 20:51 03/20/19 07:44 03/20/19 09:35 Glucose (Fingerstick) 136 mg/dL (70-99) 238 mg/dL (70-99) 88 mg/dL (70-99) Sodium Level 141 mmol/L (136-145) Potassium Level 4.2 mmol/L (3.5-5.1) Chloride Level 103 mmol/L (98-107) Carbon Dioxide Level 28 mmol/L (21-32) Anion Gap 10 (6-14) Blood Urea Nitrogen 28 mg/dL (8-26) Creatinine 2.5 mg/dL (0.7-1.3) Estimated GFR (Cockcroft-Gault) 30.7 Glucose Level 119 mg/dL (70-99) Calcium Level 8.5 mg/dL (8.5-10.1) Test 03/20/19 12:07 03/20/19 17:03 03/20/19 21:19 03/21/19 05:37 Glucose (Fingerstick) 100 mg/dL (70-99) 117 mg/dL (70-99) 234 mg/dL (70-99) White Blood Count 5.2 x10^3/uL (4.0-11.0) Red Blood Count 3.55 x10^6/uL (4.30-5.70) Hemoglobin 8.8 g/dL (13.0-17.5) Hematocrit 27.4 % (39.0-53.0) Mean Corpuscular Volume 77 fL (79-100) Mean Corpuscular Hemoglobin 25 pg (25-35) Mean Corpuscular Hemoglobin Concent 32 g/dL (31-37) Red Cell Distribution Width 20.9 % (11.5-14.5) Platelet Count 139 x10^3/uL (140-400) Neutrophils (%) (Auto) 57 % (31-73) Lymphocytes (%) (Auto) 18 % (24-48) Monocytes (%) (Auto) 24 % (0-9) Eosinophils (%) (Auto) 1 % (0-3) Basophils (%) (Auto) 1 % (0-3) Neutrophils # (Auto) 3.0 x10^3/uL (1.8-7.7) Lymphocytes # (Auto) 0.9 x10^3/uL (1.0-4.8) Monocytes # (Auto) 1.2 x10^3/uL (0.0-1.1) Eosinophils # (Auto) 0.0 x10^3/uL (0.0-0.7) Basophils # (Auto) 0.0 x10^3/uL (0.0-0.2) Sodium Level 140 mmol/L (136-145) Potassium Level 3.8 mmol/L (3.5-5.1) Chloride Level 103 mmol/L (98-107) Carbon Dioxide Level 30 mmol/L (21-32) Anion Gap 7 (6-14) Blood Urea Nitrogen 24 mg/dL (8-26) Creatinine 2.3 mg/dL (0.7-1.3) Estimated GFR (Cockcroft-Gault) 33.8 Glucose Level 56 mg/dL (70-99) Calcium Level 8.2 mg/dL (8.5-10.1) Test 03/21/19 07:33 03/21/19 07:51 03/21/19 12:12 Glucose (Fingerstick) 46 mg/dL (70-99) 80 mg/dL (70-99) 113 mg/dL (70-99) Laboratory Tests Test 03/20/19 17:03 03/20/19 21:19 03/21/19 05:37 03/21/19 07:33 Glucose (Fingerstick) 117 mg/dL (70-99) 234 mg/dL (70-99) 46 mg/dL (70-99) White Blood Count 5.2 x10^3/uL (4.0-11.0) Red Blood Count 3.55 x10^6/uL (4.30-5.70) Hemoglobin 8.8 g/dL (13.0-17.5) Hematocrit 27.4 % (39.0-53.0) Mean Corpuscular Volume 77 fL (79-100) Mean Corpuscular Hemoglobin 25 pg (25-35) Mean Corpuscular Hemoglobin Concent 32 g/dL (31-37) Red Cell Distribution Width 20.9 % (11.5-14.5) Platelet Count 139 x10^3/uL (140-400) Neutrophils (%) (Auto) 57 % (31-73) Lymphocytes (%) (Auto) 18 % (24-48) Monocytes (%) (Auto) 24 % (0-9) Eosinophils (%) (Auto) 1 % (0-3) Basophils (%) (Auto) 1 % (0-3) Neutrophils # (Auto) 3.0 x10^3/uL (1.8-7.7) Lymphocytes # (Auto) 0.9 x10^3/uL (1.0-4.8) Monocytes # (Auto) 1.2 x10^3/uL (0.0-1.1) Eosinophils # (Auto) 0.0 x10^3/uL (0.0-0.7) Basophils # (Auto) 0.0 x10^3/uL (0.0-0.2) Sodium Level 140 mmol/L (136-145) Potassium Level 3.8 mmol/L (3.5-5.1) Chloride Level 103 mmol/L (98-107) Carbon Dioxide Level 30 mmol/L (21-32) Anion Gap 7 (6-14) Blood Urea Nitrogen 24 mg/dL (8-26) Creatinine 2.3 mg/dL (0.7-1.3) Estimated GFR (Cockcroft-Gault) 33.8 Glucose Level 56 mg/dL (70-99) Calcium Level 8.2 mg/dL (8.5-10.1) Test 03/21/19 07:51 03/21/19 12:12 Glucose (Fingerstick) 80 mg/dL (70-99) 113 mg/dL (70-99) Allergies Allergies Coded Allergies Type Severity Reaction Last Updated Verified No Known Drug Allergies 01/24/19 No Disposition/Orders: D/C to Home Patient Instructions D/C PLANNING 38 MIN JENI EASTMAN MD Mar 21, 2019 15:17
--- NOTE | 2019-03-21 15:18 | SNU/HH DC ---
DISCHARGE WITH HOME HEALTH DISCHARGE INFORMATION: Discharge Date: Mar 16, 2019 Final Diagnosis: Problems Medical Problems: (1) Acute combined systolic (congestive) and diastolic (congestive) heart failure Status: Acute (2) Acute on chronic diastolic (congestive) heart failure Status: Acute (3) Acute respiratory failure with hypoxia Status: Acute (4) JESSICA (acute kidney injury) Status: Acute (5) CAD (coronary artery disease) of artery bypass graft Status: Chronic (6) CHF (congestive heart failure) Status: Chronic (7) CKD (chronic kidney disease) Status: Chronic (8) CKD (chronic kidney disease), stage IV Status: Chronic (9) HTN (hypertension) Status: Chronic (10) Hypertension Status: Chronic (11) LBBB (left bundle branch block) Status: Chronic (12) Paroxysmal A-fib Status: Chronic (13) Respiratory failure Status: Acute Condition on Discharge: Stable CODE STATUS: Code Status: Full HOME HEALTH: Face to Face: I certify this patient is under my care and that I, or a nurse practitioner or physician's construction project assistant working with me, had a face to face encounter that meets the physician face to face encounter requirements with this patient on []. RN For Eval/Treatment: Yes Physical Therapy For: Evalulation/Treatment Occupational Therapy For: Evaluation/Treatment Speech Language Pathology For: Evaluation/Treatment Home Health Aide For: Self-care GENERAL HANDLING SUPERVISOR For: Community Resources Pt Meets Homebound Status: Unsteady balance w/ amb, POST DISCHARGE ORDERS: Activity Instructions for Disc: Activity as tolerated Weight Bearing Status after Di: No restrictions, As tolerated DIET AFTER DISCHARGE: Cardiac CHECKS AFTER DISCHARGE: Checks after discharge: Check blood press - daily, Check blood sugar, ac/hs, Weigh Yourself Daily Comment: IJ/chest TREATMENT/EQUIPMENT ORDERS: Adaptive Equipment Issued: None, Front wheeled walker CERTIFICATION STATEMENT: Certification Statement: Certification Statement: Based on the above finding, I certify that this patient is confined to the home and needs intermittent prison care, physical therapy and/or speech therapy, or continues to need occupational therapy.~ This patient is under my care, and I have initiated the establishment of the plan of care.~ This patient will be followed by myself or a community physician who will periodically review the plan of care. Home Meds Active Scripts Amlodipine Besylate (AMLODIPINE BESYLATE) 10 Mg Tablet, 10 MG PO DAILY for htn, #60 TAB Prov:BONI VEGA MD 03/16/19 Metoprolol Succinate (METOPROLOL SUCCINATE ( XL )) 25 Mg Tab.er.24h, 25 MG PO DAILY for htn, #60 TAB.SR Prov:BONI VEGA MD 03/16/19 Ipratropium/Albuterol Sulfate (DUONEB 0.5-3(2.5) MG/3 ML) 3 Ml Ampul.neb, 3 ML NEB RTQID for soa, #60 EACH Prov:BONI VEGA MD 03/16/19 Albuterol Sulfate (Proair Hfa) 8.5 Gm Hfa.aer.ad, 1 PUFF INH PRN Q6HRS PRN for SHORTNESS OF BREATH for 30 Days, INHALER Prov:BONI VEGA MD 02/21/19 Budesonide (PULMICORT FLEXHALER) 180 Mcg Aer.pow.ba, 2 PUFF IH BID for soa, #1 I NHALER 6 Refills Prov:BONI VEGA MD 02/21/19 Guaifenesin/Dextromethorphan (GUAIFENESIN DM SYRUP) 5 Ml Syrup, 10 ML PO PRN Q6HRS PRN for COUGH for 7 Days, MISC Prov:BONI VEGA MD 02/21/19 Insulin Glargine,Hum.rec.anlog (LANTUS) 100 Unit/1 Ml Vial, 15 UNIT SQ HS for dm for 30 Days, EACH Prov:BONI VEGA MD 02/21/19 Furosemide (FUROSEMIDE) 40 Mg Tablet, 40 MG PO BID92 for chf, , #120 TAB Prov:BONI VEGA MD 02/21/19 Aspirin (ASPIRIN EC) 81 Mg Tablet.dr, 81 MG PO DAILYWBKFT for a fib, #120 TAB.SR Prov:BONI VEGA MD 02/21/19 Isosorbide Mononitrate (ISOSORBIDE MONONITRATE ER) 30 Mg Tab.er.24h, 30 MG PO DAILY for htn, #90 TAB.SR Prov:BONI VEGA MD 02/21/19 Atorvastatin Calcium (ATORVASTATIN CALCIUM) 40 Mg Tablet, 40 MG PO QHS for lipids, #90 TAB Prov:BONI VEGA MD 02/21/19 Ticagrelor (BRILINTA) 90 Mg Tablet, 90 MG PO BID for a fob, #120 TAB Prov:BONI VEGA MD 02/21/19 Amiodarone Hcl (AMIODARONE HCL) 200 Mg Tablet, 200 MG PO DAILY for a fib, #90 TAB Prov:BONI VEGA MD 02/21/19 Reported Medications Warfarin Sodium (WARFARIN SODIUM) 5 Mg Tablet, 5 MG PO DAILY for anticoagulant take 5mg on sat,sat.thur,sat,sun take 6 mg on saturday and saturday01/24/19 Ferrous Sulfate (FERROUS SULFATE) 324 Mg Tablet.dr, 324 MG PO DAILY for iron supplment 01/24/19 Tamsulosin Hcl (FLOMAX) 0.4 Mg Cap.er.24h, 0.4 MG PO DAILY for BPH 01/24/19 Discontinued Scripts Metoprolol Succinate (METOPROLOL SUCCINATE ( XL )) 25 Mg Tab.er.24h, 50 MG PO DAILY for htn a fib, #90 TAB.SR Prov:BONI VEGA MD 02/21/19 JENI EASTMAN MD Mar 21, 2019 15:18
[2019-03-21] MEDS: cefTRIAXone IV Push 1 GM VIAL. IVP SCH (16:00)
--- NOTE | 2019-03-21 18:06 | NUR ---
Discharge Note: ROMMEL POLK [address] Discharge instructions and discharge home medications reviewed with Patient and a copy given. All questions have been answered and understanding verbalized. The following instructions and handouts were given: Weakness Discontinued lines and drains: Peripheral IV intact. Patient discharged to Home w/services with Self via Wheelchair walked off unit by MARIE, cab pass to take home
== END 2019-03-21 18:09 | disposition home health service (06) | DRG 286 ==
LOC: ER 06:46 → 1 WEST ICU 09:11 → 6 SOUTH 03-14 17:17 → 5 SOUTH 03-16 18:27
PROVIDERS: ADMIT Internal Medicine; ATTEND Internal Medicine
PROC: 5A09357 Assistance with Respiratory Ventilation, Less than 24 Consecutive Hours, Continuous Positive Airway Pressure (ICD-10-PCS; 2019-03-14)
PROC: 5A1D70Z Performance of Urinary Filtration, Intermittent, Less than 6 Hours Per Day (ICD-10-PCS; 2019-03-16)
PROC: B2141ZZ Fluoroscopy of Right Heart using Low Osmolar Contrast (ICD-10-PCS; 2019-03-17)
PROC: 02H633Z Insertion of Infusion Device into Right Atrium, Percutaneous Approach (ICD-10-PCS; 2019-03-17)
PROC: B244ZZZ Ultrasonography of Right Heart (ICD-10-PCS; 2019-03-17)
PROC: 5A1D70Z Performance of Urinary Filtration, Intermittent, Less than 6 Hours Per Day (ICD-10-PCS; 2019-03-17)
PROC: 5A1D70Z Performance of Urinary Filtration, Intermittent, Less than 6 Hours Per Day (ICD-10-PCS; 2019-03-18)
PROC: 0JH63XZ Insertion of Tunneled Vascular Access Device into Chest Subcutaneous Tissue and Fascia, Percutaneous Approach (ICD-10-PCS; principal; 2019-03-20)
PROC: 02PAX3Z Removal of Infusion Device from Heart, External Approach (ICD-10-PCS; 2019-03-20)
PROC: 02H633Z Insertion of Infusion Device into Right Atrium, Percutaneous Approach (ICD-10-PCS; 2019-03-20)
PROC: B2141ZZ Fluoroscopy of Right Heart using Low Osmolar Contrast (ICD-10-PCS; 2019-03-20)
PROC: 5A1D70Z Performance of Urinary Filtration, Intermittent, Less than 6 Hours Per Day (ICD-10-PCS; 2019-03-20)
PROC: 5A1D70Z Performance of Urinary Filtration, Intermittent, Less than 6 Hours Per Day (ICD-10-PCS; 2019-03-21)
DX: I13.2 Hypertensive heart and chronic kidney disease with heart failure and with stage 5 chronic kidney disease, or end stage renal disease (principal); J96.01 Acute respiratory failure with hypoxia; I50.43 Acute on chronic combined systolic (congestive) and diastolic (congestive) heart failure; N18.6 End stage renal disease; N17.9 Acute kidney failure, unspecified; I16.1 Hypertensive emergency; I42.9 Cardiomyopathy, unspecified; F17.210 Nicotine dependence, cigarettes, uncomplicated; E78.5 Hyperlipidemia, unspecified; K21.9 Gastro-esophageal reflux disease without esophagitis; R33.9 Retention of urine, unspecified; R26.9 Unspecified abnormalities of gait and mobility; I48.0 Paroxysmal atrial fibrillation; I25.10 Atherosclerotic heart disease of native coronary artery without angina pectoris; E10.22 Type 1 diabetes mellitus with diabetic chronic kidney disease; D63.8 Anemia in other chronic diseases classified elsewhere; I44.7 Left bundle-branch block, unspecified; I44.0 Atrioventricular block, first degree; M19.90 Unspecified osteoarthritis, unspecified site; Z95.5 Presence of coronary angioplasty implant and graft; Z82.49 Family history of ischemic heart disease and other diseases of the circulatory system; Z79.01 Long term (current) use of anticoagulants
CPT/HCPCS: 36415; 36556; 36558; 36581; 36600; 71045; 76937; 77001; 80048; 80053; 80069; 81001; 82805; 82962; 83880; 84145; 84484; 85007; 85025; 85027; 85610; 86704; 86706; 86850; 86900; 86901; 87086; 87186; 87340; 90471; 90686; 93005; 94640; 94660; 94760; 96374; 96375; 99152; 99153; C1750; C1769; C1892; J0690; J0696; J1815; J1940; J2250; J2405; J2930; J3010; J3490; J7613; J7620; J7626; 97110; 97116; 97530; 97535; 99285-25; G0378